=== PATIENT | female | born 1935 | race Caucasian/White ===

== ENCOUNTER 2019-01-21 15:33 | Emergency (ER) | payer OTHER, BC ==
--- NOTE | 2019-01-21 16:12 | EKG ---
Test Date: 2019-01-21 Test Time: 16:03:46 General Intern: ROSA M MEASUREMENT RESULTS: Intervals: Rate: 75 UT: 144 QRSD: 132 QT: 420 QTc: 469 Spring: P: 49 UT: 144 QRS: 60 T: 57 INTERPRETIVE STATEMENTS: Normal sinus rhythm Right bundle branch block Possible Lateral infarct, age undetermined Abnormal ECG Compared to ECG 07/20/2012 13:31:44 Right bundle-branch block now present Myocardial infarct finding now present Electronically Signed On 01-21-19 16:11:42 CDT by Parminder Mercer
--- NOTE | 2019-01-21 16:13 | RAD REPORT ---
EXAM DESCRIPTION: RAD - Chest Single View - 01/21/2019 4:05 pm CLINICAL HISTORY: Fall, chest pain COMPARISON: March 2010 TECHNIQUE: AP portable chest image was obtained 1602 hours . FINDINGS: Lung volumes are much more shallow than on the prior study. Interstitial markings are prom inent throughout both lung jimenez. No peripheral mass consolidation. No pulmonary contusion. Cardiac silhouette is upper normal slightly enlarged. No acute vascular engorgement. No measurable pleural ef fusion and no pneumothorax. Bony degenerative changes are present without gross acute process seen. A ortic tortuosity is present. IMPRESSION: Shallow inspiration film shows prominent interstitial pattern lead to be baseline fibrot ic change accentuated by the low lung volumes. Chronic lung pattern could mask earliest stages of interstitial edema or infiltrate. No focal consoli dation.
[2019-01-21 16:24] LABS: Absolute Lymphocytes (CBC) 1.5 K/uL (0.7-4.9); Absolute Monocytes 0.6 K/uL (0.1-1.3); Absolute Neutrophil 3.9 K/uL (1.8-8.0); Basophils % 0.6 % (0-1.3); Eosinophils % 1.2 % (0-4.4); Hematocrit 37.7 % (36.0-45.0); Lymphocytes % 24.3 % (15.3-44.8); MPV 7.7 fL (7.6-11.3); Monocytes % 9.5 % (3.3-12.3); Protime INR 0.96; RBC Red Blood Cell Count 4.09 M/uL (3.86-4.86)
--- NOTE | 2019-01-21 16:37 | RAD REPORT ---
EXAM DESCRIPTION: CT - CTHCSPWOC - 01/21/2019 4:24 pm CLINICAL HISTORY: Fall, head and neck injury, right-sided head, neck and arm pain, right arm numbnes s COMPARISON: None. TECHNIQUE: Axial 5 mm thick images of the head were obtained. Axial 2 mm thick images of the cervic al spine were obtained with sagittal and coronal reconstruction images generated and reviewed. All CT scans are performed using dose optimization technique as appropriate and may include automated exposure control or mA/KV adjustment according to patient size. FINDINGS: No intracranial hemorrhage, mass, edema or acute intracranial finding. No suspicion for acute infarct ion. No extra-axial fluid collections. Mastoid air cells and paranasal sinuses are clear. No globe or orbit abnormality seen. Moderate severity atrophy and chronic ischemic changes are present. Ventricl es are in proportion to volume loss. Arterial and physiologic calcifications are present. Small right frontal scalp hematoma is present. Minimal anterior subluxation of C3 on C4 secondary to facet degenerative change. Degenerative disc di sease present C4-5, C5-6 and C6-7. Nonacute height loss noted in the C5 body and mildly in the C6 bod y. There is posterior endplate spurring and disc bulge Ms. C4-C6 region. Mild left foraminal stenosis at C4-5. Right greater than left foraminal stenosis at C5-6 and significant bilateral C6-7 foraminal stenosis. There degenerative calcifications of the transverse ligament posterior to the dens. No oth er disc space narrowing. No fracture or acute bony abnormality. Central canal detail is inherently li mited. There is reversal of the usual cervical lordosis with the apex at C5. This could be from degen erative change, muscle spasm or positioning artifact. No paraspinal mass or hematoma. IMPRESSION: Moderate severity atrophy and chronic ischemic changes are present with no acute intracr anial finding. A right frontal scalp hematoma is present. Advanced cervical spine degenerative changes are present as detailed. No acute finding noted.
[2019-01-21 16:43] LABS: ALT/SGPT 23 U/L (12-78); AST/SGOT 22 U/L (15-37); Albumin 3.7 g/dL (3.4-5.0); Alkaline Phosphatase 55 U/L (45-117); BUN Blood Urea Nitrogen 19 mg/dL (7-18); Bicarbonate 27 mmol/L (21-32); Bilirubin Direct < 0.1 mg/dL (0-0.2); Bilirubin Total 0.4 mg/dL (0.2-1.0); Glucose Level 122 mg/dL (74-106); Magnesium 2.3 mg/dL (1.8-2.4); NT PRO-BNP 271 pg/mL (<450); Potassium 3.7 mmol/L (3.5-5.1); Sodium Level 145 mmol/L (136-145); Troponin (Emerg Dept Use Only) < 0.02 ng/mL (0.0-0.045)
--- NOTE | 2019-01-21 17:53 | EDPHYS ---
Physician Documentation [facility] Name: Mignon Plunkett Age: 83 yrs Sex: Female : 1935 Arrival Date: 01/21/2019 Time: 15:36 Bed 24 Private MD: Tal Bran ED Physician Catrachito Babb HPI: 01/21 17:53 This 83 yrs old Female presents to ER via Ambulatory with complaints of fall, kdr head injury and numbness to left finger tips. 17:53 The patient or guardian reports injury, pain, swelling, tenderness. The complaints kdr affect the middle aspect of right eyebrow, outer aspect of right eyebrow and right supraorbital ridge. Context of injury: The problem was sustained at home, resulted from impacting a hard surface, hitting tile, The patient bent over to look at something on the floor and next thing she knows, she had fallen on her face. She had a beig hematoma over her right eye. She now has a lot of dependent ecchymosis around the right eye. Onset: The symptoms/episode began/occurred suddenly, 2 day(s) ago. Associated signs and symptoms: The patient has no apparent associated signs or symptoms, Loss of consciousness: Pertinent positives: Unknown LOC. Severity of symptoms: At their worst the symptoms were mild, in the emergency department the symptoms have improved, moderately. The patient has not experienced similar symptoms in the past. The patient has not recently seen a physician. Historical: - Allergies: 15:48 No Known Drug Allergies; tw2 - PMHx: 15:48 Cancer, Breast; High Cholesterol; tw2 - PSHx: 15:48 Lumpectomy; Hysterectomy; Bladder suspension; L foot sx; Varicose veins; L knee tw2 replacement; - Immunization history:: Adult Immunizations. - Social history:: Smoking status: . - Ebola Screening: : Patient denies travel to an Ebola-affected area in the 21 days before illness onset. ROS: 17:53 Constitutional: Negative for fever, chills, and weight loss, ENT: Negative for injury, kdr pain, and discharge, Neck: Negative for injury, pain, and swelling, Cardiovascular: Negative for chest pain, palpitations, and edema, Respiratory: Negative for shortness of breath, cough, wheezing, and pleuritic chest pain, Abdomen/GI: Negative for abdominal pain, nausea, vomiting, diarrhea, and constipation, Back: Negative for injury and pain, : Negative for injury, bleeding, discharge, and swelling, MS/Extremity: Negative for injury and deformity, Skin: Negative for injury, rash, and discoloration, Neuro: Negative for headache, weakness, numbness, tingling, and seizure activity. Psych: Negative for depression, anxiety, suicide ideation, homicidal ideation, and hallucinations, Allergy/Immunology: Negative for hives, rash, and allergies, Endocrine: Negative for neck swelling, polydipsia, polyuria, polyphagia, and marked weight changes, Hematologic/Lymphatic: Negative for swollen nodes, abnormal bleeding, and unusual bruising. 17:53 Eyes: Positive for Ecchymosis around right eye. Exam: 17:53 Constitutional: This is a well developed, well nourished patient who is awake, alert, kdr and in no acute distress. Head/Face: Normocephalic, atraumatic. ENT: Nares patent. No nasal discharge, no septal abnormalities noted. Tympanic membranes are normal and external auditory canals are clear. Oropharynx with no redness, swelling, or masses, exudates, or evidence of obstruction, uvula midline. Mucous membranes moist. Neck: Trachea midline, no thyromegaly or masses palpated, and no cervical lymphadenopathy. Supple, full range of motion without nuchal rigidity, or vertebral point tenderness. No Meningismus. Chest/axilla: Normal chest wall appearance and motion. Nontender with no deformity. No lesions are appreciated. Cardiovascular: Regular rate and rhythm with a normal S1 and S2. No gallops, murmurs, or rubs. Normal PMI, no JVD. No pulse deficits. Respiratory: Lungs have equal breath sounds bilaterally, clear to auscultation and percussion. No rales, rhonchi or wheezes noted. No increased work of breathing, no retractions or nasal flaring. Abdomen/GI: Soft, non-tender, with normal bowel sounds. No distension or tympany. No guarding or rebound. No evidence of tenderness throughout. Back: No spinal tenderness. No costovertebral tenderness. Full range of motion. Skin: Warm, dry with normal turgor. Normal color with no rashes, no lesions, and no evidence of cellulitis. MS/ Extremity: Pulses equal, no cyanosis. Neurovascular intact. Full, normal range of motion. Neuro: Awake and alert, GCS 15, oriented to person, place, time, and situation. Cranial nerves II-XII grossly intact. Motor strength 5/5 in all extremities. Sensory grossly intact. Cerebellar exam normal. Normal gait. Psych: Awake, alert, with orientation to person, place and time. Behavior, mood, and affect are within normal limits. Vital Signs: 15:46 BP 153 / 64; Pulse 94; Resp 17; Temp 98.7; Pulse Ox 98% on R/A; Weight 54.43 kg (R); tw2 Height 5 ft. 0 in. (152.40 cm) (R); Pain 0/10; 17:16 Pulse 71; Resp 18; Temp 98.7; Pulse Ox 97% on R/A; mg2 18:16 BP 145 / 76; Pulse 70; Resp 18; Temp 98.8(O); Pulse Ox 100% ; Pain 0/10; mg2 15:46 Body Mass Index 23.44 (54.43 kg, 152.40 cm) tw2 Cris Coma Score: 17:53 Eye Response: spontaneous(4). Verbal Response: oriented(5). Motor Response: obeys [facility] commands(6). Total: 15. MDM: 17:52 Patient medically screened. kdr 17:53 Data reviewed: vital signs, nurses notes. Counseling: I had a detailed discussion with kdr the patient and/or guardian regarding: the historical points, exam findings, and any diagnostic results supporting the discharge/admit diagnosis, lab results, radiology results, the need for outpatient follow up. 01/21 15:54 Order name: Basic Metabolic Panel [facility] 01/21 15:54 Order name: CBC with Diff [facility] 01/21 15:54 Order name: LFT's [facility] 01/21 15:54 Order name: Magnesium; Complete Time: 17:04 [facility] 01/21 15:54 Order name: NT PRO-BNP; Complete Time: 17:04 [facility] 01/21 15:54 Order name: PT-INR; Complete Time: 16:39 [facility] 01/21 15:54 Order name: CT Head C Spine; Complete Time: 16:39 [facility] 01/21 15:54 Order name: Troponin (emerg Dept Use Only); Complete Time: 17:04 [facility] 01/21 15:54 Order name: XRAY Chest (1 view); Complete Time: 16:39 [facility] 01/21 15:54 Order name: EKG; Complete Time: 15:55 [facility] 01/21 15:54 Order name: Cardiac monitoring; Complete Time: 16:05 [facility] 01/21 15:55 Order name: Basic Metabolic Panel; Complete Time: 17:04 [facility] 01/21 15:55 Order name: CBC with Automated Diff; Complete Time: 16:39 [facility] 01/21 15:55 Order name: Liver (Hepatic) Function; Complete Time: 17:04 [facility] 01/21 15:54 Order name: EKG - Nurse/Tech; Complete Time: 16:04 [facility] 01/21 15:54 Order name: IV Saline Lock; Complete Time: 16:04 [facility] 01/21 15:54 Order name: Labs collected and sent; Complete Time: 16:04 [facility] 01/21 15:54 Order name: O2 Per Protocol; Complete Time: 16:04 [facility] 01/21 15:54 Order name: O2 Sat Monitoring; Complete Time: 16:04 [facility] Administered Medications: No medications were administered Disposition: 01/21/19 17:52 Discharged to Home. Impression: Superficial injury of head, Contusion right supraorbital/forehead. - Condition is Stable. - Discharge Instructions: Head Injury, Adult, [id number]. - Medication Reconciliation Form, Thank You Letter form. - Follow up: Tal Bran MD; When: 2 - 3 days; Reason: If symptoms return, Further diagnostic work-up, Recheck today's complaints, Continuance of care, Re-evaluation by your physician. - Problem is new. - Symptoms have improved. Signatures: Dispatcher [employer] EDMS Catrachito Babb MD MD kdr Valerie Bray, RN RN tw2 Dev Alvarez, ASHLEY RN mg2 Corrections: (The following items were deleted from the chart) 18:23 17:52 01/21/2019 17:52 Discharged to Home. Impression: Superficial injury of head; mg2 Contusion right supraorbital/forehead. Condition is Stable. Forms are Medication Reconciliation Form, Thank You Letter, Antibiotic Education, Prescription Opioid Use. Follow up: Tal Bran; When: 2 - 3 days; Reason: If symptoms return, Further diagnostic work-up, Recheck today's complaints, Continuance of care, Re-evaluation by your physician. Problem is new. Symptoms have improved. kdr
--- NOTE | 2019-01-21 17:53 | ER ---
Nurse's Notes [facility] Name: Mignon Plunkett Age: 83 yrs Sex: Female : 1935 Arrival Date: 01/21/2019 Time: 15:36 Bed 24 Private MD: Tal Bran Diagnosis: Superficial injury of head;Contusion right supraorbital/forehead Presentation: 01/21 15:44 Presenting complaint: Patient states: i started having numbness in right arm has gotten tw2 worse since Thursday, i fell Thursday evening and my head hit the ceramic tile. Transition of care: patient was not received from another setting of care. Onset of symptoms was January 21, 2019. Risk Assessment: Do you want to hurt yourself or someone else? Patient reports no desire to harm self or others. Initial Sepsis Screen: Does the patient meet any 2 criteria? No. Patient's initial sepsis screen is negative. Does the patient have a suspected source of infection? No. Patient's initial sepsis screen is negative. Care prior to arrival: None. 15:44 Method Of Arrival: Ambulatory tw2 15:44 Acuity: ELY 2 tw2 15:47 Presenting complaint: Patient states: my fingers feel numb and if i waste picker a spoon i tw2 drop it and it just has gotten worse. Triage Assessment: 15:47 General: Appears in no apparent distress. well groomed, Behavior is calm, cooperative, tw2 appropriate for age. Pain: Complains of pain in right hand. EENT: Eyes black eye noted to RIGHT eye. Historical: - Allergies: 15:48 No Known Drug Allergies; tw2 - PMHx: 15:48 Cancer, Breast; High Cholesterol; tw2 - PSHx: 15:48 Lumpectomy; Hysterectomy; Bladder suspension; L foot sx; Varicose veins; L knee tw2 replacement; - Immunization history:: Adult Immunizations. - Social history:: Smoking status: . - Ebola Screening: : Patient denies travel to an Ebola-affected area in the 21 days before illness onset. Screenin:04 Abuse screen: Denies threats or abuse. Denies injuries from another. Nutritional mg2 screening: No deficits noted. Tuberculosis screening: No symptoms or risk factors identified. Fall Risk Fall in past 12 months (25 points). IV access (20 points). Assessment: 16:04 General: Appears in no apparent distress. comfortable, Behavior is calm, cooperative. mg2 Pain: Denies pain. Neuro: Level of Consciousness is awake, alert, obeys commands, Oriented to person, place, time, situation. Neuro: Reports numbness in right hand since before Thursday this week. Cardiovascular: Capillary refill < 3 seconds Patient's skin is warm and dry. Respiratory: Airway is patent Respiratory effort is even, unlabored, Respiratory pattern is regular, symmetrical. GI: No signs and/or symptoms were reported involving the gastrointestinal system. : No signs and/or symptoms were reported regarding the genitourinary system. EENT: Eyes bruising noted in both eyes. Derm: Skin is intact, is healthy with good turgor, Skin is pink, warm \T\ dry. normal. Musculoskeletal: Circulation, motion, and sensation intact. Capillary refill < 3 seconds. 18:16 Reassessment: Josette-Attgm was phoned to inform about the patient's condition. Patient mg2 states feeling better. Vital Signs: 15:46 BP 153 / 64; Pulse 94; Resp 17; Temp 98.7; Pulse Ox 98% on R/A; Weight 54.43 kg (R); tw2 Height 5 ft. 0 in. (152.40 cm) (R); Pain 0/10; 17:16 Pulse 71; Resp 18; Temp 98.7; Pulse Ox 97% on R/A; mg2 18:16 BP 145 / 76; Pulse 70; Resp 18; Temp 98.8(O); Pulse Ox 100% ; Pain 0/10; mg2 15:46 Body Mass Index 23.44 (54.43 kg, 152.40 cm) tw2 Cris Coma Score: 17:53 Eye Response: spontaneous(4). Verbal Response: oriented(5). Motor Response: obeys kdr commands(6). Total: 15. ED Course: 15:36 Patient arrived in ED. rg4 15:36 Tal Bran MD is Private Physician. rg4 15:39 Catrachito Babb MD is Attending Physician. kdr 15:46 Triage completed. tw2 15:46 Arm band placed on. tw2 15:56 Dev Alvarez RN is Primary Nurse. mg2 16:03 EKG done, by desktop technician. reviewed by Catrachito Babb MD. dt2 16:04 X-ray completed. Portable x-ray completed in exam room. Patient tolerated procedure mh1 well. 16:06 XRAY Chest (1 view) In Process Unspecified. EDMS 16:07 No provider procedures requiring assistance completed. Inserted saline lock: 20 gauge mg2 in left antecubital area, using aseptic technique. Blood collected. [facility] geophysical support specialist. 16:08 Patient has correct armband on for positive identification. Door closed. Warm blanket mg2 given. 16:24 CT Head C Spine In Process Unspecified. EDMS 17:51 Tal Bran MD is Referral Physician. kdr 18:16 IV discontinued, intact, bleeding controlled, No redness/swelling at site. Pressure mg2 dressing applied. Administered Medications: No medications were administered Outcome: 17:52 Discharge ordered by MD. kdr 18:17 Discharged to home via wheelchair. mg2 18:17 Condition: stable 18:17 Discharge instructions given to patient, Instructed on discharge instructions, follow up and referral plans. Demonstrated understanding of instructions, follow-up care. 18:23 Patient left the ED. mg2 Signatures: Dispatcher [employer] EDNC Catrachito Babb MD MD kdr Alexandrea Chino mh1 Valerie Bray RN RN tw2 Sade Porter 4 Dev Alvarez, RN RN mg2 Esther Sellers dt2 Corrections: (The following items were deleted from the chart) 16:09 16:07 Inserted saline lock: [place] geophysical support specialist mg2 mg2
== END 2019-01-21 18:23 | disposition home or self-care (01) ==
LOC: ER 15:33
DX: S00.11XA Contusion of right eyelid and periocular area, initial encounter (principal); S00.90XA Unspecified superficial injury of unspecified part of head, initial encounter; W01.0XXA Fall on same level from slipping, tripping and stumbling without subsequent striking against object, initial encounter; Y93.89 Activity, other specified; Y92.009 Unspecified place in unspecified non-institutional (private) residence as the place of occurrence of the external cause; C50.919 Malignant neoplasm of unspecified site of unspecified female breast; E78.00 Pure hypercholesterolemia, unspecified
CPT/HCPCS: 36415; 70450; 71045; 72125; 80048; 80076; 83735; 83880; 84484; 85025; 85610; 93005; 99284

== ENCOUNTER 2020-03-09 18:20 | Emergency (ER) | payer OTHER, BC ==
--- NOTE | 2020-03-09 19:19 | RAD REPORT ---
EXAM DESCRIPTION: CT - Head C Spine Mpr Wo Con - 03/09/2020 7:08 pm CLINICAL HISTORY: Head and neck injury status post fall. Head and neck pain COMPARISON: 2018 TECHNIQUE: Computed axial tomography of the head and cervical spine was obtained. Sagittal and coronal reconstruction was performed. All CT scans are performed using dose optimization technique as appropriate and may include automated exposure control or mA/KV adjustment according to patient size. FINDINGS: Frontal scalp hematoma. No underlying skull fracture visualized 14 millimeter bleed within the parenchyma of the left frontal lobe. No shift of midline structures. Moderate low-density areas within periventricular, deep and subcortical white matter likely ischemic changes secondary to small vessel disease The ventricles are normal in caliber. An extra-axial fluid collection is not noted.Fluid within the visualized sinuses and mastoids is not seen Mild anterior subluxation C2 on C3 and C3 on C4 without significant change A cervical fracture is not visualized. No dislocation is noted. Moderate to marked spondylosis involv es mid and distal cervical spine IMPRESSION: 14 millimeter intraparenchymal bleed left frontal lobe A cervical fracture is not visualized. If the patient continues to have symptoms to sugges /spinal c ord pathology then MRI would be recommended The examination was discussed with Kenzie in the Emergency Room at approximately 7:04 p.m. March 09, 2020
--- NOTE | 2020-03-09 19:27 | RAD REPORT ---
EXAM DESCRIPTION: CT - Facial Bones W/ Mpr - 03/09/2020 7:08 pm CLINICAL HISTORY: Facial injury status post fall. Facial pain COMPARISON: none TECHNIQUE: Computed axial tomography of the face was obtained. Coronal and sagittal reconstruction w as performed. All CT scans are performed using dose optimization technique as appropriate and may include automated exposure control or mA/KV adjustment according to patient size. FINDINGS: Left preseptal/cheek swelling. A fracture is not seen. A TMJ dislocation is not noted. The globes are intact. Fluid within the sinuses is not seen. Lucency surrounds a left mandibular tooth probably a periapical abscess IMPRESSION: Negative for a facial fracture.
[2020-03-09 19:34] LABS: Absolute Lymphocytes (CBC) 1.7 K/uL (0.7-4.9); Basophils % 0.6 % (0-1.3); Hematocrit 36.4 % (36.0-45.0); Lymphocytes % 24.5 % (15.3-44.8); MPV 7.5 fL (7.6-11.3); RBC Red Blood Cell Count 4.09 M/uL (3.86-4.86)
--- OUTSIDE RECORDS SUMMARY | 2020-03-09 19:36 | XMS REPORT | Continuity of Care Document ---
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 Mi marilyn disease (disorder) N euro Recurrent falls Active Problem 03/09/2020 Mis erik (finding) Neuro Dementia Active Problem 03/09/2020 [facility] (disorder) Neuro Medications Medication Details Route Status Patient Ordering Order Source Instructions Provider Date Donepezil 5 mg = 1 Active [facility] hydrochloride 5 tab, PO, 020 Neuro MG Oral Tablet Bedtime, [Aricept] # 30 tab, 3 Refill(s) , [id number], 147.32, cm, 01/24/20 16:10:00 CDT, Height, 55.909, kg, 01/24/20 16:10:00 CDT, Weight Prolia 60 mg, Active [facility] SUB-Q, 020 Neuro q6mo, 0 Refill(s) Aspirin 1, PO, Active [facility] Daily, 0 020 Neuro Refill(s) fexofenadine Take 180 Oral Active [facility] (YAS mg by Health ALLERGY) 180 mg mouth tablet daily. calcium Take 1 Oral Active [facility] carbonate-vitam tablet by Health in D3 (CALTRATE mouth 2 600 + D) 600 mg (two) (1,500 mg)-800 times unit per tablet daily with meals. denosumab inject 60 Subcutaneous Active [facility] (PROLIA) 60 mg under Health mg/mL injection the skin. red yeast rice Take 1 Oral Active [facility] 600 mg Tab tablet by Health mouth 2 (two) times daily. Allergies, Adverse Reactions, Alerts Substance Category Reaction Severity Reaction Status Date Comments S ource type Reported Statins-Hmg- Other - Propensity Active [facility] Coa See to adverse 9 Healt h Reductase comments reactions Inhibitors statins Assertion Drug Active Mische r allergy Neuro Immunizations No Data Provided for This Section Results No Data Provided for This Section Pathology Reports No Data Provided for This Section Diagnostic Reports No Data Provided for This Section Consultation Notes No Data Provided for This Section Discharge Summaries No Data Provided for This Section History and Physicals No Data Provided for This Section Vital Signs Vital Sign Value Date Comments Source Systolic (mm Hg) 101 03/06/2020 [facility] Tawana ro Diastolic (mm Hg) 57 [facility] Heart Rate 87 03/06/2020 [facility] Neuro Respitory Rate 16 03/06/2020 [facility] Neuro Temperature Oral (F) 98.2 F 03/06/2020 [facility] Neuro Height 147.32 cm 03/06/2020 [facility] Neuro Weight 56.364 03/06/2020 [facility] Neuro BMI Calculated 25.97 03/06/2020 [facility] Neuro Systolic (mm Hg) 124 01/24/2020 [facility] Tawana ro Diastolic (mm Hg) 66 01/24/2020 [facility] Ne uro Heart Rate 81 01/24/2020 [facility] Neuro Respitory Rate 16 01/24/2020 [facility] Neuro Temperature Oral (F) 98.8 F 01/24/2020 [facility] Neuro Height 147.32 cm 01/24/2020 [facility] Neuro Weight 55.909 01/24/2020 [facility] Neuro BMI Calculated 25.76 01/24/2020 [facility] Neuro Encounters Location Location Encounter Encounter Reason Attending ADM DC Stat us Source Details Type Number For Provider Date Date Visit [facility] Orders Only [id number] No Doctor 05/05 [facility] Unassigned [facility] Telephone [id number] Ramiro 05/20 [facility] Health Ramesh HAHN [facility] Orders Only [id number] No Doctor 05/31 [facility] Unassigned [facility] Telephone [id number] Ramiro 01/22 [facility] Health Ramesh HAHN [id number] Tal Bran 01/23 01/24 [facility] Neurology /2019 Neuro [place] [facility] [id number] Chris Moy 03/06 Rohit sanchez [place] [facility] [id number] Tal Bran 03/06 03/07 [facility]2019 Neuro [place] Out[place] [id number] Chris Kreric 06/06 Ac ti [facility] Outpatient [id number] Chris Krell 06/06 [facility] [place] Procedures Procedure Code Date Perfomer Comments Source COGNITIVE [id number] 05/31/2019 Doctor [facility] [place] [id number] 05/06/2019 Doctor [facility] Health BENEFITS Unassigned Hysterectomy [id number] [facility] Neuro Knee replacement [id number] [facility] Neuro Assessment and Plan No Data Provided for This Section Plan of Care Plan of Care Date Source INFLUENZA VACCINE (Season Ended) 2020 [facility] Upcoming EncountersDateTypeSpecialtyCare TeamDescription 06/2019 [facility] Health 05/31/2019 Office Visit Neurology Ramiro Chandler MD[address] [place] [phone] (Fax) Health MaintenanceDue DateLast DoneComments DTaP,Tdap,and Td Vaccines (1 - Tdap) 1953 Zoster Recombinant Vaccine (SHINGRIX) (1 of 2) 02/20/1984 Medicare Wellness Visit 1999 Osteoporosis Screening 1999 PNEUMOCOCCAL VACCINES 65+ (1 of 2 - PCV13) 1999 INFLUENZA VACCINE (#1) 2019 documented as of this encounter INFLUENZA VACCINE (#1) 2019 [facility] Upcoming EncountersDateTypeSpecialtyCare TeamDescription [facility] Health 05/05/2019 Appointment Radiology Ramiro Chandler MD[address] [place] [phone] (Fax) Health MaintenanceDue DateLast DoneComments DTaP,Tdap,and Td Vaccines (1 - Tdap) 1953 Zoster Recombinant Vaccine (SHINGRIX) (1 of 2) 02/20/1984 Medicare Wellness Visit 1999 Osteoporosis Screening 1999 PNEUMOCOCCAL VACCINES 65+ (1 of 2 - PCV13) 1999 INFLUENZA VACCINE (#1) 2019 documented as of this encounter PNEUMOCOCCAL VACCINES 65+ (1 of 2 - PCV13) 1999 [facility] Medicare Wellness Visit 1999 [facility] Health Osteoporosis Screening 1999 [facility] Zoster Recombinant Vaccine (SHINGRIX) (1 of 2) 02/20/1984 [facility] DTaP,Tdap,and Td Vaccines (1 - Tdap) 1953 [facility] Health DTaP,Tdap,and Td Vaccines (1 - Tdap) 1945 [facility] B Health Social History Social History Date Source Social History TypeResponse 01/24/2020 [facility] o Alcohol 1 Employment/School 2, 3 Smoking Status Unknown if ever smoked; 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 Bran-PCP, Josette Robb-Daughter, Rosalva Robb- [id number]- Josette Stormjessica-Daughter Tobacco UseTypesPacks/DayYears UsedDate 01/24/2020 [facility] Never Assessed Sex Assigned at BirthDate Recorded Not on file Job Start DateOccupationIndustry Not on file Not on file Not on file Travel HistoryTravel StartTravel End No recent travel history available. documented as of this encounter Family History No Data Provided for This Section Advance Directives No Data Provided for This Section Functional Status No Data Provided for This Section
--- OUTSIDE RECORDS SUMMARY | 2020-03-09 19:36 | XMS REPORT | Clinical Summary ---
:1935 Author Organization [facility] Address [address] [place] [address] Care Team Providers Name Role Phone Asked, No Pcp Primary Care Provider Unavailable Allergies No Known Allergies Medications Medication Sig Dispensed Refills Start Date End Date Status ibuprofen Take 200 mg by 0 Activ e (ADVIL,MOTRIN) 200 MG mouth every 6 tablet (six) hours as needed for mild pain. Active Problems Not on file Social History Tobacco Use Types Packs/Day Years Used Date Never Assessed Sex Assigned at Date Recorded Not on file Job Start Date Occupation Industry Not on file Not on file Not on file Travel History Travel Start Travel End No recent travel history available. 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
--- OUTSIDE RECORDS SUMMARY | 2020-03-09 19:37 | XMS REPORT | Summary of Care ---
:1935 Author Organization [facility] Address [address] [place] [address]- Encounter HQ Jacey(FARHAN) [id number] Date(s): 03/06/20 - 03/06/20 [facility] [address], [place] [address]- [phone] Discharge Disposition: Home or Self Care Attending Physician: Chris Moy MD Referring Physician: Tal Bran MD Vital Signs Most recent to oldest [Reference Range]: 1 Height 147.32 cm (03/06/20 1:30 PM) Temperature Oral [96.4-99.1 DegF] 98.2 DegF (03/06/20 1:30 PM) Blood Pressure [90-140/60-90 mmHg] 101/57 mmHg (03/06/20 1:30 PM) Respiratory Rate [14-20 BRMIN] 16 BRMIN (03/06/20 1:30 PM) Peripheral Pulse Rate [60-100 bpm] 87 bpm (03/06/20 1:30 PM) Weight 56.364 kg (03/06/20 1:30 PM) Body Mass Index 25.97 m2 (03/06/20 1:30 PM) Problem List Condition Effective Dates Status Health Status Informant Memory loss(Confirmed) Active Dementia(Confirmed) Active Hyperlipidemia(Confirmed) Active Neuropathy, peripheral(Confirmed) Active Falls frequently(Confirmed) Active Allergies, Adverse Reactions, Alerts Substance Reaction Severity Status statins Active Medications Aricept 5 mg oral tablet 5 mg = 1 tab, PO, Bedtime, # 30 tab, 3 Refill(s), Pharmacy: [facility] #[id number], 147.32, cm, 01/24/2016:10:00 CDT, Height, 55.909, kg, 01/24/20 16:10:00 CDT, Weight Start Date: 03/06/20 Stop Date: 07/04/20 Status: Ordered Results No data available for this section Immunizations No data available for this section Procedures Procedure Date Related Diagnosis Body Site Status Hysterectomy Completed Knee replacement Completed Social History Social History Type Response Alcohol 1 Employment/School 2, 3 Smoking Status Unknown if ever smoked; Expo sure to Tobacco Smoke Unable to obtain; Cigarette Smoking Last 365 Days Unable to obtain; Reg Smoking Cessation Counseling No entered on: 03/06/20 1occasional 1 [id number] release medical information Dr. Bran-PCP, Josette Robb-Daughter, Rosalva Robb- [id number]- Josette Robb-Daughter Assessment and Plan No data available for this section
--- OUTSIDE RECORDS SUMMARY | 2020-03-09 19:37 | XMS REPORT | Continuity of Care Document ---
:1935 Author Organization [facility] t Address [address] [place] [address] Care Team Providers Name Role Phone Asked, Pcp Primary Care Physician Unavailable Sudeep Moy Attending Clinician Ramesh HAHN, Gene Attending Clinician Doctor Unassigned, Name Attending Clinician Unavailable Problems Condition Condition Condition Status Onset Resolution Last Treating Co mments Source Name Details Category Date Date Treatment Clinician Date Amnesia Problem Active 2020-03-09 Amari maryjo (finding) 00:58:04 l Amnesia Piero (finding) Active Problem 03/09/2020 [facility] Hyperlipid Problem Active 2020-03-09 M emoria emia 00:58:04 l (disorder) Hu n Hyperlipid emia (disorder) Active Problem 03/09/2020 [facility] Peripheral Problem Active 2020-03-09 M emoria nerve 00:58:04 l disease [place] (disorder) Peripheral nerve disease (disorder) Active Problem 03/09/2020 [facility] Recurrent Problem Active 2020-03-09 Me moria falls 00:58:04 l (finding) [place] Recurrent falls (finding) Active Problem 03/09/2020 [facility] Dementia Problem Active 2020-03-09 Mem oria (disorder) 00:58:04 l Dementia Hu n (disorder) Active Problem 03/09/2020 [facility] Allergies, Adverse Reactions, Alerts Allergy Allergy Status Severity Reaction(s) Onset Inactive Treating Comm ents Source Name Type Date Date Clinician Statins- Statins- Active Other - See M emoria Hmg-Coa Hmg-Coa comments 23 l Reductas Reductas 00:00: Hu n e e 00 Inhibito Inhibito rs rs statins statins Active Memoria l Piero Social History Social Habit Start Date Stop Date Quantity Comments Source Sex Assigned At [facility] M ethodist Social History 2020-01-24 2020-01-24 [facility] ermann 21:23:26 21:23:26 Medications Ordered Filled Start Stop Current Ordering Indication Dosage Frequency Signature Comments Components Source Medication Medication Date Date Medication? Clinician (SIG) Name Name Donepezil Yes 5 mg = 1 Amari maryjo hydrochlori 6-23 tab, PO, l de 5 MG 18:37: Bedtime, # Herm venkatesh Oral Tablet 00 30 tab, 3 [Aricept] Refill(s), Pharmacy: [facility] #6704, 147.32, cm, 01/24/20 16:10:00 CDT, Height, 55.909, kg, 01/24/20 16:10:00 CDT, Weight Prolia 2019- Yes 60 mg, Memoria 5-12 SUB-Q, l 21:17: q6mo, 0 Piero 00 Refill(s) Aspirin Yes 1, PO, Memoria 5-12 Daily, 0 l 21:17: Refill(s) [place] 00 fexofenadin Yes Take 180 Me moria e (YAS 5-12 mg by l ALLERGY) 15:24: mouth Piero 180 mg 30 daily. tablet calcium Yes Take 1 Memoria carbonate-v 5-12 tablet by l itamin D3 15:24: mouth 2 Ermelinda nn (CALTRATE 30 (two) 600 + D) times 600 mg daily with (1,500 meals. mg)-800 unit per tablet denosumab Yes inject 60 Mem oria (PROLIA) 60 5-12 mg under l mg/mL 15:24: the skin. Piero injection 30 red yeast Yes Take 1 Memori a rice 600 mg 5-12 tablet by l Tab 15:24: mouth 2 [place] 30 (two) times daily. ibuprofen Yes 200mg Q6H Take 200 Abida ston (ADVIL,MOTR 5-15 mg by Methodi IN) 200 MG 13:40: mouth st tablet 50 every 6 (six) hours as needed for mild pain. Vital Signs Vital Name Observation Time Observation Value Comments Source Systolic (mm Hg) 2020-03-06 18:30:00 Amari rial [place] Diastolic (mm Hg) 2020-03-06 18:30:00 Mem orial [place] Heart Rate 2020-03-06 18:30:00 Memorial [place] Respitory Rate 2020-03-06 18:30:00 Memori al Piero Temperature Oral (F) 2020-03-06 18:30:00 98.2 F [facility] [place] Height 2020-03-06 18:30:00 147.32 cm [facility] [place] Weight 2020-03-06 18:30:00 [facility] [place] BMI Calculated 2020-03-06 18:30:00 Memori al [place] Systolic (mm Hg) 2020-01-24 21:10:00 Amari rial [place] Diastolic (mm Hg) 2020-01-24 21:10:00 Mem orial [place] Heart Rate 2020-01-24 21:10:00 [facility] [place] Respitory Rate 2020-01-24 21:10:00 Memori al [place] Temperature Oral (F) 2020-01-24 21:10:00 98.8 F [facility] [place] Height 2020-01-24 21:10:00 147.32 cm [facility] [place] Weight 2020-01-24 21:10:00 [facility] [place] BMI Calculated 2020-01-24 21:10:00 Memori al Piero Procedures Procedure Date / Time Performed Performing Clinician [facility] e COGNITIVE ASSESSMENT 2019-05-31 10:01:00 Doctor Unassigned, No [facility] Name ASSIGNMENT OF BENEFITS 2019-05-06 00:53:38 Doctor Unassigned, No [facility] Pier[facility] Name Hysterectomy [facility] Knee replacement [facility] Hu n Plan of Care Planned Activity Planned Date Details Comments Source Future Scheduled 2020-05-15 Plan of Care [code = Mem orial Piero Test 00:00:00 14881-8] Future Scheduled 2020-04-14 INFLUENZA VACCINE [place] [facility] 00:00:00 [code = INFLUENZA VACCINE] Future Scheduled 2019-05-24 Plan of Care [code = Mem orial [place] Test 15:09:18 71723-6] Future Scheduled 2019-05-15 Plan of Care [code = Mem orial [place] Test 00:00:00 98973-7] Future Scheduled 2019-05-05 Plan of Care [code = Mem orial [place] Test 19:53:41 68114-1] Future Scheduled 1999 65+ PNEUMOCOCCAL [facility] Test 00:00:00 VACCINE (1 of 2 - PCV13) [code = 65+ PNEUMOCOCCAL VACCINE (1 of 2 - PCV13)] Future Scheduled 1999 Plan of Care [code = Mem orial [place] Test 00:00:00 65780-8] Future Scheduled 1999 Medicare Annual Memorial [place] Test 00:00:00 Wellness Visit (procedure) [code = 920800376975962] Future Scheduled 1999 Screening for Memorial ermann Test 00:00:00 osteoporosis (procedure) [code = 232598983] Future Scheduled 1984-02-20 SHINGLES VACCINES (#1) [place] [facility] 00:00:00 [code = SHINGLES VACCINES (#1)] Future Scheduled 1984-02-20 Plan of Care [code = Mem orial [place] Test 00:00:00 81278-4] Future Scheduled 1953 Plan of Care [code = Mem orial [place] Test 00:00:00 54404-0] Future Scheduled 1945 Plan of Care [code = Mem orial Piero Test 00:00:00 95989-7] Encounters Start End Encounter Admission Attending Care Care Encounter Source Date/Time Date/Time Type Type Clinicians Facility Department ID 2020-03-06 2020-03-06 Outpatient CHARLY Moy [id number] 13:30:00 23:59:59 Chris 02 Sudeep 2020-01-24 2020-01-24 Outpatient CHARLY MoySCHMARK [id number] 15:45:00 23:59:59 Chris 01 Sudeep 2020-01-23 2020-01-23 Telephone ERIC Chandler [id number] 00:00:00 00:00:00 Ramiro Stewart [id number] [place] [id number] Dary [phone] [address] 2020-01-23 2020-01-23 Telephone ERIC Chandler [id number] 00:00:00 00:00:00 Ramiro Erazoton [id number] [place] [id number] Professio [phone] [address] 2019-05-31 2019-05-31 Orders Doctor DORY [id number] 00:00:00 00:00:00 Only Unassigned, LUIS [id number] [facility] [id number] [id number] [id number] 2019-05-31 2019-05-31 Orders Doctor DORY [id number] 00:00:00 00:00:00 Only Unassigned, LUIS [id number] [facility] [id number] [id number] [id number] 2019-05-20 2019-05-20 [facility] [id number] 00:00:00 00:00:00 Ramiro Erazoton [id number] [place] [id number] Professio [id number] [address] 2019-05-20 2019-05-20 [facility] [id number] 00:00:00 00:00:00 Ramiro Stewart [id number] [place] [id number] Professio [id number] [address] 2019-05-05 2019-05-05 Orders Doctor DORY [id number] 00:00:00 00:00:00 Only Unassigned, LUIS [id number] [facility] [id number] [id number] 2019-05-05 2019-05-05 Orders Doctor DORY [id number] 00:00:00 00:00:00 Only Unassigned, LUIS [id number] [place] [id number] [id number] [id number] Results This patient has no known results.
--- OUTSIDE RECORDS SUMMARY | 2020-03-09 19:37 | XMS REPORT | Summary of Care ---
:1935 Author Organization [facility] Address [address] [place] [address]- Encounter HQ Jacey(FARHAN) [id number] Date(s): 01/24/20 - 01/24/20 [facility] [address], [place] [address]- [phone] Discharge Disposition: Home or Self Care Attending Physician: Chris Moy MD Referring Physician: Tal Bran MD Vital Signs Most recent to oldest [Reference Range]: 1 Height 147.32 cm (01/24/20 4:10 PM) Temperature Oral [96.4-99.1 DegF] 98.8 DegF (01/24/20 4:10 PM) Blood Pressure [90-140/60-90 mmHg] 124/66 mmHg (01/24/20 4:10 PM) Respiratory Rate [14-20 BRMIN] 16 BRMIN (01/24/20 4:10 PM) Peripheral Pulse Rate [60-100 bpm] 81 bpm (01/24/20 4:10 PM) Weight 55.909 kg (01/24/20 4:10 PM) Body Mass Index 25.76 m2 (01/24/20 4:10 PM) Problem List Condition Effective Dates Status Health Status Informant Memory loss(Confirmed) Active Hyperlipidemia(Confirmed) Active Neuropathy, peripheral(Confirmed) Active Falls frequently(Confirmed) Active Allergies, Adverse Reactions, Alerts Substance Reaction Severity Status statins Active Medications aspirin 1, PO, Daily, 0 Refill(s) Start Date: 01/24/20 Status: OrderedProlia 60 mg, SUB-Q, q6mo, 0 Refill(s) Start Date: 01/24/20 Status: Ordered Results No data available for [...] Reg Smoking Cessation Counseling No entered on: 01/24/20 1occasional 1 [id number] release medical information Dr. Bran-PCP, Josette Robb-Daughter, Rosalva Robb- [id number]- Josette Robb-Daughter Assessment and Plan No data available for this section
[2020-03-09 19:41] LABS: Protime INR 0.91
--- NOTE | 2020-03-09 20:01 | ER ---
Nurse's Notes [facility] [place], [place] Name: Mignon Plunkett Age: 85 yrs Sex: Female : 1935 Arrival Date: 03/09/2020 Time: 18:23 Bed 15 Private MD: Sveta Bran C Diagnosis: Left Frontal intraparenchymal hemorrhage Presentation: 03/09 18:35 Chief complaint: Patient states: "I can't really remember what happened. I just ca1 remember seeing blood on the floor, I washed myself and went to bed. I am not having any pain right now". Bruise on L rastafari, L eye, inner canthus of R eye. Coronavirus screen: Proceed with normal triage. Patient denies a cough. Patient denies shortness of breath or difficulty breathing. Patient denies measured and/or subjective temperature greater than 100.4F prior to today's visit. Patient denies travel on a cruise ship or to a country the [facility] currently lists as an affected area. Patient denies contact with known and/or suspected case of COVID-19. Ebola Screen: Patient negative for fever greater than or equal to 101.5 degrees Fahrenheit, and additional compatible Ebola Virus Disease symptoms Patient denies exposure to infectious person. Patient denies travel to an Ebola-affected area in the 21 days before illness onset. No symptoms or risks identified at this time. Initial Sepsis Screen: Does the patient meet any 2 criteria? No. Patient's initial sepsis screen is negative. Does the patient have a suspected source of infection? No. Patient's initial sepsis screen is negative. Risk Assessment: Do you want to hurt yourself or someone else? Patient reports no desire to harm self or others. Onset of symptoms was March 09, 2020. 18:35 Method Of Arrival: Ambulatory ca1 18:35 Acuity: ELY 2 ca1 18:55 Care prior to arrival: None. Mechanism of Injury: Fall from standing position. Trauma jl7 event details: Injury occurred in the [facility], Injury occurred: at home. Injury occurred: March 08, 2020 Injury occurred at: 20:30. Trauma Activation: Physician: ED Physician; Name: Vladimir; Notified At: ; Arrived At: Physician: General Surgeon; Name: ; Notified At: ; Arrived At: Physician: Radiology; Name: ; Notified At: ; Arrived At: Physician: Respiratory; Name: ; Notified At: ; Arrived At: Physician: Lab; Name: ; Notified At: ; Arrived At: Historical: - Allergies: 18:42 No Known Allergies; ca1 - Home Meds: 18:42 None [Active]; ca1 - PMHx: 18:42 Cancer, Breast; High Cholesterol; ca1 - PSHx: 18:42 Lumpectomy; Hysterectomy; Bladder suspension; L foot sx; Varicose veins; L knee ca1 replacement; - Immunization history:: Adult Immunizations up to date. - Social history:: Smoking status: Patient denies any tobacco usage or history of. - Immunization history: Last tetanus immunization: unknown. Screenin:55 Abuse screen: Denies threats or abuse. Denies injuries from another. Tuberculosis jl7 screening: No symptoms or risk factors identified. 19:13 Nutritional screening: No deficits noted. Fall Risk Fall in past 12 months (25 points). jl7 No secondary diagnosis (0 pts). IV access (20 points). Ambulatory Aid- None/Bed Rest/Nurse Assist (0 pts). Gait- Normal/Bed Rest/Wheelchair (0 pts) Mental Status- Overestimates/Forgets Limitations (15 pts.). Total Bear Fall Scale indicates High Risk Score (45 or more points). Fall prevention measures have been instituted. Side Rails Up X 2 Placed Close to Nursing Station Frequent Obs/Assessments Occuring Family Present and informed to notify staff if the need to leave the bedside As available patient and family educated on Fall Prevention Program and Strategies. Primary Survey: 18:55 NO uncontrolled hemorrhage observed. A: The patient is alert. Airway: patent. jl7 Breathing/Chest: Respiratory pattern: regular, Respiratory effort: spontaneous, unlabored, Chest inspection: symmetrical rise and fall of the chest. Circulation: Skin color: pink. Disability Alert. Exposure/Environment: All clothing and personal items were removed. Forensic evidence collection is not deemed to be indicated at this time. Items placed in patient belonging bag. 19:25 Reassessment Airway Airway Patent Breathing/Chest Respiratory pattern Regular ao Respiratory effort Spontaneous Breath sounds Clear Chest inspection Symmetrical Circulation Heart rhythm Sinus rhythm Disability Alert. Assessment: 19:23 General: Appears in no apparent distress. comfortable, slender, well groomed, well ao developed, well nourished, Behavior is calm, cooperative, appropriate for age. Pain: Denies pain. Neuro: Level of Consciousness is awake, alert, obeys commands, Oriented to person, place, time, situation, Appropriate for age Moves all extremities. Full function Speech is normal, Facial symmetry appears normal. Cardiovascular: Capillary refill < 3 seconds Patient's skin is warm and dry. Respiratory: Airway is patent Respiratory effort is even, unlabored, Respiratory pattern is regular, symmetrical. GI: Abdomen is flat, non-distended. : No signs and/or symptoms were reported regarding the genitourinary system. EENT: No signs and/or symptoms were reported regarding the EENT system. Derm: Bruising that is dark purple, on left supraorbital ridge. Musculoskeletal: Range of motion: intact in all extremities, Swelling present in left cheek. Vital Signs: 18:35 BP 143 / 73; Pulse 86; Resp 18 S; Temp 96.8(TE); Pulse Ox 98% on R/A; Weight 54.43 kg ca1 (R); Height 5 ft. 4 in. (162.56 cm) (R); Pain 0/10; 19:14 BP 136 / 77; Pulse 83; Resp 17; Pulse Ox 96% ; Pain 0/10; jl7 18:35 Body Mass Index 20.60 (54.43 kg, 162.56 cm) ca1 [place] Coma Score: 18:55 Eye Response: spontaneous(4). Verbal Response: oriented(5). Motor Response: obeys jl7 commands(6). Total: 15. Trauma Score (Adult): 18:55 Eye Response: spontaneous(1); Verbal Response: oriented(1); Motor Response: obeys jl7 commands(2); Systolic BP: > 89 mm Hg(4); Respiratory Rate: 10 to 29 per min(4); Cris Score: 15; Trauma Score: 12 ED Course: 18:23 Patient arrived in ED. as 18:24 Sveta Bran MD is Private Physician. as 18:41 Triage completed. ca1 18:41 Trung Knox PA is PHCP. jr8 18:41 Tk Gilbert MD is Attending Physician. jr8 18:42 Arm band placed on right wrist. ca1 18:55 Patient has correct armband on for positive identification. Placed in gown. Bed in low jl7 position. Call light in reach. Side rails up X2. 18:55 Patient maintains SpO2 saturation greater than 95% on room air. Thermoregulation: warm jl7 blanket given to patient. 19:09 CT Head C Spine In Process Unspecified. EDMS 19:09 CT Facial Bones W/O Con In Process Unspecified. EDMS 19:18 Inserted saline lock: 20 gauge in right forearm, using aseptic technique. Blood ao collected. 19:20 [facility] [place] [facility] 19:23 Manan Sanchez, RN is Primary Nurse. ao 19:29 Pt was accepted at [address] Larkin accepted pt. tt3 20:41 No provider procedures requiring assistance completed. Patient transferred, IV remains ao in place. Administered Medications: No medications were administered Intake: 20:41 PO: 0ml; Total: 0ml. ao Outcome: 20:00 ER care complete, transfer ordered by MD. romero 20:41 Transferred by ground EMS to [facility], Transfer form completed. ao X-rays sent w/ patient. 20:41 Condition: stable 20:42 Patient's length of stay in the Emergency Department was greater than 2 hours. ao Patient's length of stay was extended due to staffing issues within the emergency department. Patient's length of stay was extended due to receiving facility on divert. 20:42 Patient left the ED. ao Signatures: Dispatcher [employer] EDMS Claudia Leal Josh, PA PA jr8 Manan Sanchez, RN RN Francisco Javier Ramos RN RN jl7 Paris Domínguez RN RN ca1 Trim, Tyler tt3
--- NOTE | 2020-03-09 20:01 | EDPHYS ---
Physician Documentation [facility] Name: Mignon Plunkett Age: 85 yrs Sex: Female : 1935 Arrival Date: 03/09/2020 Time: 18:23 Bed 15 Private MD: Sveta Bran C ED Physician Tk Gilbert HPI: 03/09 19:18 This 85 yrs old Female presents to ER via Ambulatory with complaints of Fall jr8 Injury, Head Injury-Adult. 19:18 Details of fall: The patient fell from an upright position, while standing. Onset: The jr8 symptoms/episode began/occurred acutely, last night. Associated injuries: The patient sustained injury to the head, deformity, hematoma, pain, swelling, tenderness. Severity of symptoms: At their worst the symptoms were moderate, in the emergency department the symptoms are unchanged. The patient has not experienced similar symptoms in the past. The patient has not recently seen a physician. Patient stated that she had accidental fall last night. Denies LOC. Pain to head and left side of face. Called son who brought her to be evaluated . Historical: - Allergies: 18:42 No Known Allergies; ca1 - Home Meds: 18:42 None [Active]; ca1 - PMHx: 18:42 Cancer, Breast; High Cholesterol; ca1 - PSHx: 18:42 Lumpectomy; Hysterectomy; Bladder suspension; L foot sx; Varicose veins; L knee ca1 replacement; - Immunization history:: Adult Immunizations up to date. - Social history:: Smoking status: Patient denies any tobacco usage or history of. - Immunization history: Last tetanus immunization: unknown. ROS: 19:18 Eyes: Negative for injury, pain, redness, and discharge, ENT: Negative for injury, jr8 pain, and discharge, Neck: Negative for injury, pain, and swelling, Cardiovascular: Negative for chest pain, palpitations, and edema, Respiratory: Negative for shortness of breath, cough, wheezing, and pleuritic chest pain, Abdomen/GI: Negative for abdominal pain, nausea, vomiting, diarrhea, and constipation, Back: Negative for injury and pain, MS/Extremity: Negative for injury and deformity, Neuro: Negative for headache, weakness, numbness, tingling, and seizure. 19:18 Skin: Positive for ecchymosis, hematoma, swelling, of the face. Exam: 19:18 ENT: Nares patent. No nasal discharge, no septal abnormalities noted. Tympanic jr8 membranes are normal and external auditory canals are clear. Oropharynx with no redness, swelling, or masses, exudates, or evidence of obstruction, uvula midline. Mucous membranes moist. Neck: Trachea midline, no thyromegaly or masses palpated, and no cervical lymphadenopathy. Supple, full range of motion without nuchal rigidity, or vertebral point tenderness. No Meningismus. Chest/axilla: Normal chest wall appearance and motion. Nontender with no deformity. No lesions are appreciated. Cardiovascular: Regular rate and rhythm with a normal S1 and S2. No gallops, murmurs, or rubs. Normal PMI, no JVD. No pulse deficits. Respiratory: Lungs have equal breath sounds bilaterally, clear to auscultation and percussion. No rales, rhonchi or wheezes noted. No increased work of breathing, no retractions or nasal flaring. Abdomen/GI: Soft, non-tender, with normal bowel sounds. No distension or tympany. No guarding or rebound. No evidence of tenderness throughout. Back: No spinal tenderness. No costovertebral tenderness. Full range of motion. Skin: Warm, dry with normal turgor. Normal color with no rashes, no lesions, and no evidence of cellulitis. MS/ Extremity: Pulses equal, no cyanosis. Neurovascular intact. Full, normal range of motion. Neuro: Awake and alert, GCS 15, oriented to person, place, time, and situation. Cranial nerves II-XII grossly intact. Motor strength 5/5 in all extremities. Sensory grossly intact. Cerebellar exam normal. Normal gait. 19:18 Head/face: Noted is ecchymosis, that is moderate, of the forehead and left cheek, hematoma, that is moderate, of the left side of forehead, tenderness, that is mild, of the forehead and left cheek. 19:18 Eyes: Periorbital structures: ecchymosis, that is moderate, on the left supraorbital ridge, left upper eyelid, medial canthus of left eye, lateral canthus of left eye and left lower eyelid, Pupils: equal, round, and reactive to light and accomodation, Extraocular movements: intact throughout, Conjunctiva: normal, Corneas: are normal, Sclera: no appreciated abnormality, Anterior chamber: normal, Lids and lashes: appear normal, Examination of the other eye reveals no obvious gross abnormality. Vital Signs: 18:35 BP 143 / 73; Pulse 86; Resp 18 S; Temp 96.8(TE); Pulse Ox 98% on R/A; Weight 54.43 kg ca1 (R); Height 5 ft. 4 in. (162.56 cm) (R); Pain 0/10; 19:14 BP 136 / 77; Pulse 83; Resp 17; Pulse Ox 96% ; Pain 0/10; jl7 18:35 Body Mass Index 20.60 (54.43 kg, 162.56 cm) ca1 [place] Coma Score: 18:55 Eye Response: spontaneous(4). Verbal Response: oriented(5). Motor Response: obeys jl7 commands(6). Total: 15. Trauma Score (Adult): 18:55 Eye Response: spontaneous(1); Verbal Response: oriented(1); Motor Response: obeys jl7 commands(2); Systolic BP: > 89 mm Hg(4); Respiratory Rate: 10 to 29 per min(4); [place] Score: 15; Trauma Score: 12 MDM: 18:41 Patient medically screened. jr8 19:05 Data reviewed: vital signs, nurses notes. Physician consultation: Merrill Elkins MD was snw called at 19:06, was contacted at 19:06, regarding 14mm frontal parenchymal bleed, no fractures. 19:18 Data reviewed: lab test result(s), radiologic studies, CT scan. Data interpreted: Pulse jr8 oximetry: on room air is 96 %. Interpretation: normal. Counseling: I had a detailed discussion with the patient and/or guardian regarding: the historical points, exam findings, and any diagnostic results supporting the discharge/admit diagnosis, lab results, radiology results, the need to transfer to another facility, [facility] does not immediately have the required specialist. 19:58 ED course: Piero accepted to ED for further evaluation of head bleed . 8 03/09 19:12 Order name: CBC with Diff; Complete Time: 20:21 jr8 03/09 19:12 Order name: Basic Metabolic Panel; Complete Time: 20:03 jr8 03/09 18:25 Order name: CT Head C Spine; Complete Time: 19:22 snw 03/09 18:45 Order name: CT Facial Bones W/O Con; Complete Time: 20:02 [facility] 03/09 19:12 Order name: Protime (+inr); Complete Time: 20: 8 03/09 19:12 Order name: Ptt, Activated; Complete Time: 20:02 jr8 03/09 19:12 Order name: IV; Complete Time: 19:23 jr8 Administered Medications: No medications were administered Disposition: 03/10 07:15 Co-signature as Attending Physician, Tk Gilbert MD I agree with the assessment and [facility] plan of care. Disposition: 03/09/20 20:00 Transfer ordered to [facility]. Diagnosis is Left Frontal intraparenchymal hemorrhage . - Reason for transfer: Higher level of care. - Accepting physician is Larimore. - Condition is Stable. - Problem is new. - Symptoms are unchanged. Signatures: Dispatcher [employer] EDTk Phipps MD MD cha Therrien, Shelly, C 13 CATAPULT OPERATOR-C C 13 CATAPULT OPERATOR-Csnw Trung Knox, AYANA PA jr8 Manan Sanchez, RN RN ao Francisco Javier Hernandez RN RN jl7 Paris Domínguez, RN RN ca1 Corrections: (The following items were deleted from the chart) 03/09 20:42 20:00 03/09/2020 20:00 Transfer ordered to [facility]. Diagnosis is Left ao Frontal intraparenchymal hemorrhage . Reason for transfer: Higher level of care. Accepting physician is Piero. Condition is Stable. Problem is new. Symptoms are unchanged. jr8
[2020-03-09 20:02] LABS: Potassium 3.6 mmol/L (3.5-5.1)
[2020-03-09 20:49] VITALS: TEMP 96.8
[2020-03-09 20:51] VITALS: BP 136/77; O2SAT 96
== END 2020-03-09 20:42 | disposition short-term general hospital (02) ==
LOC: ER 18:20
DX: S06.350A Traumatic hemorrhage of left cerebrum without loss of consciousness, initial encounter (principal); W19.XXXA Unspecified fall, initial encounter; Y93.9 Activity, unspecified; Y92.9 Unspecified place or not applicable; Z85.3 Personal history of malignant neoplasm of breast
CPT/HCPCS: 36415; 70450; 70486; 72125; 76377; 80048; 85025; 85610; 85730; 99285

== ENCOUNTER 2020-09-28 11:13 | Emergency (ER) | payer OTHER, BC ==
--- OUTSIDE RECORDS SUMMARY | 2020-09-28 11:18 | XMS REPORT | Continuity of Care Document ---
:1935 Author Organization [facility] Care Team Providers Name Role Phone [facility] Information [facility] [employer] Unavailable Un available Problems Problem Status Onset Classification Date Comments Sourc e Date Reported R29.6 - REPEATED Active 04/06/20 OPID FALLS F03.90 - 20 [place] and UNSPECIF LEFT FRONTAL BLEED Active 03/09/[address] INTRACRANIAL Active 03/09[place] HEMORRHAGE 20 Medical FOLLOWING INJURY Antonio ter Amnesia (finding) Active Problem 06/08/2020 M ischer Neuro,[facility] Hyperlipidemia Active Problem 06/08/2020 Misc her (disorder) Neuro,[facility] 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) N euro,[facility] Recurrent falls Active Problem 06/08/2020 Mis erik (finding) Neuro,[facility] Dementia Active Problem 06/08/2020 Mischer (disorder) Neuro,[facility] 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Mischer hemorrhage Neuro (disorder) UNSP FOCAL TBI W Active [facility] LOC OF UNSP Medical DURATION, I Center Medications Medication Details Route Status Patient Ordering Order Source Instructions Provider Date Donepezil 10 mg = 1 Active [place] hydrochloride tab, PO, 020 Neuro 10 MG Oral Bedtime, # 30 Tablet tab, 6 [Aricept] Refill(s), Pharmacy: [facility]/pharmacy #[id number], 147.32, cm, 04/26/20 9:31:00 CDT, Height, 56.364, kg, 04/26/20 9:31:00 CDT, Weight heparin sodium, Notes: [place] porcine 2500 porcine 020 Medical UNT/ML heparin [place] Injectable Solution Levetiracetam 500 mg = 1 [place] 500 MG Oral tab, PO, 020 Medical Tablet [Keppra] Q12H, # 12 Cente r tab, 0 Refill(s) remove patch Notes: Remove Inactive [place] patch 12 020 Medical hours after Center application each day. Docusate Notes: (Same No Longer [facility] as: Colace) Active 020 Medical (Do Not Center Crush) sennosides, ASSISTED Notes: (Same No Longer [facility] [place] as: Senokot) Active 020 Medical Center Lidocaine 0.05 Notes: Apply Inactive [place] MG/MG only once for 020 Medical Transdermal up to 12 Center Patch hours in a 24-hour period (12 hours on and 12 hours off). (Same as: Lidoderm) "Remove old patch before application of new patch" Saline Flush Notes: Same [place] Longer [place] 0.9% as: BD Active 020 Medical Posiflush Center Sterile Ceftriaxone Notes: (Same [place] Longer [place] As: Active 020 Medical Rocephin). Center MEDICATION WASTE Product Size: 1000 mg Product Wasted: 0 mg Levetiracetam Notes: (Same No Longer [place] 500 MG Oral as:Keppra) Active 020 Medical Tablet [Keppra] [place] Levetiracetam Notes: Same Inactive [place] as Keppra 020 Medical Mix with 100 Center mL NS, LR or D5W MEDICATION WASTE Product Size: 500 mg Product Wasted: _0__ mg Sodium Chloride 1,000 mL, Inactive [place] 0.9% IV 1,000 Rate: 50 020 Medical mL ml/hr, Infuse Center over: 20 hr, Route: IV, Dosing Weight 54.545 kg, Total Volume: 1,000, Start date: 03/10/20 4:17:00 CDT, Duration: 30 day, Stop date: 04/09/20 4:16:00 CDT, 1.54, m2, 0 Acetaminophen Notes: Do not No Longer [place] exceed 4 Active 020 Medical gm/day. Center (Same as: Tylenol) Acetaminophen Notes: Do not Inactive [place] 325 MG / exceed 020 Medical Hydrocodone 4gm/day of Center Bitartrate 10 acetaminophen MG Oral Tablet . (Same as: Aspers 325/10) Morphine Notes: (Same Inactive [facility] as:MORPhine 020 Medical Sulfate) Center Bisacodyl Notes: (Same No Longer [facility] As: Dulcolax, Active 020 Medical Bisco-Lax) Center Ondansetron Notes: (Same [place] Longer [place] as: Zofran) Active 020 Medical Center MEDICATION WASTE Product Size: 4 mg Product Wasted: ___ mg Hydralazine Notes: (Same [place] Longer [place] as: Active 020 Medical Apresoline) Center Push over 5 minutes Labetalol 10 mg, 2 mL, No Longer [facility] Route: IVP, Active 020 Medical Drug form: Center INJ, Q15Min, Dosing Weight 54.545, kg, PRN Hypertension, Start date: 03/10/20 4:17:00 CDT, Duration: 30 day, Stop date: 04/09/20 4:16:00 CDT, 0 Saline Flush Notes: Same [place] Longer [place] 0.9% as: BD Active 020 Medical Posiflush Center Sterile Iohexol 100 mL, Inactive [facility] Route: IVP, 020 Medical Drug Form: Center SOLN, Dosing Weight 54.545, kg, ONCALL, STAT, Start date: 03/09/20 23:57:00 CDT, Duration: 1 doses or times, Dose = 2.2ml/kg, Max dose = 100ml -- "To be infused by Radiology Staff ONLY" Levetiracetam 1,000 mg, Inactive [place] Route: IVPB, 020 Medical ONCE, Dosing Center Weight 54.545, kg, Start date: 03/09/20 23:10:00 CDT, Stop date: 03/09/20 23:10:00 CDT Keppra Notes: Same Inactive [facility] as Keppra 020 Medical Mix with 100 Center mL NS, LR or D5W MEDICATION WASTE Product Size: 500 mg Product Wasted: ___ mg Saline Flush Notes: Same [place] Longer [place] 0.9% as: BD Active 020 [facility] Posiflu Center Sterile Donepezil 5 mg = 1 tab, Active [place] hydrochloride 5 PO, Bedtime, 020 [place]ana ro MG Oral Tablet # 30 tab, 3 [Aricept] Refill(s), Pharmacy: [facility]/pharmacy #[id number], 147.32, cm, 01/24/20 16:10:00 CDT, Height, 55.909, kg, 01/24/20 16:10:00 CDT, Weight Prolia 60 mg, SUB-Q, Active [place] q6mo, 0 020 Neuro Refill(s) Aspirin 1, PO, Daily, Active [place] 0 Refill(s) 020 Neuro Allergies, Adverse Reactions, Alerts Substance Category Reaction Severity Reaction Status Date Comments S ource type Reported statins Assertion Drug Active Mische r allergy Neuro Immunizations Immunization Date Given Site Status Last Comments Source Updated pneumococcal 03/11/2020 Right completed Soy callaway 13-valent vaccine deltoid Ne uro,[facility] diphtheria/pertus 03/10/2020 Left completed Rosana sauceda sis, acel/tetanus deltoid Ne uro,[facility] Results Order Name Results Value Reference Date Interpretation Comments Juana rce Range CARDIAC Troponin-I <0.02 0.00 - 03/11 [facility] ENZYMES 0.40 [facility] CHEM PANEL Glucose Lvl 109 70 - 99 03/[address] CHEM PANEL BUN 17 7 - 22 03/[address] CHEM PANEL Creatinine 0.66 0.50 - 03/11 [facility] Lvl 1.40 [facility] CHEM PANEL Sodium Lvl 143 135 - 145 03/[address] CHEM PANEL Potassium Lvl 3.9 3.5 - 5.1 03/[place] [address] [place] [address] CHEM PANEL Chloride Lvl 111 95 - 109 03/11 [facility] CHEM PANEL CO2 23 24 - 32 03/[address] CHEM PANEL Calcium Lvl 9.0 8.5 - 10.5 03/11 [facility] CHEM PANEL AGAP 12.9 10.0 - 03/11 [facility] 20.0 [facility] CHEM PANEL eGFR 80 03/11 Result [facility] Comment: The Medical eGFR is Center calculated using the CKD-EPI formula. In most young, healthy individuals the eGFR will be >90 mL/min/1.73m2 . The eGFR declines with age. An eGFR of 60-89 may be normal in some populations, particularly the elderly, for whom the CKD-EPI formula has not been extensively validated. Use of the eGFR is not recommended in the following populations:< br/>
Lucy viduals with unstable creatinine concentration s, including patients and those with serious co-morbid conditions.<b r/>
Patie nts with extremes in muscle mass or diet.

The data above are obtained from the National Kidney Disease Education Program (NKDEP) which additionally recommends that when the eGFR is used in patients with extremes of body mass index for purposes of drug dosing, the eGFR should be multiplied by the estimated BMI. CHEM PANEL Magnesium Lvl 2.5 1.8 - 2.4 03/[address] CHEM PANEL Phosphorus 3.9 2.5 - 4.5 03/[address] CHEM PANEL Total Protein 6.2 6.4 - 8.4 03/[address] CHEM PANEL Albumin Lvl 2.9 3.5 - 5.0 03/[address] CHEM PANEL Globulin 3.3 2.7 - 4.2 03/[address] CHEM PANEL A/G Ratio 0.9 0.7 - 1.6 03/[address] CHEM PANEL ALT 18 0 - 65 03/[address] CHEM PANEL AST 18 0 - 37 03/[address] CHEM PANEL Alk Phos 51 39 - 136 03/[address] CHEM PANEL Bili Total 0.3 0.2 - 1.3 03/[address] CHEM PANEL Bili Direct <0.1 0.0 - 0.3 03/[address] CHEM PANEL Bili Indirect Unable to 0.0 - 1.0 03/[address] HEMATOLOGY WBC 5.6 3.7 - 10.4 03/[address] HEMATOLOGY RBC 3.72 4.20 - 03/11 [facility] 5.40 [facility] HEMATOLOGY Hgb 11.3 12.0 - 03/11 [facility] 16.0 /2019 [facility] HEMATOLOGY Hct 33.5 36.0 - 03/11 [facility] 48.0 [facility] HEMATOLOGY MCV 90.1 80.0 - 03/11 [facility] 98.0 /2019 [facility] HEMATOLOGY MCH 30.4 27.0 - 03/11 [facility] 31.0 [facility] HEMATOLOGY MCHC 33.8 32.0 - 03/11 [facility] 36.0 /2019 [facility] HEMATOLOGY RDW 13.6 11.5 - 03/11 [facility] 14.5 [facility] HEMATOLOGY Platelet 224 133 - 450 03/[address] HEMATOLOGY MPV 7.2 7.4 - 10.4 03/[address] HEMATOLOGY Segs 56.9 45.0 - 03/11 [facility] 75.0 [facility] HEMATOLOGY Lymphocytes 29.2 20.0 - 03/11 [facility] 40.0 [facility] HEMATOLOGY Monocytes 10.9 2.0 - 12.0 03/[address] HEMATOLOGY Eosinophils 2.2 0.0 - 4.0 03/[address] HEMATOLOGY Basophils 0.8 0.0 - 1.0 03/[address] HEMATOLOGY Neutrophils # 3.2 1.5 - 8.1 03/[address] HEMATOLOGY Lymphocytes # 1.6 1.0 - 5.5 03/[address] HEMATOLOGY Monocytes # 0.6 0.0 - 0.8 03/[address] HEMATOLOGY Eosinophils # 0.1 0.0 - 0.5 03/[address] PARATHYROID Ca Ion WB 1.21 1.05 - 03/11 [facility] PROFILE 1. [facility] PARATHYROID Ca Norm WB 1.21 1.05 - 03/11 [facility] PROFILE 1. [facility] CARDIAC Troponin-I <0.02 0.00 - 03/10 [facility] ENZYMES 0.40 [facility] Culture: 10,000 - 03/10 [facility] Urine 50,000 [facility] CFU/mL [place] [facility] [place] DRUG SCREEN U Amph Scr Negative Negative 03/10 [facility] /2019 [facility] (03/10/20 6:41 AM) Center DRUG SCREEN U Mer Scr Negative Negative 03/10 [place] *NA* Medical (03/10/20 6:41 AM) Center DRUG SCREEN U Benzodiaz Negative Negative 03/10 [place] L as Scr *NA* Medical (03/10/20 6:41 AM) Center DRUG SCREEN U Cocaine Scr Negative Negative 03/10 [place] * Medical (03/10/20 6:41 AM) Center DRUG SCREEN U Cannab Scr Negative Negative 03/10 [place] *NA* Medical (03/10/20 6:41 AM) Center DRUG SCREEN U Opiate Scr Negative Negative 03/10 [place] *NA* Medical (03/10/20 6:41 AM) Center DRUG SCREEN U Negative Negative 03/10 [facility] Phencyclidine *NA* Medical Scr (03/10/20 6:41 AM) Center DRUG SCREEN UDS Note See Note 03/10 [place] *NA* [facility] (03/10/20 6:41 AM) Center URINE AND UA Color Light Yellow Yellow 03/10 [facility] STOOL *NA* [facility] (03/10/20 6:41 AM) [place] URINE AND UA Turbidity Clear Clear 03/10 [facility] STOOL (03/10/20 6:41 AM) /2019 Medica l [place] URINE AND UA Spec Grav 1.060 <=1.030 03/10 [facility] STOOL /[address] [place] [address] URINE AND UA pH 5.0 5.0 - 8.0 03/10 [facility] STOOL /[address] [place] [address] URINE AND UA Protein Negative Negative 03/10 [facility] STOOL mg/dL mg/dL /2019 [facility] URINE AND UA Glucose Negative Negative 03/10 [facility] STOOL mg/dL mg/dL /2019 [facility] URINE AND UA Ketones Negative Negative 03/10 [facility] STOOL mg/dL mg/dL /2019 [facility] URINE AND UA Bili Negative Negative 03/10 [facility] STOOL *NA* [facility] (03/10/20 6:41 AM) Center URINE AND UA Blood Negative Negative 03/10 [facility] (03/10/20 6:41 AM) [facility] [place] URINE AND UA <1.0 0.1 - 1.0 03/10 [facility] Urobilinogen /2019 [facility] URINE AND UA Nitrite Negative Negative 03/10 [facility] STOOL (03/10/20 6:41 AM) Medica l Center URINE AND UA Leuk Est Large Negative 03/10 [facility] STOOL *ABN* /2019 Medical (03/10/20 6:41 AM) Center URINE AND UA Sq Epi Few /LPF Few /LPF 03/10 [facility] /[address] [place] [address] URINE AND UA WBC 28 0 - 5 03/[address] URINE AND UA Mucus Few /LPF None Seen 03/10 [facility] STOOL /LPF /2019 [facility] BLOOD BANK ABO/Rh O POS 03/10 [facility] RESULTS [facility] BLOOD BANK Antibody Scrn Negative 03/10 [facility] as RESULTS (03/09/20 11:22 PM) [facility] CHEM PANEL Glucose Lvl 102 70 - 99 03/10 [facility]2019 [facility] CHEM PANEL BUN 22 7 - 22 03/[address] CHEM PANEL Creatinine 0.92 0.50 - 03/10 [facility] Lvl 1.40 [facility] CHEM PANEL Sodium Lvl 144 135 - 145 03/[address] CHEM PANEL Potassium Lvl 3.9 3.5 - 5.1 03/10 [place] [facility] CHEM PANEL Chloride Lvl 113 95 - 109 03/10 [facility] 2019 [facility] CHEM PANEL CO2 24 24 - 32 03/[address] CHEM PANEL Calcium Lvl 8.8 8.5 - 10.5 03/10 [facility] CHEM PANEL AGAP 10.9 10.0 - 03/10 [facility] 20.0 [facility] CHEM PANEL eGFR 57 03/10 Result Comment: [facility] eGFR is Center calculated using the CKD-EPI formula. In most young, healthy individuals the eGFR will be >90 mL/min/1.73m2 . The eGFR declines with age. An eGFR of 60-89 may be normal in some populations, particularly the elderly, for whom the CKD-EPI formula has not been extensively validated. Use of the eGFR is not recommended in the following populations:< br/>
Lucy viduals with unstable creatinine concentration s, including patients and those with serious co-morbid conditions.<b r/>
Patie nts with extremes in muscle mass or diet.

The data above are obtained from the National Kidney Disease Education Program (NKDEP) which additionally recommends that when the eGFR is used in patients with extremes of body mass index for purposes of drug dosing, the eGFR should be multiplied by the estimated BMI. CHEM PANEL Lactic Acid 0.6 0.5 - 2.2 03/10 [facility] Lvl /2019 [facility] HEMATOLOGY WBC X 10x3 6.8 3.7 - 10.4 03/10 [facility] s /2019 [facility] HEMATOLOGY RBC X 10x6 3.70 4.20 - 03/10 [place] 5.40 [facility] HEMATOLOGY Hgb 11.5 12.0 - 03/10 [facility] 16.0 [facility] HEMATOLOGY Hct 33.2 36.0 - 03/10 [facility] 48.0 [facility] HEMATOLOGY MCV 89.6 80.0 - 03/10 [facility] 98.0 /2019 [facility] HEMATOLOGY MCH 31.1 27.0 - 03/10 [facility] 31.0 /2019 [facility] HEMATOLOGY MCHC 34.7 32.0 - 03/10 [facility] 36.0 /2019 [facility] HEMATOLOGY RDW 13.5 11.5 - 03/10 [place] 14.5 /2019 [facility] HEMATOLOGY Platelet 244 133 - 450 03/[address] HEMATOLOGY MPV 6.7 7.4 - 10.4 03/[address] HEMATOLOGY ACT (TEG) 113 86 - 118 03/[address] HEMATOLOGY [place] 0.6 03/[address] HEMATOLOGY R-time Rapid 0.7 0.4 - 0.7 03/10 [facility] as /2019 [facility] HEMATOLOGY K-time Rapid 0.9 0.6 - 2.3 03/10 [facility] as [address] HEMATOLOGY Angle Rapid 79 64 - 80 03/[address] HEMATOLOGY Max Amplitude 65 52 - 71 03/10 [place] Rapid 2020 [facility] HEMATOLOGY G-value Rapid 9.1 5.0 - 11.6 03/10 [place] /2019 [facility] HEMATOLOGY Estimated % 0.7 0.0 - 7.5 03/10 [facility] [place] [address] HEMATOLOGY Segs 59.3 45.0 - 03/10 [place] 75.0 [facility] HEMATOLOGY Lymphocytes 27.8 20.0 - 03/10 [facility] 40.0 /2019 [facility] HEMATOLOGY Monocytes 11.1 2.0 - 12.0 03/[address] HEMATOLOGY Eosinophils 1.3 0.0 - 4.0 03/[address] HEMATOLOGY Basophils 0.5 0.0 - 1.0 03/[address] HEMATOLOGY Neutrophils # 4.0 1.5 - 8.1 03/[address] HEMATOLOGY Lymphocytes # 1.9 1.0 - 5.5 03/[address] HEMATOLOGY Monocytes # 0.8 0.0 - 0.8 03/[address] HEMATOLOGY Eosinophils # 0.1 0.0 - 0.5 03/[address] HEMATOLOGY PT 12.1 12.0 - 03/10 [facility] 14.7 [facility] HEMATOLOGY INR 0.90 0.85 - 03/10 [facility] 1.17 [facility] HEMATOLOGY PTT 27.7 22.9 - 03/10 [facility] 35.8 [facility] TOXICOLOGY Ethanol Lvl 7 03/[address] TOXICOLOGY Etoh (%) 0.007 03/[address] Pathology Reports No Data Provided for This Section Diagnostic Reports Report Value Date Source Brain wo contrast CT Radiation Dose CTDIVOL = 0 (mGy): DLP = 449.79 (mGy-cm) 04/12/2020 [facility] [place] PROCEDURE INFORMATION: Exam: CT Head Without Contrast Exam date and time: 04/12/2020 1:00 PM Age: 85 years old Clinical indication: Unspecified dementia withou t behavioral disturbance; Nontraumatic intracerebral hemorrhage, u nspecified; Repeated falls; Additional info: /s/p fall; Ich; Dementia; Falls frequently TECHNIQUE: Imaging protocol: Computed tomography of the hea d without contrast. Radiation optimization: All CT scans at this facility use at least one of these dose optimization techniques: automated exposure control; mA and/or kV adjustment per patient size (includes targeted e xams where dose is matched to clinical indication); or iterative reconstructio n. COMPARISON: BRAIN WO CONTRAST CT 03/09/2020 11:33 PM RADIATION DOSE METRICS: Total DLP (mGy-cm): 449.79 FINDINGS: Brain: There are moderate wh ite matter hypodensities. There is mild atrophy. No acute infarct or intracranial hemorrhage is pres ent. Ventricles: Normal. No ventriculomegaly. Bones/joints: Unremarkable. No acute fracture. Sinuses: Visualized sinuses are unremarkable. No fluid levels. Mastoid air cells: Visualized mastoid air cells are well aerated. Vasculature: Distal internal carotid arterial ca lcifications are present. Soft tissues: Unremarkable. IMPRESSION: 1. No acute intracranial abnormality. 2. Mild atrophy and moderate chronic microvascul ar ischemic changes. Timothy Pond MD On 04/13/2020 09:18:26; VR-BMILE [id number] Brain w/wo contrast EXAM: MRI BRAIN WITHOUT AND WITH CONTRAST [facility] MRI DATE: 03/10/2020 at 8:51 PM Cent er INDICATION: 85 years old Fem martha patient with history of - eval hemorrhage for underlying mass, history of breast cancer. COMPARISON: CT Scan of the brain dated 0 TECHNIQUE: Multiplanar, mult isequence non-contrast MRI images of the brain. Multiplanar imaging is subsequently obtained following intravenous gadolinium contrast. IV contrast: 10cc MultiHance FINDINGS: Again identified is 9 x 8 x 9 mm (AP x TV x CC) focal intraparenchymal hemorrhage within anterior aspect of the left superior frontal gyrus with mild surrounding vasogenic edema and without associated abnormal postcontrast enhancement. Diffusion-weighted images do not demonstrate any abnormal restricted diffusion to suggest acute infarct. There is diffuse mild-to-mod erate cerebral volume loss resulted in [id number] ex vacuo enlargement of the ventricular system and prominence of extra-axial fluid spaces. There is no evidence of obs tructive hydrocephalus. No p athological extra-axial fluid collection is identified. There are multiple confluent as well as scattered scattered foci of T2 FLAIR hyperintensities within periventricular, deep white matter, bilateral basal ganglia, thalami and francisco which are most likely r elated to chronic microvascular ischemic changes . No abnormal intraparenchymal or leptomeningeal enhancement on postcontrast images. There is no mass effect or midline shift. Normal signal voids are main tained in the visualized major intracranial vasculatures. Visualized paranasal sinuses are clear. Visualized mastoid air cells are clear. Visualized orbits appear grossly unremarkable. Left frontal scalp hematoma is again noted. IMPRESSION: 1. 9 x 8 x 9 mm (AP x TV x C C) focal intraparenchymal hemorrhage within anterior aspect of the left superior frontal gyrus with mild surrounding vasogenic edema and without associated abnormal postcontr ast enhancement to suggest underlying aggressive mass lesion. 2. No abnormal intracranial or leptomeningeal en hancement. 3. Diffuse mild to moderate cerebral volume loss. Sequela of moderate chronic microvascular ischemic changes. 4. Left frontal scalp hematoma. Brain wo contrast CT EXAM: CT HEAD WITHOUT CONTRAST 03/09/2020 [facility] DATE: 03/09/2020 1137 PM CDT Cent er INDICATION: 85 years old Fem martha patient with history of intracranial hemorrhage, Stability Scan. TECHNIQUE: Multiple axial im ages were obtained through the head from vertex to the skull base. Axial bone algorithm reconstruction images are provided. COMPARISON: Prior outside spital CT Scan of the head dated 03/09/2020 at 6:49 PM. FINDINGS: Again identified is an appro ximately 10 x 9 mm intraparenchymal hemorrhage within the anterior aspect of the left superior frontal gyrus. No definite new parenchymal abnormality or new h emorrhage is identified. There is no significant mass effect and midline shift. Overall ventricles are stable in size and config uration. Basal cisterns are grossly p reserved. There is no evidence of downward herniation at the level of foramen magnum. Grossly stable left frontal scalp hematoma. No interval significant adverse changes in visualized paranasal sinuses, orbits, mastoid cavities and calvarium. IMPRESSION: 1. Overall no interval signi ficant adverse change since prior study dated 03/09/2020 at 6:49 PM. 2. Stable approximately 10 x 9 mm intraparenchymal hemorrhage within the anterior aspect of the left superior frontal gyrus. Grossly stable left frontal scalp hematoma. 3. No significant mass effect or midline shift. 4. Stable ventricular size w ithout imaging evidence of obstructive hydrocephalus. Facial bone wo EXAM: CT FACIAL BONES WITHOUT CONTRAST 0 [facility] contrast CT DATE: 03/09/2020 at 2333 hours Ce nter INDICATION: - pain post-trauma COMPARISON: CT face from 03/09/2020 TECHNIQUE: Volumetric CT of the facial bones is acquired without contrast. Axial, coronal and sagittal images are provided. IV contrast: None. DLP: 308.8 mGy-cm [place] SECTION: ER FINDINGS: Bones: No fracture or other acute bony abnormality is identified. The mandible is intact, and the temporomandibular joints are well-aligned. The paranasal sinuses and mastoid air cells are clear. Degenerative changes are see n in the visualized portion of the cervical spine worse C4-C7 and at the odontoid axial joint with surrounding calcifications suggestive of chondrocalcinosis. Soft tissues: There is no in traconal hematoma. Soft tissue swelling along the left side of the face. There is a left frontal scalp hematoma measuring 1.4 x 2.4 cm in the axial plane. Carotid atherosclerotic calcifications. Please refer to same time de dicated CT brain for intracranial findings are seen. IMPRESSION: 1. No acute fracture or malalignment 2. Left facial superficial soft tissue swelling . 3. Small left frontal scalp hematoma. Chest/Abdomen/Pelvis EXAM: CT CHEST WITH CONTRAST 03/09/2020 [facility] IV contrast CT EXAM: CT ABDOMEN AND PELVIS WITH CONTRAST Center DATE: 03/09/2020 at 2341 hours INDICATION: - fall, unknown history pt amnesic to event, 14mm intraparenchymal frontal bleed at [facility] COMPARISON: None TECHNIQUE: Volumetric CT of the chest, abdomen and pelvis is acquired following intravenous administration of contrast. Axial, coronal and sagittal images are provided. IV contrast: 100 mL of Omnipaque 350 Oral contrast: None. DLP: 1130 mGy-cm [place] SECTION: ER FINDINGS: Lines and tubes: None. Lower Neck: Supraclavicular soft tissues are unr emarkable. Thoracic Aorta and Mediastin um: No mediastinal hematoma or thoracic aortic injury. Mild cardiomegaly. Extensive mitral annular calcifications. Moderate left anterior descending coronary artery calcifica tions. Minimal aortic arch atherosclerotic calci fications. Lungs, Pleura, Diaphragm: No pulmonary contusions. Mild centrilobular emphysematous changes in the lung apices. 4 mm nodule in the right upper lobe along the major fissure consistent with a lymph node ( series 6, image 42). Subsegm ental atelectasis in the lung bases. No pleural effusion or pneumothorax. No diaphragmatic injury. Liver and biliary tree: 1.2 cm hypodense lesion along the dome of the right hepatic lobe. No injury. No biliary abnormality. Gallbladder: Normal. Pancreas: Normal. No injury. Spleen: Normal. No injury. Adrenals: Normal. No injury. Kidneys and ureters: Normal. No injury. Bladder: Distended. No injury. Reproductive organs: Uterus is surgically absent . Gastrointestinal tract: Dive rticulosis without evidence of diverticulitis. No bowel injury. Peritoneum and retroperitoneum: No fluid collect ions or free air. Lymph nodes: Normal. Vasculature: No vascular inj ury. Moderate to severe distal aortoiliac vascular calcifications. Extensive celiac and SMA origin calcifications but the arteries are patent distally. Spine/ Bones: No acute fracture identified in th e pelvis. Severe osteoarthrosis of the hip joints. Severe osteoarthrosis of the shoulder joints. Atrophic appearance of the rotator cuff muscles. Diffusely decreased bone mineral density. Chronic appearing wedge compression fractures are pr esent at T9 and T11 associated with Schmorl node formation. Degenerative levoconvex scoliosis of the lumbar spine centered at L3. Multilevel degenerative disc disease is pre sent at L1-L5. Most severe d egenerative disc space narrowing is present at L2- L3. There is severe facet arthropathy on the left from L3 through L5. Soft tissues: Small supraumb ilical hernia containing the anterior wall of the transverse colon (series 7, image 40) Atrophy of gluteal muscles, right greater than left.4 IMPRESSION: 1. Chronic appearing wedge compression deformities with Schmorl node formation are seen at T9 and T11. Recommend correlation for the presence of focal pain or referred pain or symptom to these levels. 2. Mild cardiomegaly. Exten sive mitral annular calcifications. Moderate left anterior descending coronary calcifications. 3. Severe osteoarthrosis of the hips and should er joints and lumbar spine. 4. Chondrocalcinosis of the hips. 5. Small supra-umbilical he rnia containing anterior wall of the transverse colon. 6. Diverticulosis without acute diverticulitis. 7. Atherosclerosis. 8. Generalized osteopenia. 9. Centrilobular emphysematous change.1 Consultation Notes No Data Provided for This Section Discharge Summaries No Data Provided for This Section History and Physicals No Data Provided for This Section Vital Signs Vital Sign Value Date Comments Source Systolic (mm Hg) 141 04/26/2020 [facility] [place] Diastolic (mm Hg) 76 04/26/2020 [facility] Ne uro Heart Rate 79 04/26/2020 [facility] Neuro Respitory Rate 16 04/26/2020 [facility] Neuro Height 147.32 cm 04/26/2020 [facility] Neuro Weight 56.364 04/26/2020 [facility] Neuro BMI Calculated 25.97 04/26/2020 [facility] Systolic (mm Hg) 117 04/04/2020 [facility] [place] [facility] Diastolic (mm Hg) 60 04/04/2020 [facility] Heart Rate 84 04/04/2020 [facility] Respitory Rate 16 04/04/2020 [facility] Height 147.32 cm 04/04/2020 [facility] Weight 55.909 04/04/2020 [facility] BMI Calculated 25.76 04/04/2020 [facility] Respitory Rate 26 03/11/2020 [facility] neil Center Systolic (mm Hg) 115 03/11/2020 [facility] dical Center Diastolic (mm Hg) 61 03/11/2020 [facility] Temperature Oral (F) 97.7 F 03/11/2020 [facility] Respitory Rate 20 03/11/2020 [facility] Center Systolic (mm Hg) 125 03/11/2020 [facility] dical Center Diastolic (mm Hg) 60 03/11/2020 [facility] Respitory Rate 20 03/11/2020 [facility] Center Systolic (mm Hg) 114 03/11/2020 [facility] dical Center Diastolic (mm Hg) 67 03/11/2020 [facility] Temperature Oral (F) 97.4 F 03/11/2020 [facility] Heart Rate 63 03/11/2020 [facility] Heart Rate 68 03/11/2020 [facility] Heart Rate 68 03/11/2020 [facility] Temperature Oral (F) 97.1 F 03/10/2020 [facility] Height 154.94 cm 03/10/2020 [facility] Weight 50.005 03/10/2020 [facility] BMI Calculated 20.83 03/10/2020 [facility] Center Height 152.4 cm 03/10/2020 [facility] BMI Calculated 23.48 03/10/2020 [facility] Center Weight 54.545 03/10/2020 [facility] Systolic (mm Hg) 101 03/06/2020 [facility] [place] [facility] Diastolic (mm Hg) 57 03/06/2020 [facility] Heart Rate 87 03/06/2020 [facility] Respitory Rate 16 03/06/2020 [facility] Neuro Temperature Oral (F) 98.2 F 03/06/2020 [facility] Neuro Height 147.32 cm 03/06/2020 [facility] Neuro Weight 56.364 03/06/2020 [facility] Neuro BMI Calculated 25.97 03/06/2020 [facility] Neuro Systolic (mm Hg) 124 01/24/2020 [facility] [place] Diastolic (mm Hg) 66 01/24/2020 [facility] Ne uro Heart Rate 81 01/24/2020 [facility] Neuro Respitory Rate 16 01/24/2020 [facility] Neuro Temperature Oral (F) 98.8 F 01/24/2020 [facility] Neuro Height 147.32 cm 01/24/2020 [facility] Neuro Weight 55.909 01/24/2020 [facility] Neuro BMI Calculated 25.76 01/24/2020 [facility] Neuro Encounters Location Location Encounter Encounter Reason Attending ADM GA Stat us Source Details Type Number For Provider Date Date Visit MNA Outpatient [id number] Tal 01/23 01/24 [facility] Neurology Bran /2019 [facility] [place] [facility] [id number] Chris 03/06 Active [facility] /2020 [place] [facility] Outpatient [id number] Tal 03/06 03/07 [facility] Neurology Bran /2019 [facility] [place] [facility] [id number] Cornel 03/10 03/11 [facility] /2019 [facility] Outpatient [id number] Chris 04/04 Active [facility] /2020 [place] [facility] Outpatient [id number] Tal 04/04 04/05 [facility] Neurology Bran /2019 [facility] [place] MNA Outside [id number] 04/25 04/27 [facility] Neurology Medical /2019 [facility] [place] Records Outpatient [id number] Chris 04/26 Active [facility] /2020 [place] [facility] Outpatient [id number] Tal 04/26 04/27 [facility] Neurology [place] /2019 [facility] [place] Outpatient [id number] Chris 06/06 Active [facility] /2020 [place] Outpatient [id number] Chris 06/06 Active [facility] /2020 [place] [facility] Ambulatory [id number] Tal 06/06 06/06 [facility] Neurology Pre-Reg [place] /2019 [facility] [place] [facility] Ambulatory [id number] Tal 06/06 06/06 [facility] Neurology Pre-Reg [place] /2019 [facility] [place] Outpatient [id number] Chris 10/30 Active [facility] [place] Procedures Procedure Code Date Perfomer Comments Source Hysterectomy [id number] [facility] Knee replacement [id number] [facility] Neuro,[facility] Assessment and Plan No Data Provided for This Section Plan of Care No Data Provided for This Section Social History Social History Date Source Social History TypeResponse 01/24/2020 [facility] Neur o Alcohol 1 Employment/School 2, 3 Smoking Status Never smoker; Exposure to Tobacco Smoke Unable to obtain; Cigarette Smoking Last 365 Days Unable to obtain; Reg Smoking Cessation Counseling No entered on: 04/26/20 1occasional 1 [id number] release medical information Dr. 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 ReedPCP, Josette Robb-Daughter, Rosalva Robb- [id number]- Josette Robb-Daughter Family History No Data Provided for This Section Advance Directives No Data Provided for This Section Functional Status No Data Provided for This Section
--- OUTSIDE RECORDS SUMMARY | 2020-09-28 11:18 | XMS REPORT | Clinical Summary ---
:1935 Author Organization [facility] Address [address] [place] [address] Care Team Providers Name Role Phone Asked, No Pcp Primary Care Provider Unavailable Allergies No Known Active Allergies Medications Medication Sig Dispensed Refills Start Date End Date Status ibuprofen Take 200 mg by 0 Activ e (ADVIL,MOTRIN) 200 MG mouth every 6 tablet (six) hours as needed for mild pain. Active Problems Not on file Social History Tobacco Use Types Packs/Day Years Used Date Never Assessed Sex Assigned at Date Recorded Not on file Last Filed Vital Signs Not on file Plan of Treatment Health Maintenance Due Date Last Done Comments COVID-19 VACCINE (1 of 2) 1951 SHINGLES VACCINES (#1) 02/20/1984 65+ PNEUMOCOCCAL VACCINE (1 of 1 - PPSV23) 1999 INFLUENZA VACCINE 04/14/2020 Results Not on fileafter 09/28/2019 Insurance Payer Benefit Plan / Subscriber ID Effective Dates Phone Addre ss Type Group MEDICARE MEDICARE PART A [id number] 1999-Present [facility] [place] Medicare AND B BCBS BCBS CHOICE [id number] 1996-Present P PO PPO/F[employer]ERAL EMPL PPO Advance Directives For more information, please contact: [phone] Type Date Recorded 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
--- OUTSIDE RECORDS SUMMARY | 2020-09-28 11:19 | XMS REPORT | Continuity of Care Document ---
:1935 Author Organization [facility] t Address [address] [place] [address] Care Team Providers Name Role Phone Asked, Pcp Primary Care Physician Unavailable Sudeep Moy Attending Clinician Javier Peterson Attending Clinician Doctor Unassigned, Name Attending Clinician Unavailable Jasper Chandler MD Attending Clinician Dory Larkin Jr Admitting Clinician Problems Condition Condition Condition Status Onset Resolution Last Treating Co mments Source Name Details Category Date Date Treatment Clinician Date R29.6 - Diagnosis Active 2020-04-12 Me moria REPEATED - 12:20:00 l FALLS R29.6 - 00:01: Piero F03.90 - REPEATED 00 UNSPECIF FALLS F03.90 - UNSPECIF Active 04/06/2020 [facility] [place] LEFT Diagnosis Active 2020-03-09 Mem oria FRONTAL 03-09 22:25:00 l BLEED LEFT 00:00: Piero FRONTAL 00 BLEED Active 03/09/2020 [facility] INTRACRANI Diagnosis Active 2020-03-20 Memoria AL 03-09 21:41:00 l HEMORRHAGE 00:00: Hu lozada FOLLOWING INTRACRANI 00 INJURY AL HEMORRHAGE FOLLOWING INJURY Active 03/09/2020 [facility] Amnesia Problem Active 2020-06-08 Amari maryjo (finding) 21:51:43 l Amnesia Piero (finding) Active Problem 06/08/2020 [facility] Hyperlipid Problem Active 2020-06-08 M emoria emia 21:51:43 l (disorder) Hu n Hyperlipid emia (disorder) Active Problem 06/08/2020 [facility] Peripheral Problem Active 2020-06-08 M emoria nerve 21:51:43 l disease [place] (disorder) Peripheral nerve disease (disorder) Active Problem 06/08/2020 [facility] Recurrent Problem Active 2020-06-08 Me moria falls 21:51:43 l (finding) Piero Recurrent falls (finding) Active Problem 06/08/2020 [facility] Dementia Problem Active 2020-06-08 Mem oria (disorder) 21:51:43 l Dementia Hu n (disorder) Active Problem 06/08/2020 [facility] Cerebral Problem Active 2020-06-08 Mem oria hemorrhage 21:51:43 l (disorder) 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) Active Problem 06/08/2020 [facility] UNSP FOCAL Diagnosis Active 2020-03-20 Memoria TBI W LOC 21:41:00 l OF UNSP UNSP [place] DURATION, FOCAL TBI I W LOC OF UNSP DURATION, I Active [facility] Allergies, Adverse Reactions, Alerts Allergy Allergy Status Severity Reaction(s) Onset Inactive Treating Comm ents Source Name Type Date Date Clinician statins statins Active Balaji Harry Social History Social Habit Start Date Stop Date Quantity Comments Source Sex Assigned At [facility] ethodist Social History 2020-01-24 2020-01-24 [facility] 21:23:26 21:23:26 Medications Ordered Filled Start Stop Current Ordering Indication Dosage Frequency Signature Comments Components Source Medication Medication Date Date Medication? Clinician (SIG) Name Name Donepezil Yes 10 mg = 1 Mem oria hydrochlori 8-13 tab, PO, l de 10 MG 14:38: Bedtime, # Her leos Oral Tablet 00 30 tab, 6 [Aricept] Refill(s), Pharmacy: [id number], 147.32, cm, 04/26/20 9:31:00 CDT, Height, 56.364, kg, 04/26/20 9:31:00 CDT, Weight heparin No Notes: Memoria sodium, 6-28 porcine l porcine 13:00: heparin Piero 2500 UNT/ML 00 Injectable Solution Levetiracet Yes 500 mg = 1 Memoria am 500 MG 6-28 tab, PO, l Oral Tablet 10:50: Q12H, # 12 Piero [Keppra] 00 tab, 0 Refill(s) remove No Notes: Memoria patch 6-28 Remove l 02:00: patch 12 [place] 00 hours after applicatio n each day. Docusate No Notes: Memoria 6-27 (Same as: l 14:00: Colace) [place] (Do Not Crush) sennosides, No Notes: Amari maryjo SHELTER 6-27 (Same as: l 14:00: Senokot) Piero Lidocaine No Notes: Memori a 0.05 MG/MG 6-27 Apply only l Transdermal 14:00: once for He rmann Patch 00 up to 12 hours in a 24-hour period (12 hours on and 12 hours off). (Same as: Lidoderm) "Remove old patch before applicatio n of new patch" Saline No Notes: Memoria Flush 0.9% 6-27 Same as: l 14:00: BD Piero Posiflush Sterile Ceftriaxone No Notes: Amari maryjo 6-27 (Same As: l 14:00: Rocephin). Piero 00 MEDICATION WASTE Product Size: 1000 mg Product Wasted: 0 mg Levetiracet No Notes: Amari maryjo am 500 MG 6-27 (Same l Oral Tablet 14:00: as:Keppra) Piero [Keppra] Levetiracet No Notes: Amari maryjo am 6-27 Same as l 14:00: Keppra Piero 00 Mix with 100 mL NS, LR or D5W MEDICATION WASTE Product Size: 500 mg Product Wasted: _0__ mg Sodium 2019- No 1,000 mL, Memori a Chloride 6-27 Rate: 50 l 0.9% IV 09:17: ml/hr, Piero 1,000 mL 00 Infuse over: 20 hr, Route: IV, Dosing Weight 54.545 kg, Total Volume: 1,000, Start date: 03/10/20 4:17:00 CDT, Duration: 30 day, Stop date: 04/09/20 4:16:00 CDT, 1.54, m2, 0 Acetaminoph 2020-0 No Notes: Do M emoria en 03-10 not exceed l 09:17: 4 gm/day. Piero 00 (Same as: Tylenol) Acetaminoph 2020-0 No Notes: Do M emoria en 325 MG / 03-10 not exceed l Hydrocodone 09:17: 4gm/day of [place] Bitartrate 00 acetaminop 10 MG Oral hen. Tablet (Same as: [place] 325/10) Morphine 2019-0 No Notes: Memoria 03-10 (Same l 09:17: as:MORPhin e Sulfate) Bisacodyl 2019-0 No Notes: Memori a 03-10 (Same As: l 09:17: Dulcolax, [place] Bisco-Lax) Ondansetron 2019-0 No Notes: Amari amryjo 03-10 (Same as: l 09:17: Zofran) MEDICATION WASTE Product Size: 4 mg Product Wasted: ___ mg Hydralazine 2019-0 No Notes: Amari maryjo - (Same as: l 09:17: Apresoline ) Push over 5 minutes Labetalol 2019-0 No 10 mg, 2 Amari maryjo 6-27 mL, Route: l 09:17: IVP, Drug form: INJ, Q15Min, Dosing Weight 54.545, kg, PRN Hypertensi on, Start date: 03/10/20 4:17:00 CDT, Duration: 30 day, Stop date: 04/09/20 4:16:00 CDT, 0 Saline 2020-0 No Notes: Memoria Flush 0.9% 03-10 Same as: l 09:17: BD Posiflush Sterile Iohexol 2020-0 No 100 mL, Memoria - Route: l 04:57: IVP, Drug Form: SOLN, Dosing Weight 54.545, kg, ONCALL, STAT, Start date: 03/09/20 23:57:00 CDT, Duration: 1 doses or times, Dose = 2.2ml/kg, Max dose = 100ml -- "To be infused by Radiology Staff ONLY" Levetiracet No 1,000 mg, Whit whitfield am 03-10 Route: l 04:10: IVPB, Piero 00 ONCE, Dosing Weight 54.545, kg, Start date: 03/09/20 23:10:00 CDT, Stop date: 03/09/20 23:10:00 CDT Keppra No Notes: Memoria 03-10 Same as l 03:28: Keppra Piero Mix with 100 mL NS, LR or D5W MEDICATION WASTE Product Size: 500 mg Product Wasted: ___ mg Saline No Notes: Memoria Flush 0.9% 03-10 Same as: l 02:55: BD Pier[place] Posiflush Sterile Donepezil Yes 5 mg = 1 Amari maryjo hydrochlori 03-06 tab, PO, l de 5 MG 18:37: Bedtime, # Herm venkatesh Oral Tablet 00 30 tab, 3 [Aricept] Refill(s), Pharmacy: [id number], 147.32, cm, 01/24/20 16:10:00 CDT, Height, 55.909, kg, 01/24/20 16:10:00 CDT, Weight Prolia Yes 60 mg, Memoria 5-12 SUB-Q, l 21:17: q6mo, 0 [place] 00 Refill(s) Aspirin Yes 1, PO, Memoria 5-12 Daily, 0 l 21:17: Refill(s) [place] 00 ibuprofen Yes 200mg Q6H Take 200 Abida ston (ADVIL,MOTR 5-15 mg by Methodi IN) 200 MG 13:40: mouth st tablet 50 every 6 (six) hours as needed for mild pain. Vital Signs Vital Name Observation Time Observation Value Comments Source Systolic (mm Hg) 2020-04-26 14:31:00 Amari rial [place] Diastolic (mm Hg) 2020-04-26 14:31:00 [facility] Heart Rate 2020-04-26 14:31:00 [facility] Respitory Rate 2020-04-26 14:31:00 Memori al [place] Height 2020-04-26 14:31:00 147.32 cm [facility] [place] Weight 2020-04-26 14:31:00 [facility] [place] BMI Calculated 2020-04-26 14:31:00 Memori al [place] Systolic (mm Hg) 2020-04-04 21:12:00 Amari rial [place] Diastolic (mm Hg) 2020-04-04 21:12:00 Mem orial [place] Heart Rate 2020-04-04 21:12:00 [facility] [place] Respitory Rate 2020-04-04 21:12:00 Memori al [place] Height 2020-04-04 21:12:00 147.32 cm [facility] [place] Weight 2020-04-04 21:12:00 [facility] [place] BMI Calculated 2020-04-04 21:12:00 Memori al [place] Respitory Rate 2020-03-11 17:00:00 Memori al [place] Systolic (mm Hg) 2020-03-11 17:00:00 Amari rial [place] Diastolic (mm Hg) 2020-03-11 17:00:00 Mem orial [place] Temperature Oral (F) 2020-03-11 17:00:00 97.7 F [facility] [place] Respitory Rate 2020-03-11 16:00:00 Memori al [place] Systolic (mm Hg) 2020-03-11 16:00:00 Amari rial [place] Diastolic (mm Hg) 2020-03-11 16:00:00 Mem orial [place] Respitory Rate 2020-03-11 15:00:00 Memori al [place] Systolic (mm Hg) 2020-03-11 15:00:00 Amari rial [place] Diastolic (mm Hg) 2020-03-11 15:00:00 Mem orial [place] Temperature Oral (F) 2020-03-11 13:03:00 97.4 F [facility] [place] Heart Rate 2020-03-11 02:09:00 [facility] [place] Heart Rate 2020-03-11 02:00:00 [facility] [place] Heart Rate 2020-03-11 01:35:00 [facility] [place] Temperature Oral (F) 2020-03-10 12:30:00 97.1 F [facility] [place] Height 2020-03-10 11:05:00 154.94 cm [facility] [place] Weight 2020-03-10 11:05:00 [facility] [place] BMI Calculated 2020-03-10 11:05:00 Memori al [place] Height 2020-03-10 02:27:00 152.4 cm [facility] [place] BMI Calculated 2020-03-10 02:27:00 Memori al [place] Weight 2020-03-10 02:27:00 [facility] [place] Systolic (mm Hg) 2020-03-06 18:30:00 Amari rial [place] Diastolic (mm Hg) 2020-03-06 18:30:00 Mem orial [place] Heart Rate 2020-03-06 18:30:00 [facility] [place] Respitory Rate 2020-03-06 18:30:00 Memori al [place] Temperature Oral (F) 2020-03-06 18:30:00 98.2 F [facility] [place] Height 2020-03-06 18:30:00 147.32 cm [facility] [place] Weight 2020-03-06 18:30:00 [facility] [place] BMI Calculated 2020-03-06 18:30:00 Memori al [place] Systolic (mm Hg) 2020-01-24 21:10:00 Amari rial [place] Diastolic (mm Hg) 2020-01-24 21:10:00 Mem orial [place] Heart Rate 2020-01-24 21:10:00 [facility] [place] Respitory Rate 2020-01-24 21:10:00 Memori al [place] Temperature Oral (F) 2020-01-24 21:10:00 98.8 F [facility] [place] Height 2020-01-24 21:10:00 147.32 cm [facility] [place] Weight 2020-01-24 21:10:00 [facility] [place] BMI Calculated 2020-01-24 21:10:00 Memori al [place] Procedures Procedure Date / Time Performed Performing Clinician [facility] e Hysterectomy [facility] [place] Knee replacement [facility] Hu n Plan of Care Planned Activity Planned Date Details Comments Source Future Scheduled 2020-04-14 INFLUENZA VACCINE [place] [facility] 00:00:00 [code = INFLUENZA VACCINE] Future Scheduled 1999 65+ PNEUMOCOCCAL [facility] 00:00:00 VACCINE (1 of 1 - PPSV23) [code = 65+ PNEUMOCOCCAL VACCINE (1 of 1 - PPSV23)] Future Scheduled 1984-02-20 SHINGLES VACCINES (#1) H chaitanya [facility] 00:00:00 [code = SHINGLES VACCINES (#1)] Future Scheduled 1950 COVID-19 VACCINE (1 of H oujm [facility] Test 00:00:00 2) [code = COVID-19 VACCINE (1 of 2)] Encounters Start End Encounter Admission Attending Care Care Encounter Source Date/Time Date/Time Type Type Clinicians Facility Department ID 2020-06-06 2020-06-06 Outpatient Chinmay MHMISCHER MHMISCHER [id number] 13:30:00 13:30:00 Chris 03 Sudeep 2020-06-06 2020-06-06 Outpatient Chinmay MHMISCHER MHMISCHER [id number] 13:30:00 13:30:00 Chris 04 Sudeep 2020-04-26 2020-04-26 Outpatient Alexaric MHMISCHER MHMISCHER [id number] 09:00:00 23:59:59 Chris 06 Sudeep 2020-04-25 2020-04-26 Outpatient MHMISCHER MHMISCHER [id number] 09:46:35 23:59:59 00 2020-04-04 2020-04-04 Outpatient Chinmay MISCHER MHMISCHER [id number] 16:00:00 23:59:59 Chris 05 Sudeep 2020-03-09 2020-03-11 Outpatient Nicholas [facility] [id number] 21:21:00 13:00:00 Jayy Cobb 2020-03-09 2020-03-09 Emergency E [facility] [id number] [facility] 21:11:00 21:11:00 2020-03-06 2020-03-06 Outpatient Chinmay MHMISCHER MHMISCHER [id number] 13:30:00 23:59:59 Chris 02 Sudeep 2020-01-24 2020-01-24 Outpatient Alexaric MHMISCHER MHMISCHER [id number] 15:45:00 23:59:59 Chris Sudeep 2020-01-24 2020-01-24 Orders Doctor DORY [id number] 00:00:00 00:00:00 Only Unassigned, LUIS [id number] [facility] 4.2.7.2.686 [id number] [id number] 2020-01-23 2020-01-23 Alexis Chandler [place] [id number] 00:00:00 00:00:00 Ramiro Stewart [id number] [place] 4.2.7.2.686 Professio [phone] [facility] 2019-05-31 2019-05-31 Orders Doctor CONNORS 1.2.840.114 [id number] 00:00:00 00:00:00 Only Unassigned, LUIS [id number] [place] [address]686 [id number] [id number] 2019-05-20 2019-05-20 [facility] [id number] 00:00:00 00:00:00 Ramiro Stewart [id number] [place] 4.2.7.2.686 Professio [id number] [address] 2019-05-05 2019-05-05 Orders Doctor CONNORS [id number] 00:00:00 00:00:00 Only Unassigned, LUIS [id number] [place] [address]686 [id number] Results Test Description Test Time Test Comments Results Result Comments Source CARDIAC ENZYMES 2020-03-11 <0.02 [facility] [place] 08:05:00 CHEM PANEL 2020-03-11 109 [facility] Ermelinda nn 08:05:00 CHEM PANEL 2020-03-11 17 [facility] Ermelinda nn 08:05:00 CHEM PANEL 2020-03-11 0.66 [facility] Ermelinda nn 08:05:00 CHEM PANEL 2020-03-11 143 [facility]rmel[facility] nn 08:05:00 CHEM PANEL 2020-03-11 3.9 [facility]rm[facility] nn 08:05:00 CHEM PANEL 2020-03-11 111 [facility] nn 08:05:00 CHEM PANEL 2020-03-11 23 [facility] nn 08:05:00 CHEM PANEL 2020-03-11 9.0 [facility] Ermelinda nn 08:05:00 CHEM PANEL 2020-03-11 12.9 [facility] Ermelinda nn 08:05:00 CHEM PANEL 2020-03-11 80 [facility]rm[facility]inda nn 08:05:00 CHEM PANEL 2020-03-11 2.5 [facility]rmelinda nn 08:05:00 CHEM PANEL 2020-03-11 3.9 [facility] Ermelinda nn 08:05:00 CHEM PANEL 2020-03-11 6.2 [facility] Ermelinda nn 08:05:00 CHEM PANEL 2020-03-11 2.9 [facility] Ermelinda nn 08:05:00 CHEM PANEL 2020-03-11 3.3 [facility] Ermelinda nn 08:05:00 CHEM PANEL 2020-03-11 08:05:00 Test Item Value Reference Range Interpretation Comme nts A/G Ratio (test code = A/G Ratio) 0.9 1 0.7-1.6 [facility]CHE[facility] [id number] 08:05:0018[facility]annCHEM PANEL 2020-03-11 08:05:0018[facility]annCHEM [id number] 08:05:0051[facility]annCHEM IMUTB4485-31-49 08:05:000.3[facility]annCHEM DHLFW6542-58-24 08:05:00<0.1[facility] UdtfrhbEAVOGRXLTE3604-29-20 08:05:005.6[facility] [place] RQWKDZLTMG1886-85-22 08:05:003.72[facility] SzudwmuWZYRNPTKOF1937-31-77 08:05:00 11.3[facility] MgzrtdkPZKBHSVJJS9523-17-48 08:05:0033.5[facility]annHEMATOLOGY 2020-03-11 08:05:0090.1[facility] EbnmajgSRGQPBHSCE1176-76-76 08:05:00 Test Item Value Reference Range Interpretation Comments MCH (test code = MCH) 30.4 pg 27.0-31.0 [facility] MvaaqqsECSETURXZQ0484-15-24 08:05:0033.8[facility] HermannHEMATOLOGY 2020-03-11 08:05:0013.6[facility] HsezescPBYEWHOOLE9791-25-04 08:05:12602Zxqnjicd EjiotopJKDXBBJKHI7443-62-97 08:05:007.2[facility] QwprqwgTCMRMWNIOP1223-74-42 08:05:0056.9[facility] GrntachQXCZGIQYJF1750-35-37 08:05:0029.2[facility] [place] QNCQJRFOIT7409-92-32 08:05:0010.9[facility] MqrwgbiSGNWHLZTDN2792-23-27 08:05:00 2.2[facility] JiykdqxHIQSSNRQOY1223-23-54 08:05:000.8[facility] HermannHEMATOLOGY 2020-03-11 08:05:003.2[facility] EqrvinsKLUQYMOIRV1729-81-76 08:05:001.6[facility] CjxhgwwHDJXCBVLPX8312-80-99 08:05:000.6[facility] XsgvlbqLSHOWYDMEY0729-27-77 08:05:000.1[facility] HermannPARATHYROID HKYPGES0662-82-73 08:05:001.21[facility] HermannPARATHYROID WSCBFJG1936-54-11 08:05:001.21[facility] HermannCARDIAC ENZYMES 2020-03-10 18:36:00<0.02[facility] HermannDRUG JMYMVD3155-25-18 11:41:00 Negative *NA*(03/10/20 6:41 AM)[facility] ENSRRY8206-34-95 11:41:00 Negative *NA*(03/10/20 6:41 AM)[facility] WGUCPP0253-02-78 11:41:00 Negative *NA*(03/10/20 6:41 AM)[facility] RBIHPM0447-25-25 11:41:00 Negative *NA*(03/10/20 6:41 AM)[facility] KFJMPX0036-82-29 11:41:00 Negative *NA*(03/10/20 6:41 AM)[facility] EPHRJC3223-26-37 11:41:00 Negative *NA*(03/10/20 6:41 AM)[facility] IHSKOA7460-45-76 11:41:00 Negative *NA*(03/10/20 6:41 AM)[facility] DTRVBG0276-15-55 11:41:00See Note *NA*(03/10/20 6:41 AM)[facility] AND YIDYL0260-97-61 11:41:00 Light Yellow *NA*(03/10/20 6:41 AM)[facility] HHZAG6567-51-44 11:41:00Clear (03/10/20 6:41 AM)[facility] BSKCS6949-61-06 11:41:00 Test Item Value Reference Range Interpretation Comments UA Spec Grav (test code = UA Spec 1.060 1 Grav) [facility] [id number] 11:41:00 Test Item Value Reference Range Interpretation Comments UA pH (test code = UA pH) 5.0 1 5.0-8.0 [facility] IJULS3760-02-22 11:41:00Negative *NA*(03/10/20 6:41 AM) [facility] BUSRJ5581-70-03 11:41:00Negative (03/10/20 6:41 AM) [facility] QKISI1085-75-54 11:41:00<1.0[facility] HIGQT2571-07-15 11:41:00Negative (03/10/20 6:41 AM)[facility] CJBAL7555-54-02 11:41:00Large *ABN*(03/10/20 6:41 AM)[facility] BKFCC7914-74-04 11:41:0028[facility] HermannBLOOD BANK KZEGFND3046-55-54 04:22:00 Negative (03/09/20 11:22 PM)[facility]annCHEM EXOTL9697-19-08 03:16:44062 [facility]annCHEM WRHRW0526-96-27 03:16:0022[facility] HermannCHEM PANEL 2020-03-10 03:16:000.92[facility] HermannCHEM ACXUM6814-81-93 03:16:85934Ycjahmfa HermannCHEM ETGHS5975-89-64 03:16:003.9[facility] HermannCHEM MXHWH7541-32-30 03:16:34640Zjkmxraw HermannCHEM VVXKG0092-59-67 03:16:0024[facility]annCHEM QNMBN8664-00-70 03:16:008.8[facility]annCHEM CRHDC1880-27-87 03:16:0010.9 [facility]annCHE[facility] EPFRV4429-39-76 03:16:0057[facility] HermannCHEM PANEL 2020-03-10 03:16:000.6[facility] ZeapwhbZKCVDPHQER5047-39-84 03:16:006.8[facility] XeqxejsMIJDAMTFVR6677-87-46 03:16:003.70[facility] PsyfgspXTBSBIWWKN5959-86-04 03:16:0011.5[facility] YadtgkjRZMJGKBJDX9992-64-25 03:16:0033.2[facility] [place] KNUHCUJBGB2359-10-61 03:16:0089.6[facility] IxdvkhyCOBSAFIHBY5806-35-17 03:16:00 Test Item Value Reference Range Interpretation Comments MCH (test code = MCH) 31.1 pg 27.0-31.0 [facility]BnxoxdlJLGCQONKXK1673-82-35 03:16:0034.7[facility] HermannHEMATOLOGY 2020-03-10 03:16:0013.5[facility] DizxiysOBEKBKYGCT0047-54-74 03:16:13516Hjimjmfz DsfmfbpKBBJOWIASG7825-86-87 03:16:006.7[facility] NppjfftFKAUKLSJXF5162-29-56 03:16:00 Test Item Value Reference Range Interpretation Comments ACT (TEG) Rapid (test code = ACT (TEG) 113 s 86-118 Rapid) [facility]tiggjyALQKQFGXAM5352-68-64 03:16:00 Test Item Value Reference Range Interpretation Comments Split Point Rapid (test code = Split 0.6 min Point Rapid) [facility]keqyLKXCZUQJNH1031-35-55 03:16:00 Test Item Value Reference Range Interpretation Comments R-time [place] (test code = R-time 0.7 min 0.4-0.7 Rapid) [facility] ClinicGxwdomqWAIMEGWPUU0345-14-61 03:16:00 Test Item Value Reference Range Interpretation Comments K-time Rapid (test code = K-time 0.9 min 0.6-2.3 Rapid) [facility] ClinicJvtsacsDHRRMODIDN3789-22-69 03:16:00 Test Item Value Reference Range Interpretation Comments Angle Rapid (test code = Angle 79 degrees 64-80 Rapid) [facility] ClinicWqnwwssBLYWSQOOII3045-09-17 03:16:00 Test Item Value Reference Range Interpretation Comments Max Amplitude Rapid (test code = Max 65 mm 52-71 Amplitude Rapid) [facility] ClinicJifszkcCJEPRTMRPE3088-27-07 03:16:009.1[facility] HermannHEMATOLOGY 2020-03-10 03:16:000.7[facility] XonoikhYHAZHNFJZZ6947-27-50 03:16:0059.3[facility] XgaplolSYZOSMWAOF7818-56-12 03:16:0027.8[facility] FufhmbyOHYGNWVLJF0529-01-64 03:16:0011.1[facility] WxbegxeTMMKNLNPAD0760-52-71 03:16:001.3[facility] [place] GICRTVHYGA6712-60-02 03:16:000.5[facility] UtyyycnNWNGXTWWUP4042-11-38 03:16:004.0 [facility] QtnsdhkIDSKFYYHBR7262-15-69 03:16:001.9[facility] HermannHEMATOLOGY 2020-03-10 03:16:000.8[facility] ZjrdwivVLBYCXQWFJ3325-94-47 03:16:000.1[facility] NopvqsaIWNLAXGRSQ5325-30-38 03:16:00 Test Item Value Reference Range Interpretation Comments PT (test code = PT) 12.1 s 12.0-14.7 [facility] AnxpstlYQMDXMLKRJ0787-10-62 03:16:00 Test Item Value Reference Range Interpretation Comments INR (test code = INR) 0.90 1 0.85-1.17 [facility] ZmxxmaxCSUILUAOCR5971-61-46 03:16:00 Test Item Value Reference Range Interpretation Comments PTT (test code = PTT) 27.7 s 22.9-35.8 [facility] BllnzeuCCMPRGWXMD8316-32-30 03:16:007[facility] HermannTOXICOLOGY 2020-03-10 03:16:000.007[facility]
[2020-09-28 13:40] LABS: Absolute Lymphocytes (CBC) 1.8 K/uL (0.7-4.9); Basophils % 0.5 % (0-1.3); Hematocrit 38.8 % (36.0-45.0); Lymphocytes % 17.6 % (15.3-44.8); MPV 7.7 fL (7.6-11.3); RBC Red Blood Cell Count 4.23 M/uL (3.86-4.86)
[2020-09-28 13:44] LABS: Urine Blood TRACE (NEG); Urine Glucose NEGATIVE (NEG); Urine Protein NEGATIVE (NEG); Urine pH 6.5 (5.0-7.0)
--- NOTE | 2020-09-28 13:45 | RAD REPORT ---
EXAM DESCRIPTION: CTAbdomen Pelvis W Contrast - 09/28/2020 1:26 pm CLINICAL HISTORY: Abdominal pain. back pain, lower abdominal pain COMPARISON: Lumbar Spine Wo Con dated 06/12/2020 TECHNIQUE: Biphasic CT imaging of the abdomen and pelvis was performed with 100 ml non-ionic IV cont rast. All CT scans are performed using dose optimization technique as appropriate and may include automated exposure control or mA/KV adjustment according to patient size. FINDINGS: The lung bases are mildly emphysematous clear. The liver contains a 11 mm low-density lesion in the superior posterior right lobe, likely benign cys t. The spleen, pancreas adrenal glands and kidneys are within normal limits. No bowel obstruction, free air, free fluid or abscess. There is significant rectosigmoid fecal retent ion seen with sigmoid diverticulosis coli. The appendix is normal. No evidence of significant lympha denopathy. 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 Mild degenerative anterolisthesis L3 on 4 and L4 on 5. IMPRESSION: Moderate rectosigmoid fecal retention.
[2020-09-28 13:47] LABS: ALT/SGPT 15 U/L (12-78); AST/SGOT 14 U/L (15-37); Albumin 3.6 g/dL (3.4-5.0); Alkaline Phosphatase 88 U/L (45-117); BUN Blood Urea Nitrogen 15 mg/dL (7-18); Bicarbonate 29 mmol/L (21-32); Bilirubin Direct < 0.1 mg/dL (0-0.2); Bilirubin Total 0.6 mg/dL (0.2-1.0); Glucose Level 102 mg/dL (74-106); Lipase 137 U/L (73-393); Potassium 4.1 mmol/L (3.5-5.1); Protein, Total 7.8 g/dL (6.4-8.2); Sodium Level 141 mmol/L (136-145)
[2020-09-28 13:59] LABS: Urine Bacteria <20 /HPF (<20); Urine Mucus HEAVY /HPF (NONE SEEN)
--- NOTE | 2020-09-28 15:06 | EDPHYS ---
Physician Documentation [facility] Name: Mignon Plunkett Age: 85 yrs Sex: Female : 1935 Arrival Date: 09/28/2020 Time: 11:20 Bed 28 Private MD: ED Physician Catrachito Babb HPI: 09/28 13:06 This 85 yrs old Female presents to ER via Wheelchair with complaints of Back jmm Pain, Abdominal Pain. 13:06 The patient presents with pain that is chronic. Onset: The symptoms/episode jmm began/occurred gradually, 3 week(s) ago. The pain does not radiate. Associated signs and symptoms: Pertinent positives: abdominal pain. Modifying factors: The patient symptoms are alleviated by nothing, the patient symptoms are aggravated by any movement. The patient has experienced similar episodes in the past. Historical: - Allergies: 11:26 No Known Drug Allergies; ll1 - PMHx: 11:26 Cancer, Breast; High Cholesterol; ll1 - PSHx: 11:26 Lumpectomy; Hysterectomy; Bladder suspension; L foot sx; Varicose veins; L knee ll1 replacement; - Immunization history:: Flu vaccine is not up to date. - Social history:: Smoking status: Patient denies any tobacco usage or history of. ROS: 13:06 Constitutional: Negative for fever, chills, and weight loss, Cardiovascular: Negative jmm for chest pain, palpitations, and edema, Respiratory: Negative for shortness of breath, cough, wheezing, and pleuritic chest pain. 13:06 Abdomen/GI: Positive for abdominal pain. 13:06 Back: Positive for pain with movement. 13:06 All other systems are negative. Exam: 13:06 Constitutional: This is a well developed, well nourished patient who is awake, alert, jmm and in no acute distress. Head/Face: atraumatic. Eyes: EOMI, no conjunctival erythema appreciated ENT: Moist Mucus Membranes Neck: Trachea midline, Supple Chest/axilla: Normal chest wall appearance and motion. Cardiovascular: Regular rate and rhythm. No edema appreciated Respiratory: Normal respirations, no respiratory distress appreciated 13:06 Back: Normal ROM Skin: General appearance color normal MS/ Extremity: Moves all extremities, no obvious deformities appreciated, no edema noted to the lower extremities Psych: Behavior is normal, Mood is normal, Patient is cooperative and pleasant 13:06 Abdomen/GI: Inspection: abdomen appears normal, Bowel sounds: normal, Palpation: soft, nontender, in all quadrants. 13:06 Neuro: Orientation: is normal, Mentation: is normal, Memory: is normal. 13:06 Psych: Behavior/mood is pleasant, cooperative. Vital Signs: 11:26 BP 122 / 67; Pulse 92; Resp 16; Temp 99.0(O); Pulse Ox 100% on R/A; Weight 56.7 kg; ll1 Height 5 ft. 0 in. (152.40 cm); Pain 5/10; 12:45 BP 105 / 75; Pulse 84; Resp 18; Pulse Ox 98% on R/A; vg1 13:48 BP 125 / 84; Pulse 85; Resp 18; Pulse Ox 97% on R/A; vg1 14:51 BP 127 / 96; Pulse 80; Resp 18; Pulse Ox 97% on R/A; vg1 16:03 BP 133 / 70; Pulse 90; Resp 16; Pulse Ox 97% on R/A; vg1 11:26 Body Mass Index 24.41 (56.70 kg, 152.40 cm) ll1 MDM: 12:59 Patient medically screened. millie 15:04 Data reviewed: vital signs, nurses notes. Counseling: I had a detailed discussion with millie the patient and/or guardian regarding: the historical points, exam findings, and any diagnostic results supporting the discharge/admit diagnosis, lab results, radiology results, the need for outpatient follow up, to return to the emergency department if symptoms worsen or persist or if there are any questions or concerns that arise at home. ED course: imaging studies negative for an acute process. Patient is advised to follow up with pcp for reevaluation and otherwise given strict return precautions. patient understood and agrees with the plan of care. . 16:25 ED course: I had a discussion with the daughter due to concerns for fall risk. I millie discussed this with Dr. Bran whom stated there was no reason for admission due to no acute process. I then discussed this with case management whom will give a list of nursing homes. . 09/28 13:05 Order name: Basic Metabolic Panel; Complete Time: 13:50 millie 09/28 13:05 Order name: CBC with Diff; Complete Time: 13:50 [facility] 09/28 13:05 Order name: Hepatic Function; Complete Time: 13:50 [facility] 09/28 13:05 Order name: Lipase; Complete Time: 13:50 [facility] 09/28 13:39 Order name: Urine Dipstick--Ancillary (enter results) eb 09/28 13:39 Order name: Urine Microscopic Only; Complete Time: 14:09 eb 09/28 13:05 Order name: IV Saline Lock; Complete Time: 13:23 [facility] 09/28 13:05 Order name: Labs collected and sent; Complete Time: 13:23 [facility] 09/28 13:05 Order name: Urine Dipstick-Ancillary (obtain specimen); Complete Time: 13:16 [facility] 09/28 13:05 Order name: CT Abd/Pelvis - IV Contrast Only; Complete Time: 13:50 [facility] 09/28 13:39 Order name: Urine Culture eb Administered Medications: 15:12 Drug: morphine 2 mg {Note: rass 0.} Route: IVP; Site: right antecubital; vg1 17:18 Follow up: Response: RASS: Alert and Calm (0) vg1 15:13 Drug: Zofran (Ondansetron) 4 mg Route: IVP; Site: right antecubital; vg1 17:18 Follow up: Response: No adverse reaction vg1 Disposition: 09/29 14:24 Co-signature as Attending Physician, Catrachito Babb MD I agree with the assessment and kdr plan of care. Disposition: 09/28/20 16:29 Discharged to Home. Impression: Constipation, unspecified, Low back pain. - Condition is Stable. - Discharge Instructions: Back Pain, Adult, Constipation, Adult. - Prescriptions for orphenadrine citrate 100 mg Oral Tablet Sustained Release - take 1 tablet by ORAL route 2 times per day As needed; 20 tablet. Miralax 17 gram/dose Oral - take 1 packet by ORAL route once daily dilute powder in 8 ounces of water or juice; 1 Pack. - Medication Reconciliation Form, Thank You Letter, Antibiotic Education, Prescription Opioid Use form. - Follow up: Private Physician; When: 2 - 3 days; Reason: Recheck today's complaints, Continuance of care, Re-evaluation by your physician. Signatures: Dispatcher [employer] Catrachito Dotson MD MD kdr Mickail, Joel, PA PA jmm Garcia Kelly, RN RN vg1 Tash Dave RN RN ll1 Corrections: (The following items were deleted from the chart) 09/28 15:21 15:05 09/28/2020 15:05 Discharged to Home. Impression: Constipation; Low back pain. [facility] Condition is Stable. Forms are Medication Reconciliation Form, Thank You Letter, Antibiotic Education, Prescription Opioid Use. Follow up: Private Physician; When: 2 - 3 days; Reason: Recheck today's complaints, Continuance of care, Re-evaluation by your physician. millie 17:11 16:29 09/28/2020 16:29 Discharged to Home. Impression: Constipation, unspecified; Low vg1 back pain. Condition is Stable. Prescriptions for orphenadrine citrate 100 mg Oral Tablet Sustained Release - take 1 tablet by ORAL route 2 times per day As needed; 20 tablet, Miralax 17 gram/dose Oral - take 1 packet by ORAL route once daily dilute powder in 8 ounces of water or juice; 1 box. and Forms are Medication Reconciliation Form, Thank You Letter, Antibiotic Education, Prescription Opioid Use. Follow up: Private Physician; When: 2 - 3 days; Reason: Recheck today's complaints, Continuance of care, Re-evaluation by your physician. millie
--- NOTE | 2020-09-28 15:06 | ER ---
Nurse's Notes [facility] Name: Mignon Plunkett Age: 85 yrs Sex: Female : 1935 Arrival Date: 09/28/2020 Time: 11:20 Bed 28 Private MD: Diagnosis: Constipation, unspecified;Low back pain Presentation: 09/28 11:26 Chief complaint: Patient states: 1. Back pain for 3 weeks, worse than usual. No falls ll1 this month. 2. Lower abd pain with constipation for 3 days. No N/V, no fever. Coronavirus screen: Client denies travel out of the [place] in the last 14 days. At this time, the client does not indicate any symptoms associated with coronavirus-19. Ebola Screen: Patient denies travel to an Ebola-affected area in the 21 days before illness onset. Initial Sepsis Screen: Does the patient meet any 2 criteria? HR > 90 bpm. No. Patient's initial sepsis screen is negative. Does the patient have a suspected source of infection? Yes: Acute abdominal pain. Risk Assessment: Do you want to hurt yourself or someone else? Patient reports no desire to harm self or others. Onset of symptoms was September 25, 2020. 11:26 Method Of Arrival: Wheelchair ll1 11:26 Acuity: ELY 3 ll1 Triage Assessment: 11:32 General: Appears in no apparent distress. Behavior is calm, cooperative, appropriate ll1 for age. Pain: Complains of pain in back Pain currently is 10 out of 10 on a pain scale. Quality of pain is described as aching, Pain began 3 weeks Aggravated by increased activity. Neuro: No deficits noted. Cardiovascular: No deficits noted. Respiratory: No deficits noted. GI: Abdomen is flat, Bowel sounds present X 4 quads. Abd is soft X 4 quads Reports lower abdominal pain, constipation. Musculoskeletal: Circulation, motion, and sensation intact. Capillary refill < 3 seconds. Historical: - Allergies: 11:26 No Known Drug Allergies; ll1 - PMHx: 11:26 Cancer, Breast; High Cholesterol; ll1 - PSHx: 11:26 Lumpectomy; Hysterectomy; Bladder suspension; L foot sx; Varicose veins; L knee ll1 replacement; - Immunization history:: Flu vaccine is not up to date. - Social history:: Smoking status: Patient denies any tobacco usage or history of. Screenin:54 Abuse screen: Denies threats or abuse. Nutritional screening: No deficits noted. vg1 Tuberculosis screening: No symptoms or risk factors identified. Fall Risk No fall in past 12 months (0 pts). No secondary diagnosis (0 pts). No IV (0 pts). Ambulatory Aid- None/Bed Rest/Nurse Assist (0 pts). Gait- Normal/Bed Rest/Wheelchair (0 pts) Mental Status- Oriented to own ability (0 pts). Total Bear Fall Scale indicates No Risk (0-24 pts). Assessment: 12:45 General: Appears in no apparent distress. comfortable, Behavior is calm, cooperative. vg1 12:45 Pain: Denies pain. Neuro: Level of Consciousness is awake, alert, obeys commands, vg1 Oriented to person, place, time, situation. Cardiovascular: Patient's skin is warm and dry. Respiratory: Airway is patent Respiratory effort is even, unlabored, Respiratory pattern is regular, symmetrical. GI: Bowel sounds present X 4 quads. Abd is soft and non tender Reports constipation, Patient currently denies diarrhea, nausea, vomiting, Last BM was Thursday09/26/20. Stated took exlax and drank prune juice. : No signs and/or symptoms were reported regarding the genitourinary system. EENT: No signs and/or symptoms were reported regarding the EENT system. Derm: Skin is intact, with poor turgor. Musculoskeletal: Circulation, motion, and sensation intact. 13:10 Reassessment: Patient states back pain only when moving around. vg1 13:41 Reassessment: Patient appears in no apparent distress at this time. Patient and/or vg1 family updated on plan of care and expected duration. Pain level reassessed. Patient is alert, oriented x 3, equal unlabored respirations, skin warm/dry/pink. 15:01 Reassessment: Received VO from Timmy PIÑA to administer Morphine 2 mg IVP x1 and Zofran 4 vg1 mg IVP x1. 15:13 Reassessment: No changes from previously documented assessment. Patient and/or family vg1 updated on plan of care and expected duration. Pain level reassessed. Patient is alert, oriented x 3, equal unlabored respirations, skin warm/dry/pink. Vital Signs: 11:26 BP 122 / 67; Pulse 92; Resp 16; Temp 99.0(O); Pulse Ox 100% on R/A; Weight 56.7 kg; ll1 Height 5 ft. 0 in. (152.40 cm); Pain 5/10; 12:45 BP 105 / 75; Pulse 84; Resp 18; Pulse Ox 98% on R/A; vg1 13:48 BP 125 / 84; Pulse 85; Resp 18; Pulse Ox 97% on R/A; vg1 14:51 BP 127 / 96; Pulse 80; Resp 18; Pulse Ox 97% on R/A; vg1 16:03 BP 133 / 70; Pulse 90; Resp 16; Pulse Ox 97% on R/A; vg1 11:26 Body Mass Index 24.41 (56.70 kg, 152.40 cm) ll1 ED Course: 11:20 Patient arrived in ED. ds1 11:25 Arm band placed on. ll1 11:29 Triage completed. ll1 12:03 Kelly Porter, RN is Primary Nurse. vg1 12:55 Patient has correct armband on for positive identification. Bed in low position. Call vg1 light in reach. Side rails up X 1. 12:56 Timmy Kearns PA is PHCP. [facility] 12:56 Catrachito Babb MD is Attending Physician. [facility] 13:27 CT Abd/Pelvis - IV Contrast Only In Process Unspecified. EDMS 13:46 Inserted saline lock: 22 gauge in right antecubital area, using aseptic technique. vg1 Blood collected. IV done by OSMANI Dhaliwal 17:11 No provider procedures requiring assistance completed. IV discontinued, intact, vg1 bleeding controlled, No redness/swelling at site. Pressure dressing applied. Administered Medications: 15:12 Drug: morphine 2 mg {Note: rass 0.} Route: IVP; Site: right antecubital; vg1 17:18 Follow up: Response: RASS: Alert and Calm (0) vg1 15:13 Drug: Zofran (Ondansetron) 4 mg Route: IVP; Site: right antecubital; vg1 17:18 Follow up: Response: No adverse reaction vg1 Outcome: 15:05 Discharge ordered by . jmm 16:29 Discharge ordered by . jmm 17:11 Discharged to home via wheelchair. vg1 17:11 Condition: stable 17:11 Discharge instructions given to patient, Instructed on discharge instructions, follow up and referral plans. medication usage, Demonstrated understanding of instructions, follow-up care, medications, Prescriptions given X 2. 17:11 Patient left the ED. vg1 Signatures: Dispatcher [employer] EDMS Timmy Kearns PA PA jmm Sanford, Demi ds1 Kelly Porter RN RN vg1 Tash Dave RN RN ll1
[2020-09-28] MEDS ORDERED: ONDANSETRON 4 MG/2 ML VIAL ONE (15:21)
[2020-09-28] MEDS ORDERED: MORPHINE 2 MG/ML SYR ONE (15:21)
[2020-09-28 17:36] VITALS: TEMP 99
[2020-09-28 17:38] VITALS: O2SAT 97
[2020-09-28 17:41] VITALS: BP 133/70
== END 2020-09-28 17:11 | disposition home or self-care (01) ==
LOC: ER 11:13
DX: K59.00 Constipation, unspecified (principal); M54.5 Low back pain; Z85.3 Personal history of malignant neoplasm of breast
CPT/HCPCS: 87088; 85025; 87086; 80048; 36415; 82565; 80076; 83690; 74177; 96375; 96374; 99284; Q9967; J2270; J2405; 81003; 81015

== ENCOUNTER 2020-09-29 13:06 | Emergency (ER) | payer OTHER, BC ==
--- OUTSIDE RECORDS SUMMARY | 2020-09-29 13:08 | XMS REPORT | Clinical Summary ---
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
--- OUTSIDE RECORDS SUMMARY | 2020-09-29 13:09 | XMS REPORT | Continuity of Care Document ---
:1935 Author Organization [employer] Care Team Providers Name Role Phone [facility] Information [email or web address] Unavailable Un available Problems Problem Status Onset Classification Date Comments Sourc e Date Reported R29.6 - REPEATED Active 04/06/20 OPID FALLS F03.90 - 20 [place] and UNSPECIF LEFT FRONTAL BLEED Active 03/09/[address] INTRACRANIAL [place] 03/09[place] HEMOR[place]AGE 20 Medical FOLLOWING INJURY Antonio ter Amnesia (finding) Active Problem 06/08/2020 M ischer Neuro,[facility] Hyperlipidemia Active Problem 06/08/2020 Misc her (disorder) Neuro,[facility] 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) N euro,[facility] Recurrent falls Active Problem 06/08/2020 Mis erik (finding) Neuro,[facility] Dementia Active Problem 06/08/2020 [facility] (disorder) Neuro,[facility] 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[facility] hemorrhage Neuro (disorder) UNSP FOCAL TBI W Active [facility] LOC OF UNSP Medical DURATION, I Center Medications Medication Details Route Status Patient Ordering Order Source Instructions Provider Date Donepezil 10 mg = 1 Active [place] hydrochloride tab, PO, 020 Neuro 10 MG Oral Bedtime, # 30 Tablet tab, 6 [Aricept] Refill(s), Pharmacy: [facility][id number], 147.32, cm, 04/26/20 9:31:00 CDT, Height, 56.364, kg, 04/26/20 9:31:00 CDT, Weight heparin sodium, Notes: [place] porcine 2500 porcine 020 Medical UNT/ML heparin [place] Injectable Solution Levetiracetam 500 mg = 1 [place] 500 MG Oral tab, PO, 020 Medical Tablet [Keppra] Q12H, # 12 Cente r tab, 0 Refill(s) remove patch Notes: Remove Inactive [place] patch 12 020 Medical hours after Center application each day. Docusate Notes: (Same No Longer [facility] as: Colace) Active 020 Medical (Do Not Center Crush) sennosides, ALF Notes: (Same No Longer [facility] [place] as: Senokot) Active 020 Medical Center [...] Oral as:Keppra) Active 020 Medical Tablet [Keppra] [place] Levetiracetam Notes: Same Inactive [place] as [...] acetaminophen MG Oral Tablet . (Same as: [place] 325/10) Morphine Notes: (Same Inactive [facility] as:MORPhine 020 Medical Sulfate) Center Bisacodyl [...] Posiflush Center Sterile Iohexol 100 mL, Inactive [facility] Route: IVP, 020 Medical Drug Form: [...] 03/09/20 23:10:00 CDT Keppra Notes: Same Inactive [facility] as Keppra 020 Medical Mix with 100 Center mL NS, LR or D5W MEDICATION WASTE Product Size: 500 mg Product Wasted: ___ mg Saline Flush Notes: Same [place] Longer [place] 0.9% as: BD Active 020 [facility] Posiflu Center Sterile Donepezil 5 mg = 1 tab, Active [place] hydrochloride 5 PO, Bedtime, 020 [place] ro MG Oral Tablet # 30 tab, 3 [Aricept] Refill(s), Pharmacy: [facility]/pharmacy #[id number], 147.32, cm, 01/24/20 16:10:00 CDT, Height, [...] completed Soy callaway 13-valent vaccine deltoid Ne uro,[facility] diphtheria/pertus 03/10/2020 Left completed Rosana sauceda sis, acel/tetanus deltoid Ne uro,[facility] Results Order Name Results Value Reference Date Interpretation Comments Juana rce Range CARDIAC Troponin-I <0.02 0.00 - 03/11 [facility] ENZYMES 0.40 [facility] CHEM PANEL Glucose Lvl 109 70 - 99 03/[address] CHEM PANEL BUN 17 7 - 22 03/[address] CHEM PANEL Creatinine 0.66 0.50 - 03/11 [facility] Lvl 1.40 [facility] CHEM PANEL Sodium Lvl 143 135 - 145 03/[address] CHEM PANEL Potassium Lvl 3.9 3.5 - 5.1 03/[place] [address] [place] [address] CHEM PANEL Chloride Lvl 111 95 - 109 03/11 [facility] CHEM PANEL CO2 23 24 - 32 03/[address] CHEM PANEL Calcium Lvl 9.0 8.5 - 10.5 03/11 [facility] as [facility] CHEM PANEL AGAP 12.9 10.0 - 03/11 [facility] 20.0 [facility] CHEM PANEL eGFR 80 03/11 Result [facility] Comment: The Medical eGFR is Center [...] Magnesium Lvl 2.5 1.8 - 2.4 03/[address] CHEM PANEL Phosphorus 3.9 2.5 - 4.5 03/[address] CHEM PANEL Total Protein 6.2 6.4 - 8.4 03/[address] CHEM PANEL Albumin Lvl 2.9 3.5 - 5.0 03/[address] CHEM PANEL Globulin 3.3 2.7 - 4.2 03/[address] CHEM PANEL A/G Ratio 0.9 0.7 - 1.6 03/[address] CHEM PANEL ALT 18 0 - 65 03/[address] CHEM PANEL AST 18 0 - 37 03/[address] CHEM PANEL Alk Phos 51 39 - 136 03/[address] CHEM PANEL Bili Total 0.3 0.2 - 1.3 03/[address] CHEM PANEL Bili Direct <0.1 0.0 - 0.3 03/[address] CHEM PANEL Bili Indirect Unable to 0.0 - 1.0 03/[address] HEMATOLOGY WBC 5.6 3.7 - 10.4 03/[address] HEMATOLOGY RBC 3.72 4.20 - 03/11 [facility] 5.40 [facility] HEMATOLOGY Hgb 11.3 12.0 - 03/11 [facility] 16.0 /2019 [facility] HEMATOLOGY Hct 33.5 36.0 - 03/11 [facility] 48.0 [facility] HEMATOLOGY MCV 90.1 80.0 - 03/11 [facility] 98.0 /2019 [facility] HEMATOLOGY MCH 30.4 27.0 - 03/11 [facility] 31.0 [facility] HEMATOLOGY MCHC 33.8 32.0 - 03/11 [facility] 36.0 /2019 [facility] HEMATOLOGY RDW 13.6 11.5 - 03/11 [facility] 14.5 [facility] HEMATOLOGY Platelet 224 133 - 450 03/[address] HEMATOLOGY MPV 7.2 7.4 - 10.4 03/[address] HEMATOLOGY Segs 56.9 45.0 - 03/11 [facility] 75.0 [facility] HEMATOLOGY Lymphocytes 29.2 20.0 - 03/11 [facility] 40.0 [facility] HEMATOLOGY Monocytes 10.9 2.0 - 12.0 03/[address] HEMATOLOGY Eosinophils 2.2 0.0 - 4.0 03/[address] HEMATOLOGY Basophils 0.8 0.0 - 1.0 03/[address] HEMATOLOGY Neutrophils # 3.2 1.5 - 8.1 03/[address] HEMATOLOGY Lymphocytes # 1.6 1.0 - 5.5 03/[address] HEMATOLOGY Monocytes # 0.6 0.0 - 0.8 03/[address] HEMATOLOGY Eosinophils # 0.1 0.0 - 0.5 03/[address] PARATHYROID Ca Ion WB 1.21 1.05 - 03/11 [facility] PROFILE 1. [facility] PARATHYROID Ca Norm WB 1.21 1.05 - 03/11 [facility] PROFILE 1. [facility] CARDIAC Troponin-I <0.02 0.00 - 03/10 [facility] ENZYMES 0.40 [facility] Culture: 10,000 - 03/10 [facility] Urine 50,000 [facility] CFU/mL [place] Skin Lindsay DRUG SCREEN U Amph Scr Negative Negative 03/10 [facility] /2019 [facility] (03/10/20 6:41 AM) Center DRUG SCREEN [...] Center DRUG SCREEN U Negative Negative 03/10 [facility] Phencyclidine *NA* Medical Scr (03/10/20 6:41 AM) Center DRUG SCREEN UDS Note See Note 03/10 [place] *NA* [facility] (03/10/20 6:41 AM) Center URINE AND UA Color Light Yellow Yellow 03/10 [facility] STOOL *NA* [facility] (03/10/20 6:41 AM) [place] URINE AND UA Turbidity Clear Clear 03/10 [facility] STOOL (03/10/20 6:41 AM) /2019 Medica l [place] URINE AND UA Spec Grav 1.060 <=1.030 03/10 [facility] STOOL /[address] [place] [address] URINE AND UA pH 5.0 5.0 - 8.0 03/10 [facility] STOOL /[address] [place] [address] URINE AND UA Protein Negative Negative 03/10 [facility] STOOL mg/dL mg/dL /2019 [facility] URINE AND UA Glucose Negative Negative 03/10 [facility] STOOL mg/dL mg/dL /2019 [facility] URINE AND UA Ketones Negative Negative 03/10 [facility] STOOL mg/dL mg/dL /2019 [facility] URINE AND UA Bili Negative Negative 03/10 [facility] STOOL *NA* [facility] (03/10/20 6:41 AM) Center URINE AND UA Blood Negative Negative 03/10 [facility] (03/10/20 6:41 AM) [facility] [place] URINE AND UA <1.0 0.1 - 1.0 03/10 [facility] Urobilinogen /2019 [facility] URINE AND UA Nitrite Negative Negative 03/10 [facility] STOOL (03/10/20 6:41 AM) Medica l Center URINE AND UA Leuk Est Large Negative 03/10 [facility] STOOL *ABN* /2019 Medical (03/10/20 6:41 AM) Center URINE AND UA Sq Epi Few /LPF Few /LPF 03/10 [facility] /[address] [place] [address] URINE AND UA WBC 28 0 - 5 03/[address] URINE AND UA Mucus Few /LPF None Seen 03/10 [facility] STOOL /LPF /2019 [facility] BLOOD BANK ABO/Rh O POS 03/10 [facility] RESULTS [facility] BLOOD BANK Antibody Scrn Negative 03/10 [facility] as RESULTS (03/09/20 11:22 PM) [facility] CHEM PANEL Glucose Lvl 102 70 - 99 03/10 [facility] CHEM PANEL BUN 22 7 - 22 03/[address] CHEM PANEL Creatinine 0.92 0.50 - 03/10 [facility] Lvl 1.40 [facility] CHEM PANEL Sodium Lvl 144 135 - 145 03/[address] CHEM PANEL Potassium Lvl 3.9 3.5 - 5.1 03/10 [place] [facility] CHEM PANEL Chloride Lvl 113 95 - 109 03/10 [facility] 2019 [facility] CHEM PANEL CO2 24 24 - 32 03/[address] CHEM PANEL Calcium Lvl 8.8 8.5 - 10.5 03/10 [facility] CHEM PANEL AGAP 10.9 10.0 - 03/10 [facility] 20.0 [facility] CHEM PANEL eGFR 57 03/10 Result Comment: The [facility] eGFR is Center calculated using the [...] Lactic Acid 0.6 0.5 - 2.2 03/10 [facility] L[facility] /2019 [facility] HEMATOLOGY WBC X 10x3 6.8 3.7 - 10.4 03/10 [facility] s /2019 [facility] HEMATOLOGY RBC X 10x6 3.70 4.20 - 03/10 [place] 5.40 [facility] HEMATOLOGY Hgb 11.5 12.0 - 03/10 [facility] 16.0 [facility] HEMATOLOGY Hct 33.2 36.0 - 03/10 [facility] 48.0 [facility] HEMATOLOGY MCV 89.6 80.0 - 03/10 [facility] 98.0 /2019 [facility] HEMATOLOGY MCH 31.1 27.0 - 03/10 [facility] 31.0 /2019 [facility] HEMATOLOGY MCHC 34.7 32.0 - 03/10 [facility] 36.0 /2019 [facility] HEMATOLOGY RDW 13.5 11.5 - 03/10 [place] 14.5 /2019 [facility] HEMATOLOGY Platelet 244 133 - 450 03/[address] HEMATOLOGY MPV 6.7 7.4 - 10.4 03/[address] HEMATOLOGY ACT (TEG) 113 86 - 118 03/[address] HEMATOLOGY [place] 0.6 03/[address] HEMATOLOGY R-time Rapid 0.7 0.4 - 0.7 03/10 [facility] as /2019 [facility] HEMATOLOGY K-time Rapid 0.9 0.6 - 2.3 03/10 [facility] [address] HEMATOLOGY Angle Rapid 79 64 - 80 03/[address] HEMATOLOGY Max Amplitude 65 52 - 71 03/10 [place] 2020 [facility] HEMATOLOGY G-value Rapid 9.1 5.0 - 11.6 03/10 [place] /2019 [facility] HEMATOLOGY Estimated % 0.7 0.0 - 7.5 03/10 [facility] [place] [address] HEMATOLOGY Segs 59.3 45.0 - 03/10 [place] 75.0 [facility] HEMATOLOGY Lymphocytes 27.8 20.0 - 03/10 [facility] 40.0 /2019 [facility] HEMATOLOGY Monocytes 11.1 2.0 - 12.0 03/[address] HEMATOLOGY Eosinophils 1.3 0.0 - 4.0 03/[address] HEMATOLOGY Basophils 0.5 0.0 - 1.0 03/[address] HEMATOLOGY Neutrophils # 4.0 1.5 - 8.1 03/[address] HEMATOLOGY Lymphocytes # 1.9 1.0 - 5.5 03/[address] HEMATOLOGY Monocytes # 0.8 0.0 - 0.8 03/[address] HEMATOLOGY Eosinophils # 0.1 0.0 - 0.5 03/[address] HEMATOLOGY PT 12.1 12.0 - 03/10 [facility] 14.7 [facility] HEMATOLOGY INR 0.90 0.85 - 03/10 [facility] 1.17 [facility] HEMATOLOGY PTT 27.7 22.9 - 03/10 [facility] 35.8 [facility] TOXICOLOGY Ethanol Lvl 7 03/[address] TOXICOLOGY Etoh (%) 0.007 03/[address] Pathology Reports No Data Provided for [...] Timothy Pond MD On 04/13/2020 09:18:26; VR-BMILE [id number] Brain w/wo contrast EXAM: MRI BRAIN WITHOUT AND WITH CONTRAST [facility] MRI DATE: 03/10/2020 at 8:51 [...] mild-to-mod erate cerebral volume loss resulted in [id number] ex vacuo enlargement of the ventricular system [...] CT EXAM: CT HEAD WITHOUT CONTRAST 03/09/2020 [facility] DATE: 03/09/2020 1137 PM CDT [...] EXAM: CT FACIAL BONES WITHOUT CONTRAST 0 [facility] contrast CT DATE: 03/09/2020 at [...] Chest/Abdomen/Pelvis EXAM: CT CHEST WITH CONTRAST 03/09/2020 [facility] IV contrast CT EXAM: CT ABDOMEN AND [...] Comments Source Systolic (mm Hg) 141 04/26/2020 [facility] Tawana ro Diastolic (mm Hg) 76 04/26/2020 [facility] Ne uro Heart Rate 79 04/26/2020 [facility] Neuro Respitory Rate 16 04/26/2020 [facility] Neuro Height 147.32 cm 04/26/2020 [facility] Neuro Weight 56.364 04/26/2020 [facility] Neuro BMI Calculated 25.97 04/26/2020 [facility] Systolic (mm Hg) 117 04/04/2020 [facility] [place] ro Diastolic (mm Hg) 60 04/04/2020 [facility] Ne uro Heart Rate 84 04/04/2020 [facility] Respitory Rate 16 04/04/2020 [facility] Height 147.32 cm 04/04/2020 [facility] Weight 55.909 04/04/2020 [facility] BMI Calculated 25.76 04/04/2020 [facility] Respitory Rate 26 03/11/2020 [facility] neil Center Systolic (mm Hg) 115 03/11/2020 [facility] dical Center Diastolic (mm Hg) 61 03/11/2020 [facility] Temperature Oral (F) 97.7 F 03/11/2020 [facility] Respitory Rate 20 03/11/2020 [facility] Center Systolic (mm Hg) 125 03/11/2020 [facility] dical Center Diastolic (mm Hg) 60 03/11/2020 [facility] Respitory Rate 20 03/11/2020 [facility] Center Systolic (mm Hg) 114 03/11/2020 [facility] dical Center Diastolic (mm Hg) 67 03/11/2020 [facility] Temperature Oral (F) 97.4 F 03/11/2020 [facility] Heart Rate 63 03/11/2020 [facility] Heart Rate 68 03/11/2020 [facility] Heart Rate 68 03/11/2020 [facility] Center Temperature Oral (F) 97.1 F 03/10/2020 [facility] Height 154.94 cm 03/10/2020 [facility] Weight 50.005 03/10/2020 [facility] BMI Calculated 20.83 03/10/2020 [facility] Center Height 152.4 cm 03/10/2020 [facility] BMI Calculated 23.48 03/10/2020 [facility] Center Weight 54.545 03/10/2020 [facility] Systolic (mm Hg) 101 03/06/2020 [facility] [place] ro Diastolic (mm Hg) 57 03/06/2020 [facility] Ne uro Heart Rate 87 03/06/2020 [facility] Respitory Rate 16 03/06/2020 [facility] Neuro Temperature Oral (F) 98.2 F 03/06/2020 [facility] Neuro Height 147.32 cm 03/06/2020 [facility] Neuro Weight 56.364 03/06/2020 [facility] Neuro BMI Calculated 25.97 03/06/2020 [facility] Neuro Systolic (mm Hg) 124 01/24/2020 [facility] [place] ro Diastolic (mm Hg) 66 01/24/2020 [facility] Ne uro Heart Rate 81 01/24/2020 [facility] Neuro Respitory Rate 16 01/24/2020 [facility] Neuro Temperature Oral (F) 98.8 F 01/24/2020 [facility] Neuro Height 147.32 cm 01/24/2020 [facility] Neuro Weight 55.909 01/24/2020 [facility] Neuro BMI Calculated 25.76 01/24/2020 [facility] Neuro Encounters Location Location Encounter Encounter Reason Attending ADM [facility] Stat us Source Details Type Number For Provider Date Date Visit MNA Outpatient [id number] Tal 01/23 01/24 [facility] Neurology [place] /2019 [facility] [place] Outpatient [id number] Chris 03/06 Active [facility] /2020 [place] MNA Outpatient [id number] Tal 03/06 03/07 [facility] Neurology [place] /2019 [facility] [place] [facility] [id number] Cornel 03/10 03/11 [facility] /2019 [facility] Outpatient [id number] Chris 04/04 Active [facility] /2020 [place] MNA Outpatient [id number] Tal 04/04 04/05 [facility] Neurology [place] /2019 [facility] [place] MNA Outside [id number] 04/25 04/27 [facility] Neurology Medical /2019 Neuro [place] Records Outpatient [id number] Chris 04/26 Active [facility] /2020 [place] MNA Outpatient [id number] Tal 04/26 04/27 [facility] Neurology [place] /2019 [facility] [place] Outpatient [id number] Chris 06/06 Active [facility] /2020 [place] Outpatient [id number] Chris 06/06 Active [facility] /2020 [place] MNA Ambulatory [id number] Tal 06/06 06/06 [facility] Neurology Pre-Reg [place] /2019 [facility] [place] MNA Ambulatory [id number] Tal 06/06 06/06 [facility] Neurology Pre-Reg [place] /2019 [facility] [place] Outpatient [id number] Chris 10/30 Active [facility] [place] Procedures Procedure Code Date Perfomer Comments Source Hysterectomy [id number] [facility] Knee replacement [id number] [facility] Neuro,[facility] Assessment and Plan No Data Provided for This Section Plan of Care No Data Provided for This Section Social History Social History Date Source Social History TypeResponse 01/24/2020 [facility] Neur o Alcohol 1 Employment/School 2, 3 Smoking Status Never smoker; Exposure to Tobacco Smoke Unable to obtain; Cigarette Smoking Last 365 Days Unable to obtain; Reg Smoking Cessation Counseling No entered on: 04/26/20 1occasional 1 [email or web address] release medical information Dr. 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 ReedPCP, Josette Robb-Daughter, Rosalva Robb- [id number]- Josette Robb-Daughter Family History No Data Provided for This Section Advance Directives No Data Provided for This Section Functional Status No Data Provided for This Section
--- OUTSIDE RECORDS SUMMARY | 2020-09-29 13:10 | XMS REPORT | Continuity of Care Document ---
:1935 Author Organization [facility] t Address [address] [place] [address] Care Team Providers Name Role Phone Asked, [...] FALLS F03.90 - UNSPECIF Active 04/06/2020 [facility] [place] LEFT Diagnosis Active 2020-03-09 Mem oria FRONTAL 03-09 22:25:00 l BLEED LEFT 00:00: Piero FRONTAL 00 BLEED Active 03/09/2020 [facility] INTRACRANI Diagnosis Active 2020-03-20 Memoria AL 03-09 21:41:00 l HEMORRHAGE 00:00: Hu lozada FOLLOWING INTRACRANI 00 INJURY AL HEMORRHAGE FOLLOWING INJURY Active 03/09/2020 [facility] Amnesia Problem Active 2020-06-08 Amari maryjo (finding) 21:51:43 l Amnesia [place] (finding) Active Problem 06/08/2020 [facility] Hyperlipid Problem Active 2020-06-08 M emoria emia 21:51:43 l (disorder) Hu n Hyperlipid emia (disorder) Active Problem 06/08/2020 [facility] Peripheral Problem Active 2020-06-08 M emoria nerve 21:51:43 l disease [place] (disorder) Peripheral nerve disease (disorder) Active Problem 06/08/2020 [facility] Recurrent Problem Active 2020-06-08 Me moria falls 21:51:43 l (finding) Pier[place] Recurrent falls (finding) Active Problem 06/08/2020 [facility] Dementia Problem Active 2020-06-08 Mem oria (disorder) 21:51:43 l Dementia Hu n (disorder) Active Problem 06/08/2020 [facility] Cerebral Problem Active 2020-06-08 Mem oria hemorrhage 21:51:43 l (disorder) 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 21:23:26 21:23:26 Medications Ordered Filled Start Stop Current Ordering Indication Dosage Frequency Signature Comments Components Source Medication Medication Date Date Medication? Clinician (SIG) Name Name Donepezil Yes 10 mg = 1 Mem oria hydrochlori 8-13 tab, PO, l de 10 MG 14:38: Bedtime, # Her leos Oral Tablet 00 30 tab, 6 [Aricept] Refill(s), Pharmacy: [id number], 147.32, cm, 04/26/20 9:31:00 CDT, [...] patch 6-28 Remove l 02:00: patch 12 [place] 00 hours after applicatio n each day. Docusate No Notes: Memoria 6-27 (Same as: l 14:00: Colace) [place] (Do Not Crush) sennosides, No Notes: Amari maryjo CUSTODIAL 6-27 (Same as: l 14:00: Senokot) Piero [...] not exceed l Hydrocodone 09:17: 4gm/day of [place] Bitartrate 00 acetaminop 10 MG Oral hen. Tablet (Same as: Page 325/10) Morphine 2019-0 No Notes: Memoria 03-10 (Same l 09:17: as:MORPhin e Sulfate) Bisacodyl 2019-0 No Notes: Memori a 03-10 (Same As: l 09:17: Dulcolax, [place] Bisco-Lax) Ondansetron 2019-0 No Notes: Amari maryjo 03-10 (Same as: l 09:17: Zofran) MEDICATION [...] 00 30 tab, 3 [Aricept] Refill(s), Pharmacy: [id number], 147.32, cm, 01/24/20 16:10:00 CDT, Height, 55.909, kg, 01/24/20 16:10:00 CDT, Weight Prolia Yes 60 mg, Memoria 5-12 SUB-Q, l 21:17: q6mo, 0 [place] 00 Refill(s) Aspirin Yes 1, PO, Memoria 5-12 Daily, 0 l 21:17: Refill(s) [place] 00 ibuprofen Yes 200mg Q6H Take 200 Abida ston (ADVIL,MOTR 5-15 mg by Methodi IN) 200 MG 13:40: mouth st tablet 50 every 6 (six) hours as needed for mild pain. Vital Signs Vital Name Observation Time Observation Value Comments Source Systolic (mm Hg) 2020-04-26 14:31:00 Amari rial [place] Diastolic (mm Hg) 2020-04-26 14:31:00 [facility] Heart Rate 2020-04-26 14:31:00 [facility] Respitory Rate 2020-04-26 14:31:00 Memori al [place] Height 2020-04-26 14:31:00 147.32 cm [facility] [place] Weight 2020-04-26 14:31:00 [facility] [place] BMI Calculated 2020-04-26 14:31:00 Memori al [place] Systolic (mm Hg) 2020-04-04 21:12:00 Amari rial [place] Diastolic (mm Hg) 2020-04-04 21:12:00 Mem orial [place] Heart Rate 2020-04-04 21:12:00 [facility] [place] Respitory Rate 2020-04-04 21:12:00 Memori al [place] Height 2020-04-04 21:12:00 147.32 cm [facility] [place] Weight 2020-04-04 21:12:00 [facility] [place] BMI Calculated 2020-04-04 21:12:00 Memori al [place] Respitory Rate 2020-03-11 17:00:00 Memori al [place] Systolic (mm Hg) 2020-03-11 17:00:00 Amari rial [place] Diastolic (mm Hg) 2020-03-11 17:00:00 Mem orial [place] Temperature Oral (F) 2020-03-11 17:00:00 97.7 F [facility] [place] Respitory Rate 2020-03-11 16:00:00 Memori al [place] Systolic (mm Hg) 2020-03-11 16:00:00 Amari rial [place] Diastolic (mm Hg) 2020-03-11 16:00:00 Mem orial [place] Respitory Rate 2020-03-11 15:00:00 Memori al [place] Systolic (mm Hg) 2020-03-11 15:00:00 Amari rial [place] Diastolic (mm Hg) 2020-03-11 15:00:00 Mem orial [place] Temperature Oral (F) 2020-03-11 13:03:00 97.4 F [facility] [place] Heart Rate 2020-03-11 02:09:00 [facility] [place] Heart Rate 2020-03-11 02:00:00 [facility] [place] Heart Rate 2020-03-11 01:35:00 [facility] [place] Temperature Oral (F) 2020-03-10 12:30:00 97.1 F [facility] [place] Height 2020-03-10 11:05:00 154.94 cm [facility] [place] Weight 2020-03-10 11:05:00 [facility] [place] BMI Calculated 2020-03-10 11:05:00 Memori al [place] Height 2020-03-10 02:27:00 152.4 cm [facility] [place] BMI Calculated 2020-03-10 02:27:00 Memori al [place] Weight 2020-03-10 02:27:00 [facility] [place] Systolic (mm Hg) 2020-03-06 18:30:00 Amari rial [place] Diastolic (mm Hg) 2020-03-06 18:30:00 Mem orial [place] Heart Rate 2020-03-06 18:30:00 [facility] [place] Respitory Rate 2020-03-06 18:30:00 Memori al [place] Temperature Oral (F) 2020-03-06 18:30:00 98.2 F [facility] [place] Height 2020-03-06 18:30:00 147.32 cm [facility] [place] Weight 2020-03-06 18:30:00 [facility] [place] BMI Calculated 2020-03-06 18:30:00 Memori al [place] Systolic (mm Hg) 2020-01-24 21:10:00 Amari rial [place] Diastolic (mm Hg) 2020-01-24 21:10:00 Mem orial [place] Heart Rate 2020-01-24 21:10:00 [facility] [place] Respitory Rate 2020-01-24 21:10:00 Memori al [place] Temperature Oral (F) 2020-01-24 21:10:00 98.8 F [facility] [place] Height 2020-01-24 21:10:00 147.32 cm [facility] [place] Weight 2020-01-24 21:10:00 [facility] [place] BMI Calculated 2020-01-24 21:10:00 Memori al [place] Procedures Procedure Date / Time Performed Performing Clinician [facility] e Hysterectomy [facility] [place] Knee replacement [facility] Hu n Plan of Care Planned Activity Planned Date Details Comments Source Future Scheduled 2020-04-14 INFLUENZA VACCINE [place] [facility] 00:00:00 [code = INFLUENZA VACCINE] Future Scheduled 1999 65+ PNEUMOCOCCAL [facility] 00:00:00 VACCINE (1 of 1 - PPSV23) [code = 65+ PNEUMOCOCCAL VACCINE (1 of 1 - PPSV23)] Future Scheduled 1984-02-20 SHINGLES VACCINES (#1) H [facility] 00:00:00 [code = SHINGLES VACCINES (#1)] Future Scheduled 1950 COVID-19 VACCINE (1 of H oujm [facility] 00:00:00 2) [code = COVID-19 VACCINE (1 of 2)] Encounters Start End Encounter Admission Attending Care Care Encounter Source Date/Time Date/Time Type Type Clinicians Facility Department ID 2020-06-06 2020-06-06 Outpatient Chinmay MHMISCHER MHMISCHER [id number] 13:30:00 13:30:00 Chris 03 Sudeep 2020-06-06 2020-06-06 Outpatient Chinmay MHMISCHER MHMISCHER [id number] 13:30:00 13:30:00 Chris 04 Sudeep 2020-04-26 2020-04-26 Outpatient Alexaric MHMISCHER MHMISCHER [id number] 09:00:00 23:59:59 Chris 06 Sudeep 2020-04-25 2020-04-26 Outpatient MHMISCHER MHMISCHER [id number] 09:46:35 23:59:59 00 2020-04-04 2020-04-04 Outpatient Chinmay MISCHER MHMISCHER [id number] 16:00:00 23:59:59 Chris 05 Sudeep 2020-03-09 2020-03-11 Outpatient Nicholas [facility] [id number] 21:21:00 13:00:00 Jayy Cobb 2020-03-09 2020-03-09 Emergency E [facility] [id number] [facility] 21:11:00 21:11:00 2020-03-06 2020-03-06 Outpatient Chinmay MHMISCHER MHMISCHER [id number] 13:30:00 23:59:59 Chris 02 Sudeep 2020-01-24 2020-01-24 Outpatient Alexaric MHMISCHER MHMISCHER [id number] 15:45:00 23:59:59 Chris Sudeep 2020-01-24 2020-01-24 Orders Doctor DORY [id number] 00:00:00 00:00:00 Only Unassigned, LUIS 350.1.13.10 [facility] 4.2.7.2.686 [id number] 2020-01-23 2020-01-23 Alexis Chandler [facility] 1.2.840.114 [id number] 00:00:00 00:00:00 Ramiro Stewart 350.1.13.10 [place] 4.2.7.2.686 Professio [id number] formerly [facility] 2019-05-31 2019-05-31 Orders Doctor CONNORS 1.2.840.114 [id number] 00:00:00 00:00:00 Only Unassigned, LUIS 350.1.13.10 [place] [address]686 [id number] [id number] 2019-05-20 2019-05-20 [facility] [id number] 00:00:00 00:00:00 Ramiro Stewart 350.1.13.10 [place] 4.2.7.2.686 Professio [id number] [address] 2019-05-05 2019-05-05 Orders Doctor CONNORS 1.2.840.114 [id number] 00:00:00 00:00:00 Only Unassigned, LUIS 350.1.13.10 [place] [address]686 [id number] [id number] Results Test Description Test Time Test Comments Results Result Comments Source CARDIAC ENZYMES 2020-03-11 <0.02 [facility] [place] 08:05:00 CHEM PANEL 2020-03-11 109 [facility] Ermelinda [...] A/G Ratio) 0.9 1 0.7-1.6 [facility] [id number] 08:05:0018[facility]annCHEM PANEL 2020-03-11 08:05:0018[facility]annCHE[facility] GPCOT9137-69-60 08:05:0051[facility]annCHE[facility] GGIDW6394-69-40 08:05:000.3[facility]annCHE[facility] YGHUV8294-51-80 08:05:00<0.1[facility] GiwhhcrDAWEDRNWSZ4044-85-60 08:05:005.6[facility] [place] JJTFBMSSBL0691-44-91 08:05:003.72[facility] WurxifdTOQRUAQTGS9513-19-97 08:05:00 11.3[facility] JasheqoKWMLUYGKFP5182-36-87 08:05:0033.5[facility]annHEMATOLOGY 2020-03-11 08:05:0090.1[facility] CorydajSWDQKLKQTI5616-52-43 08:05:00 Test Item Value Reference Range Interpretation Comments MCH (test code = MCH) 30.4 pg 27.0-31.0 [facility] EsmqcdbACOORPZMRJ4375-92-54 08:05:0033.8[facility] HermannHEMATOLOGY 2020-03-11 08:05:0013.6[facility] IxblvyhLQDSUXBEYP8566-09-97 08:05:49661Vokmirbt SanjelkXOBTHBTAJP3122-46-81 08:05:007.2[facility] TzioktpBAUPQDUWMP5271-96-05 08:05:0056.9[facility] UavitscQXBNOPCXUX4468-92-92 08:05:0029.2[facility] [place] NRTKHVPSKA4199-35-69 08:05:0010.9[facility] UsjwbumFZKWLTPXSS7111-59-03 08:05:00 2.2[facility] MxtykhiOJGMKFFXGP0650-30-61 08:05:000.8[facility] HermannHEMATOLOGY 2020-03-11 08:05:003.2[facility] LwrucmwNBTNHRTSUC6615-75-48 08:05:001.6[facility] YfslswrPJAVWETGNB7818-27-50 08:05:000.6[facility] IrfxnncRAYAEMUHOD1500-67-41 08:05:000.1[facility] HermannPARATHYROID PSGPNMU1850-05-41 08:05:001.21[facility] HermannPARATHYROID BMOPVJH1352-38-99 08:05:001.21[facility] HermannCARDIAC ENZYMES 2020-03-10 18:36:00<0.02[facility] HermannDRUG [id number] 11:41:00 Negative *NA*(03/10/20 6:41 AM)[facility] XNCIGR7297-25-23 11:41:00 Negative *NA*(03/10/20 6:41 AM)[facility] QNUIHS0470-43-14 11:41:00 Negative *NA*(03/10/20 6:41 AM)[facility] ELMSVZ5321-08-09 11:41:00 Negative *NA*(03/10/20 6:41 AM)[facility] KBAPCW5356-27-54 11:41:00 Negative *NA*(03/10/20 6:41 AM)[facility] HHKUWQ2971-42-20 11:41:00 Negative *NA*(03/10/20 6:41 AM)[facility] DHADFD4511-61-34 11:41:00 Negative *NA*(03/10/20 6:41 AM)[facility] MNDFLA0411-69-01 11:41:00See Note *NA*(03/10/20 6:41 AM)[facility] LNJAF9257-58-35 11:41:00 Light Yellow *NA*(03/10/20 6:41 AM)[facility] EGJHZ6889-01-36 11:41:00Clear (03/10/20 6:41 AM)[facility] ODMMR3666-49-85 11:41:00 Test Item Value Reference Range Interpretation Comments UA Spec Grav (test code = UA Spec 1.060 1 Grav) [facility] ZDXBG5365-32-99 11:41:00 Test Item Value Reference Range Interpretation Comments UA pH (test code = UA pH) 5.0 1 5.0-8.0 [facility] JPGNU2576-20-27 11:41:00Negative *NA*(03/10/20 6:41 AM) [facility] OJZMB7848-68-93 11:41:00Negative (03/10/20 6:41 AM) [facility] JEMGT2091-89-09 11:41:00<1.0[facility] FQPJW9728-89-34 11:41:00Negative (03/10/20 6:41 AM)[facility] WZNLA0953-51-74 11:41:00Large *ABN*(03/10/20 6:41 AM)[facility] CADWG9156-82-58 11:41:0028[facility] HermannBLOOD BANK KWZEYQF6063-84-25 04:22:00 Negative (03/09/20 11:22 PM)[facility]annCHE[facility] HGMTU0066-62-75 03:16:49453 [facility]annCHE[facility] XEHCG6160-07-75 03:16:0022[facility]annCHEM PANEL 2020-03-10 03:16:000.92[facility] HermannCHEM PZGCV0014-12-39 03:16:57702Itnwskxi HermannCHEM LFLRW2929-36-01 03:16:003.9[facility] HermannCHEM OFVVW6605-82-91 03:16:63731Rjzpkzga HermannCHEM NVGOK6314-67-05 03:16:0024[facility] HermannCHEM QZPFE4035-18-14 03:16:008.8[facility]annCHEM UGVEQ4462-93-08 03:16:0010.9 [facility]annCHE[facility] PRUJV6918-94-70 03:16:0057[facility] HermannCHEM PANEL 2020-03-10 03:16:000.6[facility] LhuxoqfLJBFWCPHBU0146-57-87 03:16:006.8[facility] JuihmmzLWWHXOMASH2732-56-95 03:16:003.70[facility] GaiiqlbYIHSEIWPNS4349-71-79 03:16:0011.5[facility] WllokcoRXRYMGZQMH1411-59-96 03:16:0033.2[facility] [place] ZLKRNCGYNX9932-73-68 03:16:0089.6[facility] ApghfjoYTXMWANJAA7383-32-64 03:16:00 Test Item Value Reference Range Interpretation Comments MCH (test code = MCH) 31.1 pg 27.0-31.0 [facility]kfAJDBKHIMNT1696-62-20 03:16:0034.7[facility] HermannHEMATOLOGY 2020-03-10 03:16:0013.5[facility] EbplemtWEAVWRWOGS4058-67-48 03:16:08676Friaunwj JzdprvwJCQVRLSZVP5097-98-22 03:16:006.7[facility] XtqsgopFRAWWQRHJC1131-72-89 03:16:00 Test Item Value Reference Range Interpretation Comments ACT (TEG) Rapid (test code = ACT (TEG) 113 s 86-118 Rapid) [facility] CenterDnlinyfJSMRHCGJSQ5035-20-08 03:16:00 Test Item Value Reference Range Interpretation Comments Split Point Rapid (test code = Split 0.6 min Point Rapid) [facility] HospitalEocnrbzEHCJWWHSXQ9978-92-12 03:16:00 Test Item Value Reference Range Interpretation Comments R-time Rapid (test code = R-time 0.7 min 0.4-0.7 Rapid) [facility] CenterApexxfgRYCEINSINI3284-41-92 03:16:00 Test Item Value Reference Range Interpretation Comments K-time Rapid (test code = K-time 0.9 min 0.6-2.3 Rapid) [facility] CenterNfpylnxGJTGSECGPW5918-88-49 03:16:00 Test Item Value Reference Range Interpretation Comments Angle Rapid (test code = Angle 79 degrees 64-80 Rapid) [facility] CenterTbtkuiqJLVZCXYDBB6263-83-77 03:16:00 Test Item Value Reference Range Interpretation Comments Max Amplitude Rapid (test code = Max 65 mm 52-71 Amplitude Rapid) [facility] CenterSozdrytHBZVYYNTWN6300-00-37 03:16:009.1[facility] HermannHEMATOLOGY 2020-03-10 03:16:000.7[facility] KvxrzkjNXBHHNTCAW1127-84-88 03:16:0059.3[facility] CzmzechETNFIGAZYQ2296-12-88 03:16:0027.8[facility] OgmqotuJEEXCGZWAU4079-78-41 03:16:0011.1[facility] WzyxsejAERMUOTEFS9104-91-54 03:16:001.3[facility] [place] LTHRATNBXU1428-69-05 03:16:000.5[facility] OwoivevZPTYAZKNGY9220-44-05 03:16:004.0 [facility] GfjjyuoUKSPVPRHPZ2038-06-35 03:16:001.9[facility] HermannHEMATOLOGY 2020-03-10 03:16:000.8[facility] CdxpwfbKHWHNOMFMZ0526-66-01 03:16:000.1[facility] ThsldrmMIXOGIAKRI4743-45-44 03:16:00 Test Item Value Reference Range Interpretation Comments PT (test code = PT) 12.1 s 12.0-14.7 [facility] CoiodsxMOERNQAYNK3832-95-98 03:16:00 Test Item Value Reference Range Interpretation Comments INR (test code = INR) 0.90 1 0.85-1.17 [facility] RhbhuiyVWKFAQHBAS6530-02-27 03:16:00 Test Item Value Reference Range Interpretation Comments PTT (test code = PTT) 27.7 s 22.9-35.8 [facility] JzcqawtNIWSOFUYSD2447-86-49 03:16:007[facility] HermannTOXICOLOGY 2020-03-10 03:16:000.007[facility]
--- NOTE | 2020-09-29 14:32 | RAD REPORT ---
EXAM DESCRIPTION: CT - Spine Lumbar Wo Con - 09/29/2020 2:03 pm CLINICAL HISTORY: Radiculopathy. PAIN COMPARISON: LUMBAR SPINE W O CONTRAST dated 09/04/2015; Abdomen Pelvis W Contrast dated 09/28/2020; Lumbar Spine Wo Con dated 06/12/2020 TECHNIQUE: Axial noncontrast CT imaging of the lumbar spine was performed with coronal and sagittal re-formatted images. All CT scans are performed using dose optimization technique as appropriate and may include automated exposure control or mA/KV adjustment according to patient size. FINDINGS: No acute lumbar spine fracture seen. No aggressive marrow pattern. Moderate degenerative levoscoliosis is present of the lumbar spine. There is vacuum disc degeneration seen at L2-3, L3-4 and L4-5. Mild degenerative anterolisthesis of L4 on 5 and L5 on S1 is seen with prominent facet hypertrophy. Several old compression deformities of lower thoracic vertebral bodies noted. No paraspinal hematoma or mass suspected. IMPRESSION: No acute lumbar spine abnormality detected. Significantly advanced lower lumbar spondylosis is present. Followup MR imaging of the lumbar spine w ould recommended on a nonemergent basis.
--- NOTE | 2020-09-29 15:17 | ER ---
Nurse's Notes [facility] Name: Mignon Plunkett Age: 85 yrs Sex: Female : 1935 Arrival Date: 09/29/2020 Time: 13:03 Bed 6 Private MD: Diagnosis: Low back pain-Chronic Presentation: 09/29 13:04 Chief complaint: EMS states: called out by pt's son for pt falling this morning, pt sv told EMS that she fell because of her back pain. Vitals WNL. Pt was seen here in the ER for same reason. Coronavirus screen: Client denies travel out of the [place] in the last 14 days. At this time, the client does not indicate any symptoms associated with coronavirus-19. Ebola Screen: No symptoms or risks identified at this time. Risk Assessment: Do you want to hurt yourself or someone else? Patient reports no desire to harm self or others. Onset of symptoms was September 29, 2020. 13:04 Method Of Arrival: EMS: [facility] sv 13:04 Acuity: ELY 4 sv 14:21 Initial Sepsis Screen: Does the patient meet any 2 criteria? No. Patient's initial hb sepsis screen is negative. Does the patient have a suspected source of infection? No. Patient's initial sepsis screen is negative. Historical: - Allergies: 13:06 No Known Allergies; sv - PSHx: 13:06 Lumpectomy; Hysterectomy; Bladder suspension; L foot sx; Varicose veins; L knee sv replacement; - Immunization history:: Adult Immunizations up to date. - Social history:: Smoking status: Patient denies any tobacco usage or history of. Screenin:19 Abuse screen: Denies threats or abuse. Denies injuries from another. Nutritional ph screening: No deficits noted. Tuberculosis screening: No symptoms or risk factors identified. 14:20 Abuse screen: Denies threats or abuse. Denies injuries from another. Nutritional hb screening: No deficits noted. Tuberculosis screening: No symptoms or risk factors identified. Fall Risk Total Bear Fall Scale indicates Low Risk Score (25-44 pts). Fall prevention measures have been instituted. Side Rails Up X 2 Frequent Obs/Assesments occuring As available Patient and Family Educated on Fall Prevention Program and strategies. Assessment: 14:36 General: Appears in no apparent distress. Behavior is calm, cooperative, appropriate ph for age, Denies fever, feeling ill. Pain: Complains of pain in lumbar area. Neuro: Level of Consciousness is awake, alert, obeys commands, Oriented to person, place, time, situation. Cardiovascular: Capillary refill < 3 seconds in bilateral fingers Patient's skin is warm and dry. Respiratory: Airway is patent Respiratory effort is even, unlabored, Respiratory pattern is regular, symmetrical. GI: No signs and/or symptoms were reported involving the gastrointestinal system. Derm: Skin is intact, is healthy with good turgor, Skin is pink, warm \\T\\ dry. Musculoskeletal: Circulation, motion, and sensation intact. Range of motion: intact in all extremities. 16:05 Reassessment: Patient appears in no apparent distress at this time. Patient and/or ph family updated on plan of care and expected duration. Pain level reassessed. Patient is alert, oriented x 3, equal unlabored respirations, skin warm/dry/pink. Pt up to ambulate in hallway w/ walker, assisted by fibre technologist, minimal difficulty noted,. pt states, " My walker at home works a lot better than this one here.". 16:45 Reassessment: Patient appears in no apparent distress at this time. Patient and/or ph family updated on plan of care and expected duration. Pain level reassessed. Patient is alert, oriented x 3, equal unlabored respirations, skin warm/dry/pink. D/C pending ride home from family. Vital Signs: 13:35 Pulse 89; Resp 16; Temp 98.7; Pulse Ox 97% ; hb 14:20 BP 119 / 65; Pulse 71; Resp 15; Pulse Ox 91% on R/A; hb 15:30 BP 120 / 62; Pulse 68; Resp 18; Temp 97.8; Pulse Ox 94% on R/A; ph ED Course: 13:03 Patient arrived in ED. sv 13:05 Triage completed. sv 13:06 Arm band placed on. sv 13:34 Catrachito Babb MD is Attending Physician. kdr 14:03 CT Lumbar Spine Wo Con In Process Unspecified. EDMS 14:17 Debora Hernandez, RN is Primary Nurse. ph 14:21 Patient has correct armband on for positive identification. Bed in low position. Call hb light in reach. Side rails up X2. 17:41 No provider procedures requiring assistance completed. IV discontinued, intact, hb bleeding controlled, No redness/swelling at site. Administered Medications: 16:13 Drug: SOLU-Medrol 80 mg {Note: administered IM to R deltoid.} Route: IVP; Site: Other; ph 17:00 Follow up: Response: No adverse reaction ph Outcome: 15:16 Discharge ordered by . kdr 17:43 Discharged to home via wheelchair. hb 17:43 Condition: stable 17:43 Discharge instructions given to patient, Instructed on discharge instructions, follow up and referral plans. medication usage, Demonstrated understanding of instructions, follow-up care, medications. 17:44 Patient left the ED. hb Signatures: Dispatcher [employer] EDClare Cardoso RN RN Catrachito Turk MD MD kdr Hall, Patricia, RN RN Lalita Castillo RN RN Corrections: (The following items were deleted from the chart) 13:06 13:04 Chief complaint: EMS states: called out by pt's son for pt falling this morning, sv pt told EMS that she fell because of her back pain. Vitals WNL. sv
--- NOTE | 2020-09-29 15:17 | EDPHYS ---
Physician Documentation [facility] Name: Mignon Plunkett Age: 85 yrs Sex: Female : 1935 Arrival Date: 09/29/2020 Time: 13:03 Bed 6 Private MD: ED Physician Catrachito Babb HPI: 09/29 13:44 This 85 yrs old Female presents to ER via EMS with complaints of Back Pain. kdr 13:44 The patient presents with pain that is acute, that is chronic, and decreased range of kdr motion, and an injury, and tenderness. The symptoms are located in the low back. Onset: The symptoms/episode began/occurred suddenly, this morning. The pain does not radiate. Associated signs and symptoms: The patient has no apparent associated signs or symptoms. The problem was sustained during a fall, while standing, while walking, Slipped coming out of shower. Modifying factors: The patient symptoms are alleviated by nothing, the patient symptoms are aggravated by movement. Severity of symptoms: At their worst the symptoms were moderate, in the emergency department the symptoms are unchanged. The patient has experienced similar episodes in the past, chronically. The patient has been recently seen by a physician: The patient has been recently seen at the [facility] Emergency Department, yesterday. Historical: - Allergies: 13:06 No Known Allergies; sv - PSHx: 13:06 Lumpectomy; Hysterectomy; Bladder suspension; L foot sx; Varicose veins; L knee sv replacement; - Immunization history:: Adult Immunizations up to date. - Social history:: Smoking status: Patient denies any tobacco usage or history of. ROS: 13:44 Constitutional: Negative for fever, chills, and weight loss, Eyes: Negative for injury, kdr pain, redness, and discharge, Neck: Negative for injury, pain, and swelling, Cardiovascular: Negative for chest pain, palpitations, and edema, Respiratory: Negative for shortness of breath, cough, wheezing, and pleuritic chest pain, Abdomen/GI: Negative for abdominal pain, nausea, vomiting, diarrhea, and constipation, : Negative for injury, bleeding, discharge, and swelling, MS/Extremity: Negative for injury and deformity, Skin: Negative for injury, rash, and discoloration, Neuro: Negative for headache, weakness, numbness, tingling, and seizure activity. Psych: Negative for depression, anxiety, suicide ideation, homicidal ideation, and hallucinations, Allergy/Immunology: Negative for hives, rash, and allergies, Endocrine: Negative for neck swelling, polydipsia, polyuria, polyphagia, and marked weight changes, Hematologic/Lymphatic: Negative for swollen nodes, abnormal bleeding, and unusual bruising. 13:44 Back: Positive for decreased range of motion, pain at rest, pain with movement, flank pain, of the low back area, Negative for radiated pain. Exam: 13:44 Constitutional: This is a well developed, well nourished patient who is awake, alert, kdr and in no acute distress. 13:44 Back: pain, that is mild, of the lumbar area, ROM is painful, with all movement, normal spinal alignment noted, CVA tenderness, is absent, vertebral tenderness, is appreciated at L1, L2, L3, L4 and L5. Vital Signs: 13:35 Pulse 89; Resp 16; Temp 98.7; Pulse Ox 97% ; hb 14:20 BP 119 / 65; Pulse 71; Resp 15; Pulse Ox 91% on R/A; hb 15:30 BP 120 / 62; Pulse 68; Resp 18; Temp 97.8; Pulse Ox 94% on R/A; ph MDM: 15:16 Patient medically screened. kdr 17:37 Data reviewed: vital signs, nurses notes, lab test result(s), radiologic studies. kdr Counseling: I had a detailed discussion with the patient and/or guardian regarding: the historical points, exam findings, and any diagnostic results supporting the discharge/admit diagnosis, radiology results, the need for outpatient follow up. Physician consultation: A Yina HAHN regarding consult, patient's condition, and will see patient in office, next week. 09/29 13:44 Order name: CT Lumbar Spine Wo Con; Complete Time: 15:15 kdr Administered Medications: 16:13 Drug: SOLU-Medrol 80 mg {Note: administered IM to R deltoid.} Route: IVP; Site: Other; ph 17:00 Follow up: Response: No adverse reaction ph Disposition: 09/29/20 15:16 Discharged to Home. Impression: Low back pain - Chronic. - Condition is Stable. - Discharge Instructions: Musculoskeletal Pain, Back Pain, Adult, [id number]. - Prescriptions for Medrol (Joey) 4 mg Oral Tablets, Dose Pack - take 1 tablet by ORAL route as directed - follow package instructions; 1 packet. Tramadol 50 mg Oral Tablet - take 0.5 tablet by ORAL route every 8 hours As needed as needed; 6 tablet. Miralax 17 gram/dose Oral - take 1 packet by ORAL route once daily dilute powder in 8 ounces of water or juice; 1 box. - Medication Reconciliation Form, Thank You Letter form. - Follow up: Private Physician; When: 2 - 3 days; Reason: If symptoms return, Further diagnostic work-up, Recheck today's complaints, Continuance of care, Re-evaluation by your physician. - Problem is new. - Symptoms have improved. Signatures: Dispatcher [employer] Clare Vazquez, RN RN Catrachito Babb MD MD [facility] Debora Hernandez RN RN Lalita Castillo RN RN Corrections: (The following items were deleted from the chart) 17:44 15:16 09/29/2020 15:16 Discharged to Home. Impression: Low back pain - Chronic. hb Condition is Stable. Forms are Medication Reconciliation Form, Thank You Letter, Antibiotic Education, Prescription Opioid Use. Follow up: Private Physician; When: 2 - 3 days; Reason: If symptoms return, Further diagnostic work-up, Recheck today's complaints, Continuance of care, Re-evaluation by your physician. Problem is new. Symptoms have improved. kdr
[2020-09-29] MEDS ORDERED: METHYLPREDNISOLONE 125 MG INJ ONE (16:16)
[2020-09-29 17:59] VITALS: TEMP 98.7
[2020-09-29 18:01] VITALS: BP 119/65; O2SAT 91
== END 2020-09-29 17:44 | disposition home or self-care (01) ==
LOC: ER 13:06
DX: G89.29 Other chronic pain (principal)
CPT/HCPCS: 72131; 96374; 99283; J2930

== ENCOUNTER 2021-05-26 08:49 | Emergency (ER) | payer OTHER, BC ==
--- OUTSIDE RECORDS SUMMARY | 2021-05-26 08:53 | XMS REPORT | Continuity of Care Document ---
:1935 Author Organization [facility] t Address [address] [place] [address] Care Team Providers Name Role Phone Asked, Pcp Primary Care Physician Unavailable Doctor Unassigned, Name Attending Clinician Unavailable Ramesh HAHN, Gene Attending Clinician Problems This patient has no known problems. Allergies, Adverse Reactions, Alerts This patient has no known allergies or adverse reactions. Social History Social Habit Start Date Stop Date Quantity Comments Source Sex Assigned [birth year] [facility] 00:00:00 00:00:00 Smoking Status Start Date Stop Date Source Unknown if ever smoked [facility] Medications Ordered Filled Start Stop Current Ordering Indication Dosage Frequency Signature Comments Components Source Medication Medication Date Date Medication? Clinician (SIG) Name Name ibuprofen 2018- Yes 200mg Q6H Take 200 Met hodi (ADVIL,MOTR 5-[address] [place]) 200 MG 18:40: mouth Hospit a tablet 50 every 6 l (six) hours as needed for mild pain. Procedures This patient has no known procedures. Plan of Care Planned Activity Planned Date Details Comments Source Future Scheduled Test COVID-19 VACCINE (1) [facility] [code = COVID-19 VACCINE (1)] Future Scheduled Test SHINGLES VACCINES (#1) [facility] [code = SHINGLES VACCINES (#1)] Future Scheduled Test 65+ PNEUMOCOCCAL [facility] VACCINE (1 of 1 - PPSV23) [code = 65+ PNEUMOCOCCAL VACCINE (1 of 1 - PPSV23)] Future Scheduled Test INFLUENZA VACCINE [code [facility]ly [facility] = INFLUENZA VACCINE] Encounters Start End Encounter Admission Attending Care Care Encounter Source Date/Time Date/Time Type Type Clinicians Facility Department ID 2020-01-24 2020-01-24 Orders Doctor DORY [id number] 00:00:00 00:00:00 Only Unassigned, LUIS [id number] [place] [facility] [id number] [id number] 2020-01-23 2020-01-23 Telephone [facility] [id number] 00:00:00 00:00:00 Ramiro Stewart [id number] [place] [id number] Profess[facility] [id number] [address] 2019-05-31 2019-05-31 Orders Doctor DORY [id number] 00:00:00 00:00:00 Only Unassigned, LUIS [id number] [place] [facility] [id number] 2019-05-20 2019-05-20 Telephone [facility] [id number] 00:00:00 00:00:00 Ramiro Stewart [id number] [place] [id number] Professio [id number] [address] 2019-05-05 2019-05-05 Orders Doctor DORY [id number] 00:00:00 00:00:00 Only Unassigned, LUIS [id number] [place] [id number] Results This patient has no known results.
--- NOTE | 2021-05-26 09:49 | RAD REPORT ---
EXAM DESCRIPTION: CT - Head Brain Wo Cont - 05/26/2021 9:33 am CLINICAL HISTORY: Fall injury Fall, trauma, head injury COMPARISON: Head Brain Wo Cont dated 02/22/2021; Facial Bones W/ Mpr dated 03/09/2020 TECHNIQUE: All CT scans are performed using dose optimization technique as appropriate and may inclu de automated exposure control or mA/KV adjustment according to patient size. FINDINGS: No intracranial hemorrhage, hydrocephalus or extra-axial fluid collection.Advanced general ized brain atrophy is present with advanced periventricular and deep white matter chronic microvascul ar ischemic changes.No areas of brain edema or evidence of midline shift. The paranasal sinuses and mastoids are clear. The calvarium is intact. IMPRESSION: No acute intracranial abnormality.
[2021-05-26] MEDS ORDERED: LIDOCAINE 1% MPF 5 ML VIAL ONE (09:51)
[2021-05-26] MEDS ORDERED: TETANUS & DIPHTHERIA TOX,ADULT 0.5 ML VIAL ONE (10:31)
[2021-05-26] MEDS ORDERED: DERMABOND SKIN ADHESIVE TOP ONE (11:07)
--- NOTE | 2021-05-26 11:17 | ER ---
Nurse's Notes [facility] Name: Mignon Plunkett Age: 86 yrs Sex: Female : 1935 Arrival Date: 05/26/2021 Time: 08:52 Bed 26 Private MD: Diagnosis: Laceration without foreign body of other part of head-forehead;Laceration without foreign body of lip Presentation: 05/26 08:52 Chief complaint: Tripped while ambulating with walker, hit face on trash can. Two hb lacerations on forehead noted. Not bleeding at this time. Negative LOC. Takes ASA. Coronavirus screen: At this time, the client does not indicate any symptoms associated with coronavirus-19. Ebola Screen: No symptoms or risks identified at this time. Initial Sepsis Screen: Does the patient meet any 2 criteria? RR > 20 per min. No. Patient's initial sepsis screen is negative. Does the patient have a suspected source of infection? No. Patient's initial sepsis screen is negative. Risk Assessment: Do you want to hurt yourself or someone else? Patient reports no desire to harm self or others. Onset of symptoms was May 26, 2021. 08:52 Method Of Arrival: EMS: [facility] 08:52 Acuity: ELY 3 hb Triage Assessment: 08:57 General: Appears in no apparent distress. Behavior is calm, cooperative. Pain: Denies hb pain. EENT: No signs and/or symptoms were reported regarding the EENT system. Neuro: Level of Consciousness is awake, alert, obeys commands, Oriented to person, place, situation. Cardiovascular: Patient's skin is warm and dry. Respiratory: Respiratory effort is even, unlabored, Respiratory pattern is regular, symmetrical. GI: No signs and/or symptoms were reported involving the gastrointestinal system. : No signs and/or symptoms were reported regarding the genitourinary system. Derm: Skin is pink, warm \T\ dry. Musculoskeletal: No signs and/or symptoms reported regarding the musculoskeletal system. Injury Description: Laceration sustained to forehead is 2.6 to 7.5 cm long, was sustained 30-60 minutes ago. laceration sustained to right forehead that is <2cm long, not bleeding. Historical: - Allergies: 08:55 No Known Allergies; hb - PMHx: 08:55 Cancer, Breast; High Cholesterol; Depression; Anxiety; Insomnia; Polyneuropathy; hb Generalized Weakness; Hypertension; - PSHx: 08:55 hysterectomy; hb - Immunization history:: Adult Immunizations up to date. - Social history:: Smoking status: Patient denies any tobacco usage or history of. Screenin:13 Abuse screen: Denies threats or abuse. Nutritional screening: No deficits noted. vg1 Tuberculosis screening: No symptoms or risk factors identified. Fall Risk Fall in past 12 months (25 points). No secondary diagnosis (0 pts). No IV (0 pts). Ambulatory Aid- Crutches/Cane/Walker (15 pts). Gait- Normal/Bed Rest/Wheelchair (0 pts) Mental Status- Oriented to own ability (0 pts). Total Bear Fall Scale indicates High Risk Score (45 or more points). Fall prevention measures have been instituted. Side Rails Up X 2 Placed Close to Nursing Station. Assessment: 10:12 Reassessment: Patient appears in no apparent distress at this time. No changes from vg1 previously documented assessment. Patient and/or family updated on plan of care and expected duration. Pain level reassessed. Patient is alert, oriented x 3, equal unlabored respirations, skin warm/dry/pink. Patient denies pain at this time. 11:47 Reassessment: Patient appears in no apparent distress at this time. Patient and/or vg1 family updated on plan of care and expected duration. Pain level reassessed. Patient is alert, oriented x 3, equal unlabored respirations, skin warm/dry/pink. pt lacerations have been cleaned and dressing applied. Patient denies pain at this time. Vital Signs: 08:52 BP 118 / 60; Pulse 70; Resp 16; Temp 97.9; Pulse Ox 97% on R/A; Pain 0/10; hb 10:13 BP 122 / 70; Pulse 70; Resp 16; Pulse Ox 96% on R/A; vg1 11:30 BP 116 / 73; Pulse 76; Resp 16; Pulse Ox 97% ; vg1 [place] Coma Score: 09:56 Eye Response: spontaneous(4). Verbal Response: oriented(5). Motor Response: obeys pm1 commands(6). Total: 15. ED Course: 08:52 Patient arrived in ED. hb 08:55 Triage completed. hb 08:55 Arm band placed on. hb 08:56 Uriel Hair NP is PHCP. pm1 08:57 Judson Sparks MD is Attending Physician. pm1 09:26 Lalita Castillo, RN is Primary Nurse. hb 09:36 CT Head Brain wo Cont In Process Unspecified. EDMS 10:13 Patient has correct armband on for positive identification. Bed in low position. Call vg1 light in reach. Side rails up X2. 11:48 Assist provider with laceration repair. vg1 11:48 Patient did not have IV access during this emergency room visit. vg1 Administered Medications: 10:12 Drug: Tetanus-Diphtheria Toxoid Adult 0.5 ml {Layout Mechanic: [employer]. Exp: vg1 11/29/2022. Lot #: [id number]. } Route: IM; Site: right deltoid; 11:14 Follow up: Response: No adverse reaction vg1 10:30 Drug: Lidocaine (1 %) 5 ml Volume: 5 ml; Route: Infiltration; vg1 Outcome: 11:16 Discharge ordered by MD. pm1 11:48 Discharged to home via wheelchair, with family. vg1 11:48 Condition: stable 11:48 Discharge instructions given to patient, family, Instructed on discharge instructions, follow up and referral plans. medication usage, Demonstrated understanding of instructions, follow-up care, medications, Prescriptions given X 1. 11:49 Patient left the ED. vg1 Signatures: Dispatcher [employer] EDDE Uriel Hair, FELIZ CANAL STRUCTURE OPERATOR pm1 Lalita Castillo, ASHLEY RN Kelly Mcfadden RN RN vg1 Corrections: (The following items were deleted from the chart) 11:49 11:47 Reassessment: Patient appears in no apparent distress at this time. Patient vg1 and/or family updated on plan of care and expected duration. Pain level reassessed. Patient is alert, oriented x 3, equal unlabored respirations, skin warm/dry/pink. pt lacerations have been cleaned and bandaged. Patient denies pain at this time. vg1
--- NOTE | 2021-05-26 11:17 | EDPHYS ---
Physician Documentation [facility] Name: Mignon Plunkett Age: 86 yrs Sex: Female : 1935 Arrival Date: 05/26/2021 Time: 08:52 Bed 26 Private MD: ED Physician Judson Sparks HPI: 05/26 09:56 This 86 yrs old Female presents to ER via EMS with complaints of Facial pm1 Injury. 09:56 The patient or guardian reports a laceration. The complaints affect the lower pm1 ofelia border and forehead. Context of injury: The problem was sustained at a assisted or assisted living facility, resulted from slipped in the bathroom and hit her head against the trash can. Onset: The symptoms/episode began/occurred just prior to arrival. Associated signs and symptoms: Loss of consciousness: This patient did not experience any loss of consciousness. Pertinent negatives: headache, nausea, neck pain, vomiting. The patient has not experienced similar symptoms in the past. The patient has not recently seen a physician. Historical: - Allergies: 08:55 No Known Allergies; hb - PMHx: 08:55 Cancer, Breast; High Cholesterol; Depression; Anxiety; Insomnia; Polyneuropathy; hb Generalized Weakness; Hypertension; - PSHx: 08:55 hysterectomy; hb - Immunization history:: Adult Immunizations up to date. - Social history:: Smoking status: Patient denies any tobacco usage or history of. ROS: 09:56 Constitutional: Negative for fever, chills, and weight loss, Neck: Negative for injury, pm1 pain, and swelling, Cardiovascular: Negative for chest pain, palpitations, and edema, Respiratory: Negative for shortness of breath, cough, wheezing, and pleuritic chest pain, Abdomen/GI: Negative for abdominal pain, nausea, vomiting, diarrhea, and constipation, MS/Extremity: Negative for injury and deformity, Neuro: Negative for headache, weakness, numbness, tingling, and seizure. 09:56 Skin: Positive for laceration(s), of the forehead and lower ofelia border. 09:56 All other systems are negative. Exam: 09:56 Constitutional: This is a well developed, well nourished patient who is awake, alert, pm1 and in no acute distress. 09:56 Chest/axilla: Normal chest wall appearance and motion. Nontender with no deformity. No lesions are appreciated. 09:56 Back: No spinal tenderness. No costovertebral tenderness. Full range of motion. Skin: Warm, dry with normal turgor. Normal color with no rashes, no lesions, and no evidence of cellulitis. MS/ Extremity: Pulses equal, no cyanosis. Neurovascular intact. Full, normal range of motion. 09:56 Head/face: Noted is no obvious of injury or deformity except a laceration(s), of the 1 cm laceration at left lower vermilion border, 4 cm laceration to middle of forehead just above nasal bridge, and skin tear 2 cm right religion. 09:56 Eyes: Exam is negative for acute changes, Extraocular movements: no acute changes, Lids and lashes: appear normal. 09:56 ENT: Mouth: Lips: normal, Oral mucosa: normal, pink and intact, moist. 09:56 Neck: Exam negative for acute changes, External neck: is normal, no tenderness, C-spine: vertebral tenderness, is not appreciated, ROM/movement: is normal, is supple. 09:56 Cardiovascular: Exam negative for acute changes, Rate: normal, Rhythm: regular, Pulses: no pulse deficits are appreciated. 09:56 Respiratory: Exam negative for acute changes, respiratory distress, shortness of breath. 09:56 Abdomen/GI: Inspection: abdomen appears normal, Palpation: abdomen is soft and non-tender, in all quadrants. 09:56 Neuro: Exam negative for acute changes, Orientation: is normal, Mentation: is normal, Sensation: is normal, no obvious gross deficits. Vital Signs: 08:52 BP 118 / 60; Pulse 70; Resp 16; Temp 97.9; Pulse Ox 97% on R/A; Pain 0/10; hb 10:13 BP 122 / 70; Pulse 70; Resp 16; Pulse Ox 96% on R/A; vg1 11:30 BP 116 / 73; Pulse 76; Resp 16; Pulse Ox 97% ; vg1 [place] Coma Score: 09:56 Eye Response: spontaneous(4). Verbal Response: oriented(5). Motor Response: obeys pm1 commands(6). Total: 15. Laceration: 15:56 Wound Repair of 2cm ( 0.8in ) Skin tear laceration to face. Irregularly shaped.. Distal pm1 neuro/vascular/tendon intact. Skin closed with thin layer Adhesive skin closure using Dermabond. Patient tolerated well. 15:56 Wound Repair of 4cm ( 1.6in ) subcutaneous laceration to Mid forehead above the nasal pm1 bridge. Linear shaped.. Distal neuro/vascular/tendon intact. Anesthesia: Local anesthetic administered with 3 mls of 1% lidocaine. Wound prep: Extensive cleansing with hibiclenz by me, Wound irrigation with saline by me, Wound explored extensively, Copious irrigation. Skin closed with 7 5-0 Prolene using simple sutures and sterile technique. Dressed with 4x4's. Patient tolerated well. 15:56 Wound Repair of 1cm ( 0.4in ) subcutaneous laceration to lower ofelia border. pm1 Irregularly shaped.. Distal neuro/vascular/tendon intact. Anesthesia: Local anesthetic administered with 1 mls of 1% lidocaine. Wound prep: Extensive cleansing with hibiclenz by me, Wound irrigation with saline by me, Wound explored extensively, Copious irrigation. Skin closed with 3 5-0 Prolene using simple sutures and sterile technique. Patient tolerated well. MDM: 09:08 Patient medically screened. pm1 11:14 Data reviewed: vital signs. Data interpreted: Pulse oximetry: on room air is 96 %. pm1 Interpretation: normal. Counseling: I had a detailed discussion with the patient and/or guardian regarding: the historical points, exam findings, and any diagnostic results supporting the discharge/admit diagnosis, radiology results, the need for outpatient follow up, a family practitioner, suture removal in 4-5 days, to return to the emergency department if symptoms worsen or persist or if there are any questions or concerns that arise at home. 05/26 09:22 Order name: CT Head Brain wo Cont; Complete Time: 09:51 pm1 05/26 09:24 Order name: Dressing - Wound; Complete Time: 09:39 pm1 05/26 09:24 Order name: Gloves, Sterile; Complete Time: 09:39 pm1 05/26 09:24 Order name: Prolene, Sutures; Complete Time: 09:39 pm1 05/26 09:24 Order name: Setup Suture Tray; Complete Time: 09:38 pm1 Administered Medications: 10:12 Drug: Tetanus-Diphtheria Toxoid Adult 0.5 ml {Tank Systems Maintainer: [employer]. Exp: vg1 11/29/2022. Lot #: [id number]. } Route: IM; Site: right deltoid; 11:14 Follow up: Response: No adverse reaction vg1 10:30 Drug: Lidocaine (1 %) 5 ml Volume: 5 ml; Route: Infiltration; vg1 Disposition: 15:53 Co-signature as Attending Physician, Judson Sparks MD I agree with the assessment and rn plan of care. Attestation: The patient's history, exam findings, diagnostics, and a summary of any interventions or procedures was reviewed in detail with Uriel Hair NP. Disposition Summary: 05/26/21 11:16 Discharge Ordered Location: Home pm1 Problem: new pm1 Symptoms: have improved pm1 Condition: Stable pm1 Diagnosis - Laceration without foreign body of other part of head - forehead pm1 - Laceration without foreign body of lip pm1 Followup: pm1 - With: Emergency Department - When: As needed - Reason: Worsening of condition Followup: pm1 - With: Private Physician - When: 4-5 days - Reason: Wound Recheck, Recheck today's complaints, Continuance of care, Staple/Suture removal, Re-evaluation by your physician Discharge Instructions: - Discharge Summary Sheet pm1 - Tissue Adhesive Wound Care pm1 - Facial Laceration pm1 Forms: - Medication Reconciliation Form pm1 - Thank You Letter pm1 - Antibiotic Education pm1 - Prescription Opioid Use pm1 Prescriptions: - Cephalexin 500 mg Oral Capsule - take 1 capsule by ORAL route every 12 hours for 10 days; 20 capsule; Refills: pm1 0, Product Selection Permitted Signatures: Dispatcher [employer] EDMS Judson Sparks MD MD rn Marinas, Patrick, NP DATA WAREHOUSE MANAGER pm1 Lalita Castillo, RN RN Kelly Mcfadden RN RN vg1
[2021-05-26 11:54] VITALS: TEMP 97.9
[2021-05-26 11:57] VITALS: BP 116/73; O2SAT 97
== END 2021-05-26 11:49 | disposition home or self-care (01) ==
LOC: ER 08:49
PROC: 0JQ10ZZ Repair Face Subcutaneous Tissue and Fascia, Open Approach (ICD-10-PCS; principal; 2021-05-26)
PROC: 0CQ1XZZ Repair Lower Lip, External Approach (ICD-10-PCS; 2021-05-26)
DX: S01.81XA Laceration without foreign body of other part of head, initial encounter (principal); S01.511A Laceration without foreign body of lip, initial encounter; W01.198A Fall on same level from slipping, tripping and stumbling with subsequent striking against other object, initial encounter; Y93.01 Activity, walking, marching and hiking; Y92.121 Bathroom in nursing home as the place of occurrence of the external cause; Z23 Encounter for immunization; Z85.3 Personal history of malignant neoplasm of breast; I10 Essential (primary) hypertension
CPT/HCPCS: 70450; 90471; 90714; 99284

== ENCOUNTER 2021-05-31 18:07 | Inpatient (IN) | payer OTHER, BC ==
--- NOTE | 2021-05-31 20:01 | RAD REPORT ---
EXAM DESCRIPTION: RAD - Pelvis - 05/31/2021 7:52 pm CLINICAL HISTORY: Pelvic pain FINDINGS: Comminuted displaced fracture intertrochanteric, lesser trochanter, greater trochanter rig ht femur with varus angulation present at the fracture site. No dislocation
--- NOTE | 2021-05-31 20:01 | RAD REPORT ---
EXAM DESCRIPTION: RAD - Hip Right 2 View - 05/31/2021 7:52 pm CLINICAL HISTORY: Right hip pain FINDINGS: Comminuted displaced fracture intertrochanteric, lesser trochanter, greater trochanter rig ht femur with varus angulation present at the fracture site. No dislocation
--- NOTE | 2021-05-31 20:03 | RAD REPORT ---
EXAM DESCRIPTION: RAD - Shoulder Right 2 View - 05/31/2021 7:52 pm CLINICAL HISTORY: Right shoulder pain FINDINGS: No fracture or dislocation is seen. Calcification superior and lateral to the humeral head . Postsurgical changes noted.
--- NOTE | 2021-05-31 20:04 | RAD REPORT ---
EXAM DESCRIPTION: [place] Single View05/31/2021 7:52 pm CLINICAL HISTORY: Chest pain COMPARISON: 2019 FINDINGS: The lungs appear clear of acute infiltrate. The heart is normal size IMPRESSION: No acute abnormalities displayed
--- NOTE | 2021-05-31 20:12 | RAD REPORT ---
EXAM DESCRIPTION: CT - Head C Spine Mpr Wo Con - 05/31/2021 7:55 pm CLINICAL HISTORY: Head and neck injury status post fall. Head and neck pain COMPARISON: 2019 TECHNIQUE: Computed axial tomography of the head and cervical spine was obtained. Sagittal and coronal reconstruction was performed. All CT scans are performed using dose optimization technique as appropriate and may include automated exposure control or mA/KV adjustment according to patient size. FINDINGS: An acute intracranial bleed is not seen. Moderate low-density areas within periventricular, deep and subcortical white matter probably ischemi c changes secondary to small vessel disease. The ventricles are normal in caliber. An extra-axial fluid collection is not noted.Fluid within the v isualized sinuses and mastoids is not seen A cervical fracture is not visualized. No dislocation is noted. Mild anterior subluxation C2 on C3 an d C3 on C4 unchanged. Spondylosis involves the cervical spine IMPRESSION: No acute intracranial abnormality is seen. A cervical fracture is not visualized. If the patient continues to have symptoms to suggest intracra nial /spinal cord pathology then MRI would be recommended
[2021-05-31] MEDS ORDERED: MORPHINE 2 MG/ML SYR ONE (20:26)
[2021-05-31] MEDS ORDERED: NA CHLORIDE 0.9% 500 ML ONE (20:27)
[2021-05-31] MEDS ORDERED: ONDANSETRON 4 MG/2 ML VIAL ONE (20:27)
--- NOTE | 2021-05-31 20:52 | ER ---
Nurse's Notes [facility] Name: Mignon Plunkett Age: 86 yrs Sex: Female : 1935 Arrival Date: 05/31/2021 Time: 18:13 Bed 17 Private MD: Diagnosis: Hip Fracture Right, Comminuted, Intertrochanteric Presentation: 05/31 18:13 Chief complaint: EMS states: fall this morning 0330 at [facility] while attempting to tr6 go to bathroom. at that time pt was not sent to hospital. pts daughter called to have xray done at facility and found fractured right hip. on arrival to ED pt also c/o right arm pain. pts daughter reports that pt has had frequent falls over the past month. Coronavirus screen: At this time, unable to obtain information related to travel outside the [place] Ebola Screen: No symptoms or risks identified at this time. Initial Sepsis Screen: Does the patient meet any 2 criteria? No. Patient's initial sepsis screen is negative. Does the patient have a suspected source of infection? No. Patient's initial sepsis screen is negative. Risk Assessment: Do you want to hurt yourself or someone else? Patient reports no desire to harm self or others. Onset of symptoms was May 31, 2021. 18:13 Method Of Arrival: EMS: [facility] tr6 18:13 Acuity: ELY 3 tr6 Triage Assessment: 18:37 General: Appears in no apparent distress. comfortable, Behavior is calm, cooperative, tr6 appropriate for age. Pain: Complains of pain in right arm and right hip. EENT: bruising noted to b/l eyes, R > L. stitches to center of forehead from previous fall. Neuro: Level of Consciousness is awake, alert, obeys commands, Oriented to person, place, time, situation, Appropriate for age Speech is normal. Cardiovascular: Denies chest pain, Patient's skin is warm and dry. Pulses are 2+ in right radial artery and right posterior tibial artery. Respiratory: No deficits noted. GI: No deficits noted. : No deficits noted. Derm: Skin is thin, Wound noted center forhead, stitches present Bruising that is green, yellow, on right eye and left eye. Musculoskeletal: Range of motion: limited in right shoulder and right hip. Injury Description: unwitnessed fall from standing while going to bathroom. pt denies LOC or hitting her head. Historical: - Allergies: 18:35 No Known Allergies; tr6 - Home Meds: 18:35 Keflex 500 mg Oral cap 1 cap every 12 hours [Active]; exelon patch [Active]; buspirone tr6 10 mg Oral tab 1 tab 3 times per day [Active]; hydrochlorothiazide 25 mg Oral tab 1 tab once daily [Active]; 18:37 memantine 10 mg oral tab 1 tab 2 times per day [Active]; Celexa 20 mg Oral tab 1 tab tr6 once daily [Active]; Depakote ER 125 Oral three times a day [Active]; lisinopril 20 mg Oral tab 1 tab once daily [Active]; Saccharomyces boulardii 250 mg oral cap daily [Active]; Vitamin C 500 mg Oral cpER [Active]; meloxicam 15 mg oral tab 1 tab once daily [Active]; zinc sulfate 50 mg zinc (220 mg) Oral tab [Active]; aspirin 81 mg Oral chew [Active]; - PMHx: 18:35 Anxiety; Cancer, Breast; Depression; generalized weakness; Hypertension; High tr6 Cholesterol; insomnia; polyneuropathy; - PSHx: 18:35 hysterectomy; tr6 - Immunization history:: Adult Immunizations up to date, Client reports receiving the 2nd dose of the Covid vaccine. - Social history:: Smoking status: unknown. Screenin:45 Abuse screen: Denies threats or abuse. Denies injuries from another. Nutritional tr6 screening: No deficits noted. Tuberculosis screening: No symptoms or risk factors identified. Fall Risk Fall in past 12 months (25 points). Secondary diagnosis (15 points) dementia, impaired mobility, Ambulatory Aid- Crutches/Cane/Walker (15 pts). Gait- Impaired (20 pts.). Mental Status- Overestimates/Forgets Limitations (15 pts.). Assessment: 18:46 Reassessment: see triage assessment. tr6 22:46 General: Appears uncomfortable, slender, multiple bruises and lacs to face and limbs. kc4 Behavior is calm, cooperative, appropriate for age, Reports Denies fever, feeling ill, fatigue, chills. Pain: Complains of pain in right hip and right shoulder and left eye and right eye Pain currently is 4 out of 10 on a pain scale. level that patient reports is acceptable is 3 out of 10 on a pain scale. Quality of pain is described as aching, shooting, throbbing, Pain began Alleviated by medications, rest, Aggravated by increased activity, repositioning, weight bearing. Vital Signs: 18:13 BP 121 / 76; Pulse 90; Resp 18; Temp 99.6(O); Pulse Ox 100% on R/A; tr6 20:33 BP 134 / 63; Pulse 88; Resp 16; Temp 98.7; Pulse Ox 100% on R/A; Pain 3/10; kc4 ED Course: 18:13 Patient arrived in ED. tr6 18:34 Triage completed. tr6 18:46 Arm band placed on right wrist. tr6 18:46 Patient has correct armband on for positive identification. Fall risk band placed. tr6 Placed in gown. Bed in low position. Call light in reach. Side rails up X2. daughter at bedside. monitoring manager on. Pulse ox on. NIBP on. Door closed. Noise minimized. Visitors limited. Lights dimmed. Moved to private room. Warm blanket given. Diet: Patient is NPO. 18:46 No provider procedures requiring assistance completed. tr6 19:02 Russel Feliciano MD is Attending Physician. 7 19:30 Pooja Graham is Primary Nurse. kc4 19:45 Inserted saline lock: 20 gauge in right forearm, using aseptic technique. kc4 19:52 XRAY Chest (1 view) In Process Unspecified. EDMS 19:52 XRAY Pelvis In Process Unspecified. EDMS 19:52 Shoulder Right (2 View) XRAY In Process Unspecified. EDMS 19:52 Hip Right 2 View XRAY In Process Unspecified. EDMS 19:55 CT Head C Spine In Process Unspecified. EDMS 20:48 Liban Sparks MD is Hospitalizing Provider. 7 22:45 Thompson cath inserted, using sterile technique, 16 Fr., by ak, balloon inflated, to kc4 gravity drainage, urine specimen collected. 22:50 Troponin (emerg Dept Use Only) Sent. 4 Administered Medications: 20:14 Drug: morphine 2 mg Route: IVP; Site: right antecubital; 4 21:15 Follow up: Response: No adverse reaction kc4 20:14 Drug: Zofran (Ondansetron) 4 mg Route: IVP; Site: right antecubital; kc4 21:14 Follow up: Response: No adverse reaction kc4 22:50 Follow up: Response: No adverse reaction kc4 20:14 Drug: NS 0.9% 500 ml Route: IV; Rate: bolus; Site: right antecubital; kc4 21:14 Follow up: Response: No adverse reaction; IV Status: Completed infusion kc4 22:50 Follow up: Response: No adverse reaction; IV Status: Completed infusion kc4 22:44 Drug: NS 0.9% 1000 ml Route: IV; Rate: 75 ml/hr; Site: right antecubital; kc4 Outcome: 20:51 Decision to Hospitalize by Provider. 7 06/01 10:46 Patient left the ED. eb Signatures: Dispatcher [employer] EDMS Veronica Copeland Maurice, MD MD [facility] Apple Barajas RN RN tr6 Pooja Graham 4
--- NOTE | 2021-05-31 20:52 | EDPHYS ---
Physician Documentation [facility] Name: Mignon Plunkett Age: 86 yrs Sex: Female : 1935 Arrival Date: 05/31/2021 Time: 18:13 Bed 17 Private MD: ED Physician Russel Feliciano HPI: 05/31 19:05 This 86 yrs old Female presents to ER via EMS with complaints of Fall. Right mh7 hip injury.. 19:05 Details of fall: The patient fell from an upright position, while walking, and struck a mh7 tile surface. Onset: The symptoms/episode began/occurred this morning, today. Associated injuries: The patient sustained right shoulder, painful injury, right hip, decreased range of motion, painful injury. Severity of symptoms: At their worst the symptoms were moderate, earlier today, in the emergency department the symptoms are unchanged. The patient has been recently seen at the [facility] Emergency Department, last week. Patient had fall at nursing facility this morning and later had x-rays done of right hip which showed fracture. She also complains of right shoulder pain. She has had multiple recent falls. She denies any symptoms prior to falling including headache, chest pain, abdominal pain, shortness of breath, nausea, vomiting, dizziness, numbness/tingling, or weakness. She denies any head trauma or LOC with fall today. But has had a recent head injury with lacerations and repair.. Historical: - Allergies: 18:35 No Known Allergies; tr6 - Home Meds: 18:35 Keflex 500 mg Oral cap 1 cap every 12 hours [Active]; exelon patch [Active]; buspirone tr6 10 mg Oral tab 1 tab 3 times per day [Active]; hydrochlorothiazide 25 mg Oral tab 1 tab once daily [Active]; 18:37 memantine 10 mg oral tab 1 tab 2 times per day [Active]; Celexa 20 mg Oral tab 1 tab tr6 once daily [Active]; Depakote ER 125 Oral three times a day [Active]; lisinopril 20 mg Oral tab 1 tab once daily [Active]; Saccharomyces boulardii 250 mg oral cap daily [Active]; Vitamin C 500 mg Oral cpER [Active]; meloxicam 15 mg oral tab 1 tab once daily [Active]; zinc sulfate 50 mg zinc (220 mg) Oral tab [Active]; aspirin 81 mg Oral chew [Active]; - PMHx: 18:35 Anxiety; Cancer, Breast; Depression; generalized weakness; Hypertension; High tr6 Cholesterol; insomnia; polyneuropathy; - PSHx: 18:35 hysterectomy; tr6 - Immunization history:: Adult Immunizations up to date, Client reports receiving the 2nd dose of the Covid vaccine. - Social history:: Smoking status: unknown. ROS: 19:05 Constitutional: Negative for fever, chills, and weight loss, Eyes: Negative for injury, mh7 pain, redness, and discharge, ENT: Negative for injury, pain, and discharge, Neck: Negative for injury, pain, and swelling, Cardiovascular: Negative for chest pain, palpitations, and edema, Respiratory: Negative for shortness of breath, cough, wheezing, and pleuritic chest pain, Abdomen/GI: Negative for abdominal pain, nausea, vomiting, diarrhea, and constipation, Back: Negative for injury and pain, : Negative for injury, bleeding, discharge, and swelling, Skin: Negative for injury, rash, and discoloration, Neuro: Negative for headache, weakness, numbness, tingling, and seizure, Psych: Negative for depression, anxiety, suicide ideation, homicidal ideation, and hallucinations, Allergy/Immunology: Negative for hives, rash, and allergies, Endocrine: Negative for neck swelling, polydipsia, polyuria, polyphagia, and marked weight changes, Hematologic/Lymphatic: Negative for swollen nodes, abnormal bleeding, and unusual bruising. Exam: 19:05 Constitutional: This is a well developed, well nourished patient who is awake, alert, mh7 and in no acute distress. 19:05 Eyes: Pupils equal round and reactive to light, extra-ocular motions intact. Lids and lashes normal. Conjunctiva and sclera are non-icteric and not injected. Cornea within normal limits. Periorbital areas with no swelling, redness, or edema. Neck: Trachea midline, no thyromegaly or masses palpated, and no cervical lymphadenopathy. Supple, full range of motion without nuchal rigidity, or vertebral point tenderness. No Meningismus. Chest/axilla: Normal chest wall appearance and motion. Nontender with no deformity. No lesions are appreciated. Cardiovascular: Regular rate and rhythm with a normal S1 and S2. No gallops, murmurs, or rubs. Normal PMI, no JVD. No pulse deficits. Respiratory: Lungs have equal breath sounds bilaterally, clear to auscultation and percussion. No rales, rhonchi or wheezes noted. No increased work of breathing, no retractions or nasal flaring. Abdomen/GI: Soft, non-tender, with normal bowel sounds. No distension or tympany. No guarding or rebound. No evidence of tenderness throughout. Back: No spinal tenderness. No costovertebral tenderness. Full range of motion. Skin: Warm, dry with normal turgor. Normal color with no rashes, no lesions, and no evidence of cellulitis. 19:05 Neuro: Awake and alert, GCS 15, oriented to person, place, time, and situation. Cranial nerves II-XII grossly intact. Motor strength 5/5 in all extremities. Sensory grossly intact. Cerebellar exam normal. Normal gait. Psych: Awake, alert, with orientation to person, place and time. Behavior, mood, and affect are within normal limits. 19:05 Head/face: Noted is Multiple sutured, healing facial lacerations. 19:05 Musculoskeletal/extremity: Extremities: noted in the right shoulder: contusion, pain, tenderness, noted in the right hip: decreased ROM, pain, tenderness, ROM: limited active range of motion, in the right hip, limited passive range of motion, in the right hip, limited active range of motion due to pain, in the right shoulder, limited passive range of motion due to pain, in the right shoulder, Circulation is intact in all extremities. Sensation intact. Compartment Syndrome exam of affected extremity: is normal. no numbness, no tingling, no sensation deficit, no palor, no weak pulses, Joints: the right shoulder displays painful range of motion, tenderness, the right hip displays limited range of motion, pain at rest, painful range of motion, tenderness, Weight bearing: is unable to bear weight, Tendon exam: specific tendon testing normal through active and passive range of motion Vital Signs: 18:13 BP 121 / 76; Pulse 90; Resp 18; Temp 99.6(O); Pulse Ox 100% on R/A; tr6 20:33 BP 134 / 63; Pulse 88; Resp 16; Temp 98.7; Pulse Ox 100% on R/A; Pain 3/10; kc4 MDM: 20:47 Differential diagnosis: abrasion, closed head injury, contusion, fracture. Data [facility] reviewed: vital signs, nurses notes, old medical records, radiologic studies, CT scan, plain films. Data interpreted: Pulse oximetry: on room air is 100 %. Interpretation: normal. Counseling: I had a detailed discussion with the patient and/or guardian regarding: the historical points, exam findings, and any diagnostic results supporting the discharge/admit diagnosis, lab results, radiology results, the need for further work-up and treatment in the hospital. Response to treatment: the patient's symptoms have mildly improved after treatment. Physician consultation: Brant Gaitan MD was contacted at 20:45, regarding patient's condition, and will see patient in inpatient room, would like admission per Dr. Liban Sparks MD. 20:51 Patient medically screened. [facility] 05/31 19:17 Order name: Basic Metabolic Panel; Complete Time: 21:23 [facility] 05/31 19:17 Order name: CBC with Diff; Complete Time: 21:23 [facility] 05/31 19:17 Order name: Type And Screen; Complete Time: 04:31 [facility] 05/31 19:17 Order name: LFT's; Complete Time: 21:23 [facility] 05/31 19:17 Order name: Protime (+inr); Complete Time: 21:25 [facility] 05/31 19:17 Order name: Ptt, Activated; Complete Time: 21:25 [facility] 05/31 19:58 Order name: Troponin (emerg Dept Use Only) [facility] 05/31 19:58 Order name: Troponin (Emerg Dept Use Only); Complete Time: 21:33 [facility] 05/31 21:25 Order name: Urine Microscopic Only; Complete Time: 04:31 [facility] 05/31 21:25 Order name: Procalcitonin; Complete Time: 04:31 [facility] 05/31 22:40 Order name: Urine Dipstick-Ancillary; Complete Time: 04:31 [facility] 05/31 23:25 Order name: ABO/RH no charge; Complete Time: 04:31 [facility] 06/01 03:31 Order name: CBC with Automated Diff; Complete Time: 04: [facility] 06/01 03:55 Order name: Comprehensive Metabolic Panel; Complete Time: 04: [facility] 05/31 19:17 Order name: CT Head C Spine; Complete Time: 20:18 [facility] 05/31 19:17 Order name: XRAY Chest (1 view); Complete Time: 20:18 [facility] 05/31 19:17 Order name: XRAY Pelvis; Complete Time: 20:18 [facility] 05/31 19:17 Order name: Shoulder Right (2 View) XRAY; Complete Time: 20:18 [facility] 05/31 19:17 Order name: Hip Right 2 View XRAY; Complete Time: 20:18 [facility] 06/01 03:55 Order name: T4 Free; Complete Time: 04:31 [facility] 06/01 03:55 Order name: Thyroid Stimulating Hormone; Complete Time: 04:31 [facility] 06/01 03:55 Order name: Transferrin Sat/Iron Binding; Complete Time: 04:31 [facility] 06/01 03:55 Order name: Ferritin; Complete Time: 04:31 [facility] 06/01 06:30 Order name: COVID-19 : Document "Date of Symptom Onset" if Symptomatic. 06/01 06:52 Order name: CORONAVIRUS [facility] 06/01 07:52 Order name: SARS-COV-2 RT PCR [facility] 05/31 19:17 Order name: Labs collected and sent; Complete Time: 20:48 [facility] 05/31 19:17 Order name: Urine Dipstick-Ancillary (obtain specimen); Complete Time: 22:33 [facility] 05/31 19:17 Order name: EKG - Nurse/Tech; Complete Time: 08:03 [facility] 05/31 21:23 Order name: Thompson; Complete Time: 22:33 la1 Administered Medications: 20:14 Drug: morphine 2 mg Route: IVP; Site: right antecubital; kc4 21:15 Follow up: Response: No adverse reaction kc4 20:14 Drug: Zofran (Ondansetron) 4 mg Route: IVP; Site: right antecubital; kc4 21:14 Follow up: Response: No adverse reaction kc4 22:50 Follow up: Response: No adverse reaction kc4 20:14 Drug: NS 0.9% 500 ml Route: IV; Rate: bolus; Site: right antecubital; kc4 21:14 Follow up: Response: No adverse reaction; IV Status: Completed infusion kc4 22:50 Follow up: Response: No adverse reaction; IV Status: Completed infusion kc4 22:44 Drug: NS 0.9% 1000 ml Route: IV; Rate: 75 ml/hr; Site: right antecubital; kc4 Disposition Summary: 05/31/21 20:51 Hospitalization Ordered Hospitalization Status: Inpatient Admission [facility] Provider: Liban Sparks Condition: Stable [facility] Problem: new [facility] Symptoms: have improved [facility] Bed/Room Type: Standard [facility] Location: Telemetry/MedSurg (Inpatient)(06/01/21 09:24) Room Assignment: [facility] [place](06/01/21 09:24) Diagnosis - Hip Fracture Right, Comminuted, Intertrochanteric [facility] Forms: - Medication Reconciliation Form [facility] - SBAR form [facility] Signatures: Dispatcher [employer] EDMS Nikko Bowie, ANGEL LUIS-C CHILI MAKER-Cla1 Margot Porter RN RN Veronica Copeland Maurice, MD MD 7 Apple Barajas RN RN tr6 Pooja Graham kc4 Corrections: (The following items were deleted from the chart) 21:33 20:51 Telemetry/MedSurg (Inpatient) [facility] cg 21:33 20:51 7 cg 06/01 09:24 05/31 21:33 [facility] ER HOLD cg eb 06/01 09:24 05/31 21:33 ERHOLD- cg eb
[2021-05-31 21:05] LABS: Absolute Lymphocytes (CBC) 1.7 K/uL (0.7-4.9); Basophils % 0.2 % (0-1.3); Hematocrit 27.6 % (36.0-45.0); MPV 6.7 fL (7.6-11.3); RBC Red Blood Cell Count 2.96 M/uL (3.86-4.86)
[2021-05-31 21:14] LABS: Albumin 3.2 g/dL (3.4-5.0); Bilirubin Direct 0.1 mg/dL (0-0.2); Bilirubin Total 0.5 mg/dL (0.2-1.0); Potassium 3.9 mmol/L (3.5-5.1); Protein, Total 6.4 g/dL (6.4-8.2)
[2021-05-31 21:19] LABS: Protime INR 1.05
--- NOTE | 2021-05-31 21:36 | P.HP ---
Certification for Inpatient Patient admitted to: Inpatient With expected LOS: >2 Midnights Patient will require the following post-hospital care: None Practitioner: I am a practitioner with admitting privileges, knowledge of patient current condition, hospital course, and medical plan of care. Services: Services provided to patient in accordance with Admission requirements found in Title 42 Section 412.3 of the Code of Federal Regulations Patient History Date of Service: 05/31/21 Primary Care Provider: skilled nursing doctor Reason for admission: Right hip fracture History of Present Illness: 86-year-old female with history of hypertension, hyperlipidemia, dementia presents emergency department for right hip pain. Patient currently is resident at long term [facility], daughter reports patient has had multiple falls in the past 1 week most recently this morning and since has been complaining of right hip pain, patient had x-ray at facility which demonstrated right hip fracture and patient was transferred to the emergency department for further evaluation. Patient was evaluated emergency room and labs are significant for sodium 134 BUN 22 glucose 127 white blood cell count 15.4 hemoglobin 9.2 hematocrit 27.6 urinalysis pending x-rays done of right shoulder, pelvis, right hip, CT head C-spine and chest x-ray chest x-ray is unremarkable CT head brain and C-spine without acute findings x-ray of the pelvis and right hip demonstrate comminuted displaced fracture intertrochanteric, lesser trochanteric, greater trochanteric of the right femur with varus angulation. ED provider discussed case with orthopedic physician who would like patient mid to the hospital service with plan for surgical intervention likely on Thursday. Allergies No Known Drug Allergies Allergy (Unverified 03/09/15 15:58) Unknown No Known Allergies Allergy (Uncoded 04/24/16 12:36) Unknown - Past Medical/Surgical History -: Hypertension -: Hyperlipidemia -: History of breast cancer 2012 -: Dementia -: Lumpectomy -: Bunion -: Bilateral knee surgery Psychosocial/ Personal History: Patient is currently resident of [facility] - Social History Smoking Status: Never smoker Alcohol use: No CD- Drugs: No Caffeine use: No Place of Residence: Home Review of Systems Dementia Physical Examination - Physical Exam General: Alert, In no apparent distress, Oriented x1 HEENT: Other (Bruising noted to face with laceration status post repair with sutures in place) Neck: Supple Respiratory: Clear to auscultation bilaterally, Normal air movement Cardiovascular: Normal S1 S2 Capillary refill: <2 Seconds Gastrointestinal: Normal bowel sounds, No tenderness Musculoskeletal: Swelling, Tenderness (Right hip) Integumentary: No significant lesion Neurological: Normal speech, Normal tone - Studies Laboratory Data (last 24 hrs) 05/31/21 20:42: PT 12.1, INR 1.05, APTT 25.3 05/31/21 20:42: WBC 15.40 H, Hgb 9.2 L, Hct 27.6 L, Plt Count 214 05/31/21 20:42: Sodium 134 L, Potassium 3.9, BUN 22 H, Creatinine 0.76, Glucose 127 H, Total Bilirubin 0.5, AST 32, ALT 19, Alkaline Phosphatase 61 Assessment and Plan - Plan Assessment: Right comminuted displaced intertrochanteric, lesser trochanteric, greater trochanteric femur fracture Normocytic anemia, leukocytosis Hypertension Hyperlipidemia History of breast [id number] Dementia Plan: Right comminuted displaced intertrochanteric, lesser trochanteric, greater trochanteric femur fracture: Case was discussed with general surgery by emergency department provider, plan is for surgical intervention likely on Thursday, will place Thompson catheter, as needed pain medication, orthopedics consulted. Patient at [facility] previously walked with walker but over the course of the last month has been getting around in wheelchair. Daughter not happy with care received at [facility], prefers other options at discharge. Normocytic anemia, leukocytosis: Have ordered procalcitonin level will order labs for further evaluation of anemia, transfuse to maintain hemoglobin greater than 8 as she is a surgical patient, urinalysis pending will provide antibiotics as necessary. Hypertension: As needed medication Hyperlipidemia: Daughter reports patient intolerant of statins in the past. Obtain continue other home medications. History of breast [id number]: Stable Dementia: Stable, oriented x1. DVT PPX: Lovenox Code status: Full Discharge Plan: [facility] Plan to discharge in: Greater than 2 days - Advance Directives Does patient have a Living Will: No Does patient have a Durable POA for Healthcare: No - Code Status/Comfort Care Code Status Assessed: Yes (Full code) Critical Care: No Time Spent Managing Pts Care (In Minutes): 55
[2021-05-31] MEDS ORDERED: NA CHLORIDE 0.9% 1,000 ML ONE (22:12)
[2021-05-31 22:39] LABS: Urine Blood Trace-intact (Negative); Urine Glucose Negative (Negative); Urine Protein Negative (Negative); Urine Specific Gravity 1.025 (1.005-1.030); Urine pH 6.5 (5.0-7.0)
[2021-05-31 23:08] LABS: Urine Bacteria 20-50 /HPF (<20)
[2021-05-31] MEDS ORDERED: HYDRALAZINE HCL 20 MG/ML VIAL IV PRN (23:16)
[2021-05-31] MEDS ORDERED: ONDANSETRON 4 MG/2 ML VIAL IV PRN (23:16)
[2021-05-31] MEDS: NA CHLORIDE 0.9% 1,000 ML IV SCH (23:16)
[2021-06-01 03:27] LABS: Absolute Lymphocytes (CBC) 2.3 K/uL (0.7-4.9); Basophils % 0.2 % (0-1.3); Hematocrit 24.4 % (36.0-45.0); Lymphocytes % 18.6 % (15.3-44.8); MPV 6.8 fL (7.6-11.3)
[2021-06-01 03:54] LABS: Albumin 2.9 g/dL (3.4-5.0); Bilirubin Total 0.4 mg/dL (0.2-1.0); Ferritin 99.2 ng/mL (8-388); Potassium 4.2 mmol/L (3.5-5.1); Protein, Total 5.9 g/dL (6.4-8.2); Thyroid Stimulating Hormone 1.4 uIU/mL (0.360-3.740)
[2021-06-01] MEDS ORDERED: NA CHLORIDE 0.9% 1,000 ML ONE ×2 (06:05→09:35)
--- NOTE | 2021-06-01 06:37 | P.PN ---
Subjective Date of Service: 06/01/21 Primary Care Provider: longterm doctor Chief Complaint: Right hip fracture Subjective: Improving (Patient is pleasantly confused, unable to provide accurate history, but does states she is here because she fell. Denies any pain at this time. Unable to give detailed information on her falls, states she begins to fall and cannot help it. Denies any chest pain, no shortness of breath, no dysuria) Review of Systems 10-point ROS is otherwise unremarkable Physical Examination - Vital Signs Temperature: 98.7 F Blood Pressure: 98/44 Pulse: 76 Respirations: 19 Pulse Ox (%): 98 - Studies Laboratory Data (last 24 hrs) 05/31/21 20:42: PT 12.1, INR 1.05, APTT 25.3 05/31/21 20:42: WBC 15.40 H, Hgb 9.2 L, Hct 27.6 L, Plt Count 214 05/31/21 20:42: Sodium 134 L, Potassium 3.9, BUN 22 H, Creatinine 0.76, Glucose 127 H, Total Bilirubin 0.5, AST 32, ALT 19, Alkaline Phosphatase 61 Assessment & Plan Physician Review Additional Text: Physical exam GEN: Alert, orientedx2, NAD HEENT: Normal conjunctiva, sclera anicteric CV: Regular rate and rhythm, no edema Pulm: Nonlabored respiration on room air ABD: Soft, nontender, nondistended MSK: 5/5 Str in lower extremities Neuro: intact sensation of distal lower extremities Assessment: Right comminuted displaced intertrochanteric, lesser trochanteric, greater trochanteric femur fracture Normocytic anemia, leukocytosis Hypertension Hyperlipidemia History of breast [id number] Dementia Right comminuted displaced intertrochanteric, lesser trochanteric, greater trochanteric femur fracture: Case was discussed with orthopedic surgery by emergency department provider Plan for surgery tomorrow Thompson catheter placed in ED Continue pain medication as needed Patient was at a longterm and previously walked with walker, but has had multiple falls lately. Family do not want patient to return to [facility] upon discharge Normocytic anemia, leukocytosis: Hemoglobin slightly downtrending, will recheck this afternoon, may need blood transfusion to maintain hemoglobin greater than 8 UA with minimal bacteria, patient denies any dysuria or recent urinary habits, however patient is not the best historian. Will monitor off antibiotics at this point. Hypertension: As needed medication Hyperlipidemia: Daughter reports patient intolerant of statins in the past. Obtain/continue other home medications. History of breast [id number]: Stable Dementia: Stable, oriented x1-2. Dispo: anticipate dc to SNF vs rehabe in ~3 days Time Spent Managing Pts Care (In Minutes): 35
[2021-06-01] MEDS ORDERED: NA CHLORIDE 0.9% 500 ML IV ONE (07:18)
[2021-06-01 08:30] VITALS: BMI 25.0
[2021-06-01] MEDS: ENOXAPARIN 40 MG/0.4 ML SQ SCH (09:00)
[2021-06-01] MEDS: NA CHLORIDE 0.9% 1,000 ML IV SCH ×3 (09:16→22:44)
[2021-06-01] MEDS ORDERED: NA CHLORIDE 0.9% 500 ML ONE (09:35)
[2021-06-01] MEDS ORDERED: ENOXAPARIN 40 MG/0.4 ML SQ ONE (09:35)
--- NOTE | 2021-06-01 10:24 | CON ---
Date of Consultation: 06/01/2021 History Of Present Illness: This is my first time seeing this patient to my knowledge. She is an 86 -year-old female who apparently fell sometime last week with injury to her face. It has been sutured . Unfortunately, I believe, she also fell again yesterday. She was seen and evaluated in emergency department where she was ruled out for other injuries; however, x-rays of the right hip demonstrated a very comminuted and highly displaced intertrochanteric fracture of the right hip. This does extend down to the subtrochanteric region. Physical Examination: She is able to tell me some of her history; however, she appears to be a little confused. When asked why she is in the hospital, she says she is here for back surgery, but is able to tell me some furth er details. I believe she does understand things with which she presented, whether she will remember these is uncertain. She denies any other injury. Palpation of the long bones and joints are withou t pain or crepitation with the exception of the right hip. Assessment: This is an 86-year-old female now with a comminuted displaced intertrochanteric fracture , which does extend to the lesser trochanter. Plan: At this time, we will offer medical clearance today. I will allow her to eat, make her n.p.o. after midnight and probably proceed, closed reduction or open reduction with intramedullary other fi xation tomorrow. The patient says she understands things . SE/MODL Voice ID: [id number] Report ID: [id number]
[2021-06-01 12:13] LABS: Hematocrit 23.1 % (36.0-45.0)
[2021-06-01] MEDS ORDERED: NA CHLORIDE 0.9% 250 ML IV SCH (15:00)
[2021-06-01 17:17] LABS: Urine Appearance CLEAR (Clear); Urine Bilirubin NEGATIVE (Negative); Urine Blood 1+ (Negative); Urine Color YELLOW (Yellow); Urine Glucose NEGATIVE (Negative); Urine Protein NEGATIVE (Negative); Urine Specific Gravity 1.015 (1.005-1.030); Urine pH 5.5 (5.0-7.0)
[2021-06-01 19:09] LABS: Urine Amorphous Sediment TRACE /HPF (NONE SEEN); Urine Bacteria <20 /HPF (<20); Urine Mucus SLIGHT /HPF (NONE SEEN)
[2021-06-01] MEDS: MORPHINE 2 MG/ML SYR IV PRN (23:44)
[2021-06-02 04:39] LABS: Absolute Lymphocytes (CBC) 1.6 K/uL (0.7-4.9); Basophils % 0.5 % (0-1.3); Hematocrit 25.6 % (36.0-45.0); Lymphocytes % 16.7 % (15.3-44.8); MPV 6.9 fL (7.6-11.3); RBC Red Blood Cell Count 2.77 M/uL (3.86-4.86)
[2021-06-02 05:05] LABS: ALT/SGPT 15 U/L (12-78); AST/SGOT 31 U/L (15-37); Albumin 2.5 g/dL (3.4-5.0); Alkaline Phosphatase 48 U/L (45-117); BUN Blood Urea Nitrogen 13 mg/dL (7-18); Bicarbonate 27 mmol/L (21-32); Bilirubin Total 0.4 mg/dL (0.2-1.0); Glucose Level 116 mg/dL (74-106); Protein, Total 5.4 g/dL (6.4-8.2); Sodium Level 139 mmol/L (136-145)
[2021-06-02] MEDS: NA CHLORIDE 0.9% 1,000 ML IV SCH ×2 (05:16→16:49)
--- NOTE | 2021-06-02 06:08 | P.PN ---
Subjective Date of Service: 06/02/21 Primary Care Provider: [facility] doctor Chief Complaint: Right hip fracture Subjective: Other (patient seen shortly after arriving back to floor from OR. Pain improved after medication, no complaints at this time.) Review of Systems 10-point ROS is otherwise unremarkable Physical Examination - Vital Signs Temperature: 98.2 F Blood Pressure: 110/51 Pulse: 80 Respirations: 16 Pulse Ox (%): 92 Assessment & Plan Physician Review Additional Text: Physical exam GEN: Alert, orientedx2, NAD HEENT: Normal conjunctiva, sclera anicteric CV: Regular rate and rhythm, no edema Pulm: Nonlabored respiration on room air ABD: Soft, nontender, nondistended MSK/Skin: surgical dressing c/d/i, no significant swelling, tenderness with palpation around surgical incision Neuro: intact sensation of distal lower extremities Assessment: Right comminuted displaced intertrochanteric, lesser trochanteric, greater trochanteric femur fracture s/p repair (06/02) Normocytic anemia, leukocytosis Hypertension Hyperlipidemia History of breast [id number] Dementia Right comminuted displaced intertrochanteric, lesser trochanteric, greater trochanteric femur fracture: s/p repair by Dr. Gaitan (06/02) garcia in place pain medication PRN Patient was at a custodial and previously walked with walker, but has had multiple falls lately. Family do not want patient to return to [facility] upon discharge PT consulted, will await recommendation SNF vs inpatient rehab Normocytic anemia, leukocytosis: Hgb downtrending prior to surgery, 1uPRBC ordered 06/01. Hgb improved UA with minimal bacteria, patient denies any dysuria or recent urinary habits, however patient is not the best historian. Hypertension: As needed medication for now Hyperlipidemia: Daughter reports patient intolerant of statins in the past. Obtain/continue other home medications. History of breast [id number]: Stable Dementia: Stable, oriented x1-2. Dispo: anticipate dc to SNF vs rehab in ~2-3 days Time Spent Managing Pts Care (In Minutes): 35
[2021-06-02] MEDS ORDERED: TRANEXAMIC ACID 1,000 MG in NA CHLORIDE 0.9% 50 ML IV ONE (08:28)
[2021-06-02] MEDS ORDERED: propofoL 200 MG/20 ML VIAL IV ONE (08:50)
[2021-06-02] MEDS ORDERED: MIDAZOLAM HCL 2 MG/2 ML INJ ONE (08:51)
[2021-06-02] MEDS ORDERED: dexAMETHasone 10 MG/ML VIAL ONE (08:51)
[2021-06-02] MEDS ORDERED: LIDOCAINE 1% MPF 5 ML VIAL ONE (08:51)
[2021-06-02] MEDS ORDERED: FENTANYL CITR 100 MCG/2 ML ONE (08:51)
[2021-06-02] MEDS ORDERED: KETOROLAC 30 MG/ML INJ ONE (08:52)
[2021-06-02] MEDS ORDERED: ONDANSETRON 4 MG/2 ML VIAL ONE (08:52)
[2021-06-02] MEDS ORDERED: Ringers Lactate 1,000 ML IV ONE ×2 (09:10→11:17)
[2021-06-02] MEDS ORDERED: CEFAZOLIN/SWI 1gm 1 GM/10 ML SYR ONE (09:28)
[2021-06-02] MEDS ORDERED: EPHEDRINE SULF 50 MG/ML VIAL ONE (09:51)
[2021-06-02] MEDS: NA CHLORIDE 0.9% 1,000 ML ONE ×2 (11:00→11:31)
--- NOTE | 2021-06-02 11:37 | OP ---
Date of Procedure: 06/02/2021 Surgeon: Brant Gaitan MD Preoperative Diagnosis: Highly comminuted and highly displaced proximal femur fracture. Postoperative Diagnosis: Highly comminuted and highly displaced proximal femur fracture. Procedure: Right hip closed reduction with intramedullary erich fixation. Estimated Blood Loss: 100 mL. Complications: There were no complications. Specimen: No pathology specimen sent. Indications For Operation: Ms. Plunkett is an 86-year-old female, who is apparently a limited ambul ator. She does not walk; however, she has had 2 falls, 1 week ago and 1 apparently yesterday, first one injuring her face and she does have stitches there. The second one injuring her right hip. She was seen and examined in the emergency department where she was ruled out for other injuries; however , x-rays demonstrated a highly comminuted and extremely displaced proximal femur fracture. This basi clinton includes all of the material from the base of the neck to the femoral shaft, presumed to be inn umerable pieces. Risks, benefits, and alternatives of different methods of treatments have been disc ussed with the patient and family. At this time, we will place a erich for stabilization of the femur to the femoral head in hopes that this will allow for better hygiene, sitting and transfers. They st ate they understand everything as presented and wishes to proceed. Description Of Procedure: The patient was taken to the operating room on room and placed in supine p osition. General anesthesia was obtained by staff. Following this, she was then placed in the fract ure boots. She was then moved over to the fracture table and appropriately positioned using fracture table. C-arm was brought and C-arm x-rays were visualized. Closed reduction techniques were used w ith traction as well as rotation and manual pressure. This does improve the reduction quite a bit; h owever, landmarks were somewhat difficult because of the highly comminuted nature of the fracture. D ecision was made to move forward with the incision for the cephalomedullary screws first, which allow ed for placement of a bone hook or finger to attempt to manually reduce this somewhat better. This d id help a little bit. Following this, a standard incision was made superior to the greater trochante r. A guide erich was placed without difficulty through the trochanter into the shaft. This was done a lso using reduction techniques which improved it somewhat, although not completely anatomic. After t his, decision made not to perform a large open procedure to try to improve the reduction because most likely would not be able to improve it and could lead to further problems. Therefore, the decision made to continue along with placement of 2 cephalomedullary screws in the standard technique. This w as followed by placement of the distal interlocking screws. The wounds were copiously irrigated. Th e fascia was closed in a watertight fashion followed by closure of the skin using Vicryl and lianne. The patient was then placed in Aquacel dressing, awakened, removed from the table, and taken to rec overy room in good condition. There were no complications. /CHAVEZ Voice ID: [id number] Report ID: [id number]
--- NOTE | 2021-06-02 11:52 | RAD REPORT ---
EXAM DESCRIPTION: RAD - Hip In Or - 06/02/2021 11:44 am CLINICAL HISTORY: Femoral fracture FINDINGS: Fluoroscopy time 2.5 minutes. 42 fluoroscopic spot images obtained Surgery performed by Dr. Gaitan Compression screws and intramedullary erich affix a femoral fracture
[2021-06-02] MEDS: MORPHINE 2 MG/ML SYR IV PRN (12:29)
[2021-06-02] MEDS: CEFAZOLIN/SWI 1gm 1 GM/10 ML SYR IVP SCH (16:49)
[2021-06-02] MEDS: DOCUSATE NA 100 MG CAP PO SCH (20:08)
[2021-06-03] MEDS: CEFAZOLIN/SWI 1gm 1 GM/10 ML SYR IVP SCH ×3 (00:08→17:32)
[2021-06-03] MEDS: NA CHLORIDE 0.9% 1,000 ML IV SCH ×3 (00:33→11:16)
[2021-06-03 04:48] LABS: Absolute Lymphocytes (CBC) 1.2 K/uL (0.7-4.9); Basophils % 0.1 % (0-1.3); Lymphocytes % 11.4 % (15.3-44.8); MPV 7.4 fL (7.6-11.3); RBC Red Blood Cell Count 2.17 M/uL (3.86-4.86)
[2021-06-03 04:53] LABS: Hematocrit 20.3 % (36.0-45.0)
[2021-06-03 04:57] LABS: ALT/SGPT 14 U/L (12-78); AST/SGOT 24 U/L (15-37); Albumin 2.2 g/dL (3.4-5.0); Alkaline Phosphatase 39 U/L (45-117); BUN Blood Urea Nitrogen 13 mg/dL (7-18); Bicarbonate 27 mmol/L (21-32); Bilirubin Total 0.4 mg/dL (0.2-1.0); Glucose Level 127 mg/dL (74-106); Magnesium 1.9 mg/dL (1.8-2.4); Potassium 4.1 mmol/L (3.5-5.1); Protein, Total 4.8 g/dL (6.4-8.2); Sodium Level 139 mmol/L (136-145)
--- NOTE | 2021-06-03 07:32 | P.PN ---
Subjective Date of Service: 06/03/21 Primary Care Provider: residential doctor Chief Complaint: Right hip fracture Subjective: Other (doing ok, confused, oriented x2. R hip pain this morning, feeling better, +flatus, garcia in place) Review of Systems 10-point ROS is otherwise unremarkable Physical Examination - Vital Signs Temperature: 97.4 F Blood Pressure: 105/52 Pulse: 73 Respirations: 18 Pulse Ox (%): 99 Assessment & Plan Physician Review Additional Text: Physical exam GEN: Alert, orientedx2, NAD, confused/demented HEENT: Normal conjunctiva, sclera anicteric CV: Regular rate and rhythm, no edema Pulm: Nonlabored respiration on room air ABD: Soft, nontender, nondistended MSK/Skin: surgical dressing c/d/i, no significant swelling, a few scattered mild ecchymosis around dressing Neuro: intact sensation of distal lower extremities Assessment: Right comminuted displaced intertrochanteric, lesser trochanteric, greater trochanteric femur fracture s/p repair (06/02) Normocytic anemia, leukocytosis acute cystitis Hypertension Hyperlipidemia History of breast [id number] Dementia Right comminuted displaced intertrochanteric, lesser trochanteric, greater trochanteric femur fracture: s/p repair by Dr. Gaitan (06/02) garcia in place pain medication PRN Patient was at a half-way and previously walked with walker, but has had multiple falls lately. Family do not want patient to return to [facility] upon discharge PT consulted, will await recommendation SNF vs inpatient rehab Acute cystitis Normocytic anemia, leukocytosis: Hgb downtrending prior to surgery, 1uPRBC ordered 06/01. Hgb improved and back down again. 1uPRBC given on 06/03 as well UA with minimal bacteria, patient denies any dysuria or recent urinary habits, however patient is not the best historian. received ancef perioperatively, continue rocephin. f/u cultures Hypertension: As needed medication for now Hyperlipidemia: Daughter reports patient intolerant of statins in the past. Obtain/continue other home medications. History of breast [id number]: Stable Depression/Anxiety -continue home medications Dementia: Stable, oriented x1-2. Dispo: anticipate dc to SNF vs rehab in ~1-2 days Time Spent Managing Pts Care (In Minutes): 35
[2021-06-03] MEDS: DOCUSATE NA 100 MG CAP PO SCH ×2 (09:00→21:00)
[2021-06-03] MEDS: MORPHINE 2 MG/ML SYR IV PRN ×2 (15:21→22:39)
[2021-06-03 16:36] LABS: Hematocrit 27.6 % (36.0-45.0)
[2021-06-03] MEDS ORDERED: ACETAMINOPHEN 500 MG TAB PO PRN (17:31)
[2021-06-03] MEDS: BUSPIRONE HCL 5 MG TABLET PO SCH ×2 (17:33→21:00)
[2021-06-03] MEDS ORDERED: CEFTRIAXONE/SWI 1gm 1 GM/10 ML SYR IVP ONE (18:00)
[2021-06-03 18:43] LABS: Urine Appearance CLEAR (Clear); Urine Bilirubin NEGATIVE (Negative); Urine Blood NEGATIVE (Negative); Urine Color YELLOW (Yellow); Urine Glucose NEGATIVE (Negative); Urine Protein NEGATIVE (Negative); Urine Urobilinogen 0.2 mg/dL (0.2-1.0)
--- NOTE | 2021-06-03 18:43 | RAD REPORT ---
EXAM DESCRIPTION: RAD - Chest Single View - 06/03/2021 6:27 pm CLINICAL HISTORY: post-op fever, eval atelectasis/pneumonia COMPARISON: Chest Single View dated 05/31/2021; Chest Single View dated 01/21/2019; CHEST PA AND LAT 2 VIEW dated 04/11/2010; CHEST PA AND LAT 2 VIEW dated 09/16/2004; Head C Spine Mpr Wo Con dated ; Hip In Or dated 06/02/2021 FINDINGS: Lines: None. Lungs: Increased prominence of the interstitial markings without focal airspace disease or raymon pulm onary edema. Pleural: No significant pleural effusions or pneumothorax. Cardiac: Mild cardiomegaly. Bones: No acute fractures. Other: IMPRESSION: Increased prominence of the pulmonary interstitium and lower lung volumes may reflect co mbination of atelectasis and/or aspirates pneumonitis. Pneumonia less likely given the time course of development.
[2021-06-03 18:44] LABS: Urine Microscopic Reflex NO UMIC
[2021-06-03] MEDS: DIVALPROEX ER 250 MG TAB PO SCH (21:00)
[2021-06-03] MEDS: MEMANTINE HCL 10 MG TABLET PO SCH (21:00)
[2021-06-04] MEDS: MORPHINE 2 MG/ML SYR IV PRN (04:45)
[2021-06-04 06:17] LABS: Basophils % 0.3 % (0-1.3); Hematocrit 25.7 % (36.0-45.0); Lymphocytes % 7.2 % (15.3-44.8); MPV 6.8 fL (7.6-11.3)
[2021-06-04 06:31] LABS: BUN Blood Urea Nitrogen 12 mg/dL (7-18); Bicarbonate 26 mmol/L (21-32); Glucose Level 126 mg/dL (74-106); Sodium Level 138 mmol/L (136-145)
[2021-06-04] MEDS: BUSPIRONE HCL 5 MG TABLET PO SCH ×3 (09:06→21:30)
[2021-06-04] MEDS: MEMANTINE HCL 10 MG TABLET PO SCH ×2 (09:07→21:30)
[2021-06-04] MEDS: CITALOPRAM 10 MG TABLET PO SCH (09:07)
[2021-06-04] MEDS: CEFTRIAXONE/SWI 1gm 1 GM/10 ML SYR IVP SCH (09:07)
[2021-06-04] MEDS: DOCUSATE NA 100 MG CAP PO SCH ×2 (09:07→21:30)
[2021-06-04] MEDS: DIVALPROEX ER 250 MG TAB PO SCH ×3 (09:07→21:31)
--- NOTE | 2021-06-04 16:18 | P.PN ---
Subjective Date of Service: 06/04/21 Primary Care Provider: half-way doctor Chief Complaint: Right hip fracture No changes from yesterday. Patient has not been out of bed yet. Post transfusion hemoglobin is 8.7. Physical Examination - Vital Signs Temperature: 98.1 F Blood Pressure: 134/62 Pulse: 84 Respirations: 14 Pulse Ox (%): 93 - Physical Exam General: Alert, In no apparent distress HEENT: Mucous membr. moist/pink Neck: JVD not distended Respiratory: Clear to auscultation bilaterally, Normal air movement Cardiovascular: No edema, Regular rate/rhythm, Normal S1 S2 Gastrointestinal: Non-distended Musculoskeletal: No swelling Integumentary: No rashes Assessment And Plan Physician Review Additional Text: Physical exam GEN: Alert, orientedx2, NAD, confused/demented HEENT: Normal conjunctiva, sclera anicteric CV: Regular rate and rhythm, no edema Pulm: Nonlabored respiration on room air ABD: Soft, nontender, nondistended MSK/Skin: surgical dressing c/d/i, no significant swelling. Neuro: intact sensation of distal lower extremities Assessment: Right comminuted displaced intertrochanteric, lesser trochanteric, greater trochanteric femur fracture s/p repair (06/02) Normocytic anemia, leukocytosis acute cystitis Hypertension Hyperlipidemia History of breast [id number] Dementia Right comminuted displaced intertrochanteric, lesser trochanteric, greater trochanteric femur fracture: s/p repair by Dr. Gaitan (06/02) garcia in place pain medication PRN Patient was at a senior care and previously walked with walker, but has had multiple falls lately. Family do not want patient to return to [facility] upon discharge Patient sat at the edge of the bed with PT today. Disposition to skilled rehab. Acute cystitis: Urine culture No growth. Discontinue antibiotics. Normocytic anemia, leukocytosis: Hgb downtrending prior to surgery, status post 2 units PRBC transfusion. Hypertension: Currently normotensive. As needed medication for now History of breast [id number]: Stable Depression/Anxiety -continue home medications Dementia: Stable, oriented x1-2. Dispo: anticipate dc to SNF.
[2021-06-05 06:30] LABS: Absolute Lymphocytes (CBC) 1.5 K/uL (0.7-4.9); Basophils % 0.4 % (0-1.3); Hematocrit 23.2 % (36.0-45.0); Lymphocytes % 17.1 % (15.3-44.8); MPV 6.6 fL (7.6-11.3); RBC Red Blood Cell Count 2.52 M/uL (3.86-4.86)
[2021-06-05 06:45] LABS: BUN Blood Urea Nitrogen 14 mg/dL (7-18); Bicarbonate 27 mmol/L (21-32); Glucose Level 106 mg/dL (74-106); Potassium 3.6 mmol/L (3.5-5.1); Sodium Level 140 mmol/L (136-145)
[2021-06-05] MEDS ORDERED: POTASSIUM CL SA 10 MEQ TAB PO ONE (08:14)
[2021-06-05] MEDS: DOCUSATE NA 100 MG CAP PO SCH ×2 (09:35→19:28)
[2021-06-05] MEDS: CITALOPRAM 10 MG TABLET PO SCH (09:35)
[2021-06-05] MEDS: DIVALPROEX ER 250 MG TAB PO SCH ×3 (09:36→19:30)
[2021-06-05] MEDS: MEMANTINE HCL 10 MG TABLET PO SCH ×2 (09:36→19:28)
[2021-06-05] MEDS: BUSPIRONE HCL 5 MG TABLET PO SCH ×3 (09:36→19:25)
[2021-06-05] MEDS: CEFTRIAXONE/SWI 1gm 1 GM/10 ML SYR IVP SCH (09:37)
--- NOTE | 2021-06-05 14:47 | P.PN ---
Subjective Date of Service: 06/05/21 Primary Care Provider: custodial doctor Chief Complaint: Right hip fracture No changes from yesterday. Patient sat on the edge of the bed today. Hemoglobin dropped to 8.1. Physical Examination - Vital Signs Temperature: 98.2 F Blood Pressure: 112/56 Pulse: 92 Respirations: 16 Pulse Ox (%): 88 - Physical Exam General: Alert, In no apparent distress HEENT: Mucous membr. moist/pink Neck: JVD not distended Respiratory: Clear to auscultation bilaterally, Normal air movement Cardiovascular: No edema, Regular rate/rhythm, Normal S1 S2 Gastrointestinal: Soft and benign, Non-distended Musculoskeletal: No erythema Integumentary: No rashes Neurological: Normal strength at 5/5 x4 extr Assessment And Plan Physician Review Additional Text: Physical exam GEN: Alert, orientedx2, NAD, confused/demented HEENT: Normal conjunctiva, sclera anicteric CV: Regular rate and rhythm, no edema Pulm: Nonlabored respiration on room air ABD: Soft, nontender, nondistended MSK/Skin: surgical dressing c/d/i, no significant swelling. Neuro: intact sensation of distal lower extremities Assessment: Right comminuted displaced intertrochanteric, lesser trochanteric, greater trochanteric femur fracture s/p repair (06/02) Normocytic anemia, leukocytosis acute cystitis Hypertension Hyperlipidemia History of breast [id number] Dementia Right comminuted displaced intertrochanteric, lesser trochanteric, greater trochanteric femur fracture: s/p repair by Dr. Gaitan (06/02) garcia in place pain medication PRN Patient was at a retirement and previously walked with walker, but has had multiple falls lately. Family do not want patient to return to [facility] upon discharge. Patient is participating in PT Disposition to skilled rehab. Acute cystitis: Urine culture No growth. Off antibiotics Acute blood loss anemia, leukocytosis: Status post 2 units PRBC transfusion. Continue to monitor H and H and transfuse p.r.n. for hemoglobin less than 7. Hypertension: Currently normotensive. As needed medication for now History of breast [id number]: Stable Depression/Anxiety -continue home medications Dementia: Stable, oriented x1-2. Dispo: SNF.
[2021-06-06 05:26] LABS: Hematocrit 24.5 % (36.0-45.0)
[2021-06-06 05:45] LABS: BUN Blood Urea Nitrogen 14 mg/dL (7-18); Bicarbonate 29 mmol/L (21-32); Glucose Level 112 mg/dL (74-106); Sodium Level 141 mmol/L (136-145)
[2021-06-06] MEDS: DOCUSATE NA 100 MG CAP PO SCH ×2 (08:53→19:20)
[2021-06-06] MEDS: MEMANTINE HCL 10 MG TABLET PO SCH ×2 (08:53→19:20)
[2021-06-06] MEDS: BUSPIRONE HCL 5 MG TABLET PO SCH ×3 (08:53→19:20)
[2021-06-06] MEDS: DIVALPROEX ER 250 MG TAB PO SCH ×3 (08:53→19:20)
[2021-06-06] MEDS: CITALOPRAM 10 MG TABLET PO SCH (08:54)
[2021-06-06] MEDS: ASPIRIN EC 81 MG TAB PO SCH (08:54)
[2021-06-06] MEDS: MORPHINE 2 MG/ML SYR IV PRN (09:45)
[2021-06-06] MEDS: HYDROCODONE/APAP 5/325 MG TAB PO PRN (13:23)
--- NOTE | 2021-06-06 16:24 | P.PN ---
Subjective Date of Service: 06/06/21 Primary Care Provider: [facility] doctor Chief Complaint: Right hip fracture Patient has no new complain Hemoglobin is stable. Garcia catheter discontinued yesterday and patient is voiding without difficulty. She was able to stand with physical therapy today. Physical Examination - Vital Signs Temperature: 98.2 F Blood Pressure: 106/48 Pulse: 89 Respirations: 17 Pulse Ox (%): 97 Assessment And Plan Physician Review Additional Text: Physical exam GEN: Alert, orientedx2, NAD, confused/demented HEENT: Normal conjunctiva, sclera anicteric CV: Regular rate and rhythm, no edema Pulm: Nonlabored respiration on room air ABD: Soft, nontender, nondistended MSK/Skin: no significant swelling. Neuro: intact sensation of distal lower extremities Assessment: Right comminuted displaced intertrochanteric, lesser trochanteric, greater trochanteric femur fracture s/p repair (06/02) Normocytic anemia, leukocytosis acute cystitis Hypertension Hyperlipidemia History of breast [id number] Dementia Right comminuted displaced intertrochanteric, lesser trochanteric, greater trochanteric femur fracture: s/p repair by Dr. Gaitan (06/02) garcia in place pain medication PRN Patient was at a intermediate and previously walked with walker, but has had multiple falls lately. Family looking at return to a different intermediate on discharge. Patient is participating in PT Disposition to skilled rehab. Acute cystitis: Urine culture No growth. Off antibiotics Acute blood loss anemia, leukocytosis: Status post 2 units PRBC transfusion. Hemoglobin is stable. Continue to monitor H and H and transfuse p.r.n. for hemoglobin less than 7. Hypertension: Currently normotensive. As needed medication for now History of breast [id number]: Stable Depression/Anxiety -continue home medications Dementia: Stable, oriented x1-2. Dispo: SNF. DVT prophylaxis; Lovenox.
[2021-06-07 04:59] LABS: Hematocrit 24.2 % (36.0-45.0)
[2021-06-07] MEDS: BUSPIRONE HCL 5 MG TABLET PO SCH ×2 (08:15→14:12)
[2021-06-07] MEDS: DIVALPROEX ER 250 MG TAB PO SCH ×2 (08:17→13:53)
[2021-06-07] MEDS: ENOXAPARIN 40 MG/0.4 ML SQ SCH (08:19)
[2021-06-07] MEDS: CITALOPRAM 10 MG TABLET PO SCH (08:19)
[2021-06-07] MEDS: ASPIRIN EC 81 MG TAB PO SCH (08:19)
[2021-06-07] MEDS: MEMANTINE HCL 10 MG TABLET PO SCH (08:19)
[2021-06-07] MEDS: DOCUSATE NA 100 MG CAP PO SCH (08:19)
[2021-06-07] MEDS: HYDROCODONE/APAP 5/325 MG TAB PO PRN (09:29)
--- NOTE | 2021-06-07 14:41 | P.PN ---
Subjective Date of Service: 06/07/21 Primary Care Provider: [facility] Chief Complaint: Right hip fracture Patient has no new complain Hemoglobin is stable. Physical Examination - Vital Signs Temperature: 98.3 F Blood Pressure: 96/45 Pulse: 71 Respirations: 24 Pulse Ox (%): 96 - Physical Exam General: Alert, In no apparent distress HEENT: Mucous membr. moist/pink Neck: JVD not distended Respiratory: Clear to auscultation bilaterally, Normal air movement Cardiovascular: Regular rate/rhythm, Normal S1 S2 Gastrointestinal: Soft and benign, Non-distended Musculoskeletal: No erythema Integumentary: No rashes Neurological: Other (No focal motor deficit) Assessment And Plan Physician Review Additional Text: Physical exam GEN: Alert, orientedx2, NAD, confused/demented HEENT: Normal conjunctiva, sclera anicteric CV: Regular rate and rhythm, no edema Pulm: Nonlabored respiration on room air ABD: Soft, nontender, nondistended MSK/Skin: no significant swelling. Neuro: intact sensation of distal lower extremities Assessment: Right comminuted displaced intertrochanteric, lesser trochanteric, greater trochanteric femur fracture s/p repair (06/02) Normocytic anemia, leukocytosis acute cystitis Hypertension Hyperlipidemia History of breast [id number] Dementia Right comminuted displaced intertrochanteric, lesser trochanteric, greater trochanteric femur fracture: s/p repair by Dr. Gaitan (06/02) garcia in place pain medication PRN Patient was at a skilled nursing and previously walked with walker, but has had multiple falls lately. Family looking at return to a different skilled nursing on discharge-[facility]. Patient is participating in PT Disposition to skilled rehab. Acute cystitis: Urine culture No growth. Off antibiotics Acute blood loss anemia, leukocytosis: Status post 2 units PRBC transfusion. Hemoglobin is stable. Continue to monitor H and H and transfuse p.r.n. for hemoglobin less than 7. Hypertension: Currently normotensive. History of breast [id number]: Stable Depression/Anxiety -continue home medications Dementia: Stable, oriented x1-2. Dispo: SNF. DVT prophylaxis; Lovenox.
--- NOTE | 2021-06-07 16:24 | P.DS ---
Admission Date: 05/31/21 Discharge Date: 06/07/21 Primary Care Provider: senior living doctor Disposition: TRANSFER TO [facility] Discharge Condition: FAIR Reason for Admission: Right hip fracture Consultations: Orthopedics-Dr. Gaitan. Brief History of Present Illness: 86-year-old residential resident with history of hypertension, hyperlipidemia, dementia presented to the emergency department for right hip pain. Daughter reported patient had multiple falls within 1 week. Patient had x-ray at facility which demonstrated right hip fracture and patient was transferred to the emergency department for further evaluation. Patient was evaluated emergency room and labs significant for sodium 134 BUN 22 glucose 127 white blood cell count 15.4 hemoglobin 9.2 hematocrit 27. X-rays of right shoulder, pelvis, right hip, CT head C-spine and chest x-ray were unremarkable. CT head brain and C- spine without acute findings x-ray of the pelvis and right hip demonstrate comminuted displaced fracture intertrochanteric, lesser trochanteric, greater trochanteric of the right femur with varus angulation. ED provider discussed case with orthopedic physician who recommended admission to the hospitalist service for further management. Hospital Course: Discharge diagnosis Right comminuted displaced intertrochanteric, lesser trochanteric, greater trochanteric femur fracture s/p repair (06/02) Normocytic anemia, leukocytosis acute cystitis Hypertension Hyperlipidemia History of breast [id number] Dementia Right comminuted displaced intertrochanteric, lesser trochanteric, greater trochanteric femur fracture: s/p repair by Dr. Gaitan (06/02) Patient was at a residential and previously walked with walker, but had multiple falls. Patient placed on Lovenox for DVT prophylaxis. Seen by PT and skilled rehab recommend Family looking at return to a different residential on discharge. Patient accepted to [facility] for skilled rehab She participated in PT and was able to stand with support. Acute cystitis: UA suggested UTI but urine culture yielded no growth. Patient treated briefly with antibiotics. Acute blood loss anemia, leukocytosis: Status post 2 units PRBC transfusion. Hemoglobin has been stable. Hypertension: Currently normotensive without her antihypertensives. History of breast [id number]: Stable Depression/Anxiety -continued home medications Dementia: Stable, oriented x1-2. Vital Signs/Physical Exam: Temp Pulse Resp BP Pulse Ox 98.3 F 71 24 H 96/45 L 96 06/07/21 14:41 06/07/21 14:41 06/07/21 14:41 06/07/21 14:41 06/07/21 14:41 General: Alert, In no apparent distress HEENT: Mucous membr. moist/pink Neck: JVD not distended Cardiovascular: No edema, Normal pulses, Regular rate/rhythm Gastrointestinal: Soft and benign, Non-distended Musculoskeletal: No erythema Integumentary: No rashes Neurological: Other (No focal motor deficit.) Laboratory Data at Discharge: WBC 9.00 K/uL (4.3-10.9) D 06/05/21 05:59 Hgb 8.2 g/dL (12.0-15.0) L 06/07/21 03:58 Hct 24.2 % (36.0-45.0) L 06/07/21 03:58 Plt Count 189 K/uL (152-406) 06/05/21 05:59 PT 12.1 SECONDS (9.5-12.5) 05/31/21 20:42 INR 1.05 05/31/21 20:42 APTT 25.3 SECONDS (24.3-36.9) 05/31/21 20:42 Sodium 141 mmol/L (136-145) 06/06/21 04:51 Potassium 4.0 mmol/L (3.5-5.1) 06/06/21 04:51 BUN 14 mg/dL (7-18) 06/06/21 04:51 Creatinine 0.48 mg/dL (0.55-1.3) L 06/06/21 04:51 Glucose 112 mg/dL (74-106) H 06/06/21 04:51 Magnesium 2.0 mg/dL (1.8-2.4) 06/04/21 06:03 Total Bilirubin 0.4 mg/dL (0.2-1.0) 06/03/21 03:51 AST 24 U/L (15-37) 06/03/21 03:51 ALT 14 U/L (12-78) 06/03/21 03:51 Alkaline Phosphatase 39 U/L (45-117) L 06/03/21 03:51 Home Medications: Aspirin [Aspirin EC 81 MG] 81 mg PO DAILY 06/01/21 Buspirone HCl [Buspar] 10 mg PO TID 06/01/21 Citalopram Hydrobromide [Celexa] 20 mg PO DAILY 06/01/21 Divalproex Sodium [Depakote ER] 125 mg PO TID 06/01/21 Meloxicam [Mobic] 15 mg PO DAILY 06/01/21 Memantine HCl 10 mg PO BID 06/01/21 Docusate [Colace Cap*] 100 mg PO BID #0 cap 06/07/21 Hydrocodone 5/APAP 325 [Venetia 5/325*] 1 tab PO Q6HP PRN #30 tab 06/07/21 Rivaroxaban [Xarelto] 10 mg PO DAILY #21 tablet 06/07/21 New Medications: Hydrocodone 5/APAP 325 [Venetia 5/325*] 1 tab PO Q6HP PRN #30 tab PRN Reason: Pain Scale 5-7 (Moderate) Rivaroxaban [Xarelto] 10 mg PO DAILY #21 tablet Physician Discharge Instructions: PROBLEM: Right Hip fracture GOAL: Clear understanding of disease process INSTRUCTIONS: Follow up as directed at [facility] Continue taking all current medications Call [phone] if you have any questions regarding your hospital stay Diet: Heart Healthy Activity: TDWB DME DME: None Date Ordered: Name of Company: [facility] Services Needed: [facility] Name of Company: Date or Referral: IMMUNIZATION Influenza Vaccine Indicated: No Influenza Vaccine Given: Date Given: Pneumonia Vaccine Indicated: No Pneumonia Vaccine Given: Date Given: Diet: AHA Activity: Fall precautions Followup: NONE,NONE [Primary Care Provider] - Time spent managing pt's care (in minutes): 36
[2021-06-07 17:17] VITALS: BP 112/54; TEMP 97.9
[2021-06-07 18:09] VITALS: O2SAT 95
[2021-06-07] MEDS ORDERED: ENSURE ENLIVE 237 ML CAN PO SCH (21:00)
== END 2021-06-07 18:05 | DRG 481 ==
LOC: ER 18:07 → ERHOLD 21:30 → 2ND 06-01 10:25
PROVIDERS: ADMIT Hospitalist; ATTEND Hospitalist
PROC: 30233N1 Transfusion of Nonautologous Red Blood Cells into Peripheral Vein, Percutaneous Approach (ICD-10-PCS; principal; 2021-06-01)
PROC: 0QS636Z Reposition Right Upper Femur with Intramedullary Internal Fixation Device, Percutaneous Approach (ICD-10-PCS; 2021-06-02)
DX: S72.141A Displaced intertrochanteric fracture of right femur, initial encounter for closed fracture (principal); N30.00 Acute cystitis without hematuria; D64.9 Anemia, unspecified; D72.829 Elevated white blood cell count, unspecified; I10 Essential (primary) hypertension; E78.5 Hyperlipidemia, unspecified; Z85.3 Personal history of malignant neoplasm of breast; F03.90 Unspecified dementia, unspecified severity, without behavioral disturbance, psychotic disturbance, mood disturbance, and anxiety; F41.8 Other specified anxiety disorders; W19.XXXA Unspecified fall, initial encounter; Z20.822 Contact with and (suspected) exposure to COVID-19
CPT/HCPCS: 36415; 36430; 51702; 70450; 71045; 72125; 72170; 73530; 80048; 80053; 80076; 81001; 81003; 81015; 82728; 82947; 83540; 83735; 84145; 84439; 84443; 84466; 84484; 85014; 85018; 85025; 85610; 85730; 86850; 86900; 86901; 87086; 87088; 94010; 96361; 96374; 96375; 97110; 97112; 97161; 97530; 99285; J0690; J0696; J1100; J1650; J2250; J2270; J2405; J2704; J3010; J7030; J7040; J7050; J7120; P9016; U0003

== ENCOUNTER 2021-08-20 04:01 | Emergency (ER) | payer OTHER, BC ==
--- OUTSIDE RECORDS SUMMARY | 2021-08-20 04:05 | XMS REPORT | Continuity of Care Document ---
:1935 Author Organization [facility] t Address [address] [place] [address] Care Team Providers Name Role Phone Asked, Pcp Primary Care Physician Unavailable Doctor Unassigned, Name Attending Clinician Unavailable Ramesh HAHN, Gene Attending Clinician Problems Condition Condition Condition Status Onset Resolution Last Treating Co mments Source Name Details Category Date Date Treatment Clinician Date R29.6 - Diagnosis Active 2020-04-12 Me moria REPEATED 04-06 12:20:00 l FALLS R29.6 - 00:01: Piero F03.90 - REPEATED 00 UNSPECIF FALLS F03.90 - UNSPECIF Active 04/06/2020 HUGOMaureen Hernandez INTRACRANI Diagnosis Active 2020-03-20 Memoria AL 03-09 21:41:00 l HEMORRHAGE 00:00: Hu n FOLLOWING INTRACRANI 00 INJURY AL HEMORRHAGE FOLLOWING INJURY Active 03/09/2020 [facility] LEFT Diagnosis Active 2020-03-09 Mem oria FRONTAL 03-09 22:25:00 l BLEED LEFT 00:00: Piero FRONTAL 00 BLEED Active 03/09/2020 [facility] Amnesia Problem Active 2020-11-17 Amari maryjo (finding) 02:02:42 l Amnesia [place] (finding) Active Problem 11/17/2020 [facility] Neuro,[facility] Cerebral Problem Active 2020-11-17 Mem oria hemorrhage 02:02:42 l (disorder) 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) Active Problem 11/17/2020 [facility] Neuro Dementia Problem Active 2020-11-17 Mem oria (disorder) 02:02:42 l Dementia Hu n (disorder) Active Problem 11/17/2020 [facility] Hyperlipid Problem Active 2020-11-17 M emoria emia 02:02:42 l (disorder) Hu n Hyperlipid emia (disorder) Active Problem 11/17/2020 [facility] Peripheral Problem Active 2020-11-17 M emoria nerve 02:02:42 l disease [place] (disorder) Peripheral nerve disease (disorder) Active Problem 11/17/2020 [facility] Recurrent Problem Active 2020-11-17 Me moria falls 02:02:42 l (finding) [place] Recurrent falls (finding) Active Problem 11/17/2020 [facility] UNSP FOCAL Diagnosis Active 2020-03-20 Memoria TBI W LOC 21:41:00 l OF UNSP UNSP Piero DURATION, FOCAL TBI I W LOC OF UNSP DURATION, I Active [facility] Allergies, Adverse Reactions, Alerts Allergy Allergy Status Severity Reaction(s) Onset Inactive Treating Comm ents Source Name Type Date Date Clinician statins statins Active Balaji Harry Social History Social Habit Start Date Stop Date Quantity Comments Source Social History 2020-01-24 2020-01-24 [facility] Liam brown 21:23:26 21:23:26 Sex [birth year] [facility] 00:00:00 00:00:00 Smoking Status Start Date Stop Date Source Unknown if ever smoked [facility] Medications Ordered Filled Start Stop Current Ordering Indication Dosage Frequency Signature Comments Components Source Medication Medication Date Date Medication? Clinician (SIG) Name Name Donepezil Yes 10 mg = 1 Mem oria hydrochlori 8-13 tab, PO, l de 10 MG 14:38: Bedtime, # Her leos Oral Tablet 00 30 tab, 6 [Aricept] Refill(s), [facility]acy: [id number], 147.32, cm, 04/26/20 9:31:00 CDT, Height, 56.364, kg, 04/26/20 9:31:00 CDT, Weight heparin No Notes: Memoria sodium, 6-28 porcine l porcine 13:00: heparin [place] 2500 UNT/ML 00 Injectable Solution Levetiracet Yes 500 mg = 1 Memoria am 500 MG 6- tab, PO, l Oral Tablet 10:50: Q12H, # 12 [place] [Keppra] 00 tab, 0 Refill(s) remove No Notes: Memoria patch - Remove l 02:00: patch 12 [place] 00 hours after applicatio n each day. Docusate No Notes: Memoria 6-27 (Same as: l 14:00: Colace) Piero (Do Not Crush) sennosides, No Notes: Amari maryjo [facility] 6-27 (Same as: l 14:00: Senokot) [place] Lidocaine No Notes: Memori a 0.05 MG/MG 6-27 Apply only l Transdermal 14:00: once for He rmann Patch 00 up to 12 hours in a 24-hour period (12 hours on and 12 hours off). (Same as: Lidoderm) "Remove old patch before applicatio n of new patch" Saline No Notes: Memoria Flush 0.9% 6-27 Same as: l 14:00: BD [place] Posiflush Sterile Ceftriaxone No Notes: Amari maryjo [...] 2020-0 No Notes: Do M emoria en - not exceed l 09:17: 4 gm/day. [place] 00 (Same as: Tylenol) Acetaminoph 2020-0 No Notes: Do M emoria en 325 MG / 03-10 not exceed l Hydrocodone 09:17: 4gm/day of Piero Bitartrate 00 acetaminop 10 MG Oral hen. Tablet (Same as: [place] 325/10) Morphine 2020-0 No Notes: Memoria - (Same l 09:17: as:MORPhin e Sulfate) Bisacodyl 2019-0 No Notes: Memori a - (Same As: l 09:17: Dulcolax, [place] Bisco-Lax) Ondansetron 2019-0 No Notes: Amari maryjo 03-10 (Same as: l 09:17: Zofran) MEDICATION WASTE Product Size: 4 mg Product Wasted: ___ mg Hydralazine 2020-0 No Notes: Amari maryjo - (Same as: l 09:17: Apresoline ) Push over 5 minutes Labetalol 2020-0 No 10 mg, 2 Amari maryjo 6-27 [...] whitfield am 03-10 Route: l 04:10: IVPB, [place] 00 ONCE, Dosing Weight 54.545, kg, Start date: 03/09/20 23:10:00 CDT, Stop date: 03/09/20 23:10:00 CDT Keppra No Notes: Memoria 03-10 Same as l 03:28: Keppra Mix with 100 mL NS, LR or D5W MEDICATION WASTE Product Size: 500 mg Product Wasted: ___ mg Saline No Notes: Memoria Flush 0.9% 03-10 Same as: l 02:55: BD Posiflush Sterile Donepezil Yes 5 mg = 1 Amari maryjo hydrochlori 23 tab, PO, l de 5 MG 18:37: Bedtime, # Herm venkatesh Oral Tablet 00 30 tab, 3 [Aricept] Refill(s), [id number], 147.32, cm, 01/24/20 16:10:00 CDT, Height, 55.909, kg, 01/24/20 16:10:00 CDT, Weight Prolia Yes 60 mg, Memoria 5-12 SUB-Q, l 21:17: q6mo, 0 Refill(s) Aspirin 2019- Yes 1, PO, Memoria 5-12 Daily, 0 l 21:17: Refill(s) ibuprofen Yes 200mg Q6H Take 200 Met hodi (ADVIL,MOTR 5-[address] [place]) 200 MG 18:40: mouth Hospit a tablet 50 every 6 l (six) hours as needed for mild pain. Immunizations Ordered Immunization Filled Immunization Date Status Commen ts Source Name Name pneumococcal 2020-03-11 Completed Memorial 13-valent vaccine 17:01:00 Piero diphtheria/pertussis 2020-03-10 Completed Amari rial , acel/tetanus adult 04:33:00 Herm venkatesh Vital Signs Vital Name Observation Time Observation Value Comments Source Systolic (mm Hg) 2020-04-26 14:31:00 Amari rial Piero Diastolic (mm Hg) 2020-04-26 14:31:00 Mem orial [place] Heart Rate 2020-04-26 14:31:00 [facility] [place] Respitory Rate 2020-04-26 14:31:00 Memori al [place] Height 2020-04-26 14:31:00 147.32 cm [facility] [place] Weight 2020-04-26 14:31:00 [facility] [place] BMI Calculated 2020-04-26 14:31:00 Memori al [place] Systolic (mm Hg) 2020-04-04 21:12:00 Amari rial [place] Diastolic (mm Hg) 2020-04-04 21:12:00 Mem orial [place] Heart Rate 2020-04-04 21:12:00 [facility] [place] Respitory Rate 2020-04-04 21:12:00 Memori al [place] Height 2020-04-04 21:12:00 147.32 cm [facility] [place] Weight 2020-04-04 21:12:00 [facility] [place] BMI Calculated 2020-04-04 21:12:00 Memori al [place] Respitory Rate 2020-03-11 17:00:00 Memori al [place] Systolic (mm Hg) 2020-03-11 17:00:00 Amari rial [place] Diastolic (mm Hg) 2020-03-11 17:00:00 Mem orial [place] Temperature Oral (F) 2020-03-11 17:00:00 97.7 F [facility] [place] Respitory Rate 2020-03-11 16:00:00 Memori al [place] Systolic (mm Hg) 2020-03-11 16:00:00 Amari rial [place] Diastolic (mm Hg) 2020-03-11 16:00:00 Mem orial [place] Respitory Rate 2020-03-11 15:00:00 Memori al [place] Systolic (mm Hg) 2020-03-11 15:00:00 Amari rial [place] Diastolic (mm Hg) 2020-03-11 15:00:00 Mem orial [place] Temperature Oral (F) 2020-03-11 13:03:00 97.4 F [facility] [place] Heart Rate 2020-03-11 02:09:00 [facility] [place] Heart Rate 2020-03-11 02:00:00 [facility] [place] Heart Rate 2020-03-11 01:35:00 [facility] [place] Temperature Oral (F) 2020-03-10 12:30:00 97.1 F [facility] [place] Height 2020-03-10 11:05:00 154.94 cm [facility] [place] Weight 2020-03-10 11:05:00 [facility] [place] BMI Calculated 2020-03-10 11:05:00 Memori al [place] Height 2020-03-10 02:27:00 152.4 cm [facility] [place] BMI Calculated 2020-03-10 02:27:00 Memori al Ipero Weight 2020-03-10 02:27:00 [facility] [place] Systolic (mm Hg) 2020-03-06 18:30:00 Amari rial [place] Diastolic (mm Hg) 2020-03-06 18:30:00 Mem orial [place] Heart Rate 2020-03-06 18:30:00 [facility] [place] Respitory Rate 2020-03-06 18:30:00 Memori al [place] Temperature Oral (F) 2020-03-06 18:30:00 98.2 F [facility] [place] Height 2020-03-06 18:30:00 147.32 cm [facility] [place] Weight 2020-03-06 18:30:00 [facility] [place] BMI Calculated 2020-03-06 18:30:00 Memori al [place] Systolic (mm Hg) 2020-01-24 21:10:00 Amari rial [place] Diastolic (mm Hg) 2020-01-24 21:10:00 Mem orial [place] Heart Rate 2020-01-24 21:10:00 [facility] [place] Respitory Rate 2020-01-24 21:10:00 Memori al Piero Temperature Oral (F) 2020-01-24 21:10:00 98.8 F [facility] [place] Height 2020-01-24 21:10:00 147.32 cm [facility] [place] Weight 2020-01-24 21:10:00 [facility] [place] BMI Calculated 2020-01-24 21:10:00 Memori al [place] Procedures Procedure Date / Time Performed Performing Clinician Sourc e Hysterectomy [facility] Knee replacement [facility] Hu n Plan of Care Planned Activity Planned Date Details Comments Source Future Scheduled Test COVID-19 VACCINE (1) [facility] [code = COVID-19 VACCINE (1)] Future Scheduled Test SHINGLES VACCINES (#1) [facility] [code = SHINGLES VACCINES (#1)] Future Scheduled Test 65+ PNEUMOCOCCAL [facility] VACCINE (1 of - PPSV23) [code = 65+ PNEUMOCOCCAL VACCINE (1 of 1 - PPSV23)] Future Scheduled Test INFLUENZA VACCINE [code [facility] = INFLUENZA VACCINE] Encounters Start End Encounter Admission Attending Care Care Encounter Source Date/Time Date/Time Type Type Clinicians Facility Department ID 2020-11-13 2020-11-15 Outside nullFlavo MNA [id number] Memoria 21:38:07 05:59:59 Medical r Neurology 01 l Records [facility] 2020-10-30 2020-10-30 Outpatient [facility] [id number] Memoria 13:30:00 13:30:00 07 l [place] 2020-06-06 2020-06-06 Ambulatory nullFlavo MNA [id number] Memoria 18:30:00 18:30:00 Pre-Reg r Neurology 03 l [facility] 2020-06-06 2020-06-06 Ambulatory nullFlavo MNA [id number] Memoria 18:30:00 18:30:00 Pre-Reg r Neurology 04 l [facility] 2020-04-26 2020-04-27 Outpatient nullFlavo MNA [id number] Memoria 14:00:00 04:59:59 r Neurology 06 l [facility] 2020-04-25 2020-04-27 Outside nullFlavo MNA [id number] Memoria 14:46:35 04:59:59 Medical r Neurology 00 l Records [facility] 2020-04-04 2020-04-05 Outpatient nullFlavo MNA [id number] Memoria 21:00:00 04:59:59 r Neurology 05 l [facility] 2020-03-10 2020-03-11 Inpatient nullFlavo [facility] [id number] Memoria 02:21:00 18:00:00 r [place] 78 [facility] 2020-03-09 2020-03-09 Emergency E [facility] 21:11:00 21:11:00 2020-03-06 2020-03-07 Outpatient nullFlavo MNA [id number] Memoria 18:30:00 04:59:59 r Neurology 02 l [facility] 2020-01-24 2020-01-25 Outpatient nullFlavo MNA [id number] Memoria 20:45:00 04:59:59 r Neurology 01 l Julian Piero 2020-01-24 2020-01-24 Orders Doctor DORY 1.2.840.114 [id number] 00:00:00 00:00:00 Only Unassigned, LUIS [id number] [place] [facility] 4.2.7.2.686 [id number] 2020-01-23 2020-01-23 Telephone [facility] [id number] 00:00:00 00:00:00 Ramiro Erazoton [id number] [place] 4.2.7.2.686 Professio [id number] nal 2 [facility] 2019-05-31 2019-05-31 Orders Doctor DORY 1.2.840.114 [id number] 00:00:00 00:00:00 Only Unassigned, LUIS [id number] [place] [facility] 4.2.7.2.686 [id number] [id number] 2019-05-20 2019-05-20 Telephone [facility] 1.2.840.114 [id number] 00:00:00 00:00:00 Ramiro Stewart [id number] [place] 4.2.7.2.686 Professio [id number] [address] 2019-05-05 2019-05-05 Orders Doctor DORY 1.2.840.114 [id number] 00:00:00 00:00:00 Only Unassigned, LUIS [id number] [place] [facility] 4.2.7.2.686 [id number] Results Test Description Test Time Test Comments Results Result Comments Source PARATHYROID PROFILE 2020-03-11 1.21 Memor ial [place] 08:05:00 PARATHYROID PROFILE 2020-03-11 1.21 Memor ial [place] 08:05:00 CARDIAC ENZYMES 2020-03-11 <0.02 [facility] [place] 08:05:00 CHEM PANEL 2020-03-11 109 Memorial Ermelinda [...] A/G Ratio) 0.9 1 0.7-1.6 [facility] HKUYC8518-33-94 08:05:0018[facility]annCHEM PANEL 2020-03-11 08:05:0018[facility]annCHEM QYOST9978-67-72 08:05:0051[facility]annCHEM OSNZK9768-83-56 08:05:000.3[facility]annCHEM IRBYA7033-94-39 08:05:00<0.1Memorial SsudqvtJWVHUHVZQT6220-03-40 08:05:005.6[facility] [place] KVRNAZTKJZ4156-12-81 08:05:003.72[facility]orial RxijvneNBAGAAHYUB5657-37-69 08:05:00 11.3Memorial GstkvszODIWIOEDMQ7428-18-10 08:05:0033.5[facility] HermannHEMATOLOGY 2020-03-11 08:05:0090.1[facility] PnujcwyPWDIEMFNEW7555-83-80 08:05:00 Test Item Value Reference Range Interpretation Comments MCH (test code = MCH) 30.4 pg 27.0-31.0 Memorial WtcowapNSANKIWRND5066-29-50 08:05:0033.8[facility] HermannHEMATOLOGY 2020-03-11 08:05:0013.6[facility] MnwznmdKBEVHRXPIO2934-97-47 08:05:73092Gungluum UauvduxVLXWEOYAMR9181-25-38 08:05:007.2[facility]orial CaojaspWQYRMWBEMX6944-02-15 08:05:0056.9[facility]orial HccxlxcSDDVBMSTES5508-25-37 08:05:0029.2[facility] Piero NYGMACNUUU5154-13-10 08:05:0010.9[facility]orial SgyuqdoPUHNNGEYLA1062-40-82 08:05:00 2.2[facility]orial VofjjleZTVWWSWPZM9524-00-36 08:05:000.8[facility] HermannHEMATOLOGY 2020-03-11 08:05:003.2[facility]orial IphieidKKEMMPWVCK8176-92-38 08:05:001.6[facility]orial UuoavreZFRCDOEGVK4642-25-39 08:05:000.6[facility]orial ZdevixaLPBPTTTKVP9862-74-24 08:05:000.1[facility] HermannCARDIAC FSIRIDK2053-64-82 18:36:00<0.02[facility] HermannDRUG MVGIUY9709-13-38 11:41:00Negative *NA*(03/10/20 6:41 AM)[facility]annDR[facility] KPPAJR7508-28-88 11:41:00Negative *NA*(03/10/20 6:41 AM)[facility]annDR[facility] OEKDKE8738-05-38 11:41:00Negative *NA*(03/10/20 6:41 AM)[facility]annDR[facility] RVFTAY2492-60-39 11:41:00Negative *NA*(03/10/20 6:41 AM)[facility] REEMPF4272-86-02 11:41:00Negative *NA*(03/10/20 6:41 AM)[facility] AZGSOB2200-86-22 11:41:00See Note *NA*(03/10/20 6:41 AM)[facility] AND HONWE3074-72-96 11:41:00Light Yellow *NA*(03/10/20 6:41 AM) [facility] JFHUU6894-98-39 11:41:00Clear (03/10/20 6:41 AM) [facility] NSEZE0592-51-22 11:41:00 Test Item Value Reference Range Interpretation Comments UA Spec Grav (test code = UA Spec 1.060 1 Grav) [facility] CPFJM7093-26-00 11:41:00 Test Item Value Reference Range Interpretation Comments UA pH (test code = UA pH) 5.0 1 5.0-8.0 [facility] WVJJU7155-50-71 11:41:00Negative *NA*(03/10/20 6:41 AM) [facility] GHNCT2914-16-21 11:41:00Negative (03/10/20 6:41 AM) [facility] QTRJM2995-74-96 11:41:00<1.0[facility] LMSTJ1546-25-24 11:41:00Negative (03/10/20 6:41 AM)[facility] ABXND2939-11-89 11:41:00Large *ABN*(03/10/20 6:41 AM)[facility] KOJLL3412-24-90 11:41:0028[facility]annDR[facility] BVXAGD0758-32-71 11:41:00Negative *NA*(03/10/20 6:41 AM)[facility] BPMFYV3132-86-65 11:41:00Negative *NA*(03/10/20 6:41 AM)[facility]annBLOOD BANK XXBDXHB4083-89-33 04:22:00 Negative (03/09/20 11:22 PM)[facility]annCHEM EDYIG1041-85-84 03:16:45974 [facility]annCHEM EXLEU8532-10-71 03:16:0022[facility] HermannCHEM PANEL 2020-03-10 03:16:000.92[facility]annCHEM MPKKE5056-38-35 03:16:56972Ffoqebmn HermannCHEM CBJVO1302-68-94 03:16:003.9[facility]annCHEM ROUXB5685-35-64 03:16:23437Dgsaalvi HermannCHEM LJCOX3301-28-96 03:16:0024[facility] HermannCHEM AORSH9284-13-67 03:16:008.8[facility] HermannCHEM IKADK1943-69-56 03:16:0010.9 [facility]annCHEM ZZVGP9457-21-88 03:16:0057[facility] HermannCHEM PANEL 2020-03-10 03:16:000.6[facility]orial ZdmsmwzATWEDCFYWL6846-77-82 03:16:006.8[facility]orial LgzolbhKADWWLNAOK4047-04-58 03:16:003.70[facility]orial CgqueqyVDWMKELSRG3800-16-60 03:16:0011.5[facility]orial RiezxyaBSPRHKIHRD6728-66-41 03:16:0033.2[facility] QOUQGSEISJ5606-78-70 03:16:0089.6[facility] PrsoxpxFRMJPIDARG9701-60-68 03:16:00 Test Item Value Reference Range Interpretation Comments MCH (test code = MCH) 31.1 pg 27.0-31.0 [facility]FBJNKF1344-64-40 03:16:0034.7[facility] HermannHEMATOLOGY 2020-03-10 03:16:0013.5[facility]orial PqwtxyaARGNPHTUBQ3695-59-03 03:16:19509Qbrfxbuk MthersyPSWQUUBWLP9779-98-52 03:16:006.7[facility]orial VdfwsjtJCVWICYTRD3888-30-94 03:16:00 Test Item Value Reference Range Interpretation Comments ACT (TEG) Rapid (test code = ACT (TEG) 113 s 86-118 Rapid) [facility] HospitalOcgupkvWHKUOSVIYP5906-12-24 03:16:00 Test Item Value Reference Range Interpretation Comments Split Point Rapid (test code = Split 0.6 min Point Rapid) [facility] HospitalKroedwyICGYTTBIRC8715-84-80 03:16:00 Test Item Value Reference Range Interpretation Comments R-time Rapid (test code = R-time 0.7 min 0.4-0.7 Rapid) [facility] HospitalGvwyiwfVEYBUGYYQZ8058-27-03 03:16:00 Test Item Value Reference Range Interpretation Comments K-time Rapid (test code = K-time 0.9 min 0.6-2.3 Rapid) [facility] VdllhpuJEFTEZVGBI4168-11-02 03:16:00 Test Item Value Reference Range Interpretation Comments Angle Rapid (test code = Angle 79 degrees 64-80 Rapid) [facility] MejpudmMDFVEVVDZE3778-73-36 03:16:00 Test Item Value Reference Range Interpretation Comments Max Amplitude Rapid (test code = Max 65 mm 52-71 Amplitude Rapid) [facility] AfijlnsITUCKUFAAO4685-14-40 03:16:009.1[facility] HermannHEMATOLOGY 2020-03-10 03:16:000.7[facility] EqguwbmBJADHWBCDO9134-86-58 03:16:0059.3[facility]orial BmihmmsQHQKHLZIUU4428-56-25 03:16:0027.8[facility]orial RpkwsrxJQQIJMXJEW7437-59-49 03:16:0011.1[facility] FyulhytPHTARQCEMF1791-07-87 03:16:001.3[facility] [place] DLSJUXJYLT1488-10-92 03:16:000.5[facility]orial JpqfzxkIGSOUAQGSL1111-33-61 03:16:004.0 Memorial MwojgjrXSECJDYYIM9058-18-62 03:16:001.9[facility] HermannHEMATOLOGY 2020-03-10 03:16:000.8[facility]orial KlxkhxzGYWDRQUKLD0354-81-95 03:16:000.1[facility]orial ZbuybmmXPSJWOHAKD2083-91-25 03:16:00 Test Item Value Reference Range Interpretation Comments PT (test code = PT) 12.1 s 12.0-14.7 [facility] BofhowpZMGHUVRMRC2912-65-59 03:16:00 Test Item Value Reference Range Interpretation Comments INR (test code = INR) 0.90 1 0.85-1.17 [facility] UjxmgmqKCSUTQWAGT6627-12-65 03:16:00 Test Item Value Reference Range Interpretation Comments PTT (test code = PTT) 27.7 s 22.9-35.8 [facility] PympdywFCMYBBNWHE7656-31-84 03:16:007[facility] HermannTOXICOLOGY 2020-03-10 03:16:000.007[facility] [place]
[2021-08-20 05:12] LABS: Absolute Lymphocytes (CBC) 1.2 K/uL (0.7-4.9); Basophils % 0.4 % (0-1.3); Hematocrit 34.8 % (36.0-45.0); MPV 6.9 fL (7.6-11.3); RBC Red Blood Cell Count 3.75 M/uL (3.86-4.86)
[2021-08-20 05:13] LABS: Protime INR 0.99
[2021-08-20 05:32] LABS: ALT/SGPT 12 U/L (12-78); AST/SGOT 17 U/L (15-37); Albumin 2.9 g/dL (3.4-5.0); Alkaline Phosphatase 93 U/L (45-117); BUN Blood Urea Nitrogen 14 mg/dL (7-18); Bicarbonate 27 mmol/L (21-32); Bilirubin Direct < 0.1 mg/dL (0-0.2); Bilirubin Total 0.2 mg/dL (0.2-1.0); Glucose Level 110 mg/dL (74-106); Magnesium 2.2 mg/dL (1.8-2.4); NT PRO-BNP 907 pg/mL (<450); Protein, Total 7.1 g/dL (6.4-8.2); Sodium Level 141 mmol/L (136-145); Troponin (Emerg Dept Use Only) < 0.02 ng/mL (0.0-0.045)
[2021-08-20] MEDS ORDERED: DERMABOND SKIN ADHESIVE TOP ONE (06:32)
[2021-08-20] MEDS ORDERED: TETANUS & DIPHTHERIA TOX,ADULT 0.5 ML VIAL ONE (06:32)
--- NOTE | 2021-08-20 07:05 | EDPHYS ---
Physician Documentation [facility] Name: Mignon Plunkett Age: 86 yrs Sex: Female : 1935 Arrival Date: 08/20/2021 Time: 04:03 Bed 6 Private MD: ED Physician Krishna Mcarthur HPI: 08/20 04:30 This 86 yrs old Female presents to ER via EMS with unknown complaint. pkl 04:30 Details of fall: The patient fell from an upright position, patient got out of bed and pkl fell. Onset: The symptoms/episode began/occurred just prior to arrival. Associated injuries: The patient sustained injury to the head, laceration, 1.5 cm(s), of the right eyebrow. 04:35 Associated injuries: The patient sustained right shoulder. pkl Historical: - Allergies: 04:08 No Known Allergies; bb - Home Meds: 04:08 aspirin 81 mg Oral chew [Active]; buspirone 10 mg Oral tab 1 tab 3 times per day bb [Active]; Celexa 20 mg Oral tab 1 tab once daily [Active]; Depakote ER 125 Oral three times a day [Active]; exelon patch [Active]; hydrochlorothiazide 25 mg Oral tab 1 tab once daily [Active]; Keflex 500 mg Oral cap 1 cap every 12 hours [Active]; lisinopril 20 mg Oral tab 1 tab once daily [Active]; meloxicam 15 mg Oral tab 1 tab once daily [Active]; memantine 10 mg Oral tab 1 tab 2 times per day [Active]; Saccharomyces boulardii 250 mg Oral cap daily [Active]; Vitamin C 500 mg Oral cpER [Active]; zinc sulfate 50 mg zinc (220 mg) Oral tab [Active]; - PMHx: 04:08 Anxiety; Cancer, Breast; Depression; generalized weakness; High Cholesterol; bb Hypertension; insomnia; polyneuropathy; - PSHx: 04:08 hysterectomy; bb - Immunization history:: Adult Immunizations up to date, unknown. - Social history:: Smoking status: unknown. ROS: 04:35 Eyes: Negative for injury, pain, redness, and discharge, ENT: Negative for injury, pkl pain, and discharge, Neck: Negative for injury, pain, and swelling, Cardiovascular: Negative for chest pain, palpitations, and edema, Respiratory: Negative for shortness of breath, cough, wheezing, and pleuritic chest pain, Abdomen/GI: Negative for abdominal pain, nausea, vomiting, diarrhea, and constipation, Back: Negative for injury and pain, : Negative for injury, bleeding, discharge, and swelling. 04:35 MS/extremity: Positive for pain, of the right shoulder. 04:35 Skin: Negative for rash. 04:35 Neuro: Negative for altered mental status, loss of consciousness. Exam: 04:35 Head/face: Noted is superficial laceration ( 1.5 cm ) right eyebrow. pkl 04:35 Eyes: Exam is negative for acute changes. 04:35 ENT: Exam is negative for acute changes. 04:35 Neck: Exam negative for acute changes, obvious evidence of injury or deformity. 04:35 Chest/axilla: Exam negative for acute changes. 04:35 Cardiovascular: Rate: normal, Rhythm: regular. 04:35 Respiratory: the patient does not display signs of respiratory distress, Respirations: normal, Breath sounds: are clear throughout. 04:35 Abdomen/GI: Bowel sounds: normal, Palpation: abdomen is soft and non-tender, in all quadrants. 04:35 Back: Exam negative for acute changes. 04:35 : Exam negative for acute changes. 04:35 Musculoskeletal/extremity: Extremities: grossly normal except: noted in the right shoulder: pain. 04:35 Neuro: Orientation: is normal, Mentation: is normal, Cranial nerves: grossly normal, Motor: moves all fours. 07:04 Eyes: Pupils equal round and reactive to light, extra-ocular motions intact. Lids and pkl lashes normal. Conjunctiva and sclera are non-icteric and not injected. Cornea within normal limits. Periorbital areas with no swelling, redness, or edema. Vital Signs: 04:06 BP 152 / 77; Pulse 78; Resp 16 S; Temp 97.8(O); Pulse Ox 98% on R/A; Weight 54.43 kg bb (R); Height 5 ft. 0 in. (152.40 cm) (R); 05:04 BP 151 / 76; Pulse 78; Resp 19; Pulse Ox 99% on R/A; lp1 07:00 BP 145 / 81; Pulse 84; Resp 15; Pulse Ox 95% on R/A; lp1 04:06 Body Mass Index 23.44 (54.43 kg, 152.40 cm) bb MDM: 04:04 Patient medically screened. pkl 07:00 Data reviewed: vital signs, nurses notes, lab test result(s), EKG, radiologic studies, pkl CT scan, plain films. ED course: Patient feeling better. Discussed lab, EKG and imaging studies with patient. Advised to follow up with PCP in 1 to 2 days. To return if necessary. Patient understood instructions. 08/20 04:26 Order name: Basic Metabolic Panel pkl 08/20 04:26 Order name: CBC with Diff pkl 08/20 04:26 Order name: LFT's pkl 08/20 04:26 Order name: Magnesium pkl 08/20 04:26 Order name: NT PRO-BNP pkl 08/20 04:26 Order name: PT-INR; Complete Time: 06:10 pkl 08/20 04:26 Order name: Troponin (emerg Dept Use Only); Complete Time: 06:10 pkl 08/20 04:26 Order name: XRAY Chest (1 view) pkl 08/20 04:26 Order name: Pelvis XRAY pkl 08/20 04:26 Order name: Basic Metabolic Panel; Complete Time: 06:10 EDMS 08/20 04:26 Order name: CBC with Automated Diff; Complete Time: 06:10 EDMS 08/20 04:26 Order name: Liver (Hepatic) Function; Complete Time: 06:10 EDMS 08/20 04:26 Order name: Magnesium; Complete Time: 06:10 EDMS 08/20 04:26 Order name: NT PRO-BNP; Complete Time: 06:10 EDMS 08/20 04:26 Order name: EKG; Complete Time: 04:27 pkl 08/20 04:26 Order name: Cardiac monitoring; Complete Time: 04:32 pkl 08/20 04:26 Order name: EKG - Nurse/Tech; Complete Time: 05:03 pkl 08/20 04:26 Order name: IV Saline Lock; Complete Time: 05:03 pkl 08/20 04:26 Order name: Labs collected and sent; Complete Time: 05:03 pkl 08/20 04:26 Order name: O2 Per Protocol; Complete Time: 04:32 pkl 08/20 04:26 Order name: O2 Sat Monitoring; Complete Time: 04:32 pkl 08/20 04:27 Order name: Shoulder Right (2 View) XRAY pkl 08/20 04:27 Order name: CT Head C Spine pkl 08/20 04:33 Order name: Dermabond; Complete Time: 07:24 lp1 Administered Medications: 07:24 Drug: Tetanus-Diphtheria Toxoid Adult 0.5 ml {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 Exp: lp1 12/06/2022. Lot #: [id number]. } Route: IM; Site: right deltoid; 07:43 Follow up: Response: No adverse reaction bp Disposition Summary: 08/20/21 07:04 Discharge Ordered Location: Home pkl Problem: new pkl Symptoms: have improved pkl Condition: Stable pkl Diagnosis - Head injury. Laceration right eyebrow. S/P Fall pkl Followup: pkl - With: Private Physician - When: 1 - 2 days - Reason: Re-evaluation by your physician Forms: - Medication Reconciliation Form pkl - Thank You Letter pkl - Antibiotic Education pkl - Prescription Opioid Use pkl Signatures: Dispatcher [employer] EDKrishna Bernardo MD MD pkl Eli Washburn, RN RN bb Linda Bailey RN RN lp1 Timothy Rush RN bp
--- NOTE | 2021-08-20 07:05 | ER ---
Nurse's Notes [facility] Name: Mignon Plunkett Age: 86 yrs Sex: Female : 1935 Arrival Date: 08/20/2021 Time: 04:03 Bed 6 Private MD: Diagnosis: Head injury. Laceration right eyebrow. S/P Fall Presentation: 08/20 04:06 Chief complaint: EMS states: they were toned out for report of pt having gotten up out bb of bed and fallen receiving small laceration to right brow area denies LOC. Coronavirus screen: At this time, the client does not indicate any symptoms associated with coronavirus-19. Ebola Screen: No symptoms or risks identified at this time. Initial Sepsis Screen: Does the patient meet any 2 criteria? No. Patient's initial sepsis screen is negative. Does the patient have a suspected source of infection? No. Patient's initial sepsis screen is negative. Risk Assessment: Do you want to hurt yourself or someone else? Patient reports no desire to harm self or others. Onset of symptoms was August 20, 2021. 04:06 Method Of Arrival: EMS: [facility] bb 04:06 Acuity: ELY 3 bb Historical: - Allergies: 04:08 No Known Allergies; bb - Home Meds: 04:08 aspirin 81 mg Oral chew [Active]; buspirone 10 mg Oral tab 1 tab 3 times per day bb [Active]; Celexa 20 mg Oral tab 1 tab once daily [Active]; Depakote ER 125 Oral three times a day [Active]; exelon patch [Active]; hydrochlorothiazide 25 mg Oral tab 1 tab once daily [Active]; Keflex 500 mg Oral cap 1 cap every 12 hours [Active]; lisinopril 20 mg Oral tab 1 tab once daily [Active]; meloxicam 15 mg Oral tab 1 tab once daily [Active]; memantine 10 mg Oral tab 1 tab 2 times per day [Active]; Saccharomyces boulardii 250 mg Oral cap daily [Active]; Vitamin C 500 mg Oral cpER [Active]; zinc sulfate 50 mg zinc (220 mg) Oral tab [Active]; - PMHx: 04:08 Anxiety; Cancer, Breast; Depression; generalized weakness; High Cholesterol; bb Hypertension; insomnia; polyneuropathy; - PSHx: 04:08 hysterectomy; bb - Immunization history:: Adult Immunizations up to date, unknown. - Social history:: Smoking status: unknown. Screenin:04 Abuse screen: Denies threats or abuse. Denies injuries from another. Nutritional lp1 screening: No deficits noted. Tuberculosis screening: No symptoms or risk factors identified. Fall Risk Total Bear Fall Scale indicates High Risk Score (45 or more points). Fall prevention measures have been instituted. Side Rails Up X 2 Frequent Obs/Assessments Occuring As available patient and family educated on Fall Prevention Program and Strategies. Assessment: 04:15 General: Appears in no apparent distress. Behavior is calm, cooperative. Pain: lp1 Complains of pain in back Pain currently is 3 out of 10 on a pain scale. Quality of pain is described as aching. Neuro: Level of Consciousness is awake, alert, obeys commands, Oriented to person, place, situation. Cardiovascular: Patient's skin is warm and dry. Respiratory: Respiratory effort is even, unlabored, Breath sounds are clear bilaterally. GI: No signs and/or symptoms were reported involving the gastrointestinal system. Abdomen is non-distended. : No signs and/or symptoms were reported regarding the genitourinary system. EENT: No deficits noted. Derm: Skin is thin, Skin is dry, Skin is normal, Wound noted Other: Small laceration to lateral right eyebrow, bleeding controlled. Musculoskeletal: Circulation, motion, and sensation intact. Range of motion: limited in right shoulder. 05:30 Reassessment: Patient appears in no apparent distress at this time. No changes from lp1 previously documented assessment. 07:25 Reassessment: Patient appears in no apparent distress at this time. Patient reoriented lp1 to time and place; lying in bed, no apparent distress. 07:35 Reassessment: daughter updated on discharge plan, daughter will call [employer] to arrange transportation. 07:42 Reassessment: [facility] [employer] [facility] PEND[facility], ETA [id number]. bp Vital Signs: 04:06 BP 152 / 77; Pulse 78; Resp 16 S; Temp 97.8(O); Pulse Ox 98% on R/A; Weight 54.43 kg bb (R); Height 5 ft. 0 in. (152.40 cm) (R); 05:04 BP 151 / 76; Pulse 78; Resp 19; Pulse Ox 99% on R/A; lp1 07:00 BP 145 / 81; Pulse 84; Resp 15; Pulse Ox 95% on R/A; lp1 04:06 Body Mass Index 23.44 (54.43 kg, 152.40 cm) ED Course: 04:03 Patient arrived in ED. mw2 04:04 Krishna Mcarthur MD is Attending Physician. pkl 04:08 Triage completed. bb 04:08 Arm band placed on Patient placed in an exam room, on a stretcher, on pulse oximetry. bb 04:45 Wound care: to laceration located on outer aspect of right eyebrow was irrigated with lp1 normal saline. 04:46 CT Head C Spine In Process Unspecified. EDMS 04:50 Patient has correct armband on for positive identification. Placed in gown. Bed in low lp1 position. Call light in reach. front desk monitor on. Pulse ox on. NIBP on. 04:55 Inserted saline lock: 20 gauge in left forearm, using aseptic technique. Blood lp1 collected. 05:02 Linda Bailey, RN is Primary Nurse. lp1 05:15 XRAY Chest (1 view) In Process Unspecified. EDMS 05:15 Pelvis XRAY In Process Unspecified. EDMS 05:15 Shoulder Right (2 View) XRAY In Process Unspecified. 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 Exp: lp1 12/06/2022. Lot #: [id number]. } Route: IM; Site: right deltoid; 07:43 Follow up: Response: No adverse reaction bp Outcome: 07:04 Discharge ordered by . pkl 08:30 Patient left the ED. bp Signatures: Dispatcher [employer] EDMS Krishna Mcarthur MD MD pkl Ballard, Brenda, Lina Looney RN, ASHLEY RAMIREZ Linda Bailey, ASHLEY RAMIREZ lp1 Timothy Rush RN RN bp [place], MyKena mw2
--- NOTE | 2021-08-20 08:10 | RAD REPORT ---
EXAM DESCRIPTION: RAD - Pelvis - 08/20/2021 5:15 am CLINICAL HISTORY: fall COMPARISON: Hip In Or dated 06/02/2021; Hip Right 2 View dated 05/31/2021; Pelvis dated 05/31/2021 FINDINGS: Surgical changes from intramedullary erich and cephalomedullary screw placement in the right femur. Fracture lines remain evident but with increased sclerosis suggesting some interval healing. No new fracture is identified. Bilateral acetabular degenerative changes and degenerative changes are present in the lower spine. IMPRESSION: Status post ORIF of the right hip without evidence of hardware complication. No new frac tures identified.
--- NOTE | 2021-08-20 08:12 | RAD REPORT ---
EXAM DESCRIPTION: RAD - Chest Single View - 08/20/2021 5:15 am CLINICAL HISTORY: fall COMPARISON: Chest Single View dated 06/03/2021; Chest Single View dated 05/31/2021; Chest Single View dated 01/21/2019; CHEST PA AND LAT 2 VIEW dated 04/11/2010 FINDINGS: Lines: None. Lungs: No evidence of edema or pneumonia. Pleural: No significant pleural effusions or pneumothorax. Cardiac: Mild cardiomegaly. Bones: No acute fractures. Other: IMPRESSION: No acute cardiopulmonary disease.
--- NOTE | 2021-08-20 08:12 | RAD REPORT ---
EXAM DESCRIPTION: RAD - Shoulder Right 2 View - 08/20/2021 5:15 am CLINICAL HISTORY: fall COMPARISON: Shoulder Right 2 View dated 05/31/2021 FINDINGS: No acute fracture. High-riding humeral head consistent with rotator cuff pathology. Soft t issue anchor in the humeral head. IMPRESSION: No acute osseous abnormality involving the right shoulder. Chronic changes.
[2021-08-20 08:38] VITALS: TEMP 97.8
[2021-08-20 08:41] VITALS: BP 145/81; O2SAT 95
--- NOTE | 2021-08-20 13:03 | EKG ---
Test Date: 2021-08-20 Test Time: 04:47:19 [employer]: EMILY MEASUREMENT RESULTS: Intervals: Rate: 76 MA: 148 QRSD: 120 QT: 438 QTc: 492 [place]: P: 33 MA: 148 QRS: 152 T: 11 INTERPRETIVE STATEMENTS: Normal sinus rhythm Indeterminate axis Right bundle branch block Possible Lateral infarct, age undetermined Inferior infarct, age undetermined Abnormal ECG Compared to ECG 01/21/2019 16:03:46 Indeterminate axis now present Myocardial infarct finding still present Electronically Signed On 08-20-21 13:02:27 [employer]BILE LOUNGE [employer]IVER by Parminder Mercer
--- NOTE | 2021-08-21 10:33 | RAD REPORT ---
EXAM DESCRIPTION: CT - Head C Spine Mpr Wo Con - 08/20/2021 6:41 am CLINICAL HISTORY: Fall COMPARISON: 05/31/2021. 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 FINDINGS: Brain: There is no acute hemorrhage, mass effect or midline shift. Hernandez-white differentiat ion is preserved. There is no hydrocephalus. There is mild diffuse cerebral atrophy. The calvarium is intact. There is mild right lateral periorbital soft tissue swelling. The paranasal sinuses are clear. Mastoid air cells are clear. Cervical Spine: There is no acute fracture. There is grade 1 anterolisthesis of C2 on C3 and C3 on C4 . There is mild upper cervical facet arthritis. There is moderate narrowing of the C4-5 disc with severe narrowing at C5-6 and C6-7. Vertebral body h eights are preserved. Soft tissues are unremarkable. IMPRESSION: No cervical spine fracture or intracranial hemorrhage. Electronically signed by: Patrick Fortune MD 08/20/2021 6:23 AM WATER SAFETY TEACHER Due to temporary technical issues with the PACS/Fluency reporting system, reports are being signed by the in house radiologist without review as a courtesy to ensure prompt reporting. The interpreting r adiologist is fully responsible for the content of the report.
== END 2021-08-20 08:30 | disposition home or self-care (01) ==
LOC: ER 04:01
DX: S01.111A Laceration without foreign body of right eyelid and periocular area, initial encounter (principal); M25.511 Pain in right shoulder; W06.XXXA Fall from bed, initial encounter; Z23 Encounter for immunization; I10 Essential (primary) hypertension; F41.8 Other specified anxiety disorders; E78.00 Pure hypercholesterolemia, unspecified; Z85.3 Personal history of malignant neoplasm of breast
CPT/HCPCS: 36415; 70450; 71045; 72125; 72170; 80048; 80076; 83735; 83880; 84484; 85025; 85610; 90471; 90714; 93005; 99285

== ENCOUNTER 2021-12-02 13:59 | Emergency (ER) | payer OTHER, BC ==
--- OUTSIDE RECORDS SUMMARY | 2021-12-02 14:03 | XMS REPORT | Continuity of Care Document ---
:1935 Author Organization [facility] t Address [address] [place] [address] Care Team Providers Name Role Phone Asked, Pcp Primary Care Physician Unavailable DORY DE JESUS Attending Clinician Unavailable Doctor Unassigned, Name Attending Clinician Unavailable Ramesh HAHN, Gene Attending Clinician DORY DE JESUS Admitting Clinician Unavailable Problems Condition Condition Condition Status Onset Resolution Last Treating Co mments Source Name Details Category Date Date Treatment Clinician Date R29.6 - Diagnosis Active 2020-04-12 Me moria REPEATED 04-06 12:20:00 l FALLS R29.6 - 00:01: Piero F03.90 - REPEATED 00 UNSPECIF FALLS F03.90 - UNSPECIF Active 04/06/2020 [facility] INTRACRANI Diagnosis Active 2020-03-20 Memoria AL 03-09 21:41:00 l HEMORRHAGE 00:00: Hu lozada FOLLOWING INTRACRANI 00 INJURY AL HEMORRHAGE FOLLOWING INJURY Active 03/09/[address] [facility] LEFT Diagnosis Active 2020-03-09 Mem oria FRONTAL 03-09 22:25:00 l BLEED LEFT 00:00: Piero FRONTAL 00 BLEED Active 03/09/[address] [facility] Amnesia Problem Active 2020-11-17 Amari maryjo (finding) 02:02:42 l Amnesia Piero (finding) Active Problem 11/17/2020 [facility] Cerebral Problem Active 2020-11-17 Mem oria hemorrhage 02:02:42 l (disorder) 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) Active Problem 11/17/2020 [facility] Dementia Problem Active 2020-11-17 Mem oria (disorder) 02:02:42 l Dementia Hu n (disorder) Active Problem 11/17/2020 [facility] Hyperlipid Problem Active 2020-11-17 M emoria emia 02:02:42 l (disorder) Hu n Hyperlipid emia (disorder) Active Problem 11/17/2020 [facility] Peripheral Problem Active 2020-11-17 M emoria nerve 02:02:42 l disease Piero (disorder) Peripheral nerve disease (disorder) Active Problem 11/17/2020 [facility] Recurrent Problem Active 2020-11-17 Me moria falls 02:02:42 l (finding) [place] Recurrent falls (finding) Active Problem 11/17/2020 [facility] UNSP FOCAL Diagnosis Active 2020-03-20 Memoria TBI W LOC 21:41:00 l OF UNSP UNSP [place] DURATION, FOCAL TBI I W LOC OF UNSP DURATION, I Active [facility] Allergies, Adverse Reactions, Alerts Allergy Allergy Status Severity Reaction(s) Onset Inactive Treating Comm ents Source Name Type Date Date Clinician statins statins Active Balaji Harry Social History Social Habit Start Date Stop Date Quantity Comments Source Social History 2020-01-24 2020[facility]01[facility] 21:23:26 21:23:26 Sex Assigned At [birth year] [facility] 00:00:00 00:00:00 Smoking Status Start Date Stop Date Source Unknown if ever smoked [facility] Medications Ordered Filled Start Stop Current Ordering Indication Dosage Frequency Signature Comments Components Source Medication Medication Date Date Medication? Clinician (SIG) Name Name Donepezil Yes 10 mg = 1 Mem oria hydrochlori 8-13 tab, PO, l de 10 MG 14:38: Bedtime, # Her leos Oral Tablet 00 30 tab, 6 [Aricept] Refill(s), Pharmacy: [id number], 147.32, cm, 04/26/20 9:31:00 CDT, Height, 56.364, kg, 04/26/20 9:31:00 CDT, Weight heparin No Notes: Memoria sodium, 6- porcine l porcine 13:00: heparin Piero 2500 UNT/ML 00 Injectable Solution Levetiracet Yes 500 mg = 1 Memoria am 500 MG - tab, PO, l Oral Tablet 10:50: Q12H, # 12 [place] [Keppra] 00 tab, 0 Refill(s) remove No Notes: Memoria patch - Remove l 02:00: patch 12 [place] 00 hours after applicatio n each day. Docusate No Notes: Memoria 6-27 (Same as: l 14:00: Colace) Piero 00 (Do Not Crush) sennosides, No Notes: Amari maryjo [facility] -27 (Same as: l 14:00: Senokot) [place] 00 Lidocaine No Notes: Memori a 0.05 MG/MG -27 Apply only l Transdermal 14:00: once for He rmann Patch 00 up to 12 hours in a 24-hour period (12 hours on and 12 hours off). (Same as: Lidoderm) "Remove old patch before applicatio n of new patch" Saline No Notes: Memoria Flush 0.9% -27 Same as: l 14:00: BD [place]o 00 Posiflush Sterile Ceftriaxone No Notes: Amari maryjo 6-27 (Same As: l 14:00: Rocephin). Piero 00 MEDICATION WASTE Product Size: 1000 mg Product Wasted: 0 mg Levetiracet No Notes: Amari maryjo am 500 MG 6-27 (Same l Oral Tablet 14:00: as:Keppra) [place] [Keppra] 00 Levetiracet No Notes: Amari maryjo am 6-27 Same as l 14:00: Keppra [place] 00 Mix with 100 mL NS, LR or D5W MEDICATION WASTE Product Size: 500 mg Product Wasted: _0__ mg Sodium 2019- No 1,000 mL, Memori a Chloride -27 Rate: 50 l 0.9% IV 09:17: ml/hr, Piero 1,000 mL 00 Infuse over: 20 hr, Route: IV, Dosing Weight 54.545 kg, Total Volume: 1,000, Start date: 03/10/20 4:17:00 CDT, Duration: 30 day, Stop date: 04/09/20 4:16:00 CDT, 1.54, m2, 0 Acetaminoph 2020-0 No Notes: Do M emoria en - not exceed l 09:17: 4 gm/day. Piero 00 (Same as: Tylenol) Acetaminoph 2019-0 No Notes: Do M emoria en 325 MG / 03-10 not exceed l Hydrocodone 09:17: 4gm/day of Piero Bitartrate 00 acetaminop 10 MG Oral hen. Tablet (Same as: [place] 325/10) Morphine 2019-0 No Notes: Memoria 03-10 (Same l 09:17: as:MORPhin e Sulfate) Bisacodyl 2019-0 No Notes: Memori a - (Same As: l 09:17: Dulcolax, Piero Bisco-Lax) Ondansetron 2019-0 No Notes: Amari maryjo - (Same as: l 09:17: Zofran) MEDICATION WASTE Product Size: 4 mg Product Wasted: ___ mg Hydralazine 2019-0 No Notes: Amari maryjo - (Same as: l 09:17: Apresoline ) Push over 5 minutes Labetalol 2019-0 No 10 mg, 2 Amari maryjo -27 mL, Route: l 09:17: IVP, Drug form: INJ, Q15Min, Dosing Weight 54.545, kg, PRN Hypertensi on, Start date: 03/10/20 4:17:00 CDT, Duration: 30 day, Stop date: 04/09/20 4:16:00 CDT, 0 Saline 2019-0 No Notes: Memoria Flush 0.9% 03-10 Same as: l 09:17: BD [place] 00 Posiflush Sterile Iohexol 2020-0 No 100 mL, Memoria - Route: l 04:57: IVP, Drug Form: SOLN, Dosing Weight 54.545, kg, ONCALL, STAT, Start date: 03/09/20 23:57:00 CDT, Duration: 1 doses or times, Dose = 2.2ml/kg, Max dose = 100ml -- "To be infused by Radiology Staff ONLY" Levetiracet No 1,000 mg, Whit whitfield am 03-10 Route: l 04:10: IVPB, ONCE, Dosing Weight 54.545, kg, Start date: [...] 00 30 tab, 3 [Aricept] Refill(s), Pharmacy: [id number], 147.32, cm, 01/24/20 16:10:00 CDT, Height, 55.909, kg, 01/24/20 16:10:00 CDT, Weight Prolia Yes 60 mg, Memoria 5-12 SUB-Q, l 21:17: q6mo, 0 Refill(s) Aspirin Yes 1, PO, Memoria 5-12 Daily, 0 l 21:17: Refill(s) ibuprofen Yes 200mg Q6H Take 200 Met hodi (ADVIL,MOTR 5-[address] [place]) 200 MG 18:40: mouth Hospit a tablet 50 every 6 l (six) hours as needed for mild pain. Immunizations Ordered Immunization Filled Immunization Date Status Commen ts Source Name Name pneumococcal 2020-03-11 Completed [facility] 13-valent vaccine 17:01:00 [place] diphtheria/pertussis 2020-03-10 Completed Amari rial , acel/tetanus adult 04:33:00 Herm venkatesh Vital Signs Vital Name Observation Time Observation Value Comments Source Systolic (mm Hg) 2020-04-26 14:31:00 Amari rial [place] Diastolic (mm Hg) 2020-04-26 14:31:00 Mem orial [place] Heart Rate 2020-04-26 14:31:00 [facility] [place] Respitory Rate 2020-04-26 14:31:00 Memori al [place] Height 2020-04-26 14:31:00 147.32 cm [facility] [place] Weight 2020-04-26 14:31:00 [facility] [place] BMI Calculated 2020-04-26 14:31:00 Memori al [place] Systolic (mm Hg) 2020-04-04 21:12:00 Amari rial [place] Diastolic (mm Hg) 2020-04-04 21:12:00 Mem orial [place] Heart Rate 2020-04-04 21:12:00 [facility] [place] Respitory Rate 2020-04-04 21:12:00 Memori al [place] Height 2020-04-04 21:12:00 147.32 cm [facility] [place] Weight 2020-04-04 21:12:00 [facility] [place] BMI Calculated 2020-04-04 21:12:00 Memori al [place] Respitory Rate 2020-03-11 17:00:00 Memori al [place] Systolic (mm Hg) 2020-03-11 17:00:00 Amari rial [place] Diastolic (mm Hg) 2020-03-11 17:00:00 Mem orial [place] Temperature Oral (F) 2020-03-11 17:00:00 97.7 F [facility] [place] Respitory Rate 2020-03-11 16:00:00 Memori al [place] Systolic (mm Hg) 2020-03-11 16:00:00 Amari rial [place] Diastolic (mm Hg) 2020-03-11 16:00:00 Mem orial [place] Respitory Rate 2020-03-11 15:00:00 Memori al [place] Systolic (mm Hg) 2020-03-11 15:00:00 Amari rial [place] Diastolic (mm Hg) 2020-03-11 15:00:00 Mem orial [place] Temperature Oral (F) 2020-03-11 13:03:00 97.4 F [facility] [place] Heart Rate 2020-03-11 02:09:00 [facility] [place] Heart Rate 2020-03-11 02:00:00 [facility] [place] Heart Rate 2020-03-11 01:35:00 [facility] [place] Temperature Oral (F) 2020-03-10 12:30:00 97.1 F [facility] [place] Height 2020-03-10 11:05:00 154.94 cm [facility] [place] Weight 2020-03-10 11:05:00 [facility] [place] BMI Calculated 2020-03-10 11:05:00 Memori al [place] Height 2020-03-10 02:27:00 152.4 cm [facility] [place] BMI Calculated 2020-03-10 02:27:00 Memori al [place] Weight 2020-03-10 02:27:00 [facility] [place] Systolic (mm Hg) 2020-03-06 18:30:00 Amari rial Piero Diastolic (mm Hg) 2020-03-06 18:30:00 Mem orial [place] Heart Rate 2020-03-06 18:30:00 [facility] [place] Respitory Rate 2020-03-06 18:30:00 Memori al [place] Temperature Oral (F) 2020-03-06 18:30:00 98.2 F [facility] [place] Height 2020-03-06 18:30:00 147.32 cm [facility] [place] Weight 2020-03-06 18:30:00 [facility] [place] BMI Calculated 2020-03-06 18:30:00 Memori al [place] Systolic (mm Hg) 2020-01-24 21:10:00 Amari rial [place] Diastolic (mm Hg) 2020-01-24 21:10:00 Mem orial [place] Heart Rate 2020-01-24 21:10:00 [facility] [place] Respitory Rate 2020-01-24 21:10:00 Memori al [place] Temperature Oral (F) 2020-01-24 21:10:00 98.8 F [facility] [place] Height 2020-01-24 21:10:00 147.32 cm [facility] [place] Weight 2020-01-24 21:10:00 [facility] [place] BMI Calculated 2020-01-24 21:10:00 Memori al Pier[place] Procedures Procedure Date / Time Performed Performing Clinician Sour e Hysterectomy [facility] Knee replacement [facility] Hu n Plan of Care Planned Activity Planned Date Details Comments Source Future Scheduled Test 65+ PNEUMOCOCCAL [facility] VACCINE (1 of 1 - PPSV23) [code = 65+ PNEUMOCOCCAL VACCINE (1 of 1 - PPSV23)] Future Scheduled Test INFLUENZA VACCINE [code [facility] = INFLUENZA VACCINE] Future Scheduled Test COVID-19 VACCINE (1) [facility] [code = COVID-19 VACCINE (1)] Future Scheduled Test SHINGLES VACCINES (#1) [facility] [code = SHINGLES VACCINES (#1)] Encounters Start End Encounter Admission Attending Care Care Encounter Source Date/Time Date/Time Type Type Clinicians Facility Department ID 2020-11-13 2020-11-15 Outside nullFlavo MNA [id number] Memoria 21:38:07 05:59:59 Medical r Neurology 01 l Records [facility] 2020-10-30 2020-10-30 [id number] Memoria 13:30:00 13:30:00 07 l [place] 2020-06-06 2020-06-06 Ambulatory nullFlavo MNA [id number] Memoria 18:30:00 18:30:00 Pre-Reg r Neurology 03 l [facility] 2020-06-06 2020-06-06 Ambulatory nullFlavo MNA [id number] Memoria 18:30:00 18:30:00 Pre-Reg r Neurology 04 l [facility] 2020-04-26 2020-04-27 Outpatient nullFlavo MNA [id number] Memoria 14:00:00 04:59:59 r Neurology 06 l [facility] 2020-04-25 2020-04-27 Outside nullFlavo MNA [id number] Memoria 14:46:35 04:59:59 Medical r Neurology 00 l Records [facility] 2020-04-04 2020-04-05 Outpatient nullFlavo MNA [id number] Memoria 21:00:00 04:59:59 r Neurology 05 l [facility] 2020-03-10 2020-03-11 Inpatient nullFlavo [facility] [id number] Memoria 02:21:00 18:00:[address] 2020-03-09 2020-03-09 Emergency E FENJASPER, [facility] 0178 [facility] 21:11:00 21:11:00 JOSE ROBERTO 2020-03-06 2020-03-07 Outpatient nullFlavo MNA [id number] Memoria 18:30:00 04:59:59 r Neurology 02 l [place] Piero 2020-01-24 2020-01-25 Outpatient nullFlavo [facility] [id number] Memoria 20:45:00 04:59:59 r Neurology 01 l Gloria Harry 2020-01-24 2020-01-24 Orders Doctor DORY [id number] 00:00:00 00:00:00 Only Unassigned, LUIS [id number] [place] [id number] 2020-01-23 2020-01-23 Telephone [place] [id number] 00:00:00 00:00:00 Ramiro Stewart [id number] [place] [id number] Professio [phone] [address] 2019-05-31 2019-05-31 Orders Doctor DORY 1.2.840.114 [id number] 00:00:00 00:00:00 Only Unassigned, LUIS [id number] [place].7.2.686 [id number] [id number] 2019-05-20 2019-05-20 Telephone [place] [id number] 00:00:00 00:00:00 Ramiro Stewart [id number] [place] [id number] Professio [phone] [address] 2019-05-05 2019-05-05 Orders Doctor DORY 1.2.840.114 [id number] 00:00:00 00:00:00 Only Unassigned, LUIS [id number] [place] [id number] Results Test Description Test Time Test Comments Results Result Comments Source HEMATOLOGY 2020-03-11 0.6 [facility] nn 08:05:00 HEMATOLOGY 2020-03-11 0.1 [facility] Ermelinda nn 08:05:00 PARATHYROID PROFILE 2020-03-11 1.21 Mem[facility] ial [place] 08:05:00 PARATHYROID PROFILE 2020-03-11 1.21 Memor ial [place] 08:05:00 CARDIAC ENZYMES 2020-03-11 <0.02 [facility] [place] 08:05:00 CHEM PANEL 2020-03-11 109 [facility] Ermelinda [...] A/G Ratio) 0.9 1 0.7-1.6 [facility] [id number] 08:05:0018[facility] HermannCHEM PANEL 2020-03-11 08:05:0018[facility]annCHEM [id number] 08:05:0051[facility]annCHEM KQYCQ4853-18-69 08:05:000.3[facility]annCHEM YYRKB6074-86-75 08:05:00<0.1[facility] AmonotkFUSNUQAHJB3450-39-99 08:05:005.6[facility] [place] XYDUXLVEFX4464-88-85 08:05:003.72[facility] BxbwrjfMCQVWZKQJK1896-82-18 08:05:00 11.3[facility] FycyuuqCXQLOHOQNF7431-57-92 08:05:0033.5[facility] HermannHEMATOLOGY 2020-03-11 08:05:0090.1[facility] RxlxtkzYXELUFTKOF2752-25-54 08:05:00 Test Item Value Reference Range Interpretation Comments MCH (test code = MCH) 30.4 pg 27.0-31.0 [facility] PzsghkbRMABOZEOZV7996-19-81 08:05:0033.8[facility] HermannHEMATOLOGY 2020-03-11 08:05:0013.6[facility] SqkjahqRIOXNAWDDJ0428-76-65 08:05:02840Ffpabevd UmspybiWQSXIAMQPY0301-95-17 08:05:007.2[facility] ZpjgohoTVQVRBYMLI7279-72-67 08:05:0056.9[facility] LwvyqmaLQUCTXKFGK3588-06-19 08:05:0029.2[facility] [place] JYEAUIEACM0862-03-07 08:05:0010.9[facility] CgysnnhWLBGYOJZYJ9804-53-03 08:05:00 2.2[facility] XxeowbqFCSTJPRUTD8452-01-41 08:05:000.8[facility] HermannHEMATOLOGY 2020-03-11 08:05:003.2[facility] ZmmbzitEMBARLTJXT2156-64-33 08:05:001.6[facility] HermannCARDIAC MOKFMCV6317-78-50 18:36:00<0.02[facility] HermannDRUG SCREEN 2020-03-10 11:41:00Negative *NA*(03/10/20 6:41 AM)[facility]annDRUG SCREEN 2020-03-10 11:41:00Negative *NA*(03/10/20 6:41 AM)[facility]ann[facility] SCREEN 2020-03-10 11:41:00Negative *NA*(03/10/20 6:41 AM)[facility]annDR[facility] SCREEN 2020-03-10 11:41:00Negative *NA*(03/10/20 6:41 AM)[facility]annDR[facility] SCREEN 2020-03-10 11:41:00Negative *NA*(03/10/20 6:41 AM)[facility]annDRUG SCREEN 2020-03-10 11:41:00See Note *NA*(03/10/20 6:41 AM)[facility] AND STOOL 2020-03-10 11:41:00Light Yellow *NA*(03/10/20 6:41 AM)[facility] AND [id number] 11:41:00Clear (03/10/20 6:41 AM)[facility] STOOL 2020-03-10 11:41:00 Test Item Value Reference Range Interpretation Comments UA Spec Grav (test code = UA Spec 1.060 1 Grav) [facility] [id number] 11:41:00 Test Item Value Reference Range Interpretation Comments UA pH (test code = UA pH) 5.0 1 5.0-8.0 [facility] [id number] 11:41:00Negative *NA*(03/10/20 6:41 AM) [facility] [id number] 11:41:00Negative (03/10/20 6:41 AM) [facility] QMMTU8890-06-94 11:41:00<1.0[facility] [id number] 11:41:00Negative (03/10/20 6:41 AM)[facility] SHPLR2578-88-70 11:41:00Large *ABN*(03/10/20 6:41 AM)[facility] KSEOX9349-87-02 11:41:0028[facility] HermannDRUG EYWSAX4564-24-32 11:41:00Negative *NA*(03/10/20 6:41 AM)[facility]annDR[facility] XYMJTW5329-19-84 11:41:00Negative *NA*(03/10/20 6:41 AM)[facility]annBLOOD BANK EZWGCVH5064-46-37 04:22:00 Negative (03/09/20 11:22 PM)[facility]annCHEM ZAVYT4247-93-61 03:16:08867 [facility]annCHE[facility] KXXSO1407-67-85 03:16:0022[facility] HermannCHEM PANEL 2020-03-10 03:16:000.92[facility] HermannCHEM TEGEH6038-68-74 03:16:08171Lddiksiw HermannCHEM CKIHE4985-01-60 03:16:003.9[facility] HermannCHEM FJNJV9733-91-69 03:16:08785Compsnbw HermannCHEM VFMKT9911-71-21 03:16:0024[facility] HermannCHEM SVNCI8030-53-86 03:16:008.8[facility] HermannCHEM FYLLG8170-40-42 03:16:0010.9 [facility]annCHEM GBIPB1707-50-45 03:16:0057[facility] HermannCHEM PANEL 2020-03-10 03:16:000.6[facility] EfdoheiSOGQBMMUAS0347-21-64 03:16:006.8[facility] RlltowlASSBEVGWKP4382-02-35 03:16:003.70[facility] NbrbrjcPJKHHVTIEA0914-83-42 03:16:0011.5[facility] DxhlwomQRCPFTVXBD7800-28-43 03:16:0033.2[facility] [place] JLKGNUQBVO5644-43-40 03:16:0089.6[facility] OamjjqgTWQTCHVVRC4620-23-47 03:16:00 Test Item Value Reference Range Interpretation Comments MCH (test code = MCH) 31.1 pg 27.0-31.0 [facility] ResourcesJbgcdadJJIZZKVFOC9180-50-20 03:16:0034.7[facility] HermannHEMATOLOGY 2020-03-10 03:16:0013.5[facility] NwvnlysJWPBRCRVCE6839-52-42 03:16:81439Wsiapzfv DjagryzALIZHIAKVF5633-37-97 03:16:006.7[facility] RbeyzuuOQXWIHPVFM8236-13-52 03:16:00 Test Item Value Reference Range Interpretation Comments ACT (TEG) Rapid (test code = ACT (TEG) 113 s 86-118 Rapid) [facility] ResourcesKdgttljHIONWBPILT4865-23-49 03:16:00 Test Item Value Reference Range Interpretation Comments Split Point Rapid (test code = Split 0.6 min Point Rapid) [facility] ResourcesSscqmhsKKQFVOCRUB9823-38-31 03:16:00 Test Item Value Reference Range Interpretation Comments R-time Rapid (test code = R-time 0.7 min 0.4-0.7 Rapid) [facility] UoxzzgwYQXTINOIIP6822-45-07 03:16:00 Test Item Value Reference Range Interpretation Comments K-time Rapid (test code = K-time 0.9 min 0.6-2.3 Rapid) [facility] YjleltfWMCFLFOXPJ5141-37-14 03:16:00 Test Item Value Reference Range Interpretation Comments Angle Rapid (test code = Angle 79 degrees 64-80 Rapid) [facility] ResourcesFgkmoltCVSDPEPXED3780-18-58 03:16:00 Test Item Value Reference Range Interpretation Comments Max Amplitude Rapid (test code = Max 65 mm 52-71 Amplitude Rapid) [facility] VcghjfsNPWYIPEUUJ2848-29-32 03:16:009.1[facility] HermannHEMATOLOGY 2020-03-10 03:16:000.7[facility]orial KofpynfTKXJPEVJTR6501-19-43 03:16:0059.3[facility] KjhpvpiZXUMETEBZP6710-21-47 03:16:0027.8[facility] QlzxxagPBYSFOWBLJ2035-94-02 03:16:0011.1[facility] EhmzalfLMMNPANIWE4993-64-64 03:16:001.3[facility] [place] DAULLHUJVA3280-89-12 03:16:000.5[facility] ExhsdhpOACNEXYEBS9982-99-67 03:16:004.0 [facility] PqhbstiRWNNEBHVVO5770-93-30 03:16:001.9[facility] HermannHEMATOLOGY 2020-03-10 03:16:000.8[facility] ZkzrxrmHUPLHVMMAD1000-63-40 03:16:000.1[facility] TqnqvyvXNTYWRFWLT9627-94-06 03:16:00 Test Item Value Reference Range Interpretation Comments PT (test code = PT) 12.1 s 12.0-14.7 [facility] EwlzaszQOUSFVBTBA1129-54-36 03:16:00 Test Item Value Reference Range Interpretation Comments INR (test code = INR) 0.90 1 0.85-1.17 [facility] BgegtwvPUWOHPFMEU5682-15-69 03:16:00 Test Item Value Reference Range Interpretation Comments PTT (test code = PTT) 27.7 s 22.9-35.8 [facility] UbgwcfxSDUTQQYBIZ6540-33-34 03:16:007[facility] HermannTOXICOLOGY 2020-03-10 03:16:000.007[facility]
--- NOTE | 2021-12-02 15:15 | RAD REPORT ---
EXAM DESCRIPTION: CT - Hip Right Wo Con - 12/02/2021 3:01 pm CLINICAL HISTORY: possible hip fracture Pain and swelling COMPARISON: No comparisons FINDINGS: Proximal right femoral nail is in place. The bones are moderately demineralized. Fracture fragments of the proximal right femur are ununited. No hardware loosening or infection pattern seen. No soft tissue mass or hematoma. IMPRESSION: Right femoral hardware is in place with ununited fracture of the proximal right femur se en. No loosening of the hardware or infection pattern evident. All CT scans are performed using dose optimization technique as appropriate and may include automated exposure control or mA/KV adjustment according to patient size.
[2021-12-02 15:53] LABS: Albumin 3.2 g/dL (3.4-5.0); Bilirubin Total 0.2 mg/dL (0.2-1.0); Protein, Total 7.1 g/dL (6.4-8.2); Troponin High Sensitivity 6.6 pg/mL (<58.9)
--- NOTE | 2021-12-02 15:54 | ER ---
[facility] Name: Mignon Plunkett Age: 86 yrs Sex: Female : 1935 Arrival Date: 12/02/2021 Time: 14:02 Bed 18 Private MD: Diagnosis: Person with feared health complaint in whom no diagnosis is made Presentation: 12/02 14:02 Chief complaint: EMS states: [facility] nursing staff stated that doctor wanted ss patient to come to ER to have imaging after a fall that occurred weeks ago. Pt denies pain. [facility] was unable to tell EMS an area of concern, but provided an XRAY form 11/29/20. Coronavirus screen: Client denies travel out of the [place] in the last 14 days. Ebola Screen: Patient denies exposure to infectious person. Patient denies travel to an Ebola-affected area in the 21 days before illness onset. 14:02 Method Of Arrival: EMS: [facility] 14:02 Initial Sepsis Screen: Does the patient meet any 2 criteria? No. Patient's initial ss sepsis screen is negative. Does the patient have a suspected source of infection? No. Patient's initial sepsis screen is negative. Risk Assessment: Do you want to hurt yourself or someone else? Patient reports no desire to harm self or others. Onset of symptoms is unknown. 14:02 Acuity: ELY 4 ss Historical: - Allergies: 14:12 No Known Allergies; ss - PMHx: 14:12 Anxiety; Cancer, Breast; Depression; insomnia; generalized weakness; High Cholesterol; ss Hypertension; polyneuropathy; - PSHx: 14:12 hysterectomy; ss - Immunization history:: Client reports receiving the 2nd dose of the Covid vaccine. - Social history:: Smoking status: Patient denies any tobacco usage or history of. Screenin:29 Abuse screen: Denies threats or abuse. Nutritional screening: No deficits noted. ap3 Tuberculosis screening: No symptoms or risk factors identified. Fall Risk Fall in past 12 months (25 points). Secondary diagnosis (15 points) No IV (0 pts). Ambulatory Aid- None/Bed Rest/Nurse Assist (0 pts). Gait- Normal/Bed Rest/Wheelchair (0 pts) Mental Status- Oriented to own ability (0 pts). Total Bear Fall Scale indicates Low Risk Score (25-44 pts). Fall prevention measures have been instituted. Side Rails Up X 2 Placed close to Nursing Station Frequent Obs/Assesments occuring As available Patient and Family Educated on Fall Prevention Program and strategies. Assessment: 14:25 Reassessment: Point of contact: Daughter Josette Plunkett [phone]. ss 14:26 Reassessment: After speaking with daughter it is found that patient had the XRAY ss completed 3 days ago which showed a fracture of her R hip. 14:29 General: Appears in no apparent distress. comfortable, Behavior is calm, cooperative, ap3 appropriate for age. Pain: Denies pain. Neuro: Level of Consciousness is awake, alert, obeys commands, Oriented to person, place. Cardiovascular: Patient's skin is warm and dry. Respiratory: Airway is patent Respiratory effort is even, unlabored, Respiratory pattern is regular, symmetrical. 16:14 Reassessment: Report called to receiving nurse at [facility]. ap3 16:39 Reassessment: [facility] at bedside for patient transport back to [facility]. ap3 Vital Signs: 14:02 BP 118 / 60; Pulse 75; Resp 16; Temp 97.2(TE); Pulse Ox 100% on R/A; Weight 56.7 kg; ss Height 5 ft. 0 in. (152.40 cm); Pain 0/10; 15:36 BP 132 / 59; Pulse 71; Pulse Ox 100% ; ap3 14:02 Body Mass Index 24.41 (56.70 kg, 152.40 cm) ED Course: 14:02 Patient arrived in ED. ss 14:12 Arm band placed on left wrist. 14:17 Timmy Kearns PA is PHCP. [facility] 14:17 Catrachito Babb MD is Attending Physician. m 14:23 Katharina Tinajero, ASHLEY is Primary Nurse. ap3 14:23 Triage completed. ss 14:29 Patient has correct armband on for positive identification. Bed in low position. Call ap3 light in reach. Side rails up X2. Pulse ox on. NIBP on. Door closed. Noise minimized. 15:00 Hip Right Wo Con In Process Unspecified. EDMS 15:49 No provider procedures requiring assistance completed. Patient did not have IV access ap3 during this emergency room visit. 15:53 Brant Gaitan MD is Referral Physician. millie Administered Medications: No medications were administered Outcome: 15:53 Discharge ordered by MD. pinto 16:37 Discharged to [facility]. Report called to receiving nurse ap3 16:37 Condition: good 16:37 Discharge instructions given to patient, [facility], Instructed on discharge instructions, follow up and referral plans. Demonstrated understanding of instructions, follow-up care. 16:39 Patient left the ED. ap3 Signatures: Dispatcher [employer] EDMS Timmy Kearns PA PA jmm Smirch, Shelby, RN RN Katharina Tinajero RN RN ap3 Corrections: (The following items were deleted from the chart) 14:23 14:02 BP 153 / 105; Pulse 92bpm; Pulse Ox 100% RA; [facility] 14:30 14:02 Chief complaint: EMS states: [facility] nursing staff stated that doctor wanted ss patient to come to ER to have imaging after a fall that occurred weeks ago. Pt denies pain. [facility] was unable to tell EMS an area of concern, but provided an XRAY form 07/13/21 of her hip. ss
--- NOTE | 2021-12-02 15:54 | EDPHYS ---
Physician Documentation [facility] Name: Mignon Plunkett Age: 86 yrs Sex: Female : 1935 Arrival Date: 12/02/2021 Time: 14:02 Bed 18 Private MD: ED Physician Catrachito Babb HPI: 12/02 15:47 This is an 86-year-old female with history of anxiety, cancer, depression that presents [facility] emergency department with no acute complaints with no noticed falls over the recent weeks. Patient is proximally 3 to 4 months status post a right anterior trochanteric fracture repair. Plain films were obtained of the right hip approximately 3 days ago. Patient was sent to the ER for further evaluation due to concerns for a new fracture. Patient states that she has been in a wheelchair for quite a while, patient cannot recall the exact amount of time she is been in a wheelchair and is in the dementia unit at her correction. The RN contacted the correction who states the patient mainly uses wheelchair for ambulation and will occasionally have physical therapy where she uses a walker. No admitted falls according to the correction as well.. Historical: - Allergies: 14:12 No Known Allergies; ss - PMHx: 14:12 Anxiety; Cancer, Breast; Depression; insomnia; generalized weakness; High Cholesterol; ss Hypertension; polyneuropathy; - PSHx: 14:12 hysterectomy; ss - Immunization history:: Client reports receiving the 2nd dose of the Covid vaccine. - Social history:: Smoking status: Patient denies any tobacco usage or history of. ROS: 15:47 Constitutional: Negative for fever, chills, and weight loss, Cardiovascular: Negative jmm for chest pain, palpitations, and edema, Respiratory: Negative for shortness of breath, cough, wheezing, and pleuritic chest pain, Abdomen/GI: Negative for abdominal pain, nausea, vomiting, diarrhea, and constipation, MS/Extremity: Negative for injury and deformity. 15:47 All other systems are negative. Exam: 15:47 Constitutional: This is a well developed, well nourished patient who is awake, alert, jmm and in no acute distress. Head/Face: atraumatic. Eyes: EOMI, no conjunctival erythema appreciated ENT: Moist Mucus Membranes Neck: Trachea midline, Supple Chest/axilla: Normal chest wall appearance and motion. Cardiovascular: Regular rate and rhythm. No edema appreciated Respiratory: Normal respirations, no respiratory distress appreciated Abdomen/GI: Non distended, soft Back: Normal ROM Skin: General appearance color normal 15:47 Musculoskeletal/extremity: Full full range of motion noted to the right hip joint, with no noticed pain, patient has no complaints, no bony tenderness on palpation of the pelvis, and femur bilaterally, full distal dorsalis pedis pulse palpated bilaterally, full range of motion appreciated of both knees on passive range of motion, no pain is elicited, compartments are soft bilaterally, neurovascular intact. 15:47 Skin: Appearance: Color: normal in color. 15:47 Neuro: Motor: is normal. 15:47 Psych: Behavior/mood is pleasant, cooperative. Vital Signs: 14:02 BP 118 / 60; Pulse 75; Resp 16; Temp 97.2(TE); Pulse Ox 100% on R/A; Weight 56.7 kg; ss Height 5 ft. 0 in. (152.40 cm); Pain 0/10; 15:36 BP 132 / 59; Pulse 71; Pulse Ox 100% ; ap3 14:02 Body Mass Index 24.41 (56.70 kg, 152.40 cm) ss MDM: 14:30 Patient medically screened. [facility] 15:51 Data reviewed: vital signs, nurses notes. Counseling: I had a detailed discussion with millie the patient and/or guardian regarding: the historical points, exam findings, and any diagnostic results supporting the discharge/admit diagnosis, the need for outpatient follow up, to return to the emergency department if symptoms worsen or persist or if there are any questions or concerns that arise at home. ED course: A CT was obtained to the right hip for a more detailed evaluation. 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 No signs of infection. Patient is alert nontoxic in appearance, vital signs are normal. Patient is mainly nonambulatory. Patient will be discharged to the care of the correction. Recommendations given for outpatient follow-up with orthopedics.. 12/02 14:32 Order name: CMP; Complete Time: 15:54 [facility] 12/02 14:32 Order name: Lipase; Complete Time: 15:54 [facility] 12/02 14:33 Order name: Troponin High Sensitivity; Complete Time: 15:54 [facility] 12/02 14:41 Order name: Hip Right Wo Con; Complete Time: 15:17 EDMS 12/02 14:32 Order name: Labs collected and sent; Complete Time: 15:25 [facility] 12/02 14:33 Order name: EKG - Nurse/Tech; Complete Time: 15:41 [facility] Administered Medications: No medications were administered Disposition: 18:16 Co-signature as Attending Physician, Catrachito Babb MD I agree with the assessment and kdr plan of care. Disposition Summary: 12/02/21 15:53 Discharge Ordered Location: Home [facility] Condition: Stable jm Diagnosis - Person with feared health complaint in whom no diagnosis is made [facility] Followup: [facility] - With: Brant Gaitan MD - When: 2 - 3 days - Reason: Recheck today's complaints, Continuance of care, Re-evaluation by your physician Forms: - Medication Reconciliation Form [facility] - Thank You Letter jm - Antibiotic Education jm - Prescription Opioid Use [facility] Signatures: Dispatcher [employer] EDWV Catrachito Babb MD MD kdr Mickail, Joel, PA PA [facility] Shell Diaz, ASHLEY RN ss Corrections: (The following items were deleted from the chart) 14:41 14:38 CT RIGHT HIP WO CONTRAST ordered. [facility] EDMS 15:41 14:32 IV Saline Lock ordered. [facility] ap3 15:41 15:39 Labs - recollect needed ordered. ap3 15:42 14:32 CBC+H.LAB.BRZ ordered. [facility] EDMS 15:49 14:30 This 86 yrs old Female presents to ER via EMS with complaints of Check up s/p jmm fall. jmm
[2021-12-02 17:00] VITALS: TEMP 97.2; O2SAT 100
[2021-12-02 17:01] VITALS: BP 132/59
--- NOTE | 2021-12-03 08:44 | EKG ---
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
== END 2021-12-02 16:39 | disposition home or self-care (01) ==
LOC: ER 13:59
DX: Z71.1 Person with feared health complaint in whom no diagnosis is made (principal)
CPT/HCPCS: 73700; 80053; 83690; 84484; 93005; 99283

== ENCOUNTER 2022-05-31 15:15 | Emergency (ER) | payer OTHER, BC ==
--- OUTSIDE RECORDS SUMMARY | 2022-05-31 15:19 | XMS REPORT | Continuity of Care Document ---
:1935 Author Organization [facility] t Address [address] [place] [address] Care Team Providers Name Role Phone Asked, No Pcp Primary Care Physician Unavailable JOSE ROBERTO DE JESUS Attending Clinician Unavailable Doctor Unassigned, [place] Attending Clinician Unavailable Ramiro Chandler MD Attending Clinician JOSE ROBERTO DE JESUS Admitting Clinician Unavailable Problems Condition Condition Condition Status Onset Resolution Last Treating Co mments Source Name Details Category Date Date Treatment Clinician Date R29.6 - R29.6 - Diagnosis Active 2020-04-12 Memoria REPEATED REPEATED -24 12:20:00 l FALLS FALLS 00:01: Piero F03.90 - F03.90 - 00 UNSPECIF UNSPECIF Active 04/06/2020 [facility] [place] INTRACRANI INTRACRAN Diagnosis Active 2020-03-20 Memoria AL IAL 03-09 21:41:00 l HEMORRHAGE HEMORRHAGE 00:00: [place] FOLLOWING FOLLOWING 00 INJURY INJURY Active 03/09/2020 [facility] LEFT LEFT Diagnosis Active 2020-03-09 Mem oria FRONTAL FRONTAL 03-09 22:25:00 l BLEED BLEED 00:00: Pieor Active 00 03/09/2020 [facility] Amnesia Amnesia Problem Active 2020-11-17 Me moria (finding) (finding) 02:02:42 l Active Piero Problem 11/17/[address] [facility] Cerebral Cerebral Problem Active 2020-11-17 Memoria hemorrhage hemorrhage 02:02:42 l (disorder) (disorder) He rmann Active Problem 11/17/2020 [facility] Neuro Dementia Dementia Problem Active 2020-11-17 Memoria (disorder) (disorder) 02:02:42 l Active Piero Problem 11/17/[address] [facility] Hyperlipid Hyperlipi Problem Active 2020-11-17 Memoria emia demia 02:02:42 l (disorder) (disorder) He rmann Active Problem 11/17/[address] [facility] Peripheral Periphera Problem Active 2020-11-17 Memoria nerve l nerve 02:02:42 l disease disease [place] (disorder) (disorder) Active Problem 11/17/[address] [facility] Recurrent Problem Active 2020-11-17 Me moria falls Recurrent 02:02:42 l (finding) falls Piero (finding) Active Problem 11/17/[address] [facility] 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 21:41:00 l OF UNSP W LOC OF [place] DURATION, UNSP I DURATION, I Active [facility] Allergies, Adverse Reactions, Alerts Allergy Allergy Status Severity Reaction(s) Onset Inactive Treating Comm ents Source Name Type Date Date Clinician statins statins Active Balaji Harry Social History Social Habit Start Date Stop Date Quantity Comments Source Social History 2020-01-24 2020-01-24 [facility] 21:23:26 21:23:26 Sex Ass[birth year] At [birth year] [facility] 00:00:00 00:00:00 Smoking Status Start Date Stop Date Source Tobacco smoking consumption unknown [facility] Medications Ordered Filled Start Stop Current Ordering Indication Dosage Frequency Signature Comments Components Source Medication Medication Date Date Medication? Clinician (SIG) Name Name Donepezil Yes 10 mg = 1 Mem oria hydrochlori 8-13 tab, PO, l de 10 MG 14:38: Bedtime, # leos Oral Tablet 00 30 tab, 6 [Aricept] Refill(s), Pharmacy: [id number], 147.32, cm, 04/26/20 9:31:00 CDT, Height, 56.364, kg, 04/26/20 9:31:00 CDT, Weight heparin 2019- No Notes: Memoria sodium, 6-28 porcine l porcine 13:00: heparin [place] 2500 UNT/ML 00 Injectable Solution Levetiracet Yes 500 mg = 1 Memoria am 500 MG 6- tab, PO, l Oral Tablet 10:50: Q12H, # 12 [place] [Keppra] 00 tab, 0 Refill(s) remove No Notes: Memoria patch - Remove l 02:00: patch 12 Piero 00 hours after applicatio n each day. Docusate No Notes: Memoria 6-27 (Same as: l 14:00: Colace) [place] (Do Not Crush) sennosides, No Notes: Amari maryjo [facility] 6-27 (Same as: l 14:00: Senokot) [place] Lidocaine No Notes: Memori a 0.05 MG/MG 6-27 Apply only l Transdermal 14:00: once for [place] Patch 00 up to 12 hours in a 24-hour period (12 hours on and 12 hours off). (Same as: Lidoderm) "Remove old patch before applicatio n of new patch" Saline No Notes: Memoria Flush 0.9% 6-27 Same as: l 14:00: BD [place] Posiflush Sterile Ceftriaxone No Notes: Amari maryjo 6-27 (Same As: l 14:00: Rocephin). [place] 00 MEDICATION WASTE Product Size: 1000 mg Product Wasted: 0 mg Levetiracet No Notes: Amari maryjo am 500 MG 6-27 (Same l Oral Tablet 14:00: as:Keppra) [place] [Keppra] 00 Levetiracet No Notes: Amari maryjo am 6-27 Same as l 14:00: Keppra Mix [place] 00 with 100 mL NS, LR or D5W [...] - not exceed l 09:17: 4 gm/day. [place] 00 (Same as: Tylenol) Acetaminoph 2019-0 No Notes: Do M emoria en 325 MG / 03-10 not exceed l Hydrocodone 09:17: 4gm/day of Piero Bitartrate 00 acetaminop 10 MG Oral hen. (Same Tablet as: [place] 325/10) Morphine 2019-0 No Notes: Memoria - (Same l 09:17: as:MORPhin e Sulfate) Bisacodyl 2019-0 No Notes: Memori a - (Same As: l 09:17: Dulcolax, [place] 00 Bisco-Lax) Ondansetron 2019-0 No Notes: Amari maryjo - (Same as: l 09:17: Zofran) MEDICATION WASTE Product Size: 4 mg Product Wasted: ___ mg Hydralazine 2019-0 No Notes: Amari maryjo 6-27 (Same as: l 09:17: Apresoline ) Push over 5 minutes Labetalol 2019-0 No 10 mg, 2 Amari maryjo 6-27 mL, Route: l 09:17: IVP, Drug form: INJ, Q15Min, Dosing Weight 54.545, kg, PRN Hypertensi on, Start date: 03/10/20 4:17:00 CDT, Duration: 30 day, Stop date: 04/09/20 4:16:00 CDT, 0 Saline 2019-0 No Notes: Memoria Flush 0.9% - Same as: l 09:17: BD Posiflush Sterile Iohexol 2020-0 No 100 mL, Memoria 6- Route: l 04:57: IVP, Drug Form: SOLN, Dosing Weight 54.545, kg, ONCALL, STAT, Start date: 03/09/20 23:57:00 CDT, Duration: 1 doses or times, Dose = 2.2ml/kg, Max dose = 100ml -- "To be infused by Radiology Staff ONLY" Levetiracet 2019-0 No 1,000 mg, Whit whitfield am 03-10 Route: l 04:10: IVPB, ONCE, Dosing Weight 54.545, kg, Start date: 03/09/20 23:10:00 CDT, Stop date: 03/09/20 23:10:00 CDT Keppra 2019- No Notes: Memoria 03-10 Same as l [...] 00 30 tab, 3 [Aricept] Refill(s), Pharmacy: [id number], 147.32, cm, 01/24/20 16:10:00 CDT, Height, 55.909, kg, 01/24/20 16:10:00 CDT, Weight Prolia 2019-0 Yes 60 mg, Memoria 5-12 SUB-Q, l 21:17: q6mo, 0 Refill(s) Aspirin 2019-0 Yes 1, PO, Memoria 5-12 Daily, 0 l 21:17: Refill(s) ibuprofen 2018- Yes 200mg Q6H Take 200 [facility] (ADVIL,MOTR 5-[address] [place]) 200 MG 18:40: mouth Hospit a tablet 50 every 6 l (six) hours as needed for mild pain. ibuprofen Yes 200mg Q6H Take 200 [facility] (ADVIL,MOTR 5-[address] [place]) 200 MG 13:40: mouth Hospit a tablet 50 every 6 [...] Diastolic (mm Hg) 2020-04-26 14:31:00 Mem orial [place] Heart Rate 2020-04-26 14:31:00 [facility] [place] Respitory Rate 2020-04-26 14:31:00 Memori al [place]o Height 2020-04-26 14:31:00 147.32 cm [facility] [place] Weight 2020-04-26 14:31:00 [facility] [place] BMI Calculated 2020-04-26 14:31:00 Memori al [place] Systolic (mm Hg) 2020-04-04 21:12:00 Amari rial [place] Diastolic (mm Hg) 2020-04-04 21:12:00 Mem orial [place] Heart Rate 2020-04-04 21:12:00 [facility] [place] Respitory Rate 2020-04-04 21:12:00 Memori al [place] Height 2020-04-04 21:12:00 147.32 cm [facility] [place] Weight 2020-04-04 21:12:00 [facility] [place] BMI Calculated 2020-04-04 21:12:00 Memori al [place] Respitory Rate 2020-03-11 17:00:00 Memori al [place] Systolic (mm Hg) 2020-03-11 17:00:00 Amari rial [place] Diastolic (mm Hg) 2020-03-11 17:00:00 Mem orial [place] Temperature Oral (F) 2020-03-11 17:00:00 97.7 F [facility] [place] Respitory Rate 2020-03-11 16:00:00 Memori al [place] Systolic (mm Hg) 2020-03-11 16:00:00 Amari rial [place] Diastolic (mm Hg) 2020-03-11 16:00:00 Mem orial [place] Respitory Rate 2020-03-11 15:00:00 Memori al [place] Systolic (mm Hg) 2020-03-11 15:00:00 Amari rial [place] Diastolic (mm Hg) 2020-03-11 15:00:00 Mem orial [place] Temperature Oral (F) 2020-03-11 13:03:00 97.4 F [facility] [place] Heart Rate 2020-03-11 02:09:00 [facility] [place] Heart Rate 2020-03-11 02:00:00 [facility] [place] Heart Rate 2020-03-11 01:35:00 [facility] [place] Temperature Oral (F) 2020-03-10 12:30:00 97.1 F [facility] [place] Height 2020-03-10 11:05:00 154.94 cm [facility] [place] Weight 2020-03-10 11:05:00 [facility] [place] BMI Calculated 2020-03-10 11:05:00 Memori al [place] Height 2020-03-10 02:27:00 152.4 cm [facility] [place] BMI Calculated 2020-03-10 02:27:00 Memori al [place] Weight 2020-03-10 02:27:00 [facility] [place] Systolic (mm Hg) 2020-03-06 18:30:00 Amari rial [place] Diastolic (mm Hg) 2020-03-06 18:30:00 Mem orial [place] Heart Rate 2020-03-06 18:30:00 [facility] [place] Respitory Rate 2020-03-06 18:30:00 Memori al [place] Temperature Oral (F) 2020-03-06 18:30:00 98.2 F [facility] [place] Height 2020-03-06 18:30:00 147.32 cm [facility] [place] Weight 2020-03-06 18:30:00 [facility] [place] BMI Calculated 2020-03-06 18:30:00 Memori al [place] Systolic (mm Hg) 2020-01-24 21:10:00 Amari rial [place] Diastolic (mm Hg) 2020-01-24 21:10:00 Mem orial [place] Heart Rate 2020-01-24 21:10:00 [facility] [place] Respitory Rate 2020-01-24 21:10:00 Memori al [place] Temperature Oral (F) 2020-01-24 21:10:00 98.8 F [facility] [place] Height 2020-01-24 21:10:00 147.32 cm [facility] [place] Weight 2020-01-24 21:10:00 [facility] [place] BMI Calculated 2020-01-24 21:10:00 Gus Harkins Procedures Procedure Date / Time Performed Performing Clinician Sourc e Hysterectomy [facility] [place] Knee replacement [facility] Plan of Care Planned Activity Planned Date Details Comments Source Future Scheduled 2022-05-17 HEPATITIS B VACCINES Met [facility] Test 02:00:08 (1 of 3 - 3-dose series) [code = HEPATITIS B VACCINES (1 of 3 - 3-dose series)] Future Scheduled 2022-05-17 [facility]08 [code = COVID-19 VACCINE (#1)] Future Scheduled 2022-05-17 SHINGLES VACCINES (1 Met [facility] Test 02:00:08 of 2) [code = SHINGLES VACCINES (1 of 2)] Future Scheduled 2022-05-17 65+ PNEUMOCOCCAL [facility] Test 02:00:08 VACCINE (1 - PCV) [code = 65+ PNEUMOCOCCAL VACCINE (1 - PCV)] Future Scheduled 2022-05-17 INFLUENZA VACCINE Method [facility] Hospital Test 02:00:08 [code = INFLUENZA VACCINE] Future Scheduled COVID-19 VACCINE (1) [facility] Test [code = COVID-19 VACCINE (1)] Future Scheduled SHINGLES [facility]ACCINES (#1) [facility] [code = SHINGLES VACCINES (#1)] Future Scheduled 65+ PNEUMOCOCCAL [facility] Test VACCINE (1 of 1 - PPSV23) [code = 65+ PNEUMOCOCCAL VACCINE (1 of 1 - PPSV23)] Future Scheduled INFLUENZA VACCINE [facility] Test [code = INFLUENZA VACCINE] Encounters Start End Encounter Admission Attending Care Care Encounter Source Date/Time Date/Time Type Type Clinicians Facility Department ID 2021-12-09 Outpatient [facility] [id number] Common 10:00:04 [facility] 2020-11-13 2020-11-15 Outside nullFlavo MNA [id number] Memoria 21:38:07 05:59:59 Medical r Neurology 01 l Records Gloria Harry 2020-10-30 2020-10-30 Outpatient KEELY RIGGS [id number] Memoria 13:30:00 13:30:00 07 l Piero 2020-06-06 2020-06-06 Ambulatory nullFlavo MNA [id number] Memoria 18:30:00 18:30:00 Pre-Reg r Neurology [address] [facility] 2020-06-06 2020-06-06 Ambulatory nullFlavo MNA [id number] Memoria 18:30:00 18:30:00 Pre-Reg r Neurology [address] [facility] 2020-04-26 2020-04-27 Outpatient nullFlavo MNA [id number] Memoria 14:00:00 04:59:59 r [address] [facility] 2020-04-25 2020-04-27 Outside nullFlavo MNA [id number] Memoria 14:46:35 04:59:59 Medical r Neurology [address] [facility] 2020-04-04 2020-04-05 Outpatient nullFlavo MNA [id number] Memoria 21:00:00 04:59:[address] [facility] 2020-03-10 2020-03-11 Inpatient nullFlavo [facility] [id number] Memoria 02:21:00 18:00:00 r Piero [facility] 2020-03-09 2020-03-09 Emergency E FENOY, [facility] [id number] [facility] 21:11:00 21:11:00 [place] 2020-03-06 2020-03-07 Outpatient nullFlavo MNA [id number] Memoria 18:30:00 04:59:59 [address] [facility] 2020-01-24 2020-01-25 Outpatient nullFlavo MNA [id number] Memoria 20:45:00 04:59:[address] [facility] 2020-01-24 2020-01-24 Orders Doctor CONNORS 1.2.840.114 [id number] 00:00:00 00:00:00 Only Unassigned, LUIS 350.1.13.10 [place] [facility] [id number] [id number] [facility] 2020-01-23 2020-01-23 Alexis Chandler [place] 1.2.840.114 [id number] 00:00:00 00:00:00 Ramiro Stewart [id number] [place] [id number] Professio [phone] [address] 2019-05-31 2019-05-31 Orders Doctor DORY 1.2.840.114 [id number] 00:00:00 00:00:00 Only Unassigned, LU[place] 350.1.13.10 [place] [facility] 4.2.7.2.686 [id number] 2019-05-20 2019-05-20 ERIC Correa 1.2.840.114 [id number] 00:00:00 00:00:00 Ramiro Stewart 350.1.13.10 [place] [id number] Professio [phone] [facility] 2019-05-05 2019-05-05 Orders Doctor DORY 1.2.840.114 [id number] 00:00:00 00:00:00 Only Unassigned, LU[place] 350.1.13.10 [place] [facility] 4.2.7.2.686 [id number] Results Test Description Test Time Test Comments Results Result Comments Source HEMATOLOGY 2020-03-11 1.6 [facility] 08:05:00 HEMATOLOGY 2020-03-11 0.6 [facility] 08:05:00 HEMATOLOGY 2020-03-11 0.1 [facility] 08:05:00 PARATHYROID PROFILE 2020-03-11 1.21 [facility] [place] 08:05:00 PARATHYROID PROFILE 2020-03-11 1.21 [facility] [place] 08:05:00 CARDIAC ENZYMES 2020-03-11 <0.02 [facility] [place] 08:05:00 CHEM PANEL 2020-03-11 109 [facility] E[facility]elinda [...] A/G Ratio) 0.9 1 0.7-1.6 [facility] JWASG7485-76-93 08:05:0018[facility]annCHE[facility] PANEL 2020-03-11 08:05:0018[facility]annCHE[facility] OQXLS3275-82-79 08:05:0051[facility]CHE[facility] SHGPQ1439-34-24 08:05:000.3[facility]annCHE[facility] SUPJO4292-39-36 08:05:00<0.1[facility] PddsfcoPOWHIIJESP6679-89-40 08:05:005.6[facility] [place] ZDXQSNJEYF9056-10-04 08:05:003.72[facility] JqwzsezRVGZLGXSXB7189-99-74 08:05:00 11.3[facility] MzuczcdUHSTWPMEPF8184-65-22 08:05:0033.5[facility]annHEMATOLOGY 2020-03-11 08:05:0090.1[facility] KbpnvkfBBDIPCIRIR1832-48-39 08:05:00 Test Item Value Reference Range Interpretation Comments MCH (test code = MCH) 30.4 pg 27.0-31.0 [facility] ZywntoeJTEXEYRXLQ6770-63-66 08:05:0033.8[facility]annHEMATOLOGY 2020-03-11 08:05:0013.6[facility] TmygohbNSSLZCLKNG7492-04-04 08:05:51484Ebavcopm PkagwvpTYGVUSMTPR6242-34-97 08:05:007.2[facility] TxadrvaRWGOMYCIVD3318-16-14 08:05:0056.9[facility] ZepnkckRENHKUUEBX2371-36-51 08:05:0029.2[facility] OIJXYLGGUS0475-48-84 08:05:0010.9[facility] VryehkhQKHDZJXGCQ8323-13-81 08:05:00 2.2[facility] DatiiuiIBXLEVOLHD2947-48-05 08:05:000.8[facility]annHEMATOLOGY 2020-03-11 08:05:003.2[facility] HermannCARDIAC NIFABSU0109-62-56 18:36:00<0.02 [facility] QKCDHD6893-77-42 11:41:00Negative *NA*(03/10/20 6:41 AM) [facility] NBYYZG4253-74-37 11:41:00Negative *NA*(03/10/20 6:41 AM) [facility] CYMHPS2767-26-43 11:41:00Negative *NA*(03/10/20 6:41 AM) [facility] RNNWZH8467-49-58 11:41:00Negative *NA*(03/10/20 6:41 AM) [facility] VCTAWD1662-32-25 11:41:00Negative *NA*(03/10/20 6:41 AM) [facility] WKJAOK9753-43-92 11:41:00See Note *NA*(03/10/20 6:41 AM) [facility] ITKMJ9683-84-13 11:41:00Light Yellow *NA*(03/10/20 6:41 AM)[facility] KMWUX4331-51-18 11:41:00Clear (03/10/20 6:41 AM) [facility] DQZOS0746-97-42 11:41:00 Test Item Value Reference Range Interpretation Comments UA Spec Grav (test code = UA Spec 1.060 1 Grav) [facility] JLPLQ5400-79-94 11:41:00 Test Item Value Reference Range Interpretation Comments UA pH (test code = UA pH) 5.0 1 5.0-8.0 [facility] [id number] 11:41:00Negative *NA*(03/10/20 6:41 AM) [facility] EYZIZ7107-55-50 11:41:00Negative (03/10/20 6:41 AM) [facility] UDHBU0174-55-13 11:41:00<1.0[facility] BBSCN5608-93-75 11:41:00Negative (03/10/20 6:41 AM)[facility] LFYGM8558-90-59 11:41:00Large *ABN*(03/10/20 6:41 AM)[facility] DYRBL5484-58-11 11:41:0028[facility] ZLAGNR2722-08-48 11:41:00Negative *NA*(03/10/20 6:41 AM)[facility] GYHVLL8861-99-22 11:41:00Negative *NA*(03/10/20 6:41 AM)[facility]annBLOOD BANK LDPZKHP4926-21-53 04:22:00 Negative (03/09/20 11:22 PM)[facility]annCHE[facility] MKUPN8487-18-48 03:16:25578 [facility] RXOFC4598-64-52 03:16:0022[facility]annCHEM PANEL 2020-03-10 03:16:000.92[facility]annCHE[facility] ZXSSJ1828-43-95 03:16:17445Dpnnoqhi HermannCHEM KNKWQ6164-87-97 03:16:003.9[facility]annCHE[facility] ZRYXQ5593-36-84 03:16:57283Gixzcexf HermannCHEM VBSAU5596-05-09 03:16:0024[facility]annCHE[facility] SQEVM5514-68-75 03:16:008.8[facility]annCHE[facility] HVAHE9944-94-51 03:16:0010.9 [facility] TDXLH0444-17-01 03:16:0057[facility]annCHEM PANEL 2020-03-10 03:16:000.6[facility] SruyzhqMMXXAIGBGY3399-94-61 03:16:006.8[facility] HyvmdzhIRTOTKZVNB6043-38-54 03:16:003.70[facility] DcrxotfBVCBYOUZOZ7155-80-01 03:16:0011.5[facility] NmghazhPYAOYIGOQZ6349-24-89 03:16:0033.2[facility] CQRDDGLRBG1875-92-35 03:16:0089.6[facility] EbhrutrALWXNJSPLU6907-79-13 03:16:00 Test Item Value Reference Range Interpretation Comments MCH (test code = MCH) 31.1 pg 27.0-31.0 [facility] CenterVxrbwohOKUFGUGIAN3503-16-35 03:16:0034.7[facility]annHEMATOLOGY 2020-03-10 03:16:0013.5[facility] IxexehyHAKVMLIUIQ5703-80-22 03:16:15218Ciwoahfj JgoeykyCEDEHFDRMG6368-89-52 03:16:006.7[facility] EelfimdKSIXEHCNIN6635-65-87 03:16:00 Test Item Value Reference Range Interpretation Comments ACT (TEG) Rapid (test code = ACT (TEG) 113 s 86-118 Rapid) [facility]yl[facility]SPXLUDPWVA4520-78-29 03:16:00 Test Item Value Reference Range Interpretation Comments Split Point Rapid (test code = Split 0.6 min Point Rapid) [facility] CenterItwxquiOVGEESVVYR6075-29-67 03:16:00 Test Item Value Reference Range Interpretation Comments R-time Rapid (test code = R-time 0.7 min 0.4-0.7 Rapid) [facility] CenterVicnsnlFKYUOFCDNG1804-42-33 03:16:00 Test Item Value Reference Range Interpretation Comments K-time Rapid (test code = K-time 0.9 min 0.6-2.3 Rapid) [facility] CenterAcwmvcwYQXWFPMEVN2261-06-02 03:16:00 Test Item Value Reference Range Interpretation Comments Angle Rapid (test code = Angle 79 degrees 64-80 Rapid) [facility] CenterOpwzowuNOOYKTJIQP0608-21-33 03:16:00 Test Item Value Reference Range Interpretation Comments Max Amplitude Rapid (test code = Max 65 mm 52-71 Amplitude Rapid) [facility] CenterNgwzcvpJSWQVBNNGJ7115-42-69 03:16:009.1[facility]annHEMATOLOGY 2020-03-10 03:16:000.7Mem[facility] WayilkxMWSWEMCFCC4665-90-63 03:16:0059.3[facility] JdbicmqZNBOPSNMJE2777-93-61 03:16:0027.8[facility] GxtmlfxOKPXQOELZI3061-66-70 03:16:0011.1[facility] OmqkytlQTWIHIRVKV7307-34-28 03:16:001.3[facility] [place] SIHOCCHCLS1364-48-53 03:16:000.5[facility] PcjzjbeJFIMHJKZCN2174-11-34 03:16:004.0 [facility] CnpieioVMKVVNKXOL1706-39-52 03:16:001.9[facility]annHEMATOLOGY 2020-03-10 03:16:000.8[facility] HmdqureUBONEYSCZW6538-79-71 03:16:000.1[facility] TioircgEEBRNPIVQB5621-98-62 03:16:00 Test Item Value Reference Range Interpretation Comments PT (test code = PT) 12.1 s 12.0-14.7 [facility] XmqqbakUJZAPZNQXH4775-71-06 03:16:00 Test Item Value Reference Range Interpretation Comments INR (test code = INR) 0.90 1 0.85-1.17 [facility] AmbccmkGDNPTQSPXB1593-13-81 03:16:00 Test Item Value Reference Range Interpretation Comments PTT (test code = PTT) 27.7 s 22.9-35.8 [facility] WtppeqpOLZODTFOZQ7928-10-01 03:16:007[facility] HermannTOXICOLOGY 2020-03-10 03:16:000.007[facility]
[2022-05-31 16:03] LABS: Albumin 3.3 g/dL (3.4-5.0); Bilirubin Total 0.3 mg/dL (0.2-1.0); Magnesium 2.5 mg/dL (1.8-2.4); Potassium 3.8 mmol/L (3.5-5.1); Protein, Total 6.8 g/dL (6.4-8.2); Troponin High Sensitivity 13.6 pg/mL (<58.9)
[2022-05-31 16:05] LABS: Absolute Lymphocytes (CBC) 1.5 K/uL (0.7-4.9); Hematocrit 34.8 % (36.0-45.0); Lymphocytes % 18.2 % (15.3-44.8); MCV 97.5 fL (80-100); MPV 7.5 fL (7.6-11.3); RBC Red Blood Cell Count 3.57 M/uL (3.86-4.86)
[2022-05-31 16:06] LABS: Urine Blood 1+ (Negative); Urine Glucose Negative (Negative); Urine Protein Negative (Negative); Urine Specific Gravity 1.015 (1.005-1.030)
--- NOTE | 2022-05-31 16:44 | RAD REPORT ---
[facility]33 pm CLINICAL HISTORY: Hypertension/breast cancer COMPARISON: 2020 FINDINGS: The lungs appear clear of acute infiltrate. The heart is normal size. The aorta is tortuo us/ectatic IMPRESSION: No acute abnormalities displayed
[2022-05-31 16:45] LABS: Urine Crystals Unidentified Few /HPF (None Seen)
--- NOTE | 2022-05-31 17:24 | EDPHYS ---
Physician Documentation [facility] Name: Mignon Plunkett Age: 87 yrs Sex: Female : 1935 Arrival Date: 05/31/2022 Time: 15:23 Bed 15 Private MD: ED Physician Clare Suarez HPI: 05/31 15:34 This 87 yrs old Female presents to ER via EMS with complaints of weakness. sd2 15:34 87-year-old female presents via EMS from her memory care facility with chief complaint sd2 of generalized weakness. They report she has been more drowsy than normal today and not as talkative. They did a rapid COVID test at her facility before she left and it did return positive. EMS reports she was satting 88% on room air and they put her on 3 L with improvement to 98%. The patient is alert and oriented to person and place and is able to tell me the president but believes it is the year 1931. No known fevers. She denies any chest pain, shortness of breath, cough, vomiting, diarrhea or urinary symptoms.. Historical: - Allergies: 15:27 No Known Drug Allergies; bp - Home Meds: 15:27 aspirin 81 mg Oral chew [Active]; buspirone 10 mg Oral tab 1 tab 3 times per day bp [Active]; Celexa 20 mg Oral tab 1 tab once daily [Active]; Depakote ER 125 Oral three times a day [Active]; zinc sulfate 50 mg zinc (220 mg) Oral tab [Active]; Saccharomyces boulardii 250 mg Oral cap daily [Active]; memantine 10 mg Oral tab 1 tab 2 times per day [Active]; Vitamin C 500 mg Oral cpER [Active]; meloxicam 15 mg Oral tab 1 tab once daily [Active]; lisinopril 20 mg Oral tab 1 tab once daily [Active]; Keflex 500 mg Oral cap 1 cap every 12 hours [Active]; hydrochlorothiazide 25 mg Oral tab 1 tab once daily [Active]; exelon patch [Active]; - PMHx: 15:27 Anxiety; Cancer, Breast; Depression; generalized weakness; High Cholesterol; bp Hypertension; insomnia; polyneuropathy; - PSHx: 15:27 hysterectomy; bp - Immunization history:: Adult Immunizations up to date. - Social history:: Smoking status: Patient denies any tobacco usage or history of. ROS: 15:34 Constitutional: Negative for fever, chills, and weight loss. Positive for fatigue and sd2 weakness. Eyes: Negative for injury, pain, redness, and discharge, Cardiovascular: Negative for chest pain, palpitations, and edema, Respiratory: Negative for shortness of breath, cough, wheezing. Abdomen/GI: Negative for abdominal pain, nausea, vomiting, diarrhea. MS/Extremity: Negative for injury and deformity, Skin: Negative for injury, rash, and discoloration, Neuro: Negative for headache, numbness and tingling. Exam: 15:34 Constitutional: This is a well developed, well nourished patient who is awake, alert, sd2 and in no acute distress. Head/Face: Normocephalic, atraumatic. Eyes: EOMI, normal conjunctiva bilaterally Chest/axilla: Normal chest wall appearance and motion. Nontender with no deformity. Cardiovascular: Regular rate and rhythm with a normal S1 and S2. No gallops, murmurs, or rubs. 2+ distal pulses. Respiratory: Lungs have equal breath sounds bilaterally, clear to auscultation and percussion. No rales, rhonchi or wheezes noted. No increased work of breathing, no retractions or nasal flaring. Abdomen/GI: Soft, non-tender, with normal bowel sounds. No guarding or rebound. No evidence of tenderness throughout. Skin: Warm, dry with normal turgor. Normal color with no rashes, no lesions, and no evidence of cellulitis. MS/ Extremity: Pulses equal, no cyanosis. Neurovascular intact. Full, normal range of motion. Ambulatory without difficulty. Psych: Awake, alert, with orientation to person, place and time. Behavior, mood, and affect are within normal limits. 16:47 ECG was reviewed by the Attending Physician. NSR, rate 68, no STEMI criteria, RBBB sd2 present Vital Signs: 15:26 BP 107 / 76; Pulse 75; Resp 22; Temp 99; Pulse Ox 98% ; bp 16:00 BP 118 / 64; Pulse 79; Resp 14; Pulse Ox 97% ; bp 17:00 BP 124 / 75; Pulse 78; Resp 15; Pulse Ox 97% ; bp MDM: 15:23 Patient medically screened. sd2 15:34 Differential Diagnosis COVID, flu, anemia, dehydration, electrolyte abnormality, ACS, sd2 PNA, UTI among others. Data reviewed: vital signs, nurses notes, EMS record. 05/31 15:24 Order name: CBC with Diff; Complete Time: 16:09 05/31 15:24 Order name: CMP; Complete Time: 16:08 05/31 15:24 Order name: Magnesium; Complete Time: 16:08 05/31 15:24 Order name: Troponin High Sensitivity; Complete Time: 16:08 05/31 15:24 Order name: BNP; Complete Time: 16:08 05/31 15:24 Order name: Urine Microscopic Only; Complete Time: 16:46 05/31 15:24 Order name: EKG; Complete Time: 15:25 05/31 15:24 Order name: XRAY Chest (1 view); Complete Time: 16:46 05/31 15:24 Order name: Urine Dipstick-Ancillary (obtain specimen); Complete Time: 16:06 05/31 15:24 Order name: Procalcitonin; Complete Time: 16:55 05/31 16:06 Order name: Urine Dipstick-Ancillary; Complete Time: 16:08 EDMS Administered Medications: 17:15 Drug: Lasix (furosemide) 40 mg Route: IVP; Site: left antecubital; bp Disposition Summary: 05/31/22 17:23 Discharge Ordered Location: Home sd2 Problem: new sd2 Symptoms: have improved sd2 Condition: Stable sd2 Diagnosis - Muscle weakness (generalized) sd2 - Coronavirus infection, unspecified sd2 - Elevated BNP sd2 Followup: sd2 - With: Private Physician - When: 2 - 3 days - Reason: Recheck today's complaints, Continuance of care, Re-evaluation by your physician Discharge Instructions: - Discharge Summary Sheet sd2 - Weakness, [id number] sd2 - COVID-19 sd2 Forms: - Medication Reconciliation Form sd2 - Thank You Letter sd2 - Antibiotic Education sd2 - Prescription Opioid Use sd2 Signatures: Dispatcher [employer] EDTimothy Lloyd RN RN bp Dunlop, Stephanie, MD MD sd2
--- NOTE | 2022-05-31 17:24 | ER ---
Nurse's Notes [facility] Name: Mignon Plunkett Age: 87 yrs Sex: Female : 1935 Arrival Date: 05/31/2022 Time: 15:23 Bed 15 Private MD: Diagnosis: Muscle weakness (generalized);Coronavirus infection, unspecified;Elevated BNP Presentation: 05/31 15:26 Chief complaint: EMS states: MORE ALTERED AND LETHARGIC THAN NORMAL. Coronavirus bp screen: Client reports previous positive COVID test result. Date of collection: May 31, 2022. Ebola Screen: No symptoms or risks identified at this time. Initial Sepsis Screen: Does the patient meet any 2 criteria? Altered Mental Status. No. Patient's initial sepsis screen is negative. Does the patient have a suspected source of infection? No. Patient's initial sepsis screen is negative. Risk Assessment: Do you want to hurt yourself or someone else? Patient reports no desire to harm self or others. Onset of symptoms was May 31, 2022. Care prior to arrival: IV initiated. 20 GA, in the left antecubital area, Glucose check: 160. 15:26 Method Of Arrival: EMS: [facility] bp 15:26 Acuity: ELY 3 bp Triage Assessment: 15:28 General: Appears distressed, Behavior is quiet. Pain: Unable to use pain scale. Does bp not appear to understand pain scale. EENT: No deficits noted. Neuro: Level of Consciousness is awake, confused, Oriented to none. Cardiovascular: No deficits noted. Respiratory: No deficits noted. GI: No signs and/or symptoms were reported involving the gastrointestinal system. : No signs and/or symptoms were reported regarding the genitourinary system. Derm: No deficits noted. Musculoskeletal: No deficits noted. Historical: - Allergies: 15:27 No Known Drug Allergies; bp - Home Meds: 15:27 aspirin 81 mg Oral chew [Active]; buspirone 10 mg Oral tab 1 tab 3 times per day bp [Active]; Celexa 20 mg Oral tab 1 tab once daily [Active]; Depakote ER 125 Oral three times a day [Active]; zinc sulfate 50 mg zinc (220 mg) Oral tab [Active]; Saccharomyces boulardii 250 mg Oral cap daily [Active]; memantine 10 mg Oral tab 1 tab 2 times per day [Active]; Vitamin C 500 mg Oral cpER [Active]; meloxicam 15 mg Oral tab 1 tab once daily [Active]; lisinopril 20 mg Oral tab 1 tab once daily [Active]; Keflex 500 mg Oral cap 1 cap every 12 hours [Active]; hydrochlorothiazide 25 mg Oral tab 1 tab once daily [Active]; exelon patch [Active]; - PMHx: 15:27 Anxiety; Cancer, Breast; Depression; generalized weakness; High Cholesterol; bp Hypertension; insomnia; polyneuropathy; - PSHx: 15:27 hysterectomy; bp - Immunization history:: Adult Immunizations up to date. - Social history:: Smoking status: Patient denies any tobacco usage or history of. Screenin:31 Abuse screen: Denies threats or abuse. Denies injuries from another. Nutritional bp screening: No deficits noted. Tuberculosis screening: No symptoms or risk factors identified. Fall Risk No fall in past 12 months (0 pts). Secondary diagnosis (15 points) dementia. Assessment: 15:31 General: SEE TRIAGE NOTE. bp 17:27 Reassessment: [facility] CONTA[facility] FOR TRANSPORT. bp 18:29 Reassessment: EMS AT B/S FOR TRANSPORT. bp Vital Signs: 15:26 BP 107 / 76; Pulse 75; Resp 22; Temp 99; Pulse Ox 98% ; bp 16:00 BP 118 / 64; Pulse 79; Resp 14; Pulse Ox 97% ; bp 17:00 BP 124 / 75; Pulse 78; Resp 15; Pulse Ox 97% ; bp ED Course: 15:23 Patient arrived in ED. bp 15:23 Clare Suarez MD is Attending Physician. sd2 15:26 Timothy Rush, ASHLEY is Primary Nurse. bp 15:27 Triage completed. bp 15:30 Arm band placed on. bp 15:50 Maintain EMS IV. Dressing intact. Good blood return noted. Site clean \T\ dry. Gauge \T\ iw site: 20 LAC. 16:34 XRAY Chest (1 view) In Process Unspecified. EDMS 17:28 Patient has correct armband on for positive identification. Bed in low position. Call bp light in reach. Side rails up X2. 18:30 No provider procedures requiring assistance completed. IV discontinued, intact, bp bleeding controlled, No redness/swelling at site. Pressure dressing applied. Administered Medications: 17:15 Drug: Lasix (furosemide) 40 mg Route: IVP; Site: left antecubital; bp Medication: 15:31 VIS not applicable for this client. bp Outcome: 17:23 Discharge ordered by . sd2 18:30 Discharged to alf. Report called to [facility] bp 18:30 Condition: stable 18:30 Discharge instructions given to patient, Instructed on discharge instructions, follow up and referral plans. Demonstrated understanding of instructions, follow-up care. 18:30 Patient left the ED. bp Signatures: Dispatcher [employer] EDLina Bowser, RN RN iw Timothy Rush RN RN Clare Hurt MD MD sd2
[2022-05-31] MEDS ORDERED: FUROSEMIDE 40 MG/4 ML VIAL ONE (17:27)
--- NOTE | 2022-06-01 15:56 | EKG ---
Test Date: 2022-05-31 Test Time: 16:47:33 In Shop Service Technician: BP MEASUREMENT RESULTS: Intervals: Rate: 68 WI: 158 QRSD: 124 QT: 482 QTc: 512 [place]row: P: 76 WI: 158 QRS: 23 T: 28 INTERPRETIVE STATEMENTS: Normal sinus rhythm Right bundle branch block Possible Lateral infarct, age undetermined Abnormal ECG Compared to ECG 12/02/2021 15:41:03 No significant changes Electronically Signed On 06-01-22 15:54:27 CDT by Parminder Mecrer
[2022-06-02 03:47] VITALS: TEMP 99
[2022-06-02 03:49] VITALS: O2SAT 97
[2022-06-02 03:51] VITALS: BP 124/75
== END 2022-05-31 18:30 | disposition home or self-care (01) ==
LOC: ER 15:15
DX: M62.81 Muscle weakness (generalized) (principal); U07.1 COVID-19; R79.89 Other specified abnormal findings of blood chemistry; I10 Essential (primary) hypertension; Z85.3 Personal history of malignant neoplasm of breast; Z79.82 Long term (current) use of aspirin
CPT/HCPCS: 93005; 85025; 36415; 83735; 84484; 80053; 84145; 83880; 71045; 96374; 99283; J1940; 81003; 81015

== ENCOUNTER 2022-06-09 10:51 | Emergency (ER) | payer OTHER, BC ==
--- OUTSIDE RECORDS SUMMARY | 2022-06-09 10:54 | XMS REPORT | Continuity of Care Document ---
:1935 Author Organization [facility] t Address [address] [place] [address] Care Team Providers Name Role Phone Asked, No Pcp Primary Care Physician Unavailable JOSE ROBERTO DE JESUS Attending Clinician Unavailable Doctor Unassigned, [place] Attending Clinician Unavailable Ramiro Chandler MD Attending Clinician JOSE ROBERTO DE JESUS Admitting Clinician Unavailable Problems Condition Condition Condition Status Onset Resolution Last Treating Co mments Source Name Details Category Date Date Treatment Clinician Date R29.6 - R29.6 - Diagnosis Active 2020-04-12 Memoria REPEATED REPEATED -24 12:20:00 l FALLS FALLS 00:01: Piero F03.90 - F03.90 - 00 UNSPECIF UNSPECIF Active 04/06/2020 [facility] [place] INTRACRANI INTRACRAN Diagnosis Active 2020-03-20 Memoria AL IAL 03-09 21:41:00 l HEMORRHAGE HEMORRHAGE 00:00: He rmann FOLLOWING FOLLOWING 00 INJURY INJURY Active 03/09/2020 [facility] LEFT LEFT Diagnosis Active 2020-03-09 Mem oria FRONTAL FRONTAL 03-09 22:25:00 l BLEED BLEED 00:00: Piero Active 00 03/09/2020 [facility] Amnesia Amnesia Problem Active 2020-11-17 Me moria (finding) (finding) 02:02:42 l Active Piero Problem 11/17/2020 [facility] Cerebral Cerebral Problem Active 2020-11-17 Memoria hemorrhage hemorrhage 02:02:42 l (disorder) (disorder) Jorge rmann Active Problem 11/17/2020 [facility] Dementia Problem Active 2020-11-17 Memoria (disorder) (disorder) 02:02:42 l Active [place] Problem 11/17/2020 [facility] Hyperlipid Hyperlipi Problem Active 2020-11-17 Memoria emia demia 02:02:42 l (disorder) (disorder) He rmann Active Problem 11/17/2020 [facility] Peripheral Periphera Problem Active 2020-11-17 Memoria nerve l nerve 02:02:42 l disease disease [place] (disorder) (disorder) Active Problem 11/17/2020 [facility] Recurrent Recurrent Problem Active 2020-11-17 Memoria falls falls 02:02:42 l (finding) (finding) Herm venkatesh Active Problem 11/17/2020 [facility] 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 21:41:00 l OF UNSP W LOC OF [place] DURATION, UNSP I DURATION, I Active [facility] Allergies, Adverse Reactions, Alerts Allergy Allergy Status Severity Reaction(s) Onset Inactive Treating Comm ents Source Name Type Date Date Clinician statins statins Active Balaji Harry Social History Social Habit Start Date Stop Date Quantity Comments Source Social History 2020-01-24 2020-01-24 [facility] 21:23:26 21:23:26 Sex Ass[birth year] At [birth year] [facility] 00:00:00 00:00:00 Smoking Status Start Date Stop Date Source Tobacco smoking consumption unknown [facility] Medications Ordered Filled Start Stop Current Ordering Indication Dosage Frequency Signature Comments Components Source Medication Medication Date Date Medication? Clinician (SIG) Name Name Donepezil Yes 10 mg = 1 Mem oria hydrochlori 8-13 tab, PO, l de 10 MG 14:38: Bedtime, # Her leos Oral Tablet 00 30 tab, 6 [Aricept] Refill(s), Pharmacy: [email or web address] #[id number], 147.32, cm, 04/26/20 9:31:00 CDT, Height, 56.364, kg, 04/26/20 9:31:00 CDT, Weight heparin 2019- No Notes: Memoria sodium, 6- porcine l porcine 13:00: heparin [place] 2500 UNT/ML 00 Injectable Solution Levetiracet Yes 500 mg = 1 Memoria am 500 MG 6-28 tab, PO, l Oral Tablet 10:50: Q12H, # 12 [place] [Keppra] 00 tab, 0 Refill(s) remove No Notes: Memoria patch - Remove l 02:00: patch 12 [place] 00 hours after applicatio n each day. Docusate No Notes: Memoria 6-27 (Same as: l 14:00: Colace) Piero (Do Not Crush) sennosides, No Notes: Amari maryjo ASSISTED 6-27 (Same as: l 14:00: Senokot) Piero [...] l Oral Tablet 14:00: as:Keppra) Piero [Keppra] 00 Levetiracet No Notes: Amari maryjo am 6-27 Same as l 14:00: Keppra Mix Piero with 100 mL NS, LR or D5W [...] 10 MG Oral hen. (Same Tablet as: Dolliver 325/10) Morphine 2019-0 No Notes: Memoria - (Same l 09:17: as:MORPhin e Sulfate) Bisacodyl 2019-0 No Notes: Memori a - (Same As: l 09:17: Dulcolax, [place] Bisco-Lax) Ondansetron 2019-0 No Notes: Amari maryjo [...] Sterile Iohexol 2020-0 No 100 mL, Memoria 6-27 Route: l 04:57: IVP, Drug Form: SOLN, Dosing Weight 54.545, kg, ONCALL, STAT, Start date: 03/09/20 23:57:00 CDT, Duration: 1 doses or times, Dose = 2.2ml/kg, Max dose = 100ml -- "To be infused by Radiology Staff ONLY" Levetiracet 2019- No 1,000 mg, Whit whitfield am 03-10 [...] 00 30 tab, 3 [Aricept] Refill(s), Pharmacy: [email or web address] #[id number], 147.32, cm, 01/24/20 16:10:00 CDT, Height, [...] hours as needed for mild pain. ibuprofen 2019- Yes 200mg Q6H Take 200 Met hodi (ADVIL,MOTR 5-[address] [place]) 200 MG 13:40: mouth Hospit a tablet 50 every 6 l (six) hours as needed for mild pain. Immunizations Ordered Immunization Filled Immunization Date Status Commen ts Source Name Name pneumococcal 2020-03-11 Completed [facility] 13-valent vaccine 17:01:00 Piero diphtheria/pertussis 2020-03-10 Completed Amari rial , acel/tetanus adult 04:33:00 Herm venkatesh Vital Signs Vital Name Observation Time Observation Value Comments Source Systolic (mm Hg) 2020-04-26 14:31:00 Amari rial [place] Diastolic (mm Hg) 2020-04-26 14:31:00 Mem orial [place] Heart Rate 2020-04-26 14:31:00 [facility] [place] Respitory Rate 2020-04-26 14:31:00 Memori al [place] Height 2020-04-26 14:31:00 147.32 cm [facility] [place] Weight 2020-04-26 14:31:00 [facility] [place] BMI Calculated 2020-04-26 14:31:00 Memori al [place] Systolic (mm Hg) 2020-04-04 21:12:00 Amari rial [place]o Diastolic (mm Hg) 2020-04-04 21:12:00 Mem orial [place] Heart Rate 2020-04-04 21:12:00 [facility] [place] Respitory Rate 2020-04-04 21:12:00 Memori al [place] Height 2020-04-04 21:12:00 147.32 cm [facility] [place] Weight 2020-04-04 21:12:00 [facility] [place] BMI Calculated 2020-04-04 21:12:00 Memori al [place] Respitory Rate 2020-03-11 17:00:00 Memori al [place] Systolic (mm Hg) 2020-03-11 17:00:00 Amari rial [place] Diastolic (mm Hg) 2020-03-11 17:00:00 Mem orial [place] Temperature Oral (F) 2020-03-11 17:00:00 97.7 F [facility] [place] Respitory Rate 2020-03-11 16:00:00 Memori al [place] Systolic (mm Hg) 2020-03-11 16:00:00 Amari rial [place] Diastolic (mm Hg) 2020-03-11 16:00:00 Mem orial [place]o Respitory Rate 2020-03-11 15:00:00 Memori al [place] Systolic (mm Hg) 2020-03-11 15:00:00 Amari rial [place] Diastolic (mm Hg) 2020-03-11 15:00:00 Mem orial [place]o Temperature Oral (F) 2020-03-11 13:03:00 97.4 F [facility] [place] Heart Rate 2020-03-11 02:09:00 [facility] [place] Heart Rate 2020-03-11 02:00:00 [facility] [place] Heart Rate 2020-03-11 01:35:00 [facility] [place] Temperature Oral (F) 2020-03-10 12:30:00 97.1 F [facility] [place] Height 2020-03-10 11:05:00 154.94 cm [facility] [place] Weight 2020-03-10 11:05:00 [facility] [place] BMI Calculated 2020-03-10 11:05:00 Memori al [place] Height 2020-03-10 02:27:00 152.4 cm [facility] [place] BMI Calculated 2020-03-10 02:27:00 Memori al [place] Weight 2020-03-10 02:27:00 [facility] [place] Systolic (mm Hg) 2020-03-06 18:30:00 Amari rial [place]o Diastolic (mm Hg) 2020-03-06 18:30:00 Mem orial [place] Heart Rate 2020-03-06 18:30:00 [facility] [place] Respitory Rate 2020-03-06 18:30:00 Memori al [place] Temperature Oral (F) 2020-03-06 18:30:00 98.2 F [facility] [place] Height 2020-03-06 18:30:00 147.32 cm [facility] [place] Weight 2020-03-06 18:30:00 [facility] [place] BMI Calculated 2020-03-06 18:30:00 Memori al [place] Systolic (mm Hg) 2020-01-24 21:10:00 Amari rial Piero Diastolic (mm Hg) 2020-01-24 21:10:00 Mem orial [place] Heart Rate 2020-01-24 21:10:00 [facility] [place] Respitory Rate 2020-01-24 21:10:00 Memori al [place] Temperature Oral (F) 2020-01-24 21:10:00 98.8 F [facility] Height 2020-01-24 21:10:00 147.32 cm [facility] Weight 2020-01-24 21:10:00 [facility] BMI Calculated 2020-01-24 21:10:00 Gus Harkins Procedures Procedure Date / Time Performed Performing Clinician Sourc e Hysterectomy [facility] Knee replacement [facility] n Plan of Care Planned Activity Planned Date Details Comments Source Future Scheduled 2022-05-17 INFLUENZA VACCINE [facility] Hospital Test 02:00:08 [code = INFLUENZA VACCINE] Future Scheduled 2022-05-17 HEPATITIS B VACCINES Met [facility] Test 02:00:08 (1 of 3 - 3-dose series) [code = HEPATITIS B VACCINES (1 of 3 - 3-dose series)] Future Scheduled 2022-05-17 HEPATITIS B VACCINES Met [facility] Test 02:00:08 (1 of 3 - 3-dose series) [code = HEPATITIS B VACCINES (1 of 3 - 3-dose series)] Future Scheduled 2022-05-17 COVID-19 VACCINE (#1) [facility] Hospital Test 02:00:08 [code = COVID-19 VACCINE (#1)] Future Scheduled 2022-05-17 SHINGLES VACCINES (1 Met [facility] Test 02:00:08 of 2) [code = SHINGLES VACCINES (1 of 2)] Future Scheduled 2022-05-17 65+ [facility]:00:08 VACCINE (1 - PCV) [code = 65+ PNEUMOCOCCAL VACCINE (1 - PCV)] Future Scheduled 2022-05-17 INFLUENZA VACCINE Method [facility] Hospital Test 02:00:08 [code = INFLUENZA VACCINE] Future Scheduled 2022-05-17 COVID-19 VACCINE (#1) [facility] Hospital Test 02:00:08 [code = COVID-19 VACCINE (#1)] Future Scheduled 2022-05-17 SHINGLES VACCINES (1 Met [facility] Hospital Test 02:00:08 of 2) [code = SHINGLES VACCINES (1 of 2)] Future Scheduled 2022-05-17 65+ [facility] 02:00:08 VACCINE (1 - PCV) [code = 65+ PNEUMOCOCCAL VACCINE (1 - PCV)] Future Scheduled COVID-19 [facility]ACCINE (1) [facility] [code = COVID-19 VACCINE (1)] Future Scheduled SHINGLES VACCINES (#1) [facility] [code = SHINGLES VACCINES (#1)] Future Scheduled 65+ PNEUMOCOCCAL [facility] Test VACCINE (1 of 1 - PPSV23) [code = 65+ PNEUMOCOCCAL VACCINE (1 of 1 - PPSV23)] Future Scheduled INFLUENZA VACCINE Method [facility] Hospital Test [code = INFLUENZA VACCINE] Encounters Start End Encounter Admission Attending Care Care Encounter Source Date/Time Date/Time Type Type Clinicians Facility Department ID 2021-12-09 [id number] 10:00:04 [facility] 2020-11-13 2020-11-15 Outside nullFlavo MNA [id number] Memoria 21:38:07 05:59:59 Medical r [facility]rology 01 l [facility] 2020-10-30 2020-10-30 Outpatient KEELY RIGGS [id number] Memoria 13:30:00 13:30:00 07 l [place] 2020-06-06 2020-06-06 Ambulatory nullFlavo MNA [id number] Memoria 18:30:00 18:30:00 Pre-Reg r Neurology 03 l [facility] 2020-06-06 2020-06-06 Ambulatory nullFlavo MNA [id number] Memoria 18:30:00 18:30:00 Pre-Reg r Neurology 04 l [facility] 2020-04-26 2020-04-27 Outpatient nullFlavo MNA [id number] Memoria 14:00:00 04:59:59 r Neurology 06 l [facility] 2020-04-25 2020-04-27 Outside nullFlavo MNA [id number] Memoria 14:46:35 04:59:59 Medical r Neurology 00 l Records [facility] 2020-04-04 2020-04-05 Outpatient nullFlavo MNA [id number] Memoria 21:00:00 04:59:59 r Neurology 05 l [facility] 2020-03-10 2020-03-11 Inpatient nullFlavo [facility] [id number] Memoria 02:21:00 18:00:00 r Piero [facility] 2020-03-09 2020-03-09 Emergency E LIZA, [facility] 21:11:00 21:11:00 JOSE ROBERTO 2020-03-06 2020-03-07 Outpatient nullFlavo MNA [id number] Memoria 18:30:00 04:59:59 r Neurology 02 l Gloria Cardonaann 2020-01-24 2020-01-25 Outpatient nullFlavo MNA [id number] Memoria 20:45:00 04:59:59 r [facility] 01 l [facility] 2020-01-24 2020-01-24 Orders Doctor DORY [id number] 00:00:00 00:00:00 Only Unassigned, LUIS [id number] [place] [id number] 2020-01-23 2020-01-23 Telephone [place] [id number] 00:00:00 00:00:00 Ramiro Stewart [id number]7.2.686 Professio [phone] [address] 2019-05-31 2019-05-31 Orders Doctor DORY [id number] 00:00:00 00:00:00 Only Unassigned, [place] [id number] [place] [id number] [id number] 2019-05-20 2019-05-20 Telephone [facility] [id number] 00:00:00 00:00:00 Ramiro Stewart [id number] [place] [id number] Professio [phone] [address] 2019-05-05 2019-05-05 Orders Doctor DORY 1.2.840.114 [id number] 00:00:00 00:00:00 Only Unassigned, LUIS [id number] [place]2.7.2.686 [phone] [id number] Results Test Description Test Time Test Comments Results Result Comments Source HEMATOLOGY 2020-03-11 2.2 [facility] 08:05:00 HEMATOLOGY 2020-03-11 0.8 [facility] nn 08:05:00 HEMATOLOGY 2020-03-11 3.2 [facility] nn 08:05:00 HEMATOLOGY 2020-03-11 1.6 [facility] nn 08:05:00 HEMATOLOGY 2020-03-11 0.6 [facility] Ermelinda nn 08:05:00 HEMATOLOGY 2020-03-11 0.1 [facility] Ermelinda nn 08:05:00 PARATHYROID PROFILE 2020-03-11 1.21 Memor ial Piero 08:05:00 PARATHYROID PROFILE 2020-03-11 1.21 Memor ial [place] 08:05:00 CARDIAC ENZYMES 2020-03-11 <0.02 [facility] Piero [...] A/G Ratio) 0.9 1 0.7-1.6 [facility] [id number] 08:05:0018[facility] HermannCHEM PANEL 2020-03-11 08:05:0018[facility] HermannCHEM QSCQJ4508-57-51 08:05:0051[facility]annCHEM TIRXM4898-58-42 08:05:000.3[facility] HermannCHEM EGVAY7224-12-85 08:05:00<0.1[facility] UocychmPLUFXSZEJW8486-75-98 08:05:005.6[facility] Piero KVGGFGTWGH5187-73-34 08:05:003.72[facility]orial RionfiaUCWFRVJGVQ9309-58-61 08:05:00 11.3[facility] WiedhveWMQBDKAGXG4433-93-06 08:05:0033.5[facility] HermannHEMATOLOGY 2020-03-11 08:05:0090.1[facility] NoucllkLXSOYJACFA0472-74-68 08:05:00 Test Item Value Reference Range Interpretation Comments MCH (test code = MCH) 30.4 pg 27.0-31.0 Memorial MifxgksMDNSPVJZOS3199-46-31 08:05:0033.8[facility] HermannHEMATOLOGY 2020-03-11 08:05:0013.6[facility] EaqrofiBOMQMIIPSV0290-12-14 08:05:76460Oisctsft YwazdaaBJIJLUDNJU3127-89-16 08:05:007.2[facility] SdnhdltYRVJGEKVLY6382-35-08 08:05:0056.9[facility]orial YebezuyBHZLXHPSGA0419-57-85 08:05:0029.2[facility]o ZPKMJJPNYD0407-42-30 08:05:0010.9[facility] HermannCARDIAC IWSHRIE5670-23-45 18:36:00<0.02[facility] HermannDRUG YQWUSN3995-68-41 11:41:00Negative *NA*(03/10/20 6:41 AM)[facility] HWEBNU7382-83-96 11:41:00Negative *NA*(03/10/20 6:41 AM)[facility] BFSXWJ7453-33-52 11:41:00Negative *NA*(03/10/20 6:41 AM)[facility] UXOCEO9427-20-07 11:41:00Negative *NA*(03/10/20 6:41 AM)[facility] GRVVHZ9154-11-80 11:41:00Negative *NA*(03/10/20 6:41 AM)[facility] AFEMGO5007-00-90 11:41:00See Note *NA*(03/10/20 6:41 AM)[facility] FMUEO0277-92-24 11:41:00Light Yellow *NA*(03/10/20 6:41 AM)[facility] HQPPT0940-76-64 11:41:00 Clear (03/10/20 6:41 AM)[facility] VRVXX8687-29-01 11:41:00 Test Item Value Reference Range Interpretation Comments UA Spec Grav (test code = UA Spec 1.060 1 Grav) [facility] ARAHQ8691-56-90 11:41:00 Test Item Value Reference Range Interpretation Comments UA pH (test code = UA pH) 5.0 1 5.0-8.0 [facility] [id number] 11:41:00Negative *NA*(03/10/20 6:41 AM) [facility] MYQYE4252-46-36 11:41:00Negative (03/10/20 6:41 AM) [facility] PQZOY5640-98-49 11:41:00<1.0[facility] AND YDJTQ6261-26-99 11:41:00Negative (03/10/20 6:41 AM)[facility] ORWKP5806-51-91 11:41:00Large *ABN*(03/10/20 6:41 AM)[facility] ZKYWV1493-23-93 11:41:0028[facility]annDR[facility] QXRUGI1848-76-52 11:41:00Negative *NA*(03/10/20 6:41 AM)[facility] DKLHCZ1428-70-68 11:41:00Negative *NA*(03/10/20 6:41 AM)[facility] HermannBLOOD BANK IFCBMJD2374-26-91 04:22:00 Negative (03/09/20 11:22 PM)[facility]annCHEM DYYTW8892-03-17 03:16:46861 [facility]annCHEM TOVYP5514-75-14 03:16:0022[facility] HermannCHEM PANEL 2020-03-10 03:16:000.92[facility] HermannCHEM WIJNX7254-35-90 03:16:97296Hlbviodk HermannCHEM ZXBED0505-81-63 03:16:003.9[facility] HermannCHEM PETAM4593-02-07 03:16:75909Khdnnvni HermannCHEM PQWCF8133-22-79 03:16:0024[facility] HermannCHEM GJFWT7619-14-84 03:16:008.8[facility] HermannCHEM JELGQ9155-32-05 03:16:0010.9 [facility]annCHEM KEHKP0038-60-49 03:16:0057[facility] HermannCHEM PANEL 2020-03-10 03:16:000.6[facility] OhehodzHJVUKEXZTV2349-91-05 03:16:006.8[facility]orial BfvyrhvYLXFGQFTUF8300-04-74 03:16:003.70[facility] BbapqpmDQFAKGABAW7830-51-65 03:16:0011.5[facility]orial ZfiabjwVBINNMVNMJ9876-71-03 03:16:0033.2[facility] MIIHOGVAPK8515-95-98 03:16:0089.6[facility] MauwlsjBMCGEQOITM3265-17-58 03:16:00 Test Item Value Reference Range Interpretation Comments MCH (test code = MCH) 31.1 pg 27.0-31.0 Memorial VyezzqsITHOJXQKBF6114-16-29 03:16:0034.7[facility] HermannHEMATOLOGY 2020-03-10 03:16:0013.5[facility] OdvfvywWHJAGGRTXA9231-78-66 03:16:39078Rffvuyfx WsbopkcVLRQNPLGZD7883-93-92 03:16:006.7[facility] NulnaegZUVAWLBRQT3677-12-62 03:16:00 Test Item Value Reference Range Interpretation Comments ACT (TEG) Rapid (test code = ACT (TEG) 113 s 86-118 Rapid) [facility] CxlmapyPONKDJWRCZ7198-82-63 03:16:00 Test Item Value Reference Range Interpretation Comments Split Point Rapid (test code = Split 0.6 min Point Rapid) [facility] EcnjeorCKRKFWGGZY3264-80-02 03:16:00 Test Item Value Reference Range Interpretation Comments R-time Rapid (test code = R-time 0.7 min 0.4-0.7 Rapid) [facility] CenterPhmoonnJHFYQHPYCL6035-08-95 03:16:00 Test Item Value Reference Range Interpretation Comments K-time Rapid (test code = K-time 0.9 min 0.6-2.3 Rapid) [facility] CenterRazlpbnZLCCTOBNUF0032-98-98 03:16:00 Test Item Value Reference Range Interpretation Comments Angle Rapid (test code = Angle 79 degrees 64-80 Rapid) [facility] CenterNlgkqvkOSSVTSGSSR8612-32-50 03:16:00 Test Item Value Reference Range Interpretation Comments Max Amplitude Rapid (test code = Max 65 mm 52-71 Amplitude Rapid) [facility] CenterUhshwnrOBYEMMXSER2060-21-44 03:16:009.1[facility] HermannHEMATOLOGY 2020-03-10 03:16:000.7[facility] ZzbkgcpPBMBSLCDIS5548-17-76 03:16:0059.3[facility]orial JkfxooaBFIMDFPWQI3521-14-54 03:16:0027.8[facility]orial RcprxsxKYYYHFCLOD0705-58-36 03:16:0011.1[facility] QooqnwtEERKVVJSZB9932-75-49 03:16:001.3[facility] [place] URGADTNNTY7438-34-11 03:16:000.5[facility] SvrjlvpXZSCQRBIBZ5940-19-91 03:16:[address] [facility] HospitalOevrctuXYFIAKGFOK3881-90-60 03:16:001.9[facility] HermannHEMATOLOGY 2020-03-10 03:16:000.8[facility] GzeotbcUYUPWQPDIK3116-90-06 03:16:000.1[facility] EgqgyrzOCBZUWNEMJ8124-94-12 03:16:00 Test Item Value Reference Range Interpretation Comments PT (test code = PT) 12.1 s 12.0-14.[address] [facility] HospitalOmlpeafHDDXXNWOQF0802-60-03 03:16:00 Test Item Value Reference Range Interpretation Comments INR (test code = INR) 0.90 1 0.85-1.[address] [facility] HospitalLmpfvwuGTKTHJMYUN5137-62-52 03:16:00 Test Item Value Reference Range Interpretation Comments PTT (test code = PTT) 27.7 s 22.9-35.8 [facility] MhuuzowNZEIBAFENT2824-02-15 03:16:007[facility] HermannTOXICOLOGY 2020-03-10 03:16:000.007[facility]
[2022-06-09 11:45] LABS: Absolute Lymphocytes (CBC) 2.2 K/uL (0.7-4.9); Hematocrit 42.3 % (36.0-45.0); Lymphocytes % 16.4 % (15.3-44.8); MCV 96.1 fL (80-100); MPV 7.1 fL (7.6-11.3)
[2022-06-09 11:52] LABS: Protime INR 1.04
[2022-06-09 12:00] LABS: SARS-CoV-2 Antigen Rapid Res Negative (Negative)
[2022-06-09 12:02] LABS: Urine Blood Trace-lysed (Negative); Urine Glucose Negative (Negative); Urine Protein Negative (Negative); Urine pH 5.5 (5.0-7.0)
[2022-06-09] MEDS ORDERED: ACETAMINOPHEN 325 MG/SUPP PR ONE (12:04)
[2022-06-09 12:09] LABS: Albumin 3.5 g/dL (3.4-5.0); Bilirubin Total 0.3 mg/dL (0.2-1.0); Troponin High Sensitivity 27.2 pg/mL (<58.9)
[2022-06-09 12:12] LABS: Potassium 4.2 mmol/L (3.5-5.1)
[2022-06-09] MEDS ORDERED: NA CHLORIDE 0.9% 500 ML ONE ×5 (12:12→18:05)
[2022-06-09] MEDS ORDERED: ASPIRIN 81 MG CHEWABLE TABLET ONE (12:12)
--- NOTE | 2022-06-09 12:13 | RAD REPORT ---
EXAM DESCRIPTION: [place] Single View06/09/2022 11:59 am CLINICAL HISTORY: Alteration consciousness COMPARISON: none FINDINGS: The lungs appear clear of acute infiltrate. The heart is normal size. Aorta is tortuous/ectatic IMPRESSION: No acute abnormalities displayed
--- NOTE | 2022-06-09 12:21 | RAD REPORT ---
EXAM DESCRIPTION: CT - Head Brain Wo Cont - 06/09/2022 12:09 pm CLINICAL HISTORY: Alteration of awareness/confusion COMPARISON: 2020 TECHNIQUE: Computed axial tomography of the head was obtained. IV contrast was not requested. All CT scans are performed using dose optimization technique as appropriate and may include automated exposure control or mA/KV adjustment according to patient size. FINDINGS: An intracranial bleed is not seen . The ventricles are normal in caliber. No extra-axial fluid collection is noted. Mild cerebral atrophy Moderate low-density areas within periventricular, deep and subcortical white matter likely represent ischemic changes secondary to small vessel disease. Fluid within the sinuses/ mastoids is not seen. IMPRESSION: No acute intracranial abnormality is seen. If patient's symptoms persist MRI of the bra in would be recommended.
[2022-06-09 12:38] LABS: Urine Mucus Slight /HPF (None Seen); Urine RBC <5 /HPF (None Seen)
--- NOTE | 2022-06-09 16:23 | EDPHYS ---
Physician Documentation [facility] Name: Mignon Plunkett Age: 87 yrs Sex: Female : 1935 Arrival Date: 06/09/2022 Time: 10:58 Bed 8 Private MD: ED Physician Ian Peterson HPI: 06/09 15:28 This 87 yrs old Female presents to ER via EMS with complaints of Altered Mental Status. snw 15:28 The patient presents with decreased mental status. Onset: The symptoms/episode snw began/occurred gradually. Possible causes: recent covid infection. Current symptoms: In the emergency department the patient's symptoms are unchanged from the initial presentation. Patient's baseline: dementia. The patient has experienced similar episodes in the past. It is unknown whether or not the patient has recently seen a physician. Historical: - Allergies: 11:01 No Known Drug Allergies; tw2 - Home Meds: 14:10 buspirone 15 mg oral tab 1 tab TID [Active]; citalopram 20 mg tab 1 tab once daily ph [Active]; Depakote ER 125 Oral twice a day [Active]; docusate sodium 100 mg Oral tab 1 tab 2 times per day [Active]; ferrous sulfate 325 mg (65 mg iron) Oral tab 1 tab once daily [Active]; folic acid 1 mg Oral tab 1 tab once daily [Active]; furosemide 40 mg Oral tab 1.5 tab 2 times per day [Active]; memantine 10 mg Oral tab 1 tab 2 times per day [Active]; potassium chloride 20 mEq Oral TbER 1 tab 2 times per day [Active]; zinc sulfate 50 mg zinc (220 mg) Oral tab [Active]; Vitamin C 500 mg Oral cpER 1,000 mg daily [Active]; loratadine 10 mg oral tab 1 tab once daily [Active]; aspirin 81 mg Oral chew [Active]; - PMHx: 14:10 Anxiety; Cancer, Breast; Depression; generalized weakness; High Cholesterol; ph Hypertension; insomnia; polyneuropathy; Dementia; - PSHx: 14:10 hysterectomy; ph - Immunization history:: Adult Immunizations unknown. - Social history:: Smoking status: unknown. ROS: 15:29 Constitutional: Positive for reported increased confusion. snw 16:24 MS/extremity: Positive for contractures. snw 16:24 Neuro: Positive for altered mental status, weakness. 19:08 Unable to obtain ROS due to baseline dementia. snw Exam: 11:15 Respiratory: Lungs have equal breath sounds bilaterally, clear to auscultation and snw percussion. No rales, rhonchi or wheezes noted. No increased work of breathing, no retractions or nasal flaring. Abdomen/GI: Soft, non-tender, with normal bowel sounds. No distension or tympany. No guarding or rebound. No evidence of tenderness throughout. Back: No spinal tenderness. No costovertebral tenderness. Full range of motion. Skin: Warm, dry with normal turgor. Normal color with no rashes, no lesions, and no evidence of cellulitis. MS/ Extremity: Pulses equal, no cyanosis. Neurovascular intact. Full, normal range of motion. 11:15 Cardiovascular: Edema: 1+ edema to level of left ankle, left foot, left toes, right ankle, right foot and right toes. 11:15 Neuro: Orientation: unable to test, Mentation: responsive to voice Memory: unable to test, Motor: Hypertonic in right arm and left arm. 15:23 Head/Face: Normocephalic, atraumatic. Eyes: Pupils equal round and reactive to light, snw extra-ocular motions intact. Lids and lashes normal. Conjunctiva and sclera are non-icteric and not injected. Cornea within normal limits. Periorbital areas with no swelling, redness, or edema. ENT: Nares patent. No nasal discharge, no septal abnormalities noted. Tympanic membranes are normal and external auditory canals are clear. Oropharynx with no redness, swelling, or masses, exudates, or evidence of obstruction, uvula midline. Mucous membranes moist. Neck: Trachea midline, no thyromegaly or masses palpated, and no cervical lymphadenopathy. Supple, full range of motion without nuchal rigidity, or vertebral point tenderness. No Meningismus. Chest/axilla: Normal chest wall appearance and motion. Nontender with no deformity. No lesions are appreciated. 15:23 Constitutional: The patient appears awake, frail, vocalizes but does not answer questions. 15:23 Cardiovascular: Rate: tachycardic, Rhythm: regular, Pulses: no pulse deficits are appreciated, Heart sounds: murmur, systolic, grade 3 over 6, JVD: is noted bilaterally, to 1 cm. Vital Signs: 11:00 BP 130 / 79; Pulse 118; Resp 19; Temp 97.6(TE); Pulse Ox 96% on R/A; Weight 63.5 kg; tw2 12:00 BP 132 / 77; Pulse 117; Resp 22; Pulse Ox 97% on R/A; tw2 13:00 BP 124 / 77; Pulse 112; Resp 24; Pulse Ox 97% on R/A; tw2 14:08 BP 111 / 66; Pulse 102; Resp 18; Pulse Ox 97% on R/A; ph 15:00 BP 126 / 67; Pulse 103; Resp 24; Pulse Ox 95% on R/A; tw2 15:59 BP 119 / 53; Pulse 96; Resp 20; Temp 98.2(TE); Pulse Ox 95% on R/A; tw2 17:01 BP 108 / 64; Pulse 99; Resp 20; Pulse Ox 95% on R/A; tw2 MDM: 11:16 Patient medically screened. snw 12:16 Data reviewed: vital signs, nurses notes. Data interpreted: Pulse oximetry: on room air snw is 96 %. Interpretation: acceptable. Counseling: I had a detailed discussion with the patient and/or guardian regarding: the historical points, exam findings, and any diagnostic results supporting the discharge/admit diagnosis, lab results, radiology results, the need for further work-up and treatment in the hospital. ED course: Pt is without s/s infection at this time. Has tested positive recently for CoVid at OR. Today's study is negative. Will assume viral cause of sepsis as CoVid until one is apparent. Pt is receiving NS at bolus rate in 500ml increments . 15:20 Post IV fluid administration reassessment for Sepsis: Sepsis focused reassessment snw complete. Heart: Regular rate/rhythm noted. Murmur noted. tachycardia improved Current vital signs reviewed: Yes. Response to treatment: the patient's symptoms have mildly improved after treatment. 19:08 Special discussion: found no source of infection except recent covid, pt returned to snw baseline.. 06/09 11:15 Order name: Blood Culture Adult (2) snw 06/09 11:15 Order name: CBC with Diff; Complete Time: 12:14 snw 06/09 11:15 Order name: CMP; Complete Time: 12:14 snw 06/09 11:15 Order name: Lactate; Complete Time: 12:14 snw 06/09 11:15 Order name: Protime (+inr); Complete Time: 12:14 snw 06/09 11:15 Order name: Ptt, Activated; Complete Time: 12:14 snw 06/09 11:15 Order name: Urine Culture snw 06/09 11:15 Order name: Urine Microscopic Only; Complete Time: 12:50 snw 06/09 11:15 Order name: Chest Single View XRAY; Complete Time: 12:14 snw 06/09 11:15 Order name: Troponin High Sensitivity; Complete Time: 12:14 snw 06/09 11:16 Order name: SARS RAPID; Complete Time: 12:14 snw 06/09 12:02 Order name: Urine Dipstick-Ancillary; Complete Time: 12:14 EDMS 06/09 15:11 Order name: Lactate Sepsis 2 HR Follow-up; Complete Time: 15:13 EDMS 06/09 11:15 Order name: Cardiac monitoring; Complete Time: 11:42 snw 06/09 11:15 Order name: Cath; Complete Time: 12:02 snw 06/09 11:15 Order name: EKG - Nurse/Tech; Complete Time: 11:23 snw 06/09 11:15 Order name: IV Saline Lock - Large Bore; Complete Time: 11:42 snw 06/09 11:15 Order name: Labs collected and sent; Complete Time: 12:02 snw 06/09 11:15 Order name: O2 Per Protocol; Complete Time: 11:42 snw 06/09 11:15 Order name: O2 Sat Monitoring; Complete Time: 11:42 snw 06/09 11:15 Order name: CT Head Brain wo Cont; Complete Time: 12:24 snw EC:15 Rate is 122 beats/min. Rhythm is regular. [place] interval is normal. Clinical impression: snw NSR w/ Non-specific ST/T Changes. Administered Medications: 12:43 Not Given (not available per pharmacyc): Aspirin Suppository 300 mg [place] once tw2 12:49 Drug: NS 0.9% 500 ml Volume: 500 ml; Route: IV; Rate: 1 bolus; Site: right hand; em6 13:26 Follow up: Response: No adverse reaction; IV Status: Completed infusion; IV Intake: tw2 500ml 12:57 Drug: Aspirin Chewable Tablet 81 mg Route: PO; tw2 14:35 Follow up: Response: No adverse reaction tw2 13:23 Drug: NS 0.9% 500 ml Route: IV; Rate: bolus; Site: right hand; tw2 14:35 Follow up: Response: No adverse reaction; IV Status: Completed infusion; IV Intake: ph 500ml 14:30 Drug: NS 0.9% 500 ml Route: IV; Rate: bolus; Site: right hand; ph 15:29 Follow up: Response: No adverse reaction; IV Status: Completed infusion; IV Intake: tw2 500ml 15:30 Drug: NS 0.9% 500 ml Route: IV; Rate: bolus; Site: right hand; tw2 16:35 Follow up: Response: No adverse reaction; IV Status: Completed infusion; IV Intake: tw2 500ml Disposition: 06/10 08:40 Co-signature as Attending Physician, Ian PAUL was immediately available on-site ms3 in the Emergency Department for consultation in the care of the patient. . Disposition Summary: 06/09/22 16:23 Discharge Ordered Location: Home snw Condition: Fair snw Diagnosis - Dehydration snw Followup: snw - With: Private Physician - When: 1 - 2 days - Reason: Recheck today's complaints, Continuance of care, Re-evaluation by your physician Followup: snw - With: Emergency Department - When: As needed - Reason: Worsening of condition Discharge Instructions: - Discharge Summary Sheet snw - Dehydration, Elderly snw - Rehydration, Elderly snw Forms: - Medication Reconciliation Form snw - Thank You Letter snw - SBAR form bd - Antibiotic Education snw - Prescription Opioid Use snw Signatures: Dispatcher [employer] Ashlie Fritz, PLANNING TECHNICIAN-C PLANNING TECHNICIAN-Csnw Debora Hernandez RN RN Valerie Gay RN RN tw2 Ina Peterson DO DO ms3 Niurka Leal, RN RN em6 Corrections: (The following items were deleted from the chart) 06/09 11:42 11:15 Accucheck ordered. snw tw2
--- NOTE | 2022-06-09 16:23 | ER ---
Nurse's Notes [facility] Name: Mignon Plunkett Age: 87 yrs Sex: Female : 1935 Arrival Date: 06/09/2022 Time: 10:58 Bed 8 Private MD: Diagnosis: Dehydration Presentation: 06/09 10:58 Chief complaint: EMS states: pt is at [facility] in their Memory care unit for tw2 Dementia. staff called us saying she is altered. normally she can talk. last known normal was sometime yesterday per staff. staff could not give me a time. 94% RA, placed on 2L nc up to 98%. pt has tremors and doesn't like her arms straight. we were able to finally get a t20 G LEFT ac given approx 100 ml NS. pt is COVID +. 11:00 Acuity: ELY 3 tw2 11:00 Initial Sepsis Screen: Does the patient meet any 2 criteria? Altered Mental Status. HR tw2 > 90 bpm. Yes Does the patient have a suspected source of infection? Yes:. 14:09 Coronavirus screen: pt w/ AMS vaccine status. Ebola Screen: No symptoms or risks ph identified at this time. Risk Assessment: Do you want to hurt yourself or someone else? Patient reports no desire to harm self or others. Onset of symptoms was June 09, 2022. 14:09 Method Of Arrival: EMS: [facility] Triage Assessment: 10:58 General: Appears in no apparent distress. Behavior is uncooperative. Pain: Unable to tw2 use pain scale. FLACC scale score is 0 out of 10. Neuro: Level of Consciousness is awake, alert, obeys commands, Oriented to person, Speech pt mumbles incoherent speech.. Respiratory: Airway is patent Respiratory effort is even, unlabored, Respiratory pattern is regular, symmetrical. Musculoskeletal: Circulation, motion, and sensation intact. Historical: - Allergies: 11:01 No Known Drug Allergies; tw2 - Home Meds: 14:10 buspirone 15 mg oral tab 1 tab TID [Active]; citalopram 20 mg tab 1 tab once daily ph [Active]; Depakote ER 125 Oral twice a day [Active]; docusate sodium 100 mg Oral tab 1 tab 2 times per day [Active]; ferrous sulfate 325 mg (65 mg iron) Oral tab 1 tab once daily [Active]; folic acid 1 mg Oral tab 1 tab once daily [Active]; furosemide 40 mg Oral tab 1.5 tab 2 times per day [Active]; memantine 10 mg Oral tab 1 tab 2 times per day [Active]; potassium chloride 20 mEq Oral TbER 1 tab 2 times per day [Active]; zinc sulfate 50 mg zinc (220 mg) Oral tab [Active]; Vitamin C 500 mg Oral cpER 1,000 mg daily [Active]; loratadine 10 mg oral tab 1 tab once daily [Active]; aspirin 81 mg Oral chew [Active]; - PMHx: 14:10 Anxiety; Cancer, Breast; Depression; generalized weakness; High Cholesterol; ph Hypertension; insomnia; polyneuropathy; Dementia; - PSHx: 14:10 hysterectomy; ph - Immunization history:: Adult Immunizations unknown. - Social history:: Smoking status: unknown. Screenin:10 Abuse screen: Denies threats or abuse. Nutritional screening: No deficits noted. tw2 Tuberculosis screening: No symptoms or risk factors identified. Fall Risk Secondary diagnosis (15 points) impaired mobility. Assessment: 11:42 Reassessment: xray at bedside at this time. tw2 13:14 Reassessment: Patient appears in no apparent distress at this time. Patient and/or tw2 family updated on plan of care and expected duration. Pain level reassessed. 14:08 Reassessment: Patient appears in no apparent distress at this time. Patient and/or ph family updated on plan of care and expected duration. Pain level reassessed. 15:44 Reassessment: spoke with Ashlie with [facility] and she will arrange transportation tw2 back to facility as pt will be discharged. 16:00 Reassessment: Patient appears in no apparent distress at this time. Patient and/or tw2 family updated on plan of care and expected duration. Pain level reassessed. 17:23 Reassessment: Patient appears in no apparent distress at this time. Patient and/or tw2 family updated on plan of care and expected duration. Pain level reassessed. Vital Signs: 11:00 BP 130 / 79; Pulse 118; Resp 19; Temp 97.6(TE); Pulse Ox 96% on R/A; Weight 63.5 kg; tw2 12:00 BP 132 / 77; Pulse 117; Resp 22; Pulse Ox 97% on R/A; tw2 13:00 BP 124 / 77; Pulse 112; Resp 24; Pulse Ox 97% on R/A; tw2 14:08 BP 111 / 66; Pulse 102; Resp 18; Pulse Ox 97% on R/A; ph 15:00 BP 126 / 67; Pulse 103; Resp 24; Pulse Ox 95% on R/A; tw2 15:59 BP 119 / 53; Pulse 96; Resp 20; Temp 98.2(TE); Pulse Ox 95% on R/A; tw2 17:01 BP 108 / 64; Pulse 99; Resp 20; Pulse Ox 95% on R/A; tw2 ED Course: 10:58 Patient arrived in ED. tw2 10:58 Ian Peterson DO is Attending Physician. ms3 11:13 Ashlie Gilbert FNP-C [facility]. snw 11:15 Triage completed. tw2 11:22 Abner Morris RN is Primary Nurse. jd3 11:23 Valerie Bray RN is Primary Nurse. jd3 11:23 EKG done, by ED staff, reviewed by Ashlie MAJANO. jd3 11:37 Inserted saline lock: 22 gauge in right antecubital area, using aseptic technique. tw2 Blood collected. 11:42 pt daughter...[phone]. bd 11:55 Thompson cath inserted, using sterile technique, 18 Fr., by nj, balloon inflated, to tw2 gravity drainage, urine specimen collected. nanda Singh RN served as building services engineer. 12:01 Chest Single View XRAY In Process Unspecified. EDMS 12:10 CT Head Brain wo Cont In Process Unspecified. EDMS 13:10 Arm band placed on. tw2 14:08 Patient has correct armband on for positive identification. Client placed on continuous ph cardiac and pulse oximetry monitoring. NIBP monitoring applied. Noise minimized. Lights dimmed. Warm blanket given. Pillow given. 17:22 Thompson cath removed intact, balloon deflated. IV discontinued, intact, bleeding tw2 controlled, No redness/swelling at site. Pressure dressing applied, x2, right hand and left ac. 17:23 No provider procedures requiring assistance completed. tw2 Administered Medications: 12:43 Not Given (not available per pharmacyc): Aspirin Suppository 300 mg IN once tw2 12:49 Drug: NS 0.9% 500 ml Volume: 500 ml; Route: IV; Rate: 1 bolus; Site: right hand; em6 13:26 Follow up: Response: No adverse reaction; IV Status: Completed infusion; IV Intake: tw2 500ml 12:57 Drug: Aspirin Chewable Tablet 81 mg Route: PO; tw2 14:35 Follow up: Response: No adverse reaction tw2 13:23 Drug: NS 0.9% 500 ml Route: IV; Rate: bolus; Site: right hand; tw2 14:35 Follow up: Response: No adverse reaction; IV Status: Completed infusion; IV Intake: ph 500ml 14:30 Drug: NS 0.9% 500 ml Route: IV; Rate: bolus; Site: right hand; ph 15:29 Follow up: Response: No adverse reaction; IV Status: Completed infusion; IV Intake: tw2 500ml 15:30 Drug: NS 0.9% 500 ml Route: IV; Rate: bolus; Site: right hand; tw2 16:35 Follow up: Response: No adverse reaction; IV Status: Completed infusion; IV Intake: tw2 500ml Medication: 14:09 VIS not applicable for this client. ph Intake: 13:26 IV: 500ml; Total: 500ml. tw2 14:35 IV: 500ml; Total: 1000ml. ph 15:29 IV: 500ml; Total: 1500ml. tw2 16:35 IV: 500ml; Total: 2000ml. tw2 Outcome: 16:23 Discharge ordered by MD. long 17:23 Discharged to [facility]. Report called to Hillary 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 17:24 Patient left the ED. tw2 Signatures: Dispatcher [employer] EDMS Marlene Hernandez Shelly, PLATE CLEANER-C PLATE CLEANER-Csnw Debora Hernandez RN RN ph Wise, Tara RN RN tw2 Abner Morris RN RN jd3 Ian Peterson DO DO ms3 Niurka Leal RN RN em6 Corrections: (The following items were deleted from the chart) 17:23 17:22 IV discontinued, intact, bleeding controlled, No redness/swelling at site. tw2 Pressure dressing applied, tw2
[2022-06-09] MEDS ORDERED: ONDANSETRON 4 MG/2 ML VIAL ONE (18:05)
[2022-06-09] MEDS ORDERED: FAMOTIDINE 20 MG/2 ML VIAL IV ONE (18:06)
== END 2022-06-09 17:24 | disposition home or self-care (01) ==
LOC: ER 10:51
DX: E86.0 Dehydration (principal); Z20.822 Contact with and (suspected) exposure to COVID-19; I10 Essential (primary) hypertension; F03.90 Unspecified dementia, unspecified severity, without behavioral disturbance, psychotic disturbance, mood disturbance, and anxiety
CPT/HCPCS: 87040 ×2; 87088; 85025; 87086; 36415; 85610; 83605 ×2; 85730; 84484; 80053; 70450; 71045; 87811; J7040 ×5; J2405; 51702; 81003; 81015; 96360; 96361; 99285

== ENCOUNTER 2022-06-10 14:45 | Inpatient (IN) | payer OTHER, BC ==
--- OUTSIDE RECORDS SUMMARY | 2022-06-10 14:55 | XMS REPORT | Continuity of Care Document ---
:1935 Author Organization [facility] t Address [address] [place] [address] Care Team Providers Name Role Phone Asked, No Pcp Primary Care Physician Unavailable JOSE ROBERTO DE JESUS Attending Clinician Unavailable Doctor Unassigned, [place] Attending Clinician Unavailable Ramiro Chandler MD Attending Clinician JOSE ROBERTO DE JESUS Admitting Clinician Unavailable Problems Condition Condition Condition Status Onset Resolution Last Treating Co mments Source Name Details Category Date Date Treatment Clinician Date R29.6 - R29.6 - Diagnosis Active 2020-04-12 Memoria REPEATED REPEATED -24 12:20:00 l FALLS FALLS 00:01: Piero F03.90 - F03.90 - 00 UNSPECIF UNSPECIF Active 04/06/2020 [facility] [place] INTRACRANI INTRACRAN Diagnosis Active 2020-03-20 Memoria AL IAL 03-09 21:41:00 l HEMORRHAGE HEMORRHAGE 00:00: He rmann FOLLOWING FOLLOWING 00 INJURY INJURY Active 03/09/2020 [facility] LEFT LEFT Diagnosis Active 2020-03-09 Mem oria FRONTAL FRONTAL 03-09 22:25:00 l BLEED BLEED 00:00: Piero Active 00 03/09/2020 [facility] Amnesia Amnesia Problem Active 2020-11-17 Me moria (finding) (finding) 02:02:42 l Active Piero Problem 11/17/2020 [facility] Cerebral Cerebral Problem Active 2020-11-17 Memoria hemorrhage hemorrhage 02:02:42 l (disorder) (disorder) He rmann Active Problem 11/17/2020 [facility] Neuro Dementia Dementia Problem Active 2020-11-17 Memoria (disorder) (disorder) 02:02:42 l Active [place] Problem 11/17/2020 [facility] Hyperlipid Hyperlipi Problem Active 2020-11-17 Memoria emia demia 02:02:42 l (disorder) (disorder) He rmann Active Problem 11/17/2020 [facility] Peripheral Periphera Problem Active 2020-11-17 Memoria nerve l nerve 02:02:42 l disease disease Piero (disorder) (disorder) Active Problem 11/17/2020 [facility] Recurrent Recurrent Problem Active 2020-11-17 Memoria falls falls 02:02:42 l (finding) (finding) Herm venkatesh Active Problem 11/17/2020 [facility] 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 21:41:00 l OF UNSP W LOC OF Marlow DURATION, UNSP I DURATION, I Active [facility] Allergies, Adverse Reactions, Alerts Allergy Allergy Status Severity Reaction(s) Onset Inactive Treating Comm ents Source Name Type Date Date Clinician statins statins Active Balaji Harry Social History Social Habit Start Date Stop Date Quantity Comments Source Social History 2020-01-24 2020-01-24 [facility] 21:23:26 21:23:26 Sex Assigned At [birth year] [facility] 00:00:00 00:00:00 Smoking Status Start Date Stop Date Source Tobacco smoking consumption unknown [facility] Medications Ordered Filled Start Stop Current Ordering Indication Dosage Frequency Signature Comments Components Source Medication Medication Date Date Medication? Clinician (SIG) Name Name Donepezil Yes 10 mg = 1 Mem oria hydrochlori 8-13 tab, PO, l de 10 MG 14:38: Bedtime, # leos Oral Tablet 00 30 tab, 6 [Aricept] Refill(s), Pharmacy: [facility] #[id number], 147.32, cm, 04/26/20 9:31:00 CDT, Height, 56.364, kg, 04/26/20 9:31:00 CDT, Weight heparin 2019- No Notes: Memoria sodium, 6- porcine l porcine 13:00: heparin Piero 2500 UNT/ML 00 Injectable Solution Levetiracet Yes 500 mg = 1 Memoria am 500 MG - tab, PO, l Oral Tablet 10:50: Q12H, # 12 Mar[place] [Keppra] 00 tab, 0 Refill(s) remove No Notes: Memoria patch - Remove l 02:00: patch 12 Piero 00 hours after applicatio n each day. Docusate No Notes: Memoria 6-27 (Same as: l 14:00: Colace) Piero (Do Not Crush) sennosides, No Notes: Amari maryjo RESIDENTIAL 6-27 (Same as: l 14:00: Senokot) [place] Lidocaine No Notes: Memori a 0.05 MG/MG 6-27 Apply only l Transdermal 14:00: once for He rmann Patch 00 up to 12 hours in a 24-hour period (12 hours on and 12 hours off). (Same as: Lidoderm) "Remove old patch before applicatio n of new patch" Saline No Notes: Memoria Flush 0.9% 6-27 Same as: l 14:00: BD [place] Posiflush Sterile Ceftriaxone No Notes: Amari maryjo 6-27 (Same As: l 14:00: Rocephin). [place]low 00 MEDICATION WASTE Product Size: 1000 mg Product Wasted: 0 mg Levetiracet No Notes: Amari maryjo am 500 MG 6-27 (Same l Oral Tablet 14:00: as:Keppra) Piero [Keppra] 00 Levetiracet No Notes: Amari maryjo am 6-27 Same as l 14:00: Keppra Mix Marlow with 100 mL NS, LR or D5W MEDICATION WASTE Product Size: 500 mg Product Wasted: _0__ mg Sodium 2019- No 1,000 mL, Memori a Chloride 6-27 Rate: 50 l 0.9% IV 09:17: ml/hr, Marlow 1,000 mL 00 Infuse over: 20 hr, Route: IV, Dosing Weight 54.545 kg, Total Volume: 1,000, Start date: 03/10/20 4:17:00 CDT, Duration: 30 day, Stop date: 04/09/20 4:16:00 CDT, 1.54, m2, 0 Acetaminoph 2020-0 No Notes: Do M emoria en - not exceed l 09:17: 4 gm/day. Marlow 00 (Same as: Tylenol) Acetaminoph 2019-0 No Notes: Do M emoria en 325 MG / - not exceed l Hydrocodone 09:17: 4gm/day of Piero Bitartrate 00 acetaminop 10 MG Oral hen. (Same Tablet as: [place] 325/10) Morphine 2019-0 No Notes: Memoria 6- (Same l 09:17: as:MORPhin e Sulfate) Bisacodyl 2019-0 No Notes: Memori a - (Same As: l 09:17: Dulcolax, Piero Bisco-Lax) Ondansetron 2019-0 No Notes: Amari maryjo -27 (Same as: l 09:17: Zofran) MEDICATION WASTE [...] 5 mg = 1 Amari maryjo hydrochlori 623 tab, PO, l de 5 MG 18:37: Bedtime, # Herm venkatesh Oral Tablet 00 30 tab, 3 [Aricept] Refill(s), Pharmacy: [facility] #[id number], 147.32, cm, 01/24/20 16:10:00 CDT, Height, [...] hours as needed for mild pain. ibuprofen 2018- Yes 200mg Q6H Take 200 Met hodi (ADVIL,MOTR 5-[address] [place]) 200 MG 13:40: mouth Hospit a tablet 50 every 6 l (six) hours as needed for mild pain. Immunizations Ordered Immunization Filled Immunization Date Status Commen ts Source Name Name pneumococcal 2020-03-11 Completed [facility] 13-valent vaccine 17:01:00 Piero diphtheria/pertussis 2020-03-10 Completed Amari rial , acel/tetanus adult 04:33:00 Herm venkatesh Vital Signs Vital Name Observation Time Observation Value Comments Source Systolic (mm Hg) 2020-04-26 14:31:00 Amari rial [place] Diastolic (mm Hg) 2020-04-26 14:31:00 Mem orial [place] Heart Rate 2020-04-26 14:31:00 [facility] [place] Respitory Rate 2020-04-26 14:31:00 Memori al Piero Height 2020-04-26 14:31:00 147.32 cm [facility] [place] Weight 2020-04-26 14:31:00 [facility] [place] BMI Calculated 2020-04-26 14:31:00 Memori al Piero Systolic (mm Hg) 2020-04-04 21:12:00 Amari rial [place] Diastolic (mm Hg) 2020-04-04 21:12:00 Mem orial Piero Heart Rate 2020-04-04 21:12:00 [facility] [place] Respitory Rate 2020-04-04 21:12:00 Memori al [place]o Height 2020-04-04 21:12:00 147.32 cm [facility] [place] Weight 2020-04-04 21:12:00 [facility] [place] BMI Calculated 2020-04-04 21:12:00 Memori al [place] Respitory Rate 2020-03-11 17:00:00 Memori al [place] Systolic (mm Hg) 2020-03-11 17:00:00 Amari rial [place] Diastolic (mm Hg) 2020-03-11 17:00:00 Mem orial [place] Temperature Oral (F) 2020-03-11 17:00:00 97.7 F [facility] Piero Respitory Rate 2020-03-11 16:00:00 Memori al Piero Systolic (mm Hg) 2020-03-11 16:00:00 Amari rial [place] Diastolic (mm Hg) 2020-03-11 16:00:00 Mem orial [place] Respitory Rate 2020-03-11 15:00:00 Memori al Piero Systolic (mm Hg) 2020-03-11 15:00:00 Amari rial Piero Diastolic (mm Hg) 2020-03-11 15:00:00 Mem orial Piero Temperature Oral (F) 2020-03-11 13:03:00 97.4 F [facility] [place] Heart Rate 2020-03-11 02:09:00 [facility] [place] Heart Rate 2020-03-11 02:00:00 [facility] [place] Heart Rate 2020-03-11 01:35:00 [facility] [place] Temperature Oral (F) 2020-03-10 12:30:00 97.1 F [facility] [place] Height 2020-03-10 11:05:00 154.94 cm [facility] [place] Weight 2020-03-10 11:05:00 [facility] [place] BMI Calculated 2020-03-10 11:05:00 Memori al [place] Height 2020-03-10 02:27:00 152.4 cm [facility] [place] BMI Calculated 2020-03-10 02:27:00 Memori al [place] Weight 2020-03-10 02:27:00 [facility] [place] Systolic (mm Hg) 2020-03-06 18:30:00 Amari rial [place] Diastolic (mm Hg) 2020-03-06 18:30:00 Mem orial [place] Heart Rate 2020-03-06 18:30:00 [facility] [place] Respitory Rate 2020-03-06 18:30:00 Memori al [place] Temperature Oral (F) 2020-03-06 18:30:00 98.2 F [facility] [place] Height 2020-03-06 18:30:00 147.32 cm [facility] [place] Weight 2020-03-06 18:30:00 [facility] [place] BMI Calculated 2020-03-06 18:30:00 Memori al Piero Systolic (mm Hg) 2020-01-24 21:10:00 Amari rial Piero Diastolic (mm Hg) 2020-01-24 21:10:00 Mem orial Piero Heart Rate 2020-01-24 21:10:00 [facility] [place] Respitory Rate 2020-01-24 21:10:00 Memori al Piero Temperature Oral (F) 2020-01-24 21:10:00 98.8 F [facility] Height 2020-01-24 21:10:00 147.32 cm [facility] Weight 2020-01-24 21:10:00 [facility] BMI Calculated 2020-01-24 21:10:00 Gus Harkins Procedures Procedure Date / Time Performed Performing Clinician Sourc e Hysterectomy [facility] Knee replacement [facility] n Plan of Care Planned Activity Planned Date Details Comments Source Future Scheduled 2022-05-17 COVID-19 VACCINE (#1) [facility] Test 02:00:08 [code = COVID-19 VACCINE (#1)] Future Scheduled 2022-05-17 SHINGLES VACCINES (1 Met [facility] Test 02:00:08 of 2) [code = SHINGLES VACCINES (1 of 2)] Future Scheduled 2022-05-17 65+ PNEUMOCOCCAL [facility] Test 02:00:08 VACCINE (1 - PCV) [code = 65+ PNEUMOCOCCAL VACCINE (1 - PCV)] Future Scheduled 2022-05-17 INFLUENZA VACCINE Method [facility] Test 02:00:08 [code = INFLUENZA VACCINE] Future Scheduled 2022-05-17 HEPATITIS B VACCINES Met [facility] Test 02:00:08 (1 of 3 - 3-dose series) [code = HEPATITIS B VACCINES (1 of 3 - 3-dose series)] Future Scheduled 2022-05-17 COVID-19 VACCINE (#1) [facility] Test 02:00:08 [code = COVID-19 VACCINE (#1)] Future Scheduled 2022-05-17 SHINGLES VACCINES (1 Met [facility] Test 02:00:08 of 2) [code = SHINGLES VACCINES (1 of 2)] Future Scheduled 2022-05-17 65+ P[facility]OCOCCAL [facility] Test 02:00:08 VACCINE (1 - PCV) [code = 65+ PNEUMOCOCCAL VACCINE (1 - PCV)] Future Scheduled 2022-05-17 INFLUENZA VACCINE Method [facility] Test 02:00:08 [code = INFLUENZA VACCINE] Future Scheduled 2022-05-17 HEPATITIS B VACCINES Met [facility] Test 02:00:08 (1 of 3 - 3-dose series) [code = HEPATITIS B VACCINES (1 of 3 - 3-dose series)] Future Scheduled COVID-19 [facility] (1[facility] [code = COVID-19 VACCINE (1)] Future Scheduled SHINGLES VACCINES (#1) [facility] [code = SHINGLES VACCINES (#1)] Future Scheduled 65+ PNEUMOCOCCAL [facility] Test VACCINE (1 of 1 - PPSV23) [code = 65+ PNEUMOCOCCAL VACCINE (1 of 1 - PPSV23)] Future Scheduled INFLUENZA VACCINE [facility] Test [code = INFLUENZA VACCINE] Encounters Start End Encounter Admission Attending Care Care Encounter Source Date/Time Date/Time Type Type Clinicians Facility Department ID 2021-12-[address] [facility] [id number] Common 10:00:04 [facility] 2020-11-13 2020-11-15 Outside nullFlavo MNA [id number] Memoria 21:38:07 05:59:59 Medical r Neurology 01 l Records Gloria Harry 2020-10-30 2020-10-30 Outpatient KEELY RIGGS [id number] Memoria 13:30:00 13:30:00 07 l [place] 2020-06-06 2020-06-06 Ambulatory nullFlavo MNA [id number] Memoria 18:30:00 18:30:00 Pre-Reg r Neurology [address] [facility] 2020-06-06 2020-06-06 Ambulatory nullFlavo MNA [id number] Memoria 18:30:00 18:30:00 [facility] 2020-04-26 2020-04-27 Outpatient nullFlavo MNA [id number] Memoria 14:00:00 04:59:59 r Neurology [address] [facility] 2020-04-25 2020-04-27 Outside nullFlavo MNA [id number] Memoria 14:46:35 04:59:59 Medical r Neurology [address] [facility] 2020-04-04 2020-04-05 Outpatient nullFlavo MNA [id number] Memoria 21:00:00 04:59:59 r Neurology [address] [facility] 2020-03-10 2020-03-11 Inpatient nullFlavo [facility] [id number] Memoria 02:21:00 18:00:00 r [place] 78 [facility] 2020-03-09 2020-03-09 Emergency E LIZA, [facility] 21:11:00 21:11:00 JOSE ROBERTO 2020-03-06 2020-03-07 Outpatient nullFlavo MNA [id number] Memoria 18:30:00 04:59:59 r Neurology 02 l Gloria Harry 2020-01-24 2020-01-25 Outpatient nullFlavo MNA [id number] Memoria 20:45:00 04:59:59 r Neurology 01 l Gloria Cardonaann 2020-01-24 2020-01-24 Orders Doctor DORY [id number] 00:00:00 00:00:00 Only Unassigned, [id number] [place] [id number] [id number] 2020-01-23 2020-01-23 Telephone [place] [id number] 00:00:00 00:00:00 Ramiro Stewart [address]1.13.[address]2.7.2.686 Professio [phone] [address] 2019-05-31 2019-05-31 Orders Doctor DORY 1.2.840.114 [id number] 00:00:00 00:00:00 Only Unassigned, [place] 350.1.13.10 [place] [id number] [id number] 2019-05-20 2019-05-20 [facility] 1.2.840.114 [id number] 00:00:00 00:00:00 Ramiro Stewart 350.1.13.10 [place] [id number] Professio [phone] [address] 2019-05-05 2019-05-05 Orders Doctor DORY 1.2.840.114 [id number] 00:00:00 00:00:00 Only Unassigned, LUIS 350.1.13.10 [place]2.7.2.686 [phone] [id number] Results Test Description Test Time Test Comments Results Result Comments Source HEMATOLOGY 2020-03-11 90.1 Roman metcalf 08:05:00 HEMATOLOGY 2020-03-11 08:05:00 Test Item Value Reference Range Interpretation Comme nts MCH (test code = MCH) 30.4 pg 27.0-31.0 [facility] JsrbcatFQOQIXFPKG9264-91-98 08:05:0033.8[facility]ann[facility]MATOLOGY 2020-03-11 08:05:0013.6[facility] YeletkgAXPNEJWPEC1904-34-81 08:05:09747Nfijhmag ZmigxuhTDTHKUQMFH6913-86-49 08:05:007.2[facility] AemrfddAPWOOSBHPM6520-14-18 08:05:0056.9[facility] VvymnxzBNYJXPVUHH2274-61-70 08:05:0029.2[facility] [place] CMWTZQAFHY6092-26-81 08:05:0010.9[facility] JzgvcbgBFJYURJMNA1582-71-42 08:05:00 2.2[facility] TevqiqxRRAHJWMLDM9106-42-30 08:05:000.8[facility] HermannHEMATOLOGY 2020-03-11 08:05:003.2[facility] DnntbkjQBRTIPTJUA7214-24-64 08:05:001.emorial EfiobveCLSLRHJKNP3839-95-94 08:05:000.emorial UzbynfcQIAVMQZBEA6755-28-81 08:05:000.1[facility] HermannPARATHYROID IXEZEAP7234-82-85 08:05:001.21[facility] HermannPARATHYROID SDZKNWT8191-01-25 08:05:001.21[facility] HermannCARDIAC ENZYMES 2020-03-11 08:05:00<0.02[facility] HermannCHEM OHFVO7034-54-17 08:05:92193 [facility] HermannCHEM OTPTN9886-41-02 08:05:0017[facility] HermannCHEM PANEL 2020-03-11 08:05:000.66[facility] HermannCHEM DYQES7332-41-25 08:05:65201Tgcajqdi HermannCHEM MRIXE6983-21-00 08:05:003.9[facility] HermannCHEM ROLLA0873-47-84 08:05:48864Pzrxvvpi HermannCHEM NCJIG2416-83-88 08:05:0023[facility] HermannCHEM INRSQ6824-85-59 08:05:009.0[facility] HermannCHEM CJPUL2131-94-47 08:05:0012.9 [facility] HermannCHEM PVXUW3174-19-69 08:05:0080[facility] HermannCHEM PANEL 2020-03-11 08:05:002.5[facility] HermannCHEM HCTCR8987-37-86 08:05:003.9[facility] HermannCHEM CZRJW5681-05-94 08:05:006.2[facility] HermannCHEM LDCFV8689-70-89 08:05:002.9[facility] HermannCHEM WZCJX9826-90-88 08:05:003.3[facility] HermannCHEM BJNYZ1213-53-52 08:05:00 Test Item Value Reference Range Interpretation Comments A/G Ratio (test code = A/G Ratio) 0.9 1 0.7-1.6 [facility] HermannCHEM PWCVH9329-40-97 08:05:0018[facility] HermannCHEM PANEL 2020-03-11 08:05:0018[facility] HermannCHEM NQPZD8725-48-20 08:05:0051[facility] HermannCHEM FVOZR4480-68-89 08:05:000.3[facility] HermannCHEM OVGHN9297-64-88 08:05:00<0.1[facility] OmvweoaPYOMSQCBHV8368-80-47 08:05:005.6[facility] [place] KELLDBDKJX9827-63-55 08:05:003.72[facility] RdxfxliSKXKVBVZZN5404-44-90 08:05:00 11.3[facility]orial IfqqddlNXXEZAMEDQ3580-54-94 08:05:0033.5[facility] HermannCARDIAC OWPARBS9377-23-43 18:36:00<0.02[facility] HermannDRUG UXGUGY4934-48-08 11:41:00 Negative *NA*(03/10/20 6:41 AM)[facility]annDRUG WYKBWB8380-24-53 11:41:00 Negative *NA*(03/10/20 6:41 AM)[facility]annDR[facility] KNZEYL2579-03-09 11:41:00 Negative *NA*(03/10/20 6:41 AM)[facility]annDR[facility] LPVXDV8091-43-35 11:41:00 Negative *NA*(03/10/20 6:41 AM)[facility]annDR[facility] VDZRKP1109-37-77 11:41:00 Negative *NA*(03/10/20 6:41 AM)[facility]annDR[facility] AZZOOW0190-48-27 11:41:00See Note *NA*(03/10/20 6:41 AM)[facility]annURINE AND VLKNY5627-90-87 11:41:00 Light Yellow *NA*(03/10/20 6:41 AM)[facility]ann[facility] AND XOLUH9144-19-05 11:41:00Clear (03/10/20 6:41 AM)[facility]ann[facility] AND EEIEO3072-84-94 11:41:00 Test Item Value Reference Range Interpretation Comments UA Spec Grav (test code = UA Spec 1.060 1 Grav) [facility] AND JEXPN9540-03-17 11:41:00 Test Item Value Reference Range Interpretation Comments UA pH (test code = UA pH) 5.0 1 5.0-8.0 [facility] AND FQDFW4216-99-23 11:41:00Negative *NA*(03/10/20 6:41 AM) [facility] FKPKU1883-11-64 11:41:00Negative (03/10/20 6:41 AM) [facility] TOPKK8273-46-37 11:41:00<1.0[facility]ann[facility] AND KXJSH8343-01-59 11:41:00Negative (03/10/20 6:41 AM)[facility]ann[facility] AND SJCMW2193-52-43 11:41:00Large *ABN*(03/10/20 6:41 AM)[facility]ann[facility] AND WSYPW3096-75-35 11:41:0028[facility] HermannDRUG YQAQBB1586-77-17 11:41:00Negative *NA*(03/10/20 6:41 AM)[facility]annDR[facility] FGOTZD5449-41-97 11:41:00Negative *NA*(03/10/20 6:41 AM)[facility] HermannBLOOD BANK OGFLJZL9755-85-27 04:22:00 Negative (03/09/20 11:22 PM)[facility] HermannCHEM JDUCH7787-38-29 03:16:34939 [facility] HermannCHEM FEFXQ0126-92-14 03:16:0022[facility] HermannCHEM PANEL 2020-03-10 03:16:000.92[facility] HermannCHEM SEPXW1470-59-57 03:16:48145Ppopwgqm HermannCHEM RXXPT8998-86-18 03:16:003.9[facility] HermannCHEM IROJU4852-97-71 03:16:74473Yiwhdfrt HermannCHEM GLHWP6470-83-94 03:16:0024[facility] HermannCHEM RQQXE7184-54-74 03:16:008.8[facility] HermannCHEM SONFT7433-37-26 03:16:0010.9 [facility] HermannCHEM LGGCY0763-56-46 03:16:0057[facility] HermannCHEM PANEL 2020-03-10 03:16:000.6[facility] NaeuovyAZEPGFZFTG5012-43-21 03:16:006.8[facility] VizesacZZPODUVQSO6695-96-75 03:16:003.70[facility] WszuzirMNHWJFSJEX8573-09-95 03:16:0011.5[facility] QncyfgpSCGSAHPFJR4736-55-07 03:16:0033.2[facility] [place]o AFMAVSUHQT4069-81-98 03:16:0089.6[facility] HfflerkVDCTNOAEWL8009-74-17 03:16:00 Test Item Value Reference Range Interpretation Comments MCH (test code = MCH) 31.1 pg 27.0-31.0 [facility] CcwsrbyUCOENHJCAU0248-26-85 03:16:0034.7[facility] HermannHEMATOLOGY 2020-03-10 03:16:0013.5[facility] TyhjrioHRXHTWGORG2055-57-04 03:16:44993Umgtowae HcxlcdgJOVIDQGHUI8074-29-32 03:16:006.7[facility] JhaisbhIDMBETFORB8891-38-53 03:16:00 Test Item Value Reference Range Interpretation Comments ACT (TEG) Rapid (test code = ACT (TEG) 113 s 86-118 Rapid) [facility] OrpnolmLGIRMTTWGO5630-98-18 03:16:00 Test Item Value Reference Range Interpretation Comments Split Point Rapid (test code = Split 0.6 min Point Rapid) [facility] HospitalUgdrenpNXAPDSPBIS7530-61-61 03:16:00 Test Item Value Reference Range Interpretation Comments R-time Rapid (test code = R-time 0.7 min 0.4-0.7 Rapid) [facility] HospitalFjvmxmdPQSOKIRAGO5939-07-65 03:16:00 Test Item Value Reference Range Interpretation Comments K-time Rapid (test code = K-time 0.9 min 0.6-2.3 Rapid) [facility] HospitalAadbozfAMCVWYFHNG7238-21-02 03:16:00 Test Item Value Reference Range Interpretation Comments Angle Rapid (test code = Angle 79 degrees 64-80 Rapid) [facility] HospitalNxunbxoGLJJSQDHZN3444-25-14 03:16:00 Test Item Value Reference Range Interpretation Comments Max Amplitude Rapid (test code = Max 65 mm 52-71 Amplitude Rapid) [facility] CenterIatcigvUWGNXUWNPQ9887-83-79 03:16:009.1[facility] HermannHEMATOLOGY 2020-03-10 03:16:000.7[facility] WdgmypkXBEJJGEHXE0507-12-58 03:16:0059.3[facility] OqhyqjcVPVACOVTMD8724-39-91 03:16:0027.8[facility] CjtgfjgGPPBDZXYYM5997-54-68 03:16:0011.1[facility] ZepvnutJESUNQSZQL5932-63-88 03:16:001.3[facility] [place] MRDQVHCITP2225-51-62 03:16:000.5[facility] EthtdbfJAKIEJNRUI0667-54-64 03:16:004.0 [facility] HospitalZjiadtwHPVENKHWMH0047-85-57 03:16:001.9[facility] HermannHEMATOLOGY 2020-03-10 03:16:000.8[facility] RbxvkqzIZDNYMEBRZ1667-28-15 03:16:000.1[facility] IzrjpuvSZEOBTMTFN9042-38-23 03:16:00 Test Item Value Reference Range Interpretation Comments PT (test code = PT) 12.1 s 12.0-14.7 [facility] HospitalRxnhdtySQVQCNGAUL5663-58-10 03:16:00 Test Item Value Reference Range Interpretation Comments INR (test code = INR) 0.90 1 0.85-1.17 [facility] HospitalNcvwbkzCUWDZERITX1371-88-66 03:16:00 Test Item Value Reference Range Interpretation Comments PTT (test code = PTT) 27.7 s 22.9-35.8 [facility] HospitalDvfxrowNJPVELBMTP2265-17-82 03:16:007[facility]annTOXICOLOGY 2020-03-10 03:16:000.007[facility]
[2022-06-10 16:10] LABS: Absolute Lymphocytes (CBC) 1.6 K/uL (0.7-4.9); Hematocrit 32.8 % (36.0-45.0); MCV 97.2 fL (80-100); MPV 7.2 fL (7.6-11.3); RBC Red Blood Cell Count 3.37 M/uL (3.86-4.86)
[2022-06-10 16:11] LABS: Protime INR 1.12
--- NOTE | 2022-06-10 16:13 | RAD REPORT ---
EXAM DESCRIPTION: CT - Head Brain Wo Cont - 06/10/2022 3:53 pm CLINICAL HISTORY: Alteration of awareness/confusion COMPARISON: June 09, 2022 TECHNIQUE: Computed axial tomography of the head was obtained. IV contrast was not requested. All CT scans are performed using dose optimization technique as appropriate and may include automated exposure control or mA/KV adjustment according to patient size. FINDINGS: An intracranial bleed is not seen . The ventricles are normal in caliber. No extra-axial fluid collection is noted. Mild cerebral atrophy Moderate low-density areas within periventricular, deep and subcortical white matter likely represent ischemic changes secondary to small vessel disease. Fluid within the right maxillary sinus may indicate sinusitis IMPRESSION: No acute intracranial abnormality is seen. If patient's symptoms persist MRI of the bra in would be recommended.
[2022-06-10 16:30] LABS: Albumin 2.9 g/dL (3.4-5.0); Bilirubin Direct 0.3 mg/dL (0-0.2); Bilirubin Total 0.5 mg/dL (0.2-1.0); Magnesium 2.2 mg/dL (1.8-2.4); Potassium 3.7 mmol/L (3.5-5.1); Protein, Total 6.8 g/dL (6.4-8.2); Troponin High Sensitivity 38.7 pg/mL (<58.9)
[2022-06-10 16:35] LABS: Arterial Blood Carboxyhemoglob 1.2 % (0-1.5); Blood Gas Oxyhemoglobin 96.2 % (94-97); Blood O2 Saturation 98.5 % (92-98.5)
[2022-06-10 17:14] LABS: Urine Blood 2+ (Negative); Urine Glucose Negative (Negative); Urine Protein Negative (Negative); Urine Specific Gravity 1.025 (1.005-1.030)
--- NOTE | 2022-06-10 17:17 | RAD REPORT ---
EXAM DESCRIPTION: [place] Single View06/10/2022 4:07 pm CLINICAL HISTORY: Shortness of breath COMPARISON: June 09, 2022 FINDINGS: The lungs appear clear of acute infiltrate. The heart is normal size IMPRESSION: No acute abnormalities displayed
[2022-06-10 17:54] LABS: Urine Mucus Slight /HPF (None Seen); Urine RBC 21-50 /HPF (None Seen)
[2022-06-10] MEDS ORDERED: CEFEPIME 1 GM/VIAL ONE (18:31)
[2022-06-10] MEDS ORDERED: NA CHLORIDE 0.9% 100 ML ONE (18:31)
--- NOTE | 2022-06-10 19:24 | RAD REPORT ---
EXAM DESCRIPTION: CT - Chest Abdomen Pelvis W Cont - 06/10/2022 7:03 pm CLINICAL HISTORY: Chest and abdominal pain COMPARISON: 2019 TECHNIQUE: Computed axial tomography of the chest, abdomen and pelvis was obtained. 100 cc Isovue-30 0 was administered intravenously. Oral contrast was given All CT scans are performed using dose optimization technique as appropriate and may include automated exposure control or mA/KV adjustment according to patient size. FINDINGS: Mild chronic interstitial lung opacities. No mediastinal or hilar lymphadenopathy A pleural effusion is not seen. A pericardial effusion is not noted. Small cysts. Spleen, pancreas, adrenals kidneys are unremarkable. Thompson catheter within the bladder. No evidence of diverticulitis. Hysterectomy. No adnexal mass. Paraumbilical hernia has a neck of 3.4 centimeters. It contains a portion of transverse colon. No obs truction. Old thoracic vertebral body compression fractures. Moderate to marked compression fracture L1 vertebral body appears relatively old IMPRESSION: Periumbilical hernia Moderate to marked compression fracture L1 vertebral body appears relatively old. Retropulsion of bon e into the spinal canal results in mild narrowing of thecal sac
--- NOTE | 2022-06-10 19:59 | ER ---
Nurse's Notes [facility] Name: Mignon Plunkett Age: 87 yrs Sex: Female : 1935 Arrival Date: 06/10/2022 Time: 14:57 Bed 18 Private MD: Diagnosis: Altered mental status, unspecified;Fever, unspecified;SARS-associated coronavirus as the cause of diseases classified elsewhere Presentation: 06/10 15:00 Chief complaint: EMS states: AMS, was seen here yesterday for same symptoms. jh6 15:00 Acuity: ELY 3 jh6 15:00 Coronavirus screen: Vaccine status: Patient reports receiving the 2nd dose of the covid jh6 vaccine. Risk Assessment: Do you want to hurt yourself or someone else?. 15:00 Ebola Screen: Patient negative for fever greater than or equal to 101.5 degrees jh6 Fahrenheit, and additional compatible Ebola Virus Disease symptoms Patient denies exposure to infectious person. Patient denies travel to an Ebola-affected area in the 21 days before illness onset. Initial Sepsis Screen: Does the patient meet any 2 criteria? Does the patient have a suspected source of infection?. Onset of symptoms. 16:36 Method Of Arrival: EMS: [facility] iw Historical: - Home Meds: 22:34 aspirin 81 mg Oral chew [Active]; buspirone 15 mg Oral tab 1 tab TID [Active]; kl citalopram 20 mg tab 1 tab once daily [Active]; Depakote ER 125 Oral twice a day [Active]; docusate sodium 100 mg Oral tab 1 tab 2 times per day [Active]; ferrous sulfate 325 mg (65 mg iron) Oral tab 1 tab once daily [Active]; folic acid 1 mg Oral tab 1 tab once daily [Active]; furosemide 40 mg Oral tab 1.5 tab 2 times per day [Active]; loratadine 10 mg Oral tab 1 tab once daily [Active]; memantine 10 mg Oral tab 1 tab 2 times per day [Active]; potassium chloride 20 mEq Oral TbER 1 tab 2 times per day [Active]; Vitamin C 500 mg Oral cpER 1000 mg daily [Active]; zinc sulfate 50 mg zinc (220 mg) Oral tab [Active]; - PMHx: 16:00 Anxiety; Cancer, Breast; Dementia; Depression; generalized weakness; High Cholesterol; jh6 Hypertension; insomnia; polyneuropathy; - PSHx: 16:00 hysterectomy; jh6 - Immunization history:: Adult Immunizations up to date. - Social history:: Smoking status: Patient denies any tobacco usage or history of. Screenin:00 Abuse screen: Denies threats or abuse. Denies injuries from another. 6 15:00 Nutritional screening: No deficits noted. Tuberculosis screening: No symptoms or risk [facility] factors identified. Fall Risk Secondary diagnosis (15 points) Alzheimer's, dementia, IV access (20 points). Gait- Weak (10 pts.). Assessment: 15:05 General: Appears in no apparent distress. Behavior is calm. Pain: Denies pain. [facility] 15:05 General: Appears pt sent back from the [facility] to ER due to continued AMS. was seen in ER jh6 yesterday for same s/s.. 16:00 Reassessment: No changes from previously documented assessment. Patient and/or family [facility] updated on plan of care and expected duration. Pain level reassessed. Patient is alert, oriented x 3, equal unlabored respirations, skin warm/dry/pink. son states that pt was DX with COVID 10 days ago and that yesterday was the first time that they were able to see her. States that she is normally more alert and is not recognizing family members. 19:49 General: Appears in no apparent distress. Behavior is calm. kl 21:30 Reassessment: No changes from previously documented assessment. Patient is alert, kl oriented x 3, equal unlabored respirations, skin warm/dry/pink. pt with occasional verbal outbursts. Vital Signs: 16:14 BP 136 / 86; Pulse 91; Resp 20 S; Temp 100.6(TE); Pulse Ox 98% on 2 lpm NC; iw 17:30 BP 112 / 63; Pulse 88; Resp 17; Pulse Ox 98% ; Pain 0/10; jh6 17:30 BP 108 / 61; Pulse 88; Resp 17; jh6 19:49 BP 118 / 78; Pulse 102; Resp 20; Pulse Ox 98% ; kl 19:53 Temp 99; kl ED Course: 14:57 Patient arrived in ED. iw 15:00 No provider procedures requiring assistance completed. jh6 15:00 Maintain EMS IV. Dressing intact. Good blood return noted. Site clean \T\ dry. Gauge \T\ 6 site: 20g to rt fa. 15:00 Placed in gown. Bed in low position. Call light in reach. Side rails up X2. Adult w/ jh6 patient. 15:00 Arm band placed on right wrist. jh6 15:06 Tk Walters PA is PHCP. cp 15:06 Tk Gilbert MD is Attending Physician. cp 15:20 Fany Argueta, ASHLEY is Primary Nurse. jh6 15:55 Head Brain Wo Cont In Process Unspecified. EDMS 15:56 Initial lab(s) drawn, by me, sent to lab. tm3 16:09 XRAY Chest (1 view) In Process Unspecified. EDMS 16:36 Triage completed. iw 17:00 Thompson cath inserted, using sterile technique, 16 Fr., by me, balloon inflated, urine 6 specimen collected. Patient tolerated well. 19:[address] via stretcher. jh6 19:05 Chest Abdomen Pelvis W Cont In Process Unspecified. EDMS 19:23 Primary Nurse role handed off by Fany Argueta, ASHLEY mw2 19:57 Jayy Lopez MD is Hospitalizing Provider. cp 20:30 No apparent distress. Resting quietly. kl 22:39 Patient admitted, IV remains in place. kl Administered Medications: 15:10 CANCELLED (Physician Discretion): NS 0.9% 1000 ml IV at 75 ml/hr continuous cp 18:32 Drug: Cefepime 1 grams Route: IVPB; Rate: 200 ml/hr; Infused Over: 30 mins; Site: right [facility] forearm; Medication: 17:25 VIS not applicable for this client. [facility] Outcome: 19:58 Decision to Hospitalize by Provider. cp 22:31 Admitted to Med/surg Report called to michael bennett 22:31 Condition: stable 23:07 Patient left the ED. Signatures: Dispatcher [employer] EDMS Tricia Dave RN RN kl Malecha, Toni tm3 Lina Su RN RN Tk Walters PA PA cp Helen Valladares mw2 Fany Argueta RN RN 6 Corrections: (The following items were deleted from the chart) 17:20 16:36 Chief complaint: EMS states: AMS, was seen here yesterday for same symptoms jh6 17:20 16:36 Acuity: ELY 3 jh6
--- NOTE | 2022-06-10 19:59 | EDPHYS ---
Physician Documentation [facility] Name: Mignon Plunkett Age: 87 yrs Sex: Female : 1935 Arrival Date: 06/10/2022 Time: 14:57 Bed 18 Private MD: ED Physician Tk Gilbert HPI: 06/10 15:15 This 87 yrs old Female presents to ER via Unassigned with complaints of Altered Mental cp Status. 15:15 The patient presents with decreased mental status. Onset: The symptoms/episode cp began/occurred at an unknown time. Possible causes: tested positive for COVID 19 about 10 days ago. Associated signs and symptoms: Pertinent negatives: fever. 15:15 Patient's baseline: Neuro: orientated to person, place, Motor: no deficits, Ambulation: cp walks with assist only, Speech: normal, HX of dementia. The patient has been recently seen at the [facility] Emergency Department, yesterday, for similar complaints labs were performed. 15:15 Unable to obtain HPI due to altered mental status. cp Historical: - Home Meds: 22:34 aspirin 81 mg Oral chew [Active]; buspirone 15 mg Oral tab 1 tab TID [Active]; kl citalopram 20 mg tab 1 tab once daily [Active]; Depakote ER 125 Oral twice a day [Active]; docusate sodium 100 mg Oral tab 1 tab 2 times per day [Active]; ferrous sulfate 325 mg (65 mg iron) Oral tab 1 tab once daily [Active]; folic acid 1 mg Oral tab 1 tab once daily [Active]; furosemide 40 mg Oral tab 1.5 tab 2 times per day [Active]; loratadine 10 mg Oral tab 1 tab once daily [Active]; memantine 10 mg Oral tab 1 tab 2 times per day [Active]; potassium chloride 20 mEq Oral TbER 1 tab 2 times per day [Active]; Vitamin C 500 mg Oral cpER 1000 mg daily [Active]; zinc sulfate 50 mg zinc (220 mg) Oral tab [Active]; - PMHx: 16:00 Anxiety; Cancer, Breast; Dementia; Depression; generalized weakness; High Cholesterol; jh6 Hypertension; insomnia; polyneuropathy; - PSHx: 16:00 hysterectomy; jh6 - Immunization history:: Adult Immunizations up to date. - Social history:: Smoking status: Patient denies any tobacco usage or history of. ROS: 15:20 Neuro: Positive for altered mental status. cp 15:20 Unable to obtain ROS due to altered mental status. cp Exam: 15:25 Constitutional: The patient appears in no acute distress, non-diaphoretic, non-toxic, cp well developed, well nourished. 15:25 Head/Face: Normocephalic, atraumatic. cp 15:25 Eyes: Periorbital structures: appear normal, Pupils: equal, round, and reactive to light and accomodation, Conjunctiva: normal, no exudate, no injection, Sclera: no appreciated abnormality, Lids and lashes: appear normal, bilaterally. 15:25 ENT: External ear(s): are unremarkable, Ear canal(s): are normal, clear, TM's: dullness, bilaterally, Nose: is normal, Mouth: Lips: dry, Oral mucosa: moist, Posterior pharynx: Airway: no evidence of obstruction, patent. 15:25 Chest/axilla: Inspection: normal, Palpation: is normal, no crepitus, no tenderness. 15:25 Cardiovascular: Rate: normal, Rhythm: regular, Edema: mild lower legs, JVD: is not appreciated. 15:25 Respiratory: the patient does not display signs of respiratory distress, Respirations: normal, no use of accessory muscles, no retractions, Breath sounds: are clear throughout, no decreased breath sounds, no stridor, no wheezing. 15:25 Abdomen/GI: Inspection: abdomen appears normal, Bowel sounds: active, all quadrants, Palpation: abdomen is soft and non-tender, in all quadrants. 15:25 Skin: cellulitis, is not appreciated, no rash present. 15:25 Neuro: Orientation: to person, Mentation: responsive to voice confused, Motor: moves all fours. 16:18 ECG was reviewed by the Attending Physician. cp Vital Signs: 16:14 BP 136 / 86; Pulse 91; Resp 20 S; Temp 100.6(TE); Pulse Ox 98% on 2 lpm NC; iw 17:30 BP 112 / 63; Pulse 88; Resp 17; Pulse Ox 98% ; Pain 0/10; jh6 17:30 BP 108 / 61; Pulse 88; Resp 17; jh6 19:49 BP 118 / 78; Pulse 102; Resp 20; Pulse Ox 98% ; kl 19:53 Temp 99; kl MDM: 15:09 Patient medically screened. jaleel 15:30 Differential Diagnosis: CVA, electrolyte abnormality, intracranial bleed, meningitis, cp pneumonia, sepsis, UTI, volume depletion. 15:30 ED course: 1 liter NS initiated by EMS with 800 ccs infused prior to arrival . 19:50 Data reviewed: vital signs, nurses notes, lab test result(s), EKG, radiologic studies, cp CT scan, plain films. 19:50 Response to treatment: the patient's symptoms have mildly improved after treatment, and cp as a result, I will admit patient. Physician consultation: Nikko MAJANO was called at 19:45, was contacted at 19:45, regarding admission, to the telemetry unit. patient's condition. 19:55 ED course: spoke with daughter, Josette, who declines spinal tap at this time. 06/10 15:10 Order name: Basic Metabolic Panel; Complete Time: 16:54 06/10 16:54 Interpretation: Normal except: CL 112; GLUC 118; GFR 78. 06/10 15:10 Order name: CBC with Diff; Complete Time: 16:54 06/10 16:54 Interpretation: Normal except: RBC 3.37; HGB 11.3; HCT 32.8; MPV 7.2; LYM% 15.0. 06/10 15:10 Order name: LFT's; Complete Time: 16:54 06/10 16:55 Interpretation: Normal except: BILID 0.3; ALB 2.9; GLOB 3.9; A/G 0.7. 06/10 15:10 Order name: Magnesium; Complete Time: 16:54 06/10 15:10 Order name: NT PRO-BNP; Complete Time: 16:54 06/10 16:54 Interpretation: Abnormal: NT PRO-BNP 2477. 06/10 15:10 Order name: PT-INR; Complete Time: 16:54 06/10 15:10 Order name: Troponin HS; Complete Time: 16:54 06/10 15:10 Order name: Urine Microscopic Only; Complete Time: 19:01 06/10 19:35 Interpretation: URBC 21-50; Reviewed. 06/10 15:10 Order name: Lactate; Complete Time: 16:54 cp 06/10 15:10 Order name: Procalcitonin; Complete Time: 17:18 06/10 15:53 Order name: ABG; Complete Time: 16:54 06/10 16:14 Order name: Influenza Screen (a \\T\\ B); Complete Time: 19:01 06/10 16:14 Order name: COVID-19 SARS RT PCR (Document "Date of Onset" if Symptomatic); Complete cp Time: 17:43 06/10 15:10 Order name: XRAY Chest (1 view); Complete Time: 17:18 06/10 15:10 Order name: EKG; Complete Time: 15:11 06/10 15:10 Order name: Cardiac monitoring; Complete Time: 16:04 06/10 15:10 Order name: EKG - Nurse/Tech; Complete Time: 16:04 06/10 15:10 Order name: IV Saline Lock; Complete Time: 16:04 06/10 15:10 Order name: Labs collected and sent; Complete Time: 16:03 06/10 15:10 Order name: O2 Per Protocol; Complete Time: 16:03 06/10 15:40 Order name: Head Brain Wo Cont; Complete Time: 16:54 EDMS 06/10 17:14 Order name: Urine Dipstick-Ancillary; Complete Time: 17:18 EDMS 06/10 17:18 Interpretation: Normal except: UKET Trace; UBLD 2+. 06/10 18:46 Order name: Chest Abdomen Pelvis W Cont; Complete Time: 19:34 EDMS 06/10 19:34 Interpretation: Report reviewed. 06/10 15:10 Order name: O2 Sat Monitoring; Complete Time: 16:03 06/10 15:10 Order name: Cath 06/10 15:10 Order name: Urine Dipstick-Ancillary (obtain specimen) 06/10 17:03 Order name: Thompson; Complete Time: 17:13 cp EC:18 Rate is 92 beats/min. Rhythm is regular. AK interval is normal. QRS interval is cp prolonged at 116 msec. QT interval is normal. T waves are Inverted in lead aVR. Interpreted by me. Reviewed by me. Administered Medications: 15:10 CANCELLED (Physician Discretion): NS 0.9% 1000 ml IV at 75 ml/hr continuous cp 18:32 Drug: Cefepime 1 grams Route: IVPB; Rate: 200 ml/hr; Infused Over: 30 mins; Site: right jh6 forearm; Disposition Summary: 06/10/22 19:58 Hospitalization Ordered Hospitalization Status: Inpatient Admission cp Provider: Jayy Lopez cp Location: Telemetry/MedSurg (Inpatient) cp Condition: Fair cp Problem: new cp Symptoms: have improved cp Bed/Room Type: Standard cp Room Assignment: [facility](06/10/22 21:20) Diagnosis - Altered mental status, unspecified cp - Fever, unspecified cp - SARS-associated coronavirus as the cause of diseases classified elsewhere cp Forms: - Medication Reconciliation Form cp - SBAR form cp Signatures: Dispatcher [employer] EDMS Tricia Dave RN Alexandrea Guajardo RN Tk Jimenez MD MD cha Attema, Lee, PRODUCTION STAFF WORKER-C PRODUCTION STAFF WORKER-Cla1 Tk Walters PA PA cp Hastedt, Jennifer, RN RN [facility] Corrections: (The following items were deleted from the chart) 15:10 15:10 NS 0.9% 1000 ml IV at 75 ml/hr continuous ordered. cp cp 15:40 15:32 CT-HEAD/BRAIN W/O CONTRAST ordered. EDMS EDMS 17:43 15:11 AMMONIA+C.LAB.BRZ ordered. EDMS EDMS 21:20 19:58 cp 06/11 21:49 06/10 15:25 Neuro: Orientation: to person, Mentation: confused, Motor: moves all fours, cp cp
--- NOTE | 2022-06-10 21:36 | P.HP ---
Certification for Inpatient Patient admitted to: Inpatient With expected LOS: >2 Midnights Patient will require the following post-hospital care: None Practitioner: I am a practitioner with admitting privileges, knowledge of patient current condition, hospital course, and medical plan of care. Services: Services provided to patient in accordance with Admission requirements found in Title 42 Section 412.3 of the Code of Federal Regulations <Nikko Bowie - Last Filed: 06/10/22 21:30> Patient History Date of Service: 06/10/22 Reason for admission: AMS History of Present Illness: 87-year-old female was transferred from sn[facility] by EMS to emergency department for evaluation of altered mental status. Family reports that patient does have a history of dementia but she is becoming more confused not recognizing family members and also not eating/drinking. She diagnosed with COVID approximate 10 days ago, not having any respiratory symptoms at this time. She is evaluated in the emergency department her labs were significant for elevated BNP 2477, COVID-positive. Patient confused, oriented x1. Unable to obtain baseline family not present at bedside at this time. Will admit patient for further evaluation and management of AMS, COVID 19 viral illness. - Past Medical/Surgical History Diabetic: No -: Hypertension -: Hyperlipidemia -: History of breast cancer 2013 -: Dementia -: Incontinence -: Osteoarthritis -: Depression -: Lumpectomy -: Right foot sx r/t bunion -: Bilateral knee surgery -: Right rotator cuff -: Right hip & femur r/t fx Psychosocial/ [facility] - Family History Family History: Reviewed- Non-Contributory - Social History Alcohol use: No CD- Drugs: No Caffeine use: No Place of Residence: Home <Nikko Bowie - Last Filed: 06/10/22 21:30> Date of Service: 06/11/22 <Jayy Lopez - Last Filed: 06/11/22 18:35> Allergies No Known Drug Allergies Allergy (Verified 06/01/21 10:04) Unknown Home Medications: Aspirin [Aspirin EC 81 MG] 81 mg PO DAILY 06/01/21 Citalopram Hydrobromide [Celexa] 20 mg PO DAILY 06/01/21 Memantine HCl 10 mg PO BID 06/01/21 Docusate [Colace Cap*] 100 mg PO BID #0 cap 06/07/21 Acetaminophen 650 mg PO TID 10/21/21 Buspirone HCl 15 mg PO TID 10/21/21 Carboxymethylcellulos/Glycerin [Refresh Relieva 0.5-0.9% Drop] 1 drop OP BID 10/21/21 Cyanocobalamin (Vitamin B-12) [Vitamin B-12] 1,000 mcg PO DAILY 10/21/21 Divalproex Sodium 250 mg PO BID 10/21/21 Ferrous Sulfate [Feosol] 325 mg PO DAILY 10/21/21 Folic Acid 1 mg PO DAILY 10/21/21 Loratadine [Claritin] 10 mg PO DAILY 10/21/21 Ascorbic Acid [Vitamin C] 1,000 mg PO DAILY 06/11/22 Cholecalciferol (Vitamin D3) [Vitamin D3] 2,000 unit PO DAILY 06/11/22 Furosemide [Lasix] 60 mg PO BID 06/11/22 Petrolatum 41% Oint [Aquaphor] 396 ayo TOP DAILY 06/11/22 Potassium Chloride 20 meq PO BID 06/11/22 Zinc Gluconate [Zinc] 100 mg PO DAILY 06/11/22 Review of Systems 10-point ROS is otherwise unremarkable <Nikko Bowie - Last Filed: 06/10/22 21:30> Physical Examination - Physical Exam General: Alert, In no apparent distress, Oriented x2, Demented, Confused HEENT: Atraumatic, PERRLA, Other (MM dry), EOMI, Sclerae nonicteric Neck: Supple, 2+ carotid pulse no bruit, No LAD, Without JVD or thyroid abnormality Respiratory: Clear to auscultation bilaterally, Normal air movement Cardiovascular: Regular rate/rhythm, Normal S1 S2 Capillary refill: <2 Seconds Gastrointestinal: Normal bowel sounds, No tenderness Musculoskeletal: No tenderness Integumentary: No rashes Neurological: Normal speech, Normal tone, Normal affect - Studies Laboratory Data (last 24 hrs) 06/10/22 15:45: PT 12.4, INR 1.12 06/10/22 15:45: WBC 10.80, Hgb 11.3 L, Hct 32.8 L, Plt Count 201 06/10/22 15:45: Sodium 144, Potassium 3.7, BUN 17, Creatinine 0.74, Glucose 118 H, Magnesium 2.2, Total Bilirubin 0.5, AST 32, ALT 24, Alkaline Phosphatase 68 Microbiology Data (last 24 hrs): 06/10/22 16:40 Nasopharnyx Influenza Type A Antigen Screen - Final 06/10/22 16:40 Nasopharnyx Influenza Type B Antigen Screen - Final <Nikko Bowie - Last Filed: 06/10/22 21:30> - Studies Microbiology Data (last 24 hrs): 06/10/22 16:40 Nasopharnyx Influenza Type A Antigen Screen - Final 06/10/22 16:40 Nasopharnyx Influenza Type B Antigen Screen - Final <Jayy Lopez - Last Filed: 06/11/22 18:35> Assessment and Plan - Plan Assessment: Metabolic encephalopathy secondary to COVID-19 viral illness complicated with underlying dementia Poor nutrition/oral intake Hypertension Hyperlipidemia Plan: Metabolic encephalopathy secondary to COVID-19 viral illness complicated with underlying dementia: Patient with underlying dementia, family reports worse than normal, not recognizing family members. Patient is COVID-19 positive no other signs of infection identified. Patient currently breathing well on room air will monitor daily her saturations. Urinalysis negative no signs of pneumonia/UTI present. Continue with incentive spirometry, continue home medications. ED provider recommended LP, daughter THU declined. Doubt meningitis as there are no meningeal signs present, normal WBC, source of infectionCOVID-19 confirmed. Poor nutrition/oral intake: Dietary consult in place, family reports poor oral intake the past couple of days we will monitor intake, provide supplementation as necessary. Hypertension: Continue home medications Hyperlipidemia: Continue home medications DVT PPX: Lovenox Code status:Full Discharge Plan: Longterm Plan to discharge in: 48 Hours - Advance Directives Does patient have a Living Will: No Does patient have a Durable POA for Healthcare: No - Code Status/Comfort Care Code Status Assessed: Yes (Full code) Critical Care: No Time Spent Managing Pts Care (In Minutes): 70 <Nikko Bowie - Last Filed: 06/10/22 21:30> Physician Review: Patient Assessed, Agree with Above Assessment and Plan <Jayy Lopez - Last Filed: 06/11/22 18:35>
[2022-06-10] MEDS: D5.45NS W/KCL 20MEQ 1,000 ML IV SCH (23:30)
[2022-06-11 04:15] VITALS: BMI 25.0
[2022-06-11 05:42] LABS: Absolute Lymphocytes (CBC) 1.7 K/uL (0.7-4.9); Lymphocytes % 22.1 % (15.3-44.8); MCV 96.6 fL (80-100); MPV 7.1 fL (7.6-11.3)
[2022-06-11 06:06] LABS: Albumin 2.7 g/dL (3.4-5.0); Bilirubin Total 0.5 mg/dL (0.2-1.0); Potassium 3.6 mmol/L (3.5-5.1); Protein, Total 6.5 g/dL (6.4-8.2); Thyroid Stimulating Hormone 0.606 uIU/mL (0.360-3.740)
[2022-06-11] MEDS ORDERED: POTASSIUM 25 MEQ EFFERV TAB PO ONE (09:00)
[2022-06-11] MEDS: HEPARIN 5000 UNIT/ML 1 ML VIAL SQ SCH ×2 (09:11→22:10)
[2022-06-11] MEDS: D5.45NS W/KCL 20MEQ 1,000 ML IV SCH (12:26)
--- NOTE | 2022-06-11 13:06 | EKG ---
Test Date: 2022-06-10 Test Time: 16:15:39 Medical Csr: ROLDAN MEASUREMENT RESULTS: Intervals: Rate: 92 ID: [id number] QRSD: 116 QT: 416 QTc: 514 [place]: P: 86 ID: [id number] QRS: 94 T: 51 INTERPRETIVE STATEMENTS: Normal sinus rhythm Right bundle branch block Possible Lateral infarct, age undetermined Abnormal ECG Compared to ECG 05/31/2022 16:47:33 No significant changes Electronically Signed On 06-11-22 13:05:00 CDT by Grayson Villareal
--- NOTE | 2022-06-11 13:11 | EKG ---
Test Date: 2022-06-09 Test Time: 11:15:17 Torch Shearer: ERIKA MEASUREMENT RESULTS: Intervals: Rate: 174 [place]: 156 QRSD: 94 QT: 356 QTc: 605 [place]: P: 27 [place]: 156 QRS: 87 T: 7 INTERPRETIVE STATEMENTS: sinus tachycardia Incomplete right bundle branch block Anterior infarct, age undetermined ST & T wave abnormality, consider inferolateral ischemia Abnormal ECG Compared to ECG 05/31/2022 16:47:33 Incomplete right bundle-branch block now present ST (T wave) deviation now present Possible ischemia now present Right bundle-branch block no longer present Myocardial infarct finding still present Electronically Signed On 06-11-22 13:07:33 CDT by Grayson Villareal
--- NOTE | 2022-06-11 13:22 | P.PN ---
Subjective Date of Service: 06/11/22 Chief Complaint: AMS Subjective: No new changes No new changes since admission. History is limited given mental status. Per RN, who was able to speak to daughter, she is usually A&O x 2-3. She was A&O x 1 to self only. Review of Systems is unable to be obtained Neurological: Confusion Physical Examination - Vital Signs Temperature: 97.2 F Blood Pressure: 110/52 Pulse: 70 Respirations: 16 Pulse Ox (%): 96 - Physical Exam General: Alert, In no apparent distress, Oriented x1 HEENT: Atraumatic, PERRLA, Mucous membr. moist/pink, EOMI, Sclerae nonicteric Neck: Supple, JVD not distended Respiratory: Clear to auscultation bilaterally, Normal air movement Cardiovascular: No edema, Regular rate/rhythm, Normal S1 S2, No gallops, No rubs, No murmurs Gastrointestinal: Normal bowel sounds, Soft and benign, Non-distended, Other (large reducible periumbilical hernia) Musculoskeletal: No clubbing Integumentary: No rashes Neurological: Dementia - Studies Laboratory Data (last 24 hrs) 06/10/22 15:45: PT 12.4, INR 1.12 06/10/22 15:45: WBC 10.80, Hgb 11.3 L, Hct 32.8 L, Plt Count 201 06/10/22 15:45: Sodium 144, Potassium 3.7, BUN 17, Creatinine 0.74, Glucose 118 H, Magnesium 2.2, Total Bilirubin 0.5, AST 32, ALT 24, Alkaline Phosphatase 68 Microbiology Data (last 24 hrs): 06/10/22 16:40 Nasopharnyx Influenza Type A Antigen Screen - Final 06/10/22 16:40 Nasopharnyx Influenza Type B Antigen Screen - Final Assessment And Plan - Plan # Acute Toxic Metabolic Encephalopathy possibly secondary to COVID-19 Encephalopathy # Advanced Dementia Differential diagnoses include, but are not limited to, drug/toxin-induced, COVID-induced, metabolic derangements, and neurologic etiologies. - Evaluation thus far: - Labs = Na+ 143, Ca2+ 8.9, CO2 28, Glucose 125, Ammonia <15, BUN 13, Vitamin B12 1458, TSH 0.742 - ABG = pH 7.41, PCO2 41.1, PO2 119.0 - Blood cultures x 2 drawn - Urinalysis = trace ketones, 2+ blood, 21-50 RBCs - CXR = "no acute abnormalities displayed" - CT head = "no acute intracranial abnormality is seen. If patient's symptoms persist MRI of the brain would be recommended." - Medication review = no obvious causes for encephalopathy - Management plan: - Consulted Neurology - recommendations appreciated - Unclear if etiology is COVID encephlapathy +/- progression of dementia - q4hr neuro checks - Will attempt to gain collateral history regarding mental baseline # Periumbilical Hernia containing Transverse Colon - General Surgery consulted - recommendations appreciated # Chronic Moderate-Marked L1 Vertebral Body Compression Fracture with Retropulsion of Bone into the Spinal Canal resulting in Mild Thecal Sac Narrowing - Neurologic exam limited by mental status - Neurology consulted - recommendations appreciated # Hypertension # Hyperlipidemia # History of Breast Cancer (2012) # Depression # Osteoarthritis - Hold home meds for now given altered mental status Jayy Lopez M.D.
[2022-06-11 15:05] LABS: Thyroid Stimulating Hormone 0.742 uIU/mL (0.360-3.740)
[2022-06-11] MEDS ORDERED: LORazepam 2 MG/ML VIAL IV ONE (21:15)
--- NOTE | 2022-06-11 22:06 | RAD REPORT ---
EXAM DESCRIPTION: MRI - Brain Wo Cont - 06/11/2022 9:54 pm CLINICAL HISTORY: Alteration of consciousness COMPARISON: Head CT June 10, 2022 TECHNIQUE: Axial, sagittal, and coronal magnetic resonance images of the brain were obtained. FINDINGS: Moderate signal within periventricular, deep and subcortical white matter probably ischemi c changes secondary to small vessel disease Diffusion-weighted/ADC mapping demonstrates a 9 millimeter area of abnormal signal within the left co matilda radiata compatible with an acute infarct The ventricles are normal caliber. An extra-axial fluid collection is not noted. Fluid within the sinuses/mastoids is not seen IMPRESSION: 9 millimeter acute infarct left humphries radiata The patient's nurse Clare notified
[2022-06-11] MEDS: ENSURE ENLIVE 237 ML CAN PO SCH (22:10)
[2022-06-11] MEDS ORDERED: ASPIRIN EC 81 MG TAB PO ONE (22:20)
[2022-06-12] MEDS: D5.45NS W/KCL 20MEQ 1,000 ML IV SCH ×3 (01:42→22:42)
[2022-06-12 05:37] LABS: Hematocrit 28.2 % (36.0-45.0); Lymphocytes % 24.9 % (15.3-44.8); MCV 95.5 fL (80-100); MPV 7.3 fL (7.6-11.3); RBC Red Blood Cell Count 2.96 M/uL (3.86-4.86)
[2022-06-12 05:53] LABS: Albumin 2.6 g/dL (3.4-5.0); Bilirubin Total 0.3 mg/dL (0.2-1.0); Magnesium 2.1 mg/dL (1.8-2.4); Potassium 3.6 mmol/L (3.5-5.1); Protein, Total 6.2 g/dL (6.4-8.2)
[2022-06-12] MEDS ORDERED: Ringers Lactate 500 ML IV ONE (06:26)
--- NOTE | 2022-06-12 08:24 | RAD REPORT ---
EXAM DESCRIPTION: - CP - 06/12/2022 5:05 am CLINICAL HISTORY: cva COMPARISON: CHEST PA AND LAT 2 VIEW dated 10/29/2011; CHEST PA AND LAT 2 VIEW dated 12/13/2006Head C Sp ine Mpr Wo Con dated 08/20/2021 TECHNIQUE: Real-time sonographic evaluation of both carotid systems was performed. Doppler interroga tion was performed with waveform tracing bilaterally. FINDINGS: Limited exam. Only the right common carotid and internal carotid artery were evaluated. Calcified plaque at the right carotid bulb. Peak systolic and end diastolic velocity values and the I CA/CCA ratios are in the non-hemodynamically significant range. IMPRESSION: Significantly limited exam. Only the right common carotid and internal carotid arteries were evaluated. These are patent without flow limiting stenosis. The left carotid system and both jenny tebral arteries were not evaluated as the patient would not tolerate the exam.
[2022-06-12] MEDS ORDERED: POTASSIUM CL SA 10 MEQ TAB PO ONE (09:00)
[2022-06-12] MEDS: CLOPIDOGREL 75 MG TABLET PO SCH (09:40)
[2022-06-12] MEDS: ENSURE ENLIVE 237 ML CAN PO SCH ×2 (09:41→22:42)
[2022-06-12] MEDS: FOLIC ACID 1 MG TABLET PO SCH (09:41)
[2022-06-12] MEDS: HEPARIN 5000 UNIT/ML 1 ML VIAL SQ SCH ×2 (09:41→22:43)
[2022-06-12] MEDS: ASPIRIN EC 81 MG TAB PO SCH (09:41)
--- NOTE | 2022-06-12 12:37 | P.PN ---
Subjective Date of Service: 06/12/22 Chief Complaint: AMS Overnight, her MRI returned positive for an acute left humphries radiata infarction. This morning, she appears to be improving, now A&O x [address] (states that she is in a hospital). Further history is limited given mental status. Review of Systems is unable to be obtained Physical Examination - Vital Signs Temperature: 97.2 F Blood Pressure: 102/57 Pulse: 75 Respirations: 16 Pulse Ox (%): 93 Assessment And Plan - Plan NIH Stroke Scale 1a. Level of consciousness: 0 - Alert; keenly responsive 1b. LOC questions: 0 - Both questions right 1c. LOC commands: 0 - Performs both tasks 2. Best Gaze: 0 - Normal 3. Visual: 0 - No visual loss 4. Facial Palsy: 0 - Normal symmetry 5a. Motor left arm: 0 - No drift for 10 seconds 5b. Motor right arm: 1 - drift, but doesn't hit bed 6a. Motor left le - No drift for 5 seconds 6b. Motor right le - No effort against gravity 7. Limb ataxia: 1 - ataxia in 1 limb 8. Sensory: 0 - Normal; no sensory loss 9. Best Language: 0 - Normal; no aphasia 10. Dysarthria: 0 - Normal 11. Extinction and Inattention: 0 - No abnormality 12. Distal motor function: 0 - No abnormality Total Score: 5 - Physical Exam General: Alert, In no apparent distress, Oriented x1 HEENT: Atraumatic, PERRLA, Mucous membr. moist/pink, EOMI, Sclerae nonicteric Neck: Supple, JVD not distended Respiratory: Clear to auscultation bilaterally, Normal air movement Cardiovascular: No edema, Regular rate/rhythm, Normal S1 S2, No gallops, No rubs, No murmurs Gastrointestinal: Normal bowel sounds, Soft and benign, Non-distended, Other (large reducible periumbilical hernia) Musculoskeletal: No clubbing Integumentary: No rashes Neurological: Yesterday's exam limited by AMS/dementia. Today, she is A&O x [address] CN III-XII are intact. Sensation appears to be intact throughout. 4/5 strength in RUE, 5/5 strength LUE, 1/5 strength in RLE, 5/5 strength in LLE. Ataxia present with [id number] testing. # Acute Toxic Metabolic Encephalopathy suspect secondary to Acute Left Humphries Radiata Cerebrovascular Accident # Advanced Dementia - Evaluation thus far: - Labs = Na+ 143, Ca2+ 8.9, CO2 28, Glucose 125, Ammonia <15, BUN 13, Vitamin B12 1458, TSH 0.742 - ABG = pH 7.41, PCO2 41.1, PO2 119.0 - Blood cultures x 2 drawn - Urinalysis = trace ketones, 2+ blood, 21-50 RBCs - CXR = "no acute abnormalities displayed" - CT head = "no acute intracranial abnormality is seen. If patient's symptoms persist MRI of the brain would be recommended." - MRI brain = "9 millimeter acute infarct left humphries radiata" - Carotid US = "Significantly limited exam. Only the right common carotid and internal carotid arteries were evaluated. These are patent without flow limiting stenosis. 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 Josette Plunkett. She stated that that her mother is a DNAR, which has been updated in the chart. Jayy Lopez M.D.
[2022-06-12] MEDS ORDERED: LORazepam 2 MG/ML VIAL IV ONE (15:00)
--- NOTE | 2022-06-12 17:08 | RAD REPORT ---
EXAM DESCRIPTION: MRI - MRA Head Wo Cont - 06/12/2022 4:48 pm CLINICAL HISTORY: CVA, stroke-like symptoms, abnormal MRI brain COMPARISON: MRI brain same date TECHNIQUE: Axial and coronal 3D [id number] image acquisition was performed. 3D rotational images were generated with source and reconstruction images reviewed. Horizontal and vertical axis rotation al views generated using MIP protocol. FINDINGS: Distal vertebral arteries are codominant with no focal abnormality. No basilar abnormality seen. Focal narrowing of the right posterior cerebral artery P1 segment near the tip of the basilar artery. Far peripheral posterior cerebral arteries are not well visualized. Distal most internal carotid arteries show no luminal narrowing or significant atherosclerotic change . The anterior cerebral arteries are without significant finding. The bilateral middle cerebral arter ies show scattered atherosclerotic changes. These are slightly worse on the left. No named branch occ lusion or vasculitis findings. No aneurysm or vascular malformation. IMPRESSION: Bilateral middle cerebral artery atherosclerotic changes without named branch occlusion or high-grade flow restricting lesion. No aneurysm or vascular malformation.
--- NOTE | 2022-06-12 17:11 | RAD REPORT ---
EXAM DESCRIPTION: MRI - MRA Neck W/Wo Cont - 06/12/2022 4:48 pm CLINICAL HISTORY: CVA COMPARISON: MRI brain June 11 MRA head June 12 TECHNIQUE: MR angiography of the cervical vasculature performed. Coronal imaging plane acquisition u tilized. A 14 MultiHance contrast volume was utilized. Coronal reformatted images were generated and reviewed. Vertical axis 3D rotational projections obtained using maximum intensity projection protoco l. FINDINGS: Aortic arch is a normal variant bovine configuration. The origins stenoses seen. Vertebral artery origins are tortuous but no focal stenosis seen. Significant tortuosity of the proximal right common carotid artery is seen. There is a general overall tortuosity of the left carotid vasculature from origin to the skullbase. No common carotid or internal carotid artery stenosis, dissection or s ignificant atherosclerotic change. Codominant vertebral arteries are tortuous in the proximal and mid portions but also without stenosis or dissection. IMPRESSION: MRA neck imaging shows no stenosis, dissection or clinically significant finding.
[2022-06-12] MEDS: ATORVASTATIN 40 MG TAB PO SCH (22:42)
[2022-06-13 05:55] LABS: Magnesium 2.1 mg/dL (1.8-2.4); Potassium 3.7 mmol/L (3.5-5.1)
--- NOTE | 2022-06-13 07:01 | ECHO ---
HEIGHT: 5 ft 5 in WEIGHT: 150 lb 0 oz DATE OF STUDY: 06/12/[address]: Nikko Bowie NP 2-DIMENSIONAL: YES M.MODE: YES DOPPLER: YES COLOR FLOW: YES TDS: NO PORTABLE: YES DEFINITY: NO BUBBLE STUDY: YES DIAGNOSIS: CEREBRAL VASCULLAR ATTACK CARDIAC HISTORY: CATHERIZATION: NO SURGERY: NO PROSTHETIC VALVE: NO PACEMAKER: NO MEASUREMENTS (cm) DIASTOLIC (NORMALS) SYSTOLIC (NORMALS) IVSd 1.0 (0.6-1.2) LA Diam 3.2 (1.9-4.0) LVEF 75% LVIDd 1.9 (3.5-5.7) LVIDs 1.1 (2.0-3.5) %FS 41% LVPWd 1.2 (0.6-1.2) Ao Diam 2.4 (2.0-3.7) 2 DIMENSIONAL ASSESSMENT: RIGHT ATRIUM: NORMAL LEFT ATRIUM: NORMAL RIGHT VENTRICLE: NORMAL LEFT VENTRICLE: NORMAL TRICUSPID VALVE: MILD TRICUSPID REGURGITATION MITRAL VALVE: MITRAL ANNULAR CALCIFICATION WITH MODERATE MITRAL REGURGITATION PULMONIC VALVE: NORMAL AORTIC VALVE: NORMAL PERICARDIAL EFFUSION: NONE AORTIC ROOT: NORMAL LEFT VENTRICULAR WALL MOTION: NORMAL. DOPPLER/COLOR FLOW: SEE BELOW. COMMENTS: NORMAL LEFT VENTRICULAR EJECTION FRACTION 60-65%. NORMAL WALL MOTION. MITRAL ANNULAR CALCIFICATION WITH MILD MITRAL REGURGITATION/ MODERATE MITRAL REGURGITATION. MILD TRICUSPID REGURGITATION. RIGHT VENTRICULAR SYSTOLIC PRESSURE OF 50-55mmHg. BUBBLE STUDY IS NEGATIVE. TECHNOLOGIST: MARCY OCONNELL
[2022-06-13] MEDS ORDERED: POTASSIUM CL SA 10 MEQ TAB PO ONE (09:00)
[2022-06-13] MEDS: ENSURE ENLIVE 237 ML CAN PO SCH ×2 (09:00→20:07)
[2022-06-13] MEDS: HEPARIN 5000 UNIT/ML 1 ML VIAL SQ SCH ×2 (09:12→20:07)
[2022-06-13] MEDS: ASPIRIN EC 81 MG TAB PO SCH (09:13)
[2022-06-13] MEDS: CLOPIDOGREL 75 MG TABLET PO SCH (09:13)
[2022-06-13] MEDS: FOLIC ACID 1 MG TABLET PO SCH (09:13)
[2022-06-13] MEDS: D5.45NS W/KCL 20MEQ 1,000 ML IV SCH ×2 (10:19→20:06)
[2022-06-13] MEDS: ATORVASTATIN 40 MG TAB PO SCH (20:07)
--- NOTE | 2022-06-13 21:52 | CON ---
Reason For Consultation: Consultation called because of altered mental status. History Of Present Illness: Ms. Plunkett is an 87-year-old right-handed patient who has d ementia, hypertension, anxiety, who is also COVID positive and reportedly comes with more disorientat ion and confusion. She resides at a local correction and at that facility was noted to have her de teriorating condition. Her COVID test was positive around the -01 June. However, she did not have significant respiratory symptoms, but perhaps a low-grade fever. At [facility] her CO VID test continued to be positive on the . Her head CT scan showed no acute ischemic or hemorrhagic change. Her MRI of the brain again showed no acute ischemic or hemorrhagic change. M oderate small-vessel disease was identified. A 9 mm acute infarct was seen in the left humphries radiat a. The MRA of her head and neck showed no significant abnormalities. Her carotid artery ultrasound was a limited study with the left carotid and fourth vertebral arteries not being visualized. Her ec hocardiogram showed an ejection fraction of 75% with normal wall motion, mitral annular calcification , right ventricular systolic pressure of 50-55, and negative bubble studies. Laboratory studies otherwise showed slightly low hemoglobin of 9.8, normal white blood cell count. A rterial blood gas essentially unremarkable and chemistries mildly elevated chloride and slightly elev ated glucose. Normal liver function studies. Ammonia level unremarkable at 15. B12 slightly elevat ed. Procalcitonin was negative at less than 0.05. She did receive hydration and was admitted. At the time of my evaluation, there is a therapist at [facility] bedside. She followed my instructions without difficulty. She had limited range of motion of the right upper extremity. She was able to bend the forearm, but had difficulty elevating the arm and di fficulties using the right hand. She could not lift the right leg off the bed. Past Medical History: Hypertension, dyslipidemia, breast cancer in 2013, incontinence, dementia, dep ression. Past Surgical History: Lumpectomies, right foot surgery, bilateral knee surgery, right rotator cuff surgery, right hip and femur surgeries. Social History: No alcohol, tobacco, or IV drug use. She lives at [facility]. Family History: Noncontributory. Review of Systems: No reported shortness of breath, cough despite the COVID positivity, more disorientation, confusion, weakness. No bladder or bowel loss. Physical Examination: Vital Signs: Blood pressure 123/52, pulse 77, temperature 97.4, respiratory rate 17, oxygen saturati on 94% on room air. Weight 150 pounds, height 5 feet 5 inches, BMI 25. General: Ms. Plunkett is resting comfortably. She is in no acute distress. HEENT: She is normocephalic and atraumatic. Sclerae anicteric. Oropharynx is moist. Neck: Supple. Chest: Clear. Abdomen: Soft. Extremities: Trace edema in the left and right lower extremity. Neurologic: Motor examination in the left upper and lower extremities, no focal deficits. Full stre ngth with mild exertion, difficulty with full exertion. On the right upper extremity, deltoid around 3+, biceps 3+ to 4-, finger open and closing and wrist flexion and extension 3+ in the lower extremi ty proximally on the right 2 and distally 2/5 in the left lower extremity 5/5 proximally and distally . Sensory exam, slight decreased light touch and temperature on the right compared to left upper and lower extremity. Coordination intact in the upper and lower extremities. Assessment: Ms. Plunkett is an 87-year-old patient who is COVID positive, has a 9 mm left humphries ra diata stroke. She has multiple stroke risk factors including hypertension along with COVID positivit y. She has a code status of do not resuscitate. Her prognosis for good recovery is fair. She, jerrod alvarado, along with the patient's family is willing to participate in minimal physical therapy to regain recovery. There is a discussion that was entered into about the possibility of hospice care given th e patient's dementia and stroke, the family will make a decision regarding that. Plan: Aspirin 81 mg daily, Lipitor 40 mg daily, folic acid 1 mg daily, Plavix 75 mg daily. May cons ider donepezil or Aricept beginning with 5 mg daily medication. As noted, if she is willi ng to undergo physical therapy in [facility], she is likely to be able to withstand it, but woul d have difficulty with cognitive functioning and recalling what was taught given her level of cogniti ve impairment. She, however, may be discharged at this point as there is no acute issue that require s ongoing hospitalization. ANDREI/CHAVEZ Voice ID: [id number] Report ID: [id number]
--- NOTE | 2022-06-13 22:43 | P.PN ---
Subjective Date of Service: 06/13/22 Chief Complaint: AMS No acute events overnight. History is limited by dementia. Mental status appears to be fluctuating. Discussed placement for therapy at length with her daughter, Ms. Finch, who is trying to make a decision between SNF with PT vs hospice. Review of Systems is unable to be obtained Physical Examination - Vital Signs Temperature: 99.1 F Blood Pressure: 133/93 Pulse: 92 Respirations: 15 Pulse Ox (%): 93 Assessment And Plan - Plan NIH Stroke Scale 1a. Level of consciousness: 0 - Alert; keenly responsive 1b. LOC questions: 0 - Both questions right 1c. LOC commands: 0 - Performs both tasks 2. Best Gaze: 0 - Normal 3. Visual: 0 - No visual loss 4. Facial Palsy: 0 - Normal symmetry 5a. Motor left arm: 0 - No drift for 10 seconds 5b. Motor right arm: 1 - drift, but doesn't hit bed 6a. Motor left le - No drift for 5 seconds 6b. Motor right le - No effort against gravity 7. Limb ataxia: 1 - ataxia in 1 limb 8. Sensory: 0 - Normal; no sensory loss 9. Best Language: 0 - Normal; no aphasia 10. Dysarthria: 0 - Normal 11. Extinction and Inattention: 0 - No abnormality 12. Distal motor function: 0 - No abnormality Total Score: 5 - Physical Exam General: Alert, In no apparent distress, Oriented x1 HEENT: Atraumatic, PERRLA, Mucous membr. moist/pink, EOMI, Sclerae nonicteric Neck: Supple, JVD not distended Respiratory: Clear to auscultation bilaterally, Normal air movement Cardiovascular: No edema, Regular rate/rhythm, Normal S1 S2, No gallops, No rubs, No murmurs Gastrointestinal: Normal bowel sounds, Soft and benign, Non-distended, Other (large reducible periumbilical hernia) Musculoskeletal: No clubbing Integumentary: No rashes Neurological: A&O x 1 to person. CN III-XII are intact. Sensation appears to be intact throughout. 4/5 strength in RUE, 5/5 strength LUE, 1/5 strength in RLE, 5/5 strength in LLE. Ataxia present with [id number] testing. # Acute Toxic Metabolic Encephalopathy suspect secondary to Acute Left Humphries Radiata Cerebrovascular Accident # Advanced Dementia # COVID-19 Infection - Evaluation thus far: - Labs = Na+ 143, Ca2+ 8.9, CO2 28, Glucose 125, Ammonia <15, BUN 13, Vitamin B12 1458, TSH 0.742 - ABG = pH 7.41, PCO2 41.1, PO2 119.0 - Blood cultures x 2 drawn - Urinalysis = trace ketones, 2+ blood, 21-50 RBCs - CXR = "no acute abnormalities displayed" - CT head = "no acute intracranial abnormality is seen. If patient's symptoms persist MRI of the brain would be recommended." - MRI brain = "9 millimeter acute infarct left humphries radiata" - MRA head = "Bilateral middle cerebral artery atherosclerotic changes without named branch occlusion or high-grade flow restricting lesion. No aneurysm or vascular malformation." - MRA neck = "MRA neck imaging shows no stenosis, dissection or clinically significant finding." - Carotid US = "Significantly limited exam. Only the right common carotid and internal carotid arteries were evaluated. These are patent without flow limiting stenosis. The left carotid system and both vertebral arteries were not evaluated as the patient would not tolerate the exam" - TTE = "NORMAL LEFT VENTRICULAR EJECTION FRACTION 60-65%. NORMAL WALL MOTION. MITRAL ANNULAR CALCIFICATION WITH MILD MITRAL REGURGITATION/ MODERATE MITRAL REGURGITATION. MILD TRICUSPID REGURGITATION. RIGHT VENTRICULAR SYSTOLIC PRESSURE OF 50-55mmHg. BUBBLE STUDY IS NEGATIVE." - Medication review = no obvious causes for encephalopathy - Management plan: - Consulted Neurology and spoke with Dr. Cuevas - recommendations appreciated - NIHSS = 5 - q4hr neurochecks - PT/OT evaluation requested - Ordered risk profile: - Hgb A1c = 5.5 % - Lipid panel: TC 201, TG 249, LDL 120, HDL 31 - TSH = 0.742 - Started aspirin, atorvastatin, folic acid, clopidogrel # Periumbilical Hernia containing Transverse Colon - General Surgery consulted and spoke with Dr. 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 Josette Plunkett. She is making a decision between SNF with PT or hospice. She is medically cleared for discharge once accepted. Jayy Lopez M.D.
[2022-06-14 06:45] LABS: Magnesium 2.1 mg/dL (1.8-2.4); Potassium 3.8 mmol/L (3.5-5.1)
[2022-06-14] MEDS: D5.45NS W/KCL 20MEQ 1,000 ML IV SCH ×2 (07:01→19:48)
[2022-06-14] MEDS: ASPIRIN EC 81 MG TAB PO SCH (08:30)
[2022-06-14] MEDS: FOLIC ACID 1 MG TABLET PO SCH (08:30)
[2022-06-14] MEDS: ENSURE ENLIVE 237 ML CAN PO SCH ×2 (08:30→19:48)
[2022-06-14] MEDS: CLOPIDOGREL 75 MG TABLET PO SCH (08:30)
[2022-06-14] MEDS: HEPARIN 5000 UNIT/ML 1 ML VIAL SQ SCH ×2 (08:52→19:48)
[2022-06-14] MEDS ORDERED: POTASSIUM CL SA 10 MEQ TAB PO ONE (09:00)
--- NOTE | 2022-06-14 16:08 | P.PN ---
Subjective Date of Service: 06/14/22 Chief Complaint: AMS No acute events overnight. History is limited by dementia. Mental status appears to be fluctuating. Today, she is alert and oriented x 2. She is able to tell me her name and location, as well as her daughter's name. I have updated her daughter, Ms. Obando, who is deciding between SNF vs hospice. Review of Systems is unable to be obtained Physical Examination - Vital Signs Temperature: 98.8 F Blood Pressure: 107/57 Pulse: 88 Respirations: 16 Pulse Ox (%): 93 Assessment And Plan - Plan NIH Stroke Scale 1a. Level of consciousness: 0 - Alert; keenly responsive 1b. LOC questions: 0 - Both questions right 1c. LOC commands: 0 - Performs both tasks 2. Best Gaze: 0 - Normal 3. Visual: 0 - No visual loss 4. Facial Palsy: 0 - Normal symmetry 5a. Motor left arm: 0 - No drift for 10 seconds 5b. Motor right arm: 1 - drift, but doesn't hit bed 6a. Motor left le - No drift for 5 seconds 6b. Motor right le - some effort against gravity 7. Limb ataxia: 1 - ataxia in 1 limb 8. Sensory: 0 - Normal; no sensory loss 9. Best Language: 0 - Normal; no aphasia 10. Dysarthria: 0 - Normal 11. Extinction and Inattention: 0 - No abnormality 12. Distal motor function: 0 - No abnormality Total Score: 4 - Physical Exam General: Alert, In no apparent distress, Oriented x2 HEENT: Atraumatic, PERRLA, Mucous membr. moist/pink, EOMI, Sclerae nonicteric Neck: Supple, JVD not distended Respiratory: Clear to auscultation bilaterally, Normal air movement Cardiovascular: No edema, Regular rate/rhythm, Normal S1 S2, No gallops, No rubs, No murmurs Gastrointestinal: Normal bowel sounds, Soft and benign, Non-distended, Other (large reducible periumbilical hernia) Musculoskeletal: No clubbing Integumentary: No rashes Neurological: A&O x [address] CN III-XII are intact. Sensation appears to be intact throughout. 4/5 strength in RUE, 5/5 strength LUE, 3/5 strength in RLE, 5/5 strength in LLE. Ataxia present with [id number] testing on right side. # Acute Toxic Metabolic Encephalopathy suspect secondary to Acute Left Humphries Radiata Cerebrovascular Accident # Advanced Dementia # COVID-19 Infection - Evaluation thus far: - Labs = Na+ 143, Ca2+ 8.9, CO2 28, Glucose 125, Ammonia <15, BUN 13, Vitamin B12 1458, TSH 0.742 - ABG = pH 7.41, PCO2 41.1, PO2 119.0 - Blood cultures x 2 drawn - Urinalysis = trace ketones, 2+ blood, 21-50 RBCs - CXR = "no acute abnormalities displayed" - CT head = "no acute intracranial abnormality is seen. If patient's symptoms persist MRI of the brain would be recommended." - MRI brain = "9 millimeter acute infarct left humphries radiata" - MRA head = "Bilateral middle cerebral artery atherosclerotic changes without named branch occlusion or high-grade flow restricting lesion. No aneurysm or vascular malformation." - MRA neck = "MRA neck imaging shows no stenosis, dissection or clinically significant finding." - Carotid US = "Significantly limited exam. Only the right common carotid and internal carotid arteries were evaluated. These are patent without flow limiting stenosis. The left carotid system and both vertebral arteries were not evaluated as the patient would not tolerate the exam" - TTE = "NORMAL LEFT VENTRICULAR EJECTION FRACTION 60-65%. NORMAL WALL MOTION. MITRAL ANNULAR CALCIFICATION WITH MILD MITRAL REGURGITATION/ MODERATE MITRAL REGURGITATION. MILD TRICUSPID REGURGITATION. RIGHT VENTRICULAR SYSTOLIC PRESSURE OF 50-55mmHg. BUBBLE STUDY IS NEGATIVE." - Medication review = no obvious causes for encephalopathy - Management plan: - Consulted Neurology and spoke with Dr. Cuevas - recommendations appreciated - NIHSS = 4 - q4hr neurochecks - PT/OT evaluation requested - Ordered risk profile: - Hgb A1c = 5.5 % - Lipid panel: TC 201, TG 249, LDL 120, HDL 31 - TSH = 0.742 - Started aspirin, atorvastatin, folic acid, clopidogrel # Periumbilical Hernia containing Transverse Colon - General Surgery consulted and spoke with Dr. 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
--- NOTE | 2022-06-14 18:41 | RAD REPORT ---
EXAM DESCRIPTION: RAD - Hip Right 2 View - 06/14/2022 5:45 pm CLINICAL HISTORY: fractured? COMPARISON: Hip Right 2 View dated 05/31/2021 FINDINGS: AP and frog-leg views of the right hip were obtained. Bones are osteopenic. Fracture fixation hardware is in place. Alignment and positioning of the fractu re fragments are grossly normal. This no postoperative comparison images are available. Visible remna nt fracture lines match with the pre-surgical images. An acute fracture is not identifiable. No fract ure of the hardware. Partially imaged right hemipelvis shows osteopenic change. No pathologic process seen. IMPRESSION: Surgical hardware is in place from prior fracture. This appears to be appropriately posi tioned with no unexpected alignment or positioning of the fracture fragments.
[2022-06-14] MEDS: ATORVASTATIN 40 MG TAB PO SCH (19:48)
[2022-06-15] MEDS: ASPIRIN EC 81 MG TAB PO SCH (08:46)
[2022-06-15] MEDS: CLOPIDOGREL 75 MG TABLET PO SCH (08:46)
[2022-06-15] MEDS: ENSURE ENLIVE 237 ML CAN PO SCH ×2 (08:46→21:43)
[2022-06-15] MEDS: FOLIC ACID 1 MG TABLET PO SCH (08:46)
[2022-06-15] MEDS: D5.45NS W/KCL 20MEQ 1,000 ML IV SCH ×2 (09:41→14:04)
[2022-06-15] MEDS: HEPARIN 5000 UNIT/ML 1 ML VIAL SQ SCH ×2 (09:42→21:42)
--- NOTE | 2022-06-15 14:54 | P.PN ---
Subjective Date of Service: 06/15/22 Chief Complaint: AMS No acute events overnight. History is limited by dementia. No concerns per RN. Awaiting placement. Her daughter, Ms. Finch, to make a decision tomorrow regarding placement since it is currently the weekend. Review of Systems is unable to be obtained Physical Examination - Vital Signs Temperature: 98.2 F Blood Pressure: 119/60 Pulse: 77 Respirations: 16 Pulse Ox (%): 95 Assessment And Plan - Plan NIH Stroke Scale 1a. Level of consciousness: 0 - Alert; keenly responsive 1b. LOC questions: 0 - Both questions right 1c. LOC commands: 0 - Performs both tasks 2. Best Gaze: 0 - Normal 3. Visual: 0 - No visual loss 4. Facial Palsy: 0 - Normal symmetry 5a. Motor left arm: 0 - No drift for 10 seconds 5b. Motor right arm: 1 - drift, but doesn't hit bed 6a. Motor left le - No drift for 5 seconds 6b. Motor right le - some effort against gravity 7. Limb ataxia: 1 - ataxia in 1 limb 8. Sensory: 0 - Normal; no sensory loss 9. Best Language: 0 - Normal; no aphasia 10. Dysarthria: 0 - Normal 11. Extinction and Inattention: 0 - No abnormality 12. Distal motor function: 0 - No abnormality Total Score: 4 - Physical Exam General: Alert, In no apparent distress, Oriented x2 HEENT: Atraumatic, PERRLA, Mucous membr. moist/pink, EOMI, Sclerae nonicteric Neck: Supple, JVD not distended Respiratory: Clear to auscultation bilaterally, Normal air movement Cardiovascular: No edema, Regular rate/rhythm, Normal S1 S2, No gallops, No rubs, No murmurs Gastrointestinal: Normal bowel sounds, Soft and benign, Non-distended, Other (large reducible periumbilical hernia) Musculoskeletal: No clubbing Integumentary: No rashes Neurological: A&O x [address] CN III-XII are intact. Sensation appears to be intact throughout. 4/5 strength in RUE, 5/5 strength LUE, 3/5 s trength in RLE, 5/5 strength in LLE. Ataxia present with [id number] testing on right side. # Acute Toxic Metabolic Encephalopathy suspect secondary to Acute Left Humphries Radiata Cerebrovascular Accident # Advanced Dementia # COVID-19 Infection - Evaluation thus far: - Labs = Na+ 143, Ca2+ 8.9, CO2 28, Glucose 125, Ammonia <15, BUN 13, Vitamin B12 1458, TSH 0.742 - ABG = pH 7.41, PCO2 41.1, PO2 119.0 - Blood cultures x 2 drawn - Urinalysis = trace ketones, 2+ blood, 21-50 RBCs - CXR = "no acute abnormalities displayed" - CT head = "no acute intracranial abnormality is seen. If patient's symptoms persist MRI of the brain would be recommended." - MRI brain = "9 millimeter acute infarct left humphries radiata" - MRA head = "Bilateral middle cerebral artery atherosclerotic changes without named branch occlusion or high-grade flow restricting lesion. No aneurysm or vascular malformation." - MRA neck = "MRA neck imaging shows no stenosis, dissection or clinically significant finding." - Carotid US = "Significantly limited exam. Only the right common carotid and internal carotid arteries were evaluated. These are patent without flow limiting stenosis. The left carotid system and both vertebral arteries were not evaluated as the patient would not tolerate the exam" - TTE = "NORMAL LEFT VENTRICULAR EJECTION FRACTION 60-65%. NORMAL WALL MOTION. MITRAL ANNULAR CALCIFICATION WITH MILD MITRAL REGURGITATION/ MODERATE MITRAL REGURGITATION. MILD TRICUSPID REGURGITATION. RIGHT VENTRICULAR SYSTOLIC PRESSURE OF 50-55mmHg. BUBBLE STUDY IS NEGATIVE." - Medication review = no obvious causes for encephalopathy - Management plan: - Consulted Neurology and spoke with Dr. Cuevas - recommendations appreciated - NIHSS = 4 - q4hr neurochecks - PT/OT evaluation requested - Ordered risk profile: - Hgb A1c = 5.5 % - Lipid panel: TC 201, TG 249, LDL 120, HDL 31 - TSH = 0.742 - Started aspirin, atorvastatin, folic acid, clopidogrel # Periumbilical Hernia containing Transverse Colon - General Surgery consulted and spoke with Dr. Martinez - recommended outpatient follow-up as long as hernia is not obstructed or incarcerated # Chronic Moderate-Marked L1 Vertebral Body Compression Fracture with Retropulsion of Bone into the Spinal Canal resulting in Mild Thecal Sac Narrowing - Neurologic exam limited by mental status - Neurology consulted - recommendations appreciated - Today, Gisella mentioned that she had a broken right hip - Will obtain x-rays # Hypertension # Hyperlipidemia # History of Breast Cancer (2012) # Depression # Osteoarthritis - Hold home meds for now given altered mental status No acute changes. Continue current plan of care. Awaiting placement. Jayy Lopez M.D. Physician Review: Patient Assessed, Agree with Above Assessment and Plan
[2022-06-15] MEDS: ATORVASTATIN 40 MG TAB PO SCH (21:42)
[2022-06-16] MEDS: FOLIC ACID 1 MG TABLET PO SCH (09:00)
[2022-06-16] MEDS: ASPIRIN EC 81 MG TAB PO SCH (10:34)
[2022-06-16] MEDS: HEPARIN 5000 UNIT/ML 1 ML VIAL SQ SCH ×2 (10:34→21:15)
[2022-06-16] MEDS: CLOPIDOGREL 75 MG TABLET PO SCH (10:34)
[2022-06-16] MEDS: ENSURE ENLIVE 237 ML CAN PO SCH ×2 (10:35→21:15)
[2022-06-16] MEDS: D5.45NS W/KCL 20MEQ 1,000 ML IV SCH ×2 (12:21→23:23)
--- NOTE | 2022-06-16 18:30 | P.PN ---
Date of Service: 06/16/22 Received a call at 1806 that patient sustained a mechanical fall. Nursing staff had helped her to sit on the side of her bed to eat dinner. She was eating and not requiring assistance so RN left to assist another patient. Ms. Plunkett is only oriented x 1 and cannot provide history on why she tried to get up/how she fell. Patient was sitting on the floor with her right leg flexed at the knee externally rotated 90 degrees and complaining of pain in knee. My physical exam confirmed that she was neurovascularly intact. She did not hit her head. Vital signs stable. Nursing staff assisted patient back into bed and she reported her pain had resolved. She has full ROM of right leg. Will obtain xrays to rule out any fracture. Patient advised to stay in bed and use call light if requiring assistance.
--- NOTE | 2022-06-16 20:16 | RAD REPORT ---
EXAM DESCRIPTION: RAD - Knee Right 2 View - 06/16/2022 7:28 pm CLINICAL HISTORY: fall COMPARISON: No comparisons FINDINGS: Total knee prosthesis in place without radiographic evidence for loosening. There is an ob lique fracture line traverses the distal shaft of the femur extending to the metaphyseal portion of t he femur near the anterior flange of the femoral component. Proximal most aspect of the fracture is a steffi the field of view. There is no distraction or angulation component seen. Proximal tibia and fibu la show no acute findings. No joint effusion or lipohemarthrosis. No foreign body or soft tissue abnormality. IMPRESSION: Distal femur fracture, as detailed, without distraction or angulation deformity. Total knee prosthesis in place with no radiographic loosening.
[2022-06-16] MEDS: ATORVASTATIN 40 MG TAB PO SCH (21:14)
--- NOTE | 2022-06-16 21:48 | RAD REPORT ---
EXAM DESCRIPTION: RAD - Femur Right - 06/16/2022 9:05 pm CLINICAL HISTORY: fall, leg pain COMPARISON: Knee Right 2 View dated 06/16/2022 FINDINGS: Proximal femur shows fracture fixation hardware in place. No unexpected hardware finding. Fracture fragment alignment within normal range. Bones are osteopenic. No acute right hemipelvis find ing. Fracture is present distal femur extending from the distal shaft into the metaphyseal portion near th e anterior flange of the knee component of the total prosthesis. No significant distraction or angula tion component. No loosening of the knee implant seen. IMPRESSION: Distal femur fracture as detailed with no significant distraction or angulation componen t. Proximal femur fracture hardware in place in good alignment and positioning. No acute proximal femur finding.
--- NOTE | 2022-06-16 21:49 | RAD REPORT ---
EXAM DESCRIPTION: RAD - Hip Right 2 View - 06/16/2022 9:05 pm CLINICAL HISTORY: fall, pain COMPARISON: Hip Right 2 View dated 06/14/2022 FINDINGS: AP and frog-leg views of the right hip were obtained. Proximal femur fracture fixation hardware in place unchanged in positioning from June 14 imaging. P roximal femur fracture still identifiable. Fracture fragments are stable in positioning. No pathologi c or destructive process. IMPRESSION: Degenerative and postsurgical changes are present at the right hip joint. No identifiabl e changes from the June 14 imaging.
[2022-06-17] MEDS: ACETAMINOPHEN 500 MG TAB PO PRN ×2 (05:54→17:30)
[2022-06-17 06:09] LABS: Absolute Lymphocytes (CBC) 1.8 K/uL (0.7-4.9); Hematocrit 27.5 % (36.0-45.0); Lymphocytes % 15.6 % (15.3-44.8); MCV 94.3 fL (80-100); MPV 7.1 fL (7.6-11.3); RBC Red Blood Cell Count 2.91 M/uL (3.86-4.86)
[2022-06-17 06:37] LABS: Potassium 4.4 mmol/L (3.5-5.1)
[2022-06-17] MEDS: ENSURE ENLIVE 237 ML CAN PO SCH ×2 (09:00→21:43)
[2022-06-17] MEDS: CLOPIDOGREL 75 MG TABLET PO SCH (10:16)
[2022-06-17] MEDS: FOLIC ACID 1 MG TABLET PO SCH (10:16)
[2022-06-17] MEDS: HEPARIN 5000 UNIT/ML 1 ML VIAL SQ SCH ×2 (10:17→21:43)
[2022-06-17] MEDS: ASPIRIN EC 81 MG TAB PO SCH (10:17)
[2022-06-17] MEDS: D5.45NS W/KCL 20MEQ 1,000 ML IV SCH (17:31)
--- NOTE | 2022-06-17 18:56 | RAD REPORT ---
EXAM DESCRIPTION: RAD - Hip Left 2 View - 06/17/2022 6:33 pm CLINICAL HISTORY: pain after fall COMPARISON: <Comparisons> FINDINGS: Diffuse osteopenia is noted. Cortical irregularity is present along the lateral aspect of the greater trochanter. This could represent a fracture. Recommend CT or MR imaging of the left hip.
--- NOTE | 2022-06-17 18:56 | RAD REPORT ---
EXAM DESCRIPTION: RAD - Knee Left 2 View - 06/17/2022 6:33 pm CLINICAL HISTORY: pain after fall COMPARISON: No comparisons FINDINGS: Left total knee arthroplasty is noted. No fracture or dislocation seen.
--- NOTE | 2022-06-17 19:09 | P.CNS ---
Date of Consult: 06/17/22 Reason for Consult: femur fracture Chief Complaint: AMS History of Present Illness: demented 87 year old female oriented to self, on ospice slipped out of bed while sitting up for dinner, she has a history of regularly slipping out of bed in her nursing facility. she was found on the floor by her nurse in a hurdler position with her right hip internally rotated and her right hip flexed 90 degrees. She is covid positive on hospice with DNR orders. she is non ambulatory. Allergies No Known Drug Allergies Allergy (Verified 06/01/21 10:04) Unknown Home Medications: Aspirin [Aspirin EC 81 MG] 81 mg PO DAILY 06/01/21 Citalopram Hydrobromide [Celexa] 20 mg PO DAILY 06/01/21 Memantine HCl 10 mg PO BID 06/01/21 Docusate [Colace Cap*] 100 mg PO BID #0 cap 06/07/21 Acetaminophen 650 mg PO TID 10/21/21 Buspirone HCl 15 mg PO TID 10/21/21 Carboxymethylcellulos/Glycerin [Refresh Relieva 0.5-0.9% Drop] 1 drop OP BID 10/21/21 Cyanocobalamin (Vitamin B-12) [Vitamin B-12] 1,000 mcg PO DAILY 10/21/21 Divalproex Sodium 250 mg PO BID 10/21/21 Ferrous Sulfate [Feosol] 325 mg PO DAILY 10/21/21 Folic Acid 1 mg PO DAILY 10/21/21 Loratadine [Claritin] 10 mg PO DAILY 10/21/21 Ascorbic Acid [Vitamin C] 1,000 mg PO DAILY 06/11/22 Cholecalciferol (Vitamin D3) [Vitamin D3] 2,000 unit PO DAILY 06/11/22 Furosemide [Lasix] 60 mg PO BID 06/11/22 Petrolatum 41% Oint [Aquaphor] 396 ayo TOP DAILY 06/11/22 Potassium Chloride 20 meq PO BID 06/11/22 Zinc Gluconate [Zinc] 100 mg PO DAILY 06/11/22 - Past Medical/Surgical History Diabetic: No -: Hypertension -: Hyperlipidemia -: History of breast cancer 2012 -: Dementia -: Incontinence -: Osteoarthritis -: Depression -: Lumpectomy -: Right foot sx r/t bunion -: Bilateral knee surgery -: Right rotator cuff -: Right hip & femur r/t fx Psychosocial/ Personal History: Patient is currently resident of [facility] - Social History Smoking Status: Unknown if ever smoked Alcohol use: No CD- Drugs: No Caffeine use: No Place of Residence: Home Review of Systems is unable to be obtained Physical Examination Temp Pulse Resp BP Pulse Ox 98.7 F 93 H 14 119/63 97 06/17/22 16:00 06/17/22 16:00 06/17/22 16:00 06/17/22 16:00 06/17/22 16:00 Musculoskeletal: Tenderness Imagings Data: FINDINGS: Proximal femur shows fracture fixation hardware in place. No unexpected hardware finding. Fracture fragment alignment within normal range. Bones are osteopenic. No acute right hemipelvis finding. Fracture is present distal femur extending from the distal shaft into the metaphyseal portion near the anterior flange of the knee component of the total prosthesis. No significant distraction or angulation component. No loosening of the knee implant seen. IMPRESSION: Distal femur fracture as detailed with no significant distraction or angulation component. Proximal femur fracture hardware in place in good alignment and positioning. No acute proximal femur finding. Dictated By: Aric Mccann MD 06/16/22 2148 Signed By: Aric Mccann MD 06/16/22 214 - Problems (1) Fracture of femur, distal, closed Current Visit: Yes Status: Acute Plan: knee immobilizer non-weight barring for 6 weeks, she can follow up in the office with x rays from the nursing facility in 6 weeks Qualifiers: Encounter type: initial encounter Fracture morphology: other fracture Laterality: right Qualified Code(s): S72.491A - Other fracture of lower end of right femur, initial encounter for closed fracture Conclusions/Impression: she is non ambulatiory with a closed periprosthetic supracondylar femur fracture, the fracture is non-displaced, she is on hospice.
[2022-06-17] MEDS: ATORVASTATIN 40 MG TAB PO SCH (21:43)
[2022-06-18] MEDS: D5.45NS W/KCL 20MEQ 1,000 ML IV SCH ×2 (06:39→17:58)
[2022-06-18] MEDS: CLOPIDOGREL 75 MG TABLET PO SCH (08:35)
[2022-06-18] MEDS: ASPIRIN EC 81 MG TAB PO SCH (08:35)
[2022-06-18] MEDS: FOLIC ACID 1 MG TABLET PO SCH (08:35)
[2022-06-18] MEDS: ENSURE ENLIVE 237 ML CAN PO SCH ×2 (08:36→21:10)
[2022-06-18] MEDS: HEPARIN 5000 UNIT/ML 1 ML VIAL SQ SCH ×2 (10:28→21:09)
--- NOTE | 2022-06-18 11:25 | P.PN ---
Date of Service: 06/16/22 Subjective Patient clinically doing well. Patient is awake and alert. Pleasantly confused Physical Examination - Physical Exam General: Alert, In no apparent distress, Oriented x2, Demented, Confused Respiratory: Clear to auscultation bilaterally, Normal air movement Cardiovascular: Regular rate/rhythm, Normal S1 S2 Gastrointestinal: Normal bowel sounds, No tenderness Musculoskeletal: Minimal right knee tenderness Integumentary: No rashes Assessment and Plan -Assessment Assessment: 1. Metabolic encephalopathy secondary to COVID-19 viral illness complicated with underlying dementia 2. Poor nutrition/oral intake 3. Hypertension 4. Hyperlipidemia - Plan 1. Continue with IV fluids 2. Encourage oral intake 3. Strict blood pressure control 4. Physical therapy evaluation 5. GI DVT prophylaxis
--- NOTE | 2022-06-18 11:26 | P.PN ---
Date of Service: 06/17/22 Subjective Patient continues to improve. Clinical symptoms are stable. Patient did have a fall and it appears she has a femur fracture which extended down to the lower femur. She had a erich placed. Follow-up x-rays have shown poor healing. X-ray findings are suggestive of old fracture. However, distally close to the knee there does appear to be a new femur fracture. Spoke to orthopedic on the phone and they do not feel like patient will need any surgical intervention. Patient has been pretty much bedbound for many months now. Immobilization is probably what they would recommend after evaluation Physical Examination - Physical Exam General: Alert, In no apparent distress, Oriented x2, Demented, Confused Respiratory: Clear to auscultation bilaterally, Normal air movement Cardiovascular: Regular rate/rhythm, Normal S1 S2 Gastrointestinal: Normal bowel sounds, No tenderness Musculoskeletal: Minimal right knee tenderness Integumentary: No rashes Assessment and Plan -Assessment 1. Metabolic encephalopathy secondary to COVID-19 viral illness complicated with underlying dementia 2. Poor nutrition/oral intake 3. Hypertension 4. Hyperlipidemia 5. Status post fall with history of right hip fracture 6. Distal femur fracture 7. History of Alzheimer's dementia with behavioral disturbances - Plan 1. Continue with IV fluids 2. Encourage oral intake 3. Strict blood pressure control 4. Physical therapy evaluation 5. Pain control 6. Orthopedic consultation 7. Continue with antidepressants 8. GI DVT prophylaxis
[2022-06-18] MEDS: ATORVASTATIN 40 MG TAB PO SCH (21:10)
[2022-06-18] MEDS: ACETAMINOPHEN 500 MG TAB PO PRN (21:25)
[2022-06-19] MEDS: D5.45NS W/KCL 20MEQ 1,000 ML IV SCH ×3 (07:01→21:45)
[2022-06-19] MEDS: FOLIC ACID 1 MG TABLET PO SCH (08:10)
[2022-06-19] MEDS: CLOPIDOGREL 75 MG TABLET PO SCH (08:10)
[2022-06-19] MEDS: ASPIRIN EC 81 MG TAB PO SCH (08:10)
[2022-06-19] MEDS: ENSURE ENLIVE 237 ML CAN PO SCH ×2 (08:10→21:45)
[2022-06-19] MEDS: HEPARIN 5000 UNIT/ML 1 ML VIAL SQ SCH ×2 (10:19→21:46)
[2022-06-19] MEDS: ACETAMINOPHEN 500 MG TAB PO PRN (18:14)
[2022-06-19] MEDS: ATORVASTATIN 40 MG TAB PO SCH (21:45)
[2022-06-20] MEDS: CLOPIDOGREL 75 MG TABLET PO SCH (09:06)
[2022-06-20] MEDS: FOLIC ACID 1 MG TABLET PO SCH (09:06)
[2022-06-20] MEDS: HEPARIN 5000 UNIT/ML 1 ML VIAL SQ SCH ×2 (09:06→21:52)
[2022-06-20] MEDS: ASPIRIN EC 81 MG TAB PO SCH (09:06)
[2022-06-20] MEDS: D5.45NS W/KCL 20MEQ 1,000 ML IV SCH ×2 (09:07→23:22)
[2022-06-20] MEDS: ENSURE ENLIVE 237 ML CAN PO SCH ×2 (09:07→22:13)
[2022-06-20] MEDS: BUSPIRONE HCL 15 MG TABLET PO SCH ×2 (15:16→21:52)
[2022-06-20] MEDS: ATORVASTATIN 40 MG TAB PO SCH (21:52)
[2022-06-20] MEDS: DIVALPROEX NA 125 MG CAP PO SCH (21:52)
[2022-06-20] MEDS: MEMANTINE HCL 10 MG TABLET PO SCH (21:52)
--- NOTE | 2022-06-21 04:11 | P.PN ---
Date of Service: 06/19/22 Subjective Had a long conversation with daughter. Patient doing well plan to transfer to [facility] once accepted Physical Examination - Physical Exam General: Alert, In no apparent distress, Oriented x2, Demented, Confused Respiratory: Clear to auscultation bilaterally, Normal air movement Cardiovascular: Regular rate/rhythm, Normal S1 S2 Gastrointestinal: Normal bowel sounds, No tenderness Musculoskeletal: Minimal right knee tenderness Integumentary: No rashes Assessment and Plan -Assessment 1. Metabolic encephalopathy secondary to COVID-19 viral illness complicated with underlying dementia 2. Poor nutrition/oral intake 3. Hypertension 4. Hyperlipidemia 5. Alzheimer's dementia 6. History of behavioral disorder - Plan 1. Continue with IV fluids; will Hep-Lock IV fluids 2. Encourage oral intake 3. Strict blood pressure control 4. Continue with physical therapy 5. Plan to DC COVID isolation over the next 48 hours 6. Continue with antidepressants and dementia medication
--- NOTE | 2022-06-21 04:11 | P.PN ---
Date of Service: 06/18/22 Subjective Patient still little lethargic but more awake and alert. She is starting to do a little bit better. Spoke with daughter regarding plan of care. She wants to transfer her to nursing facility. Physical Examination - Physical Exam General: Alert, In no apparent distress, Oriented x2, Demented, Confused Respiratory: Clear to auscultation bilaterally, Normal air movement Cardiovascular: Regular rate/rhythm, Normal S1 S2 Gastrointestinal: Normal bowel sounds, No tenderness Musculoskeletal: Minimal right knee tenderness Assessment and Plan -Assessment 1. Metabolic encephalopathy secondary to COVID-19 viral illness complicated with underlying dementia 2. Poor nutrition/oral intake 3. Hypertension 4. Hyperlipidemia 5. Possibly an acute distal femur fracture 6. History of hip fracture-nonunion of fracture 7. Alzheimer's dementia 8. Behavioral disorder - Plan 1. Continue with gentle hydration 2. Pain control 3. Strict blood pressure control 4. Continue physical therapy as tolerated; immobilization of the right leg x6 weeks 5. Dementia medications will need to be restarted 6. Patient will need placement to intermediate 7. GI DVT prophylaxis
--- NOTE | 2022-06-21 04:12 | P.PN ---
Date of Service: 06/21/22 Subjective Patient is clinically doing much better. Clinical symptoms are improved. Patient more talkative and more interactive. She is relaxed and calm. Accepted to [facility] for Thursday. Discharge Thursday. Physical Examination - Physical Exam General: Alert, In no apparent distress, Oriented x2, Demented, Confused Respiratory: Clear to auscultation bilaterally, Normal air movement Cardiovascular: Regular rate/rhythm, Normal S1 S2 Gastrointestinal: Normal bowel sounds, No tenderness Musculoskeletal: Minimal right knee tenderness Integumentary: No rashes Assessment and Plan -Assessment 1. Metabolic encephalopathy secondary to COVID-19 viral illness complicated with underlying dementia 2. Poor nutrition/oral intake 3. Hypertension 4. Hyperlipidemia - Plan 1. Hep-Lock IV 2. Encourage oral intake 3. Strict blood pressure control 4. Continue with physical therapy 5. Continue with dementia medications as well as medications for her behavioral disorder 6. GI DVT prophylaxis
--- NOTE | 2022-06-21 04:12 | P.PN ---
Date of Service: 06/20/22 Subjective Patient doing well no new complaints. Physical Examination - Physical Exam General: Alert, In no apparent distress, Oriented x2, Demented, Confused Respiratory: Clear to auscultation bilaterally, Normal air movement Cardiovascular: Regular rate/rhythm, Normal S1 S2 Gastrointestinal: Normal bowel sounds, No tenderness Musculoskeletal: Minimal right knee tenderness Integumentary: No rashes Assessment and Plan -Assessment 1. Metabolic encephalopathy secondary to COVID-19 viral illness complicated with underlying dementia 2. Poor nutrition/oral intake 3. Hypertension 4. Hyperlipidemia - Plan 1. Continue with IV fluids 2. Encourage oral intake 3. Strict blood pressure control 4. Physical therapy evaluation 5. GI DVT prophylaxis
[2022-06-21 06:42] LABS: Absolute Lymphocytes (CBC) 1.7 K/uL (0.7-4.9); Lymphocytes % 21.7 % (15.3-44.8); MCV 95.8 fL (80-100); MPV 6.6 fL (7.6-11.3); RBC Red Blood Cell Count 2.92 M/uL (3.86-4.86)
[2022-06-21 06:58] LABS: Potassium 4.4 mmol/L (3.5-5.1)
[2022-06-21] MEDS: ASPIRIN EC 81 MG TAB PO SCH (08:23)
[2022-06-21] MEDS: CLOPIDOGREL 75 MG TABLET PO SCH (08:24)
[2022-06-21] MEDS: MEMANTINE HCL 10 MG TABLET PO SCH ×2 (08:24→21:50)
[2022-06-21] MEDS: DIVALPROEX NA 125 MG CAP PO SCH ×2 (08:24→21:50)
[2022-06-21] MEDS: BUSPIRONE HCL 15 MG TABLET PO SCH ×3 (08:24→21:50)
[2022-06-21] MEDS: HEPARIN 5000 UNIT/ML 1 ML VIAL SQ SCH ×2 (08:24→21:51)
[2022-06-21] MEDS: ENSURE ENLIVE 237 ML CAN PO SCH ×2 (08:24→21:51)
[2022-06-21] MEDS: FOLIC ACID 1 MG TABLET PO SCH (08:24)
[2022-06-21] MEDS: CITALOPRAM 10 MG TABLET PO SCH (11:21)
[2022-06-21] MEDS: ATORVASTATIN 40 MG TAB PO SCH (21:50)
[2022-06-21] MEDS ORDERED: QUETIAPINE 25 MG TAB PO ONE (23:00)
[2022-06-22] MEDS: DIVALPROEX NA 125 MG CAP PO SCH ×2 (08:38→21:55)
[2022-06-22] MEDS: CITALOPRAM 10 MG TABLET PO SCH (08:38)
[2022-06-22] MEDS: MEMANTINE HCL 10 MG TABLET PO SCH ×2 (08:38→21:55)
[2022-06-22] MEDS: CLOPIDOGREL 75 MG TABLET PO SCH (08:39)
[2022-06-22] MEDS: FOLIC ACID 1 MG TABLET PO SCH (08:39)
[2022-06-22] MEDS: ENSURE ENLIVE 237 ML CAN PO SCH ×2 (08:39→21:55)
[2022-06-22] MEDS: HEPARIN 5000 UNIT/ML 1 ML VIAL SQ SCH ×2 (08:39→21:55)
[2022-06-22] MEDS: ASPIRIN EC 81 MG TAB PO SCH (08:39)
[2022-06-22] MEDS: BUSPIRONE HCL 15 MG TABLET PO SCH ×3 (08:39→21:55)
[2022-06-22] MEDS: ATORVASTATIN 40 MG TAB PO SCH (21:55)
[2022-06-22] MEDS ORDERED: QUETIAPINE 25 MG TAB PO ONE ×2 (23:48)
--- NOTE | 2022-06-23 07:11 | P.PN ---
Date of Service: 06/22/22 Subjective Patient doing well. Stable for transfer to [facility] in morning. Physical Examination - Physical Exam General: Alert, In no apparent distress, Oriented x2, Demented, Confused Respiratory: Clear to auscultation bilaterally, Normal air movement Cardiovascular: Regular rate/rhythm, Normal S1 S2 Gastrointestinal: Normal bowel sounds, No tenderness Musculoskeletal: Minimal right knee tenderness Integumentary: No rashes Assessment and Plan -Assessment Assessment: 1. Metabolic encephalopathy secondary to COVID-19 viral illness complicated with underlying dementia 2. Poor nutrition/oral intake 3. Hypertension 4. Hyperlipidemia - Plan 1. Continue with IV fluids 2. Encourage oral intake 3. Strict blood pressure control 4. Physical therapy evaluation 5. GI DVT prophylaxis
--- NOTE | 2022-06-23 07:12 | P.DS ---
Discharge Date: 06/23/22 Disposition: TRANSFER TO CORRECTION Discharge Condition: FAIR Reason for Admission: AMS Brief History of Present Illness: 87-year-old female was transferred [facility] to emergency department for evaluation of altered mental status. Family reports that patient does have a history of dementia but she is becoming more confused not recognizing family members and also not eating/drinking. She diagnosed with COVID approximate 10 days ago, not having any respiratory symptoms at this time. She is evaluated in the emergency department her labs were significant for elevated BNP 2477, COVID-positive. Patient confused, oriented x1. Unable to obtain baseline family not present at bedside at this time. Will admit patient for further evaluation and management of AMS, COVID 19 viral illness. Vital Signs/Physical Exam: Temp Pulse Resp BP Pulse Ox 97.5 F 76 17 107/54 L 92 06/23/22 04:00 06/23/22 04:00 06/23/22 04:00 06/23/22 04:00 06/23/22 04:00 Laboratory Data at Discharge: WBC 8.00 K/uL (4.3-10.9) 06/21/22 06:32 Hgb 9.8 g/dL (12.0-15.0) L 06/21/22 06:32 Hct 28.0 % (36.0-45.0) L 06/21/22 06:32 Plt Count 276 K/uL (152-406) 06/21/22 06:32 PT 12.4 SECONDS (9.5-12.5) 06/10/22 15:45 INR 1.12 06/10/22 15:45 Sodium 142 mmol/L (136-145) 06/21/22 06:32 Potassium 4.4 mmol/L (3.5-5.1) 06/21/22 06:32 BUN 9 mg/dL (7-18) 06/21/22 06:32 Creatinine 0.65 mg/dL (0.55-1.3) 06/21/22 06:32 Glucose 115 mg/dL (74-106) H 06/21/22 06:32 Magnesium 2.1 mg/dL (1.8-2.4) 06/14/22 05:48 Total Bilirubin 0.3 mg/dL (0.2-1.0) 06/12/22 05:11 AST 33 U/L (15-37) 06/12/22 05:11 ALT 32 U/L (12-78) 06/12/22 05:11 Alkaline Phosphatase 77 U/L (45-117) D 06/12/22 05:11 Triglycerides 249 mg/dL (<150) H 06/12/22 05:11 Cholesterol 201 mg/dL (<200) H 06/12/22 05:11 HDL Cholesterol 31 mg/dL (40-60) L 06/12/22 05:11 Cholesterol/HDL Ratio 6.48 06/12/22 05:11 Home Medications: Aspirin [Aspirin EC 81 MG] 81 mg PO DAILY 06/01/21 Citalopram Hydrobromide [Celexa] 20 mg PO DAILY 06/01/21 Memantine HCl 10 mg PO BID 06/01/21 Docusate [Colace Cap*] 100 mg PO BID #0 cap 06/07/21 Acetaminophen 650 mg PO TID 10/21/21 Buspirone HCl 15 mg PO TID 10/21/21 Carboxymethylcellulos/Glycerin [Refresh Relieva 0.5-0.9% Drop] 1 drop OP BID 10/21/21 Cyanocobalamin (Vitamin B-12) [Vitamin B-12] 1,000 mcg PO DAILY 10/21/21 Divalproex Sodium 250 mg PO BID 10/21/21 Ferrous Sulfate [Ferrous Sulfate*] 325 mg PO DAILY 10/21/21 Folic Acid 1 mg PO DAILY 10/21/21 Loratadine [Claritin*] 10 mg PO DAILY 10/21/21 Ascorbic Acid [Vitamin C] 1,000 mg PO DAILY 06/11/22 Cholecalciferol (Vitamin D3) [Vitamin D3] 2,000 unit PO DAILY 06/11/22 Petrolatum 41% Oint [Aquaphor] 396 ayo TOP DAILY 06/11/22 Atorvastatin Calcium [Lipitor] 40 mg PO BEDTIME #30 tab 06/22/22 Clopidogrel Bisulfate [Plavix*] 75 mg PO DAILY #30 06/22/22 Ensure Enlive 237 ml PO BID #60 can 06/22/22 Furosemide [Lasix] 20 mg PO DAILY #30 06/22/22 Potassium Chloride [K-Dur] 10 meq PO DAILY #30 06/22/22 New Medications: Ensure Enlive 237 ml PO BID #60 can Potassium Chloride [K-Dur] 10 meq PO DAILY #30 Furosemide [Lasix] 20 mg PO DAILY #30 Atorvastatin Calcium [Lipitor] 40 mg PO BEDTIME #30 tab Clopidogrel Bisulfate [Plavix*] 75 mg PO DAILY #30 Physician Discharge Instructions: -DC IV and DC to [facility] on June 22, 2022 -Follow-up with PCP in 1 to 2 days -Follow-up with orthopedics in 6 weeks -Please call Dr. Lund at [phone] if any questions regarding hospital stay -Please call nursing station at [phone] if any nursing or medication questions -Return to the emergency room if symptoms worsen Diet: Regular Activity: NWB Right leg x 6wk Followup: Angelica Dillard MD [Primary Care Provider] -
[2022-06-23] MEDS: HEPARIN 5000 UNIT/ML 1 ML VIAL SQ SCH (08:08)
[2022-06-23] MEDS: ASPIRIN EC 81 MG TAB PO SCH (08:08)
[2022-06-23] MEDS: FOLIC ACID 1 MG TABLET PO SCH (08:08)
[2022-06-23] MEDS: CLOPIDOGREL 75 MG TABLET PO SCH (08:08)
[2022-06-23] MEDS: MEMANTINE HCL 10 MG TABLET PO SCH (08:08)
[2022-06-23] MEDS: CITALOPRAM 10 MG TABLET PO SCH (08:09)
[2022-06-23] MEDS: ENSURE ENLIVE 237 ML CAN PO SCH (08:11)
[2022-06-23] MEDS: BUSPIRONE HCL 15 MG TABLET PO SCH ×2 (08:13→13:26)
[2022-06-23] MEDS: DIVALPROEX NA 125 MG CAP PO SCH (08:13)
[2022-06-23 08:52] VITALS: O2SAT 93
[2022-06-23 12:10] VITALS: BP 103/50; TEMP 97.6
--- NOTE | 2022-06-24 09:33 | EEG ---
CHART: [id number] TEST ID#: [id number] DATE OF STUDY: 06/12/2022 THE EEG WAS RECORDED PORTABLE IN THE PATIENT'S ROOM ON A 17 CHANNEL MACHINE. ELECTRODES WERE APPLIED IN THE USUAL MANNER USING THE INTERNATIONAL 10-20 SYSTEM. THE WAKING BACKGROUND RHYTHM IN THIS RECORD CONSISTS OF FAIRLY WELL DEVELOPED AND FAIRLY WELL ORGANIZED WAVES OF 9 HZ., WHICH ATTENUATE NORMALLY WITH EYE OPENING. LOW-VOLTAGE 18-22 HZ ACTIVITY IS EXPRESSED IN THE FRONTAL REGIONS. THERE ARE NO FOCAL OR LATERALIZING FEATURES. NO EPILEPTIFORM ACTIVITY APPEARS. SLEEP OCCURRED NATURALLY. IN ADDITION NORMAL SLEEP PATTERNS ARE PRESENT. HYPERVENTILATION WAS NOT PERFORMED. PHOTIC STIMULATION PRODUCED FAIR DRIVING BILATERALLY. IMPRESSION: NORMAL EEG FOR THE AGE OF THE PATIENT IN [place], DROWSINESS AND SLEEP.
== END 2022-06-23 14:28 | disposition hospice, inpatient (51) | DRG 177 ==
LOC: ER 14:45 → ERHOLD 21:16 → 4TH 21:46
PROVIDERS: ADMIT Internal Medicine; ATTEND Hospitalist
DX: U07.1 COVID-19 (principal); G92.8 Other toxic encephalopathy; S72.401A Unspecified fracture of lower end of right femur, initial encounter for closed fracture; I63.89 Other cerebral infarction; M97.11XA Periprosthetic fracture around internal prosthetic right knee joint, initial encounter; I10 Essential (primary) hypertension; E78.5 Hyperlipidemia, unspecified; F32.A Depression, unspecified; K42.9 Umbilical hernia without obstruction or gangrene; F91.9 Conduct disorder, unspecified; M25.551 Pain in right hip; M19.90 Unspecified osteoarthritis, unspecified site; G30.9 Alzheimer's disease, unspecified; F02.80 Dementia in other diseases classified elsewhere, unspecified severity, without behavioral disturbance, psychotic disturbance, mood disturbance, and anxiety; M48.56XD Collapsed vertebra, not elsewhere classified, lumbar region, subsequent encounter for fracture with routine healing; R29.704 NIHSS score 4; Z66 Do not resuscitate; Z85.3 Personal history of malignant neoplasm of breast; Z74.01 Bed confinement status; Z79.82 Long term (current) use of aspirin; Z79.02 Long term (current) use of antithrombotics/antiplatelets; Z79.899 Other long term (current) drug therapy; Z90.710 Acquired absence of both cervix and uterus; Y92.239 Unspecified place in hospital as the place of occurrence of the external cause; Y93.9 Activity, unspecified; W01.0XXA Fall on same level from slipping, tripping and stumbling without subsequent striking against object, initial encounter
CPT/HCPCS: 36415; 51702; 70450; 70544; 70549; 70551; 71045; 71260; 74177; 80048; 80053; 80061; 80076; 81003; 81015; 82140; 82607; 82805; 83036; 83605; 83735; 83880; 84145; 84439; 84443; 84484; 85025; 85610; 85730; 86140; 87040; 87086; 87088; 87804; 87811; 93005; 93306; 93880; 94010; 95816; 96360; 96361; 96374; 97110; 97112; 97161; 97164; 97530; 99285; A9577; J0692; J1644; J2405; J7040; J7120; Q9967; U0003